=== PATIENT | female | born 1985 | race Caucasian/White ===

== ENCOUNTER 2016-04-29 20:01 | Inpatient (IN) | payer BC ==
[2016-04-29] MEDS ORDERED: RINGERS SOLUTION,LACTATED 300 ML IV ONE (20:15)
[2016-04-29] MEDS ORDERED: DINOPROSTONE 10 MG VAGINAL INSERT.SR PV PRN (20:15)
[2016-04-29] MEDS ORDERED: PROMETHAZINE HCL 25 MG TABLET PO PRN (20:19)
[2016-04-29] MEDS ORDERED: PROMETHAZINE HCL INJ 25 MG/1 ML VIAL IV PRN (20:19)
[2016-04-29] MEDS ORDERED: GLYCERIN/WITCH HAZEL LEAF 1 EACH MED..PAD TP PRN (20:19)
[2016-04-29] MEDS ORDERED: NA PHOS,M-B/NA PHOS,DI-BA (ADULT) 133 ML ENEMA PR PRN (20:19)
[2016-04-29] MEDS ORDERED: MAGNESIUM HYDROXIDE SUSP 30 ML UDCUP PO PRN (20:19)
[2016-04-29] MEDS ORDERED: PROMETHAZINE HCL 25 MG SUPP.RECT PR PRN (20:19)
[2016-04-29] MEDS ORDERED: DIPHENHYDRAMINE HCL 25 MG CAPSULE PO PRN (20:19)
[2016-04-29] MEDS ORDERED: PSEUDOEPHEDRINE HCL 30 MG TABLET PO PRN (20:19)
[2016-04-29] MEDS ORDERED: ACETAMINOPHEN 650 MG SUPP.RECT PR PRN (20:19)
[2016-04-29 20:47] LABS: ABSOLUTE EOSINOPHILS # (AUTO) 0.1 10^3/uL (0.0-0.6); ABSOLUTE LYMPHOCYTES (AUTO) 1.4 10^3/uL (0.5-4.7); ABSOLUTE MONOCYTES (AUTO) 0.8 10^3/uL (0.1-1.4); ABSOLUTE NEUT (AUTO) 8.1 10^3/uL (1.7-8.2); BASOPHILS % (AUTO) 0.3 % (0-2); EOSINOPHILS % (AUTO) 0.8 % (0-6); HEMATOCRIT 32.5 % (36.0-47.0); HEMOGLOBIN 11.1 g/dL (12.0-15.5); HGB HCT DIFFERENCE 0.8; LYMPHOCYTES % (AUTO) 13.6 % (13-45); MEAN CORPUSCULAR HEMOGLOBIN 28.1 pg (27.0-33.4); MEAN CORPUSCULAR HGB CONC 34.1 g/dL (32.0-36.0); MEAN CORPUSCULAR VOLUME 82 fl (80-97); MONOCYTES % (AUTO) 7.6 % (3-13); RED BLOOD COUNT 3.94 10^6/uL (3.72-5.28); RED CELL DISTRIBUTION WIDTH 14.4 % (11.5-14.0); SEGMENTED NEUTROPHILS % (AUTO) 77.7 % (42-78); WHITE BLOOD COUNT 10.4 10^3/uL (4.0-10.5)
[2016-04-29 20:56] LABS: APPEARANCE,URINE SLIGHTLY-CLOUDY; BILIRUBIN,URINE NEGATIVE (NEGATIVE); GLUCOSE, URINE NEGATIVE (NEGATIVE); KETONES,URINE NEGATIVE (NEGATIVE); LEUKOCYTE ESTERASE,URINE NEGATIVE (NEGATIVE); NITRITE,URINE NEGATIVE (NEGATIVE); PROTEIN,URINE NEGATIVE (NEGATIVE); URINE SPECIFIC GRAVITY 1.012; UROBILINOGEN,URINE NEGATIVE mg/dL (<2.0)
[2016-04-29 21:13] LABS: URINE BARBITURATES SCREEN NEGATIVE; URINE METHADONE SCREEN NEGATIVE; URINE PHENCYCLIDINE SCREEN NEGATIVE
[2016-04-29 21:20] LABS: ALANINE AMINOTRANSFERASE 32 U/L (9-52); ALBUMIN 3.1 g/dL (3.5-5.0); ALKALINE PHOSPHATASE 125 U/L (38-126); ANION GAP 11 (5-19); ASPARTATE AMINO TRANSFERASE 17 U/L (14-36); BILIRUBIN,TOTAL 0.3 mg/dL (0.2-1.3); BLOOD UREA NITROGEN 8 mg/dL (7-20); CALCIUM 9.5 mg/dL (8.4-10.2); CARBON DIOXIDE 22 mmol/L (22-30); CHLORIDE 105 mmol/L (98-107); CREATININE RESULT 0.66 mg/dL (0.52-1.25); GLUCOSE 98 mg/dL (75-110); LDH 380 U/L (313-618); POTASSIUM 3.8 mmol/L (3.6-5.0); SODIUM 137.9 mmol/L (137-145); TOTAL PROTEIN 5.8 g/dL (6.3-8.2); URIC ACID 4.5 mg/dL (2.5-6.2)
[2016-04-29] MEDS ORDERED: DINOPROSTONE 10 MG VAGINAL INSERT.SR ONE (21:39)
[2016-04-29] MEDS: RINGERS SOLUTION,LACTATED 1,000 ML IV PRN (21:52)
--- NOTE | 2016-04-30 04:46 | L&D Flow Sheet ---
LD Flowsheet Datetime Report Generated by CPN: 04/30/2016 04:45 Datetime: 04/30/2016 04:42 NBP Sys/Earlene/Mean (mmHg): 136 (QS system process) : 69 (QS system process) : 95 (QS system process) Pulse: 108 (QS system process) LaborFlag: Antepartum (QS system process) Datetime: 04/30/2016 04:12 NBP Sys/Earlene/Mean (mmHg): 137 (QS system process) : 65 (QS system process) : 92 (QS system process) Pulse: 95 (QS system process) LaborFlag: Antepartum (QS system process) Datetime: 04/30/2016 04:00 Uterine Activity Monitor Mode: External; Palpation (Kristel Ledgerwood, RN) Frequency (min): irreg (Kristel Ledgerwood, RN) Quality: Mild (Kristel Ledgerwood, RN) Duration (sec): 60-80 (Kristel Ledgerwood, RN) Duration Criteria: Less than Two 120 Second Contractions (Kristel Ledgerwood, RN) Pattern: Normal: <= 5 Contractions in 10 Minutes (Kristel Ledgerwood, RN) Resting Tone (Palpate): Relaxed (Kristel Ledgerwood, RN) Assessment A Monitor Mode: External US (Kristel Ledgerwood, RN) FHR Baseline Rate : 120 (Kristel Ledgerwood, RN) FHR Baseline Changes: No Baseline Change (Kristel Ledgerwood, RN) Variability: Moderate 6-25 bpm (Kristel Ledgerwood, RN) Accelerations: 15X15 (Kristel Ledgerwood, RN) Decelerations: None (Kristel Ledgerwood, RN) Datetime: 04/30/2016 03:43 NBP Sys/Earlene/Mean (mmHg): 138 (QS system process) : 77 (QS system process) : 101 (QS system process) Pulse: 93 (QS system process) Respirations: 15 (Kristel Ledgerwood, RN) LaborFlag: Antepartum (QS system process) Datetime: 04/30/2016 03:30 Uterine Activity Monitor Mode: External; Palpation (Kristel Ledgerwood, RN) Frequency (min): irreg (Kristel Ledgerwood, RN) Quality: Mild (Kristel Ledgerwood, RN) Duration (sec): 60-80 (Kristel Ledgerwood, RN) Duration Criteria: Less than Two 120 Second Contractions (Rkistel Ledgerwood, RN) Pattern: Normal: <= 5 Contractions in 10 Minutes (Kristel Ledgerwood, RN) Resting Tone (Palpate): Relaxed (Kristel Ledgerwood, RN) Assessment A Monitor Mode: External US (Kristel Ledgerwood, RN) FHR Baseline Rate : 120 (Kristel Ledgerwood, RN) FHR Baseline Changes: No Baseline Change (Kristel Ledgerwood, RN) Variability: Moderate 6-25 bpm (Kristel Ledgerwood, RN) Accelerations: 15X15 (Kristel Ledgerwood, RN) Decelerations: None (Kristel Ledgerwood, RN) Datetime: 04/30/2016 03:23 NBP Sys/Earlene/Mean (mmHg): 156 (QS system process) : 72 (QS system process) : 104 (QS system process) Pulse: 91 (QS system process) LaborFlag: Antepartum (QS system process) Datetime: 04/30/2016 03:13 NBP Sys/Earlene/Mean (mmHg): 164 (QS system process) : 75 (QS system process) : 108 (QS system process) Pulse: 93 (QS system process) LaborFlag: Antepartum (QS system process) Datetime: 04/30/2016 03:05 Communication Communication: Provider at Bedside (Kristel Rodrigez, RN) Communication Comments: Valdemar at bedside. Due to inability to constantly monitoring FHRs, Dr Aldrich unsuccessfully attempted to place an FSE.Dr Aldrich is aware of monitoring difficulties. (Kristelbassem Vaughnwood, RN) Datetime: 04/30/2016 03:00 Uterine Activity Monitor Mode: External; Palpation (Kristel Ledgerwood, RN) Frequency (min): none (Kristel Ledgerwood, RN) Resting Tone (Palpate): Relaxed (Kristel Analygerwood, RN) Assessment A Monitor Mode: External US (Kristel Ledgerwood, RN) FHR Baseline Rate : 120 (Kristel Ledgerwood, RN) FHR Baseline Changes: No Baseline Change (Kristel Ledgerwood, RN) Variability: Moderate 6-25 bpm (Kristel Ledgerwood, RN) Accelerations: None (Kristel Ledgerwood, RN) Decelerations: None (Kristel Ledgerwood, RN) Datetime: 04/30/2016 02:42 NBP Sys/Earlene/Mean (mmHg): 118 (QS system process) : 60 (QS system process) : 83 (QS system process) Pulse: 87 (QS system process) LaborFlag: Antepartum (QS system process) Datetime: 04/30/2016 02:30 Uterine Activity Monitor Mode: External; Palpation (Kristel Ledgerwood, RN) Frequency (min): none (Kristel Ledgerwood, RN) Resting Tone (Palpate): Relaxed (Kristel Ledgerwood, RN) Assessment A Monitor Mode: External US (Kristel Ledgerwood, RN) FHR Baseline Rate : 130 (Kristel Ledgerwood, RN) FHR Baseline Changes: No Baseline Change (Kristel Ledgerwood, RN) Variability: Moderate 6-25 bpm (Kristel Ledgerwood, RN) Accelerations: None (Kristel Ledgerwood, RN) Decelerations: None (Kristel Ledgerwood, RN) Datetime: 04/30/2016 02:12 NBP Sys/Earlene/Mean (mmHg): 121 (QS system process) : 67 (QS system process) : 86 (QS system process) Pulse: 72 (QS system process) LaborFlag: Antepartum (QS system process) Datetime: 04/30/2016 02:00 Uterine Activity Monitor Mode: External; Palpation (Kristel Rodrigez RN) Frequency (min): irreg (Kristel Rodrigez RN) Quality: Mild (Kristel Rodrigez, RN) Duration (sec): 60-80 (Kristel Rodrigez RN) Duration Criteria: Less than Two 120 Second Contractions (Kristel Rodrigez RN) Pattern: Normal: <= 5 Contractions in 10 Minutes (Kristel Ledgerwood, RN) Resting Tone (Palpate): Relaxed (Kristel Ledgerwood, RN) Assessment A Monitor Mode: External US (Kristel Ledgerwood, RN) FHR Baseline Rate : 135 (Kristel Ledgerwood, RN) FHR Baseline Changes: No Baseline Change (Kristel Ledgerwood, RN) Variability: Moderate 6-25 bpm (Kristel Ledgerwood, RN) Accelerations: 10X10 (Kristel Ledgerwood, RN) Decelerations: None (Kristel Ledgerwood, RN) Datetime: 04/30/2016 01:42 NBP Sys/Earlene/Mean (mmHg): 144 (QS system process) : 65 (QS system process) : 93 (QS system process) Pulse: 95 (QS system process) LaborFlag: Antepartum (QS system process) Datetime: 04/30/2016 01:30 Uterine Activity Monitor Mode: External; Palpation (Kristel Ledgerwood, RN) Frequency (min): irreg (Kristel Ledgerwood, RN) Quality: Mild (Kristel Ledgerwood, RN) Duration (sec): 60-80 (Kristel Ledgerwood, RN) Duration Criteria: Less than Two 120 Second Contractions (Kristel Ledgerwood, RN) Pattern: Normal: <= 5 Contractions in 10 Minutes (Kristel Ledgerwood, RN) Resting Tone (Palpate): Relaxed (Kristel Ledgerwood, RN) Assessment A Monitor Mode: External US (Kristel Ledgerwood, RN) FHR Baseline Rate : 135 (Kristel Ledgerwood, RN) FHR Baseline Changes: No Baseline Change (Kristel Ledgerwood, RN) Variability: Moderate 6-25 bpm (Kristel Ledgerwood, RN) Accelerations: 10X10 (Kristel Ledgerwood, RN) Decelerations: Early (Kristel Ledgerwood, RN) Datetime: 04/30/2016 01:22 Communication Comments: Dr Aldrich on the unit. MD reviewed the strip, RN noted on the difficulty to keep the baby on the monitor (Kristelbassem Beckfordgerwood, RN) Datetime: 04/30/2016 01:13 NBP Sys/Earlene/Mean (mmHg): 123 (QS system process) : 60 (QS system process) : 86 (QS system process) Pulse: 81 (QS system process) LaborFlag: Antepartum (QS system process) Datetime: 04/30/2016 01:00 Uterine Activity Monitor Mode: External; Palpation (Kristel Ledgerwood, RN) Frequency (min): irreg (Kristel Ledgerwood, RN) Quality: Mild (Kristel Ledgerwood, RN) Duration (sec): 50-80 (Kristel Ledgerwood, RN) Duration Criteria: Less than Two 120 Second Contractions (Kristel Ledgerwood, RN) Pattern: Normal: <= 5 Contractions in 10 Minutes (Kristel Ledgerwood, RN) Resting Tone (Palpate): Relaxed (Kristel Ledgerwood, RN) Assessment A Monitor Mode: External US (Kristel Ledgerwood, RN) FHR Baseline Rate : 135 (Kristel Ledgerwood, RN) FHR Baseline Changes: No Baseline Change (Kristel Ledgerwood, RN) Variability: Moderate 6-25 bpm (Kristel Ledgerwood, RN) Accelerations: 10X10 (Kristel Ledgerwood, RN) Decelerations: None (Kristel Ledgerwood, RN) Datetime: 04/30/2016 00:42 NBP Sys/Earlene/Mean (mmHg): 120 (QS system process) : 56 (QS system process) : 80 (QS system process) Pulse: 72 (QS system process) LaborFlag: Antepartum (QS system process) Datetime: 04/30/2016 00:30 Uterine Activity Monitor Mode: External; Palpation (Kristel Ledgerwood, RN) Frequency (min): irreg (Kristel Ledgerwood, RN) Quality: Mild (Kristel Ledgerwood, RN) Duration (sec): 60-70 (Kristel Ledgerwood, RN) Duration Criteria: Less than Two 120 Second Contractions (Kristel Ledgerwood, RN) Pattern: Normal: <= 5 Contractions in 10 Minutes (Kristel Ledgerwood, RN) Resting Tone (Palpate): Non Relaxed (Kristel Ledgerwood, RN) Monitor Interventions for FHR: Ultrasound Adjusted (Kristel Beckfordgerclyde, RN) Datetime: 04/30/2016 00:14 NBP Sys/Earlene/Mean (mmHg): 152 (QS system process) : 88 (QS system process) : 108 (QS system process) Pulse: 102 (QS system process) LaborFlag: Antepartum (QS system process) Datetime: 04/30/2016 00:00 Uterine Activity Monitor Mode: External; Palpation (Kristel Ledgerwood, RN) Frequency (min): irreg (Kristel Ledgerwood, RN) Quality: Mild (Kristel Ledgerwood, RN) Duration (sec): 50-70 (Kristel Ledgerwood, RN) Duration Criteria: Less than Two 120 Second Contractions (Kristel Ledgerwood, RN) Pattern: Normal: <= 5 Contractions in 10 Minutes (Kristel Ledgerwood, RN) Resting Tone (Palpate): Relaxed (Kristel Ledgerwood, RN) Assessment A Monitor Mode: External US (Kristel Ledgerwood, RN) FHR Baseline Rate : 135 (Kristel Ledgerwood, RN) FHR Baseline Changes: No Baseline Change (Kristel Ledgerwood, RN) Variability: Moderate 6-25 bpm (Kristel Ledgerwood, RN) Accelerations: 10X10 (Kristel Ledgerwood, RN) Decelerations: None (Kristel Ledgerwood, RN) Datetime: 04/29/2016 23:42 NBP Sys/Earlene/Mean (mmHg): 134 (QS system process) : 71 (QS system process) : 96 (QS system process) Pulse: 93 (QS system process) LaborFlag: Antepartum (QS system process) Datetime: 04/29/2016 23:30 Uterine Activity Monitor Mode: External; Palpation (Kristel Rodrigez, RN) Frequency (min): 4 (Kristel Rodrigez, RN) Quality: Mild (Kristel Elia, RN) Duration (sec): 70-90 (Kristel Analygerclyde, RN) Duration Criteria: Less than Two 120 Second Contractions (Kristel Johanawood, RN) Pattern: Normal: <= 5 Contractions in 10 Minutes (Kristelbassem Rodrigez, RN) Resting Tone (Palpate): Relaxed (Kristel Ledgerwood, RN) Assessment A Monitor Mode: External US (Kristel Ledgerwood, RN) FHR Baseline Rate : 130 (Kristel Ledgerwood, RN) FHR Baseline Changes: No Baseline Change (Kristel Ledgerwood, RN) Variability: Moderate 6-25 bpm (Kristel Ledgerwood, RN) Accelerations: 15X15 (Kristel Ledgerwood, RN) Decelerations: None (Kristel Ledgerwood, RN) Datetime: 04/29/2016 23:12 NBP Sys/Earlene/Mean (mmHg): 144 (QS system process) : 65 (QS system process) : 94 (QS system process) Pulse: 99 (QS system process) LaborFlag: Antepartum (QS system process) Datetime: 04/29/2016 23:00 Uterine Activity Monitor Mode: External; Palpation (Kristel Ledgerwood, RN) Frequency (min): irreg (Kristel Ledgerwood, RN) Quality: Mild (Kristel Ledgerwood, RN) Duration (sec): 60-90 (Kristel Ledgerwood, RN) Duration Criteria: Less than Two 120 Second Contractions (Kristel Ledgerwood, RN) Pattern: Normal: <= 5 Contractions in 10 Minutes (Kristel Ledgerwood, RN) Resting Tone (Palpate): Relaxed (Kristel Ledgerwood, RN) Assessment A Monitor Mode: External US (Kristel Ledgerwood, RN) FHR Baseline Rate : 120 (Kristel Ledgerwood, RN) FHR Baseline Changes: No Baseline Change (Kristel Ledgerwood, RN) Variability: Moderate 6-25 bpm (Kristel Ledgerwood, RN) Accelerations: 15X15 (Kristel Ledgerwood, RN) Decelerations: None (Kristel Ledgerwood, RN) Datetime: 04/29/2016 22:44 Patient Care IV/Blood Work: IV Started (Kristel Ledgerwood, RN) Patient Care Comments: IV restarted due to uncomfortable feeling of the first IV for the pt. 18 G Right Hand by O Ledgerwood RN (Kristel Ledgerwood, RN) Datetime: 04/29/2016 22:30 Uterine Activity Monitor Mode: External; Palpation (Kristel Ledgerwood, RN) Frequency (min): none (Kristel Ledgerwood, RN) Resting Tone (Palpate): Relaxed (Kristel Ledgerwood, RN) Assessment A Monitor Mode: External US (Kristel Ledgerwood, RN) FHR Baseline Rate : 130 (Kristel Ledgerwood, RN) FHR Baseline Changes: No Baseline Change (Kristel Ledgerwood, RN) Variability: Moderate 6-25 bpm (Kristel Ledgerwood, RN) Accelerations: 15X15 (Kristel Ledgerwood, RN) Decelerations: None (Kristel Ledgerwood, RN) Datetime: 04/29/2016 22:12 NBP Sys/Earlene/Mean (mmHg): 139 (QS system process) : 70 (QS system process) : 97 (QS system process) Pulse: 100 (QS system process) LaborFlag: Antepartum (QS system process) Datetime: 04/29/2016 22:00 Uterine Activity Monitor Mode: External; Palpation (Kristel Ledgerwood, RN) Frequency (min): none (Kristel Ledgerwood, RN) Resting Tone (Palpate): Relaxed (Kristel Ledgerwood, RN) Assessment A Monitor Mode: External US (Kristel Ledgerwood, RN) FHR Baseline Rate : 125 (Kristel Ledgerwood, RN) FHR Baseline Changes: No Baseline Change (Kristel Ledgerwood, RN) Variability: Moderate 6-25 bpm (Kristel Ledgerwood, RN) Accelerations: 15X15 (Kristel Ledgerwood, RN) Decelerations: None (Kristel Ledgerwood, RN) Datetime: 04/29/2016 21:55 Medications Cervical Ripening Agents: Cervidil (Kristel Ledgerwood, RN) Datetime: 04/29/2016 21:47 I/O Interventions: Up to BR (Kristel Ledgerwood, RN) Communication Communication: RN at Bedside (Kristel Ledgerwood, RN) Datetime: 04/29/2016 21:42 NBP Sys/Earlene/Mean (mmHg): 132 (QS system process) : 80 (QS system process) : 99 (QS system process) Pulse: 98 (QS system process) Respirations: 14 (Kristel Ledgerwood, RN) LaborFlag: Antepartum (QS system process) Datetime: 04/29/2016 21:32 Patient Care IV/Blood Work: IV Started; New IV Bag Hung (Kristel Ledgerwood, RN) Patient Care Comments: 18 G left hand by O Ledgerwood RN (Kristel Ledgerwood, RN) Datetime: 04/29/2016 21:30 Uterine Activity Monitor Mode: External; Palpation (Kristel Ledgerwood, RN) Frequency (min): none (Kristel Ledgerwood, RN) Resting Tone (Palpate): Relaxed (Kristel Ledgerwood, RN) Assessment A Monitor Mode: External US (Kristel Ledgerwood, RN) FHR Baseline Rate : 120 (Kristel Ledgerwood, RN) FHR Baseline Changes: No Baseline Change (Kristel Ledgerwood, RN) Variability: Moderate 6-25 bpm (Kristel Ledgerwood, RN) Accelerations: 15X15 (Kristel Ledgerwood, RN) Decelerations: None (Kristel Ledgerwood, RN) Datetime: 04/29/2016 21:11 Pulse: 103 (QS system process) SpO2 (%): 96 (QS system process) LaborFlag: Antepartum (QS system process) Datetime: 04/29/2016 21:00 Uterine Activity Monitor Mode: External; Palpation ([facility]) Frequency (min): none ([facility], ) Resting Tone (Palpate): Relaxed ([facility], ) Contraction Comments: pt reports of no feeling of contractions. Abdoment is soft upon the palpation. ([facility], ) Assessment A Monitor Mode: External US ([facility], ) FHR Baseline Rate : 125 ([facility], ) FHR Baseline Changes: No Baseline Change ([facility], ) Variability: Moderate 6-25 bpm (Kristel Ledgerwood, RN) Accelerations: 15X15 (Kristel Ledgerwood, RN) Decelerations: None (Kristel Ledgerwood, RN) Datetime: 04/29/2016 20:42 NBP Sys/Earlene/Mean (mmHg): 141 (QS system process) : 83 (QS system process) : 104 (QS system process) Pulse: 105 (QS system process) LaborFlag: Antepartum (QS system process) Datetime: 04/29/2016 20:40 Pain Pain Scale: 0 (Kristel Ledgerwood, RN) Pain Presence: None/Denies (Kristel Ledgerwood, RN) Vaginal Bleeding: None (Kristel Ledgerwood, RN) Maternal Assessment Level of Consciousness: Fully Conscious (Kristel Ledgerwood, RN) DTR's/Clonus: DTRs 2+; No Clonus (Kristel Ledgerwood, RN) Headache: Denies (Kristel Ledgerwood, RN) Breath Sounds, Left: Clear and Equal (Kristel Ledgerwood, RN) Breath Sounds, Right: Clear and Equal (Kristel Ledgerwood, RN) Nausea/Vomiting: Denies (Kristel Ledgerwood, RN) RUQ Epigastric Pain: Denies (Kristel Ledgerwood, RN) Teaching Instructional Method: Demo; Verbal; Patient Instructed (Kristel Rodrigez RN) Plan of Care: Plan of Care Discussed; Induction (Kristel Rodrigez RN) Unit Routine: Lyle to Room; Call [facility]; Bed; Handwashing; Monitoring; Safety/Fall Risk Prevention (Kristel Rodrigez RN) LaborFlag: Antepartum (QS system process) Datetime: 04/29/2016 20:39 Patient Position/Activity: Right Tilt (Kristel Ledgerwood, RN) Datetime: 04/29/2016 20:30 Monitor Interventions for UA: [place] Adjusted (Kristel Ledgerwood, RN) Monitor Interventions for FHR: Ultrasound Adjusted (Kristel Ledgerwood, RN) Communication Communication: RN at Bedside (Kristel Ledgerwood, RN) Datetime: 04/29/2016 20:23 Monitor Interventions for UA: [place] Adjusted (Kristel Ledgerwood, RN) Monitor Interventions for FHR: Ultrasound Adjusted (Kristel Ledgerwood, RN) Datetime: 04/29/2016 20:22 Vaginal Exam Dilatation (cm): 1.5 (Kristel Ledgerwood, RN) Effacement (%): 60 (Kristel Ledgerwood, RN) Station: -2 (Kristel Analygerwood, RN) Exam by: Alvarez Rodrigez RN (Kristel Beckfordgerwood, RN) Patient Position/Activity: Left Tilt (Kristel Johanawood, RN) Datetime: 04/29/2016 20:05 Vital Signs Stage of : Antepartum (Kristel Vaughnwood, RN)
--- NOTE | 2016-04-30 04:46 | L&D Current Admission ---
Current Admit Datetime Report Generated by CPN: 04/30/2016 04:45 ADMISSION INFORMATION Current Admit Date/Time: 04/29/2016 23:32 (04/29/2016 23:27:Kristel Rodrigez RN) Reason for Admission: Induction of Labor (04/29/2016 23:27:Kristel Rodrigez RN) Chief Complaint: Scheduled Induction of Labor (04/29/2016 20:40:Kristel Rodrigez RN) EGA per Dates: 39.0 (04/29/2016 23:27:QS system process) Method of Arrival: Ambulatory (04/29/2016 23:27:Kristel Rodrigez RN) Admitted From: Home (04/29/2016 23:27:Kristel Rodrigez RN) Reason for Induction: Gestational Hypertension (04/29/2016 23:27:Kristel Rodrigez RN) Records Available: Yes (04/29/2016 23:27:Kristel Rodrigez RN) General Admission Information: Reviewed (04/29/2016 23:27:Kristel Rodrigez RN) BELONGINGS/ADVANCED DIRECTIVES Valuables/Personal Effects: None (04/29/2016 23:27:Kristel Rodrigez RN) Other Belongings: see belongings consents (04/29/2016 23:27:Kristel Rodrigez RN) Disposition of Belongings: Kept with Patient (04/29/2016 23:27:Kristel Rodrigez RN) Advance Direct for Healthcare: No, and Wants No Information (04/29/2016 23:27:Kristel Rodrigez RN) Durable Power of Coal Pipeline Operator: No (04/29/2016 23:27:Kristel Rodrigez RN) Living Will: No (04/29/2016 23:27:Kristel Rodrigez RN) Organ Donor: Yes (04/29/2016 23:27:Kristel Rodrigez RN) Pt Rights Information Given: Yes (04/29/2016 23:27:Kristel Rodrigez RN) Pt Understands Pt Rights: Yes (04/29/2016 23:27:Kristel Rodrigez RN) LEARNING ASSESSMENT Knowledge Level: Understands L_D Process; Understands Care Activities; Had Pre-Hospital Education; Understands Diagnosis (04/29/2016 23:27:Kristel Rodrigez RN) Barriers to Learning: None (04/29/2016 23:27:Kristel Rodrigez RN) Learning Readiness: Motivated (04/29/2016 23:27:Kristel Rodrigez RN) Learns Best By: 1 to 1 Instruction (04/29/2016 23:27:Kristel Rodrigez RN) Learning Needs: Labor and Delivery Process; Pain Management; Symptoms to Report; Treatment Plan; Medication; Diagnosis; Nutrition; Equipment; Infant Care; Community Resources (04/29/2016 23:27:Kristel Rodrigez RN) DOMESTIC VIOLANCE SCREENING Dom Viol Threatened/Hurt: No (04/29/2016 23:27:Kristel Rodrigez RN) Hx of Abuse/Neglect past 2yrs: No (04/29/2016 23:27:Kristel Rodrigez RN) Feel Unsafe Going Home: No (04/29/2016 23:27:Kristel Rodrigez RN) Addt'l Observ Indicating Abuse: No (04/29/2016 23:27:Kristel Rodrigez RN) Reason Unable to Complete Screen: N/A, Screen Completed (04/29/2016 23:27:Kristel Rodrigez RN) Considered Personal Harm/Suicide: No (04/29/2016 23:27:Kristel Rodrigez RN) NUTRITIONAL/FUNCTIONAL SCREENING Problem with Appetite >5 Days: No (04/29/2016 23:27:Kristel Rodrigez RN) Chew/Swallow Difficulties: No (04/29/2016 23:27:Kristel Rodrigez RN) Inappropriate Wt Gain/Loss: No (04/29/2016 23:27:Kristel Rodrigez RN) Presence Skin Breakdown/Ulcer: No (04/29/2016 23:27:Kristel Rodrigez RN) Special Diet: No (04/29/2016 23:27:Kristel Rodrigez RN) Pt Requests Sanitation Truck Driver Visit: No (04/29/2016 23:27:Kristel Rodrigez RN) Hx of Any of the Following?: N/A (04/29/2016 23:27:Kristel Rodrigez RN) New Diagnosis of: N/A (04/29/2016 23:27:Kristel Rodrigez RN) Requires Assist w/Ambulation: No (04/29/2016 23:27:Kristel Rodrigez RN) Uses Assist Device to Ambulate: No (04/29/2016 23:27:Kristel Rodrigez RN) Pt Requires Help w/ADL's: No (04/29/2016 23:27:Kristel Rodrigez RN)
--- NOTE | 2016-04-30 04:46 | L&D General Admission ---
General Admit Datetime Report Generated by CPN: 04/30/2016 04:45 INFORMATION Patient Age: 30 (03/07/2016 13:07:QS system process) EDC: 05/06/2016 00:00 (03/18/2016 14:37:LORETTA Faye) : 1 (03/18/2016 14:37:LORETTA Dye) Para: 0 (03/21/2016 13:20:Blessing Abbott RN) Para: 0 (03/18/2016 15:05:Al Samson RN) Term: 0 (03/18/2016 14:37:LORETTA Dye) : 0 (03/18/2016 14:37:LORETTA Dye) Spontaneous Abortions: 0 (03/18/2016 14:37:LORETTA Dye) Induced Abortions: 0 (03/18/2016 14:37:LORETTA Dye) Livin (03/18/2016 14:37:LORETTA Dye) Cesareans: 0 (03/18/2016 14:37:Thi Linares [facility]) VBACs: 0 (03/18/2016 14:37:Thi Linares [facility]) Ectopic: 0 (03/18/2016 14:37:Thi Linares [facility]) Multiple Births: 0 (03/18/2016 14:37:Thi Linares [facility]) Baby, Number in Womb: 1 (03/21/2016 13:20:Blessing Abbott RN) Baby, Number in Womb: 1 (03/18/2016 15:05:Al Samson RN) CARE Primary Film Mask[facility] (03/18/2016 14:37:Thi Linares [facility]) Month of 1st Visit: September (03/18/2016 14:37:Thi Linares [facility]) Adequate Care: Yes (03/18/2016 14:37:Thi Linares [facility]) Height (in): 63 (04/29/2016 22:20:QS system process) Height (in): 63 (03/21/2016 13:08:QS system process) Height (in): 63 (03/18/2016 15:14:QS system process) ALLERGIES Medication Allergy: No (03/18/2016 14:37:Thi Camp, RNC) Medication Allergies: No Known Allergies (03/21/2016) (03/21/2016 13:08:QS system process) Medication Allergies: No Known Allergies (03/18/2016) (03/18/2016 15:14:QS system process) Latex Allergy: No Latex Allergies (03/18/2016 14:37:Thi Camp, RNC) COMMUNICATION Primary Language: Belgian (03/18/2016 14:37:Thi Camp, RNC) Medical Tx Preferred Language: Belgian (03/18/2016 14:37:Thi Camp, RNC) Communication Barrier(s): None (03/18/2016 14:37:Thi Camp, RNC) DEMOGRAPHICS Address: [address] [place] [address] (03/07/2016 13:07:QS system process) Zipcode: [address] (03/07/2016 13:07:QS system process) Home (03/07/2016 13:07:QS system process) Work (03/07/2016 13:07:QS system process) SSN: [id number] (03/07/2016 13:07:QS system process) Next of Kin Name: SUAD BUCHANAN (03/07/2016 13:07:QS system process) Next of Kin (03/07/2016 13:07:QS system process) Next of Kin Relationship: SPO (03/07/2016 13:07:QS system process) Date of : 1985 (03/07/2016 13:07:QS system process) Marital Status: (03/07/2016 13:07:QS system process) Sex: Female (03/07/2016 13:07:QS system process) 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 [id number] (03/18/2016 14:37:Kristel Rodrigez RN) Marijuana: No (03/18/2016 14:37:Kristel Rodrigez RN) Cocaine: No (03/18/2016 14:37:Kristel Rodrigez RN) Other Illicit Drugs: No (03/18/2016 14:37:Kristel Rodrigez RN) VACCINE HISTORY Influenza Vaccine: Yes (03/18/2016 14:37:Thi Camp, [facility]) Influenza Date: 01-29-2016 (03/18/2016 14:37:Thi Camp, [facility]) Tetanus Vaccine: Yes (03/18/2016 14:37:Thi Camp, [facility]) Tetanus Date: 02-12-2016 (03/18/2016 14:37:Thi Camp, [facility]) Tdap Vaccine: Yes (03/18/2016 14:37:Thi Camp, [facility]) Tdap Date: 02-12-2016 (03/18/2016 14:37:Thi Camp, [facility]) 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: [facility] (03/18/2016 14:37:Kristel Rodrigez RN) Feeding Preference: Breast (03/18/2016 14:37:Kristel Rodrigez RN) Benefit of Breast Feed Discussed: Yes (03/18/2016 14:37:Kristel Rodrigez RN) Circumcision: Yes (03/18/2016 14:37:Kristel Rodrigez RN) Classes Attended: Yes (03/18/2016 14:37:Kristel Rodrigez RN) Tubal Ligation: No (03/18/2016 14:37:LORETTA Dye) Tubal Authorization Signed: N/A (03/18/2016 14:37:LORETTA Dye) Consent: N/A (03/18/2016 14:37:LORETTA Dye) Consent Signed: N/A (03/18/2016 14:37:LORETTA Dye) Pain Management Plans: Natural (03/18/2016 14:37:Kristel Rodrigez RN) Plans for Labor and Delivery: None (03/18/2016 14:37:Kristel Rodrigez RN) Support Person: Suad Buchanan (03/18/2016 14:37:LORETTA Dye) Support Person Relationship: (03/18/2016 14:37:LORETTA Dye) Cultural/Spritual Practice: No (03/18/2016 14:37:Kristel Rodrigez RN) Spir/Cult Dietary Needs: No (03/18/2016 14:37:Kristel Rodrigez RN) LIVING SITUATION/DISCHARGE PLAN Living Arrangements: House (03/18/2016 14:37:Kristel Rodrigez RN) Adequate Access to:: Electric; Heat; Refrigeration; Plumbing/Running water; Phone; Transportation (03/18/2016 14:37:Kristel Rodrigez RN) WIC Program: No (03/18/2016 14:37:Kristel Rodrigez RN) Discharge Insurance And Financial Services Agent Person: Suad (03/18/2016 14:37:Kristel Rodrigez RN) Person to Help after Discharge: Suad (03/18/2016 14:37:Kristel Rodrigez RN) Currently Using Commun Resources: No (03/18/2016 14:37:Kristel Rodrigez RN) Outside Agency/Registered Midwife: No (03/18/2016 14:37:Kristel Rodrigez RN) Car Seat for Discharge: Yes (03/18/2016 14:37:Kristel Rodrigez RN) Adoption Requested: No (03/18/2016 14:37:Kristel Rodrigez RN) Pt Contact w/infant Post : N/A (03/18/2016 14:37:Kristel Rodrigez RN) LABS Blood Type: A Positive (03/18/2016 14:37:Al Samson RN) Antibody Screen: Negative (03/18/2016 14:37:Al Samson RN) Jabier(G) this : Not Applicable (03/18/2016 14:37:Lorna Corbett RN) Hemoglobin: 11.1 L (04/29/2016 20:33:QS system process) Hematocrit: 32.5 L (04/29/2016 20:33:QS system process) MCV: 82 (04/29/2016 20:33:QS system process) Group Beta Strep: Negative (04/08/2016 09:05:Lorna Corbett RN) Gonorrhea: Negative (03/18/2016 14:37:LORETTA Dye) Chlamydia: Negative (03/18/2016 14:37:LORETTA Dye) RPR/VDRL: Nonreactive (03/18/2016 14:37:Al Samson RN) HIV Exposure Test: Negative (03/18/2016 14:37:Al Samson RN) Hepatitis B: Negative (03/18/2016 14:37:LORETTA Dye) Rubella: Immune (03/18/2016 14:37:Al Samson RN) OB/PREVIOUS HISTORY Previous Procedures: None (03/18/2016 14:37:LORETTA Dye) 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; TOOLMAN (03/18/2016 14:37:LORETTA Dye) History of Previous : No (03/18/2016 14:37:Kristel Rodrigez RN) History of Gestational Diabetes: No (03/18/2016 14:37:Kristel Rodrigez RN) History of PIH: Yes (03/18/2016 14:37:LORETTA Dye) History of Incompetent Cervix: No (03/18/2016 14:37:Kristel Rodrigez RN) History of Placenta Previa/Abrup: No (03/18/2016 14:37:Kristel Rodrigez RN) History of Macrosomia: No (03/18/2016 14:37:Kristel Rodrigez RN) History of IUGR: No (03/18/2016 14:37:Kristel Rodrigez RN) History of Hemorrhage: No (03/18/2016 14:37:Kristel Rodrigez RN) History of Loss/Stillborn: No (03/18/2016 14:37:Kristel Rodrigez RN) History of : No (03/18/2016 14:37:Kristel Rodrigez RN) History of D (Rh) Sensitization: No (03/18/2016 14:37:Kristel Rodrigez RN) History Recurrent Loss/Stillborn: No (03/18/2016 14:37:Kristel Rodrigez RN) History Depression/PP Depression: No (03/18/2016 14:37:Kristel Rodrigez RN) History of Uterine Anomaly/PEACE: No (03/18/2016 14:37:Kristel Rodrigez RN) History of Infertility: No (03/18/2016 14:37:Kristel Rodrigez RN) History of ART Treatment: No (03/18/2016 14:37:Kristel Rodrigez RN) History of PEACE: No (03/18/2016 14:37:Kristel Rodrigez RN) Comments Obstetrical History: G-1 CHTN, PCOS, maternal obesity (03/18/2016 14:37:LORETTA Dye) MEDICAL HISTORY Med Hx Diabetes: No (03/18/2016 14:37:Kristel Rodrigez RN) Med Hx Hypertension: Yes (03/18/2016 14:37:LORETTA Dye) Med Hx Heart Disease: No (03/18/2016 14:37:Kristel Rodrigez RN) Med Hx Autoimmune Disorder: No (03/18/2016 14:37:Kristel Rodrigez RN) Med Hx Kidney Disease/UTI: No (03/18/2016 14:37:rKistel Rodrigez RN) Med Hx Neurologic/Epilepsy: No (03/18/2016 14:37:Kristel Rodrigez RN) Med Hx Psychiatric Disorders: No (03/18/2016 14:37:Kristel Rodrigez RN) Med Hx Hepatitis/Liver Disease: No (03/18/2016 14:37:Kristel Rodrigez RN) Med Hx Varicosities/Phlebitis: No (03/18/2016 14:37:Kristel Rodrigez RN) Med Hx Thyroid Dysfunction: No (03/18/2016 14:37:Kristel Rodrigez RN) Med Hx Trauma/Violence: No (03/18/2016 14:37:Kristel Rodrigez RN) Med Hx Blood Transfusion: No (03/18/2016 14:37:Kristel Rodrigez RN) Med Hx Pulmonary (Asthma,TB): No (03/18/2016 14:37:Kristel Rodrigez RN) Med Hx Breast: No (03/18/2016 14:37:Kristel Rodrigez RN) Med Hx FRAME EXPANDER Surgery: No (03/18/2016 14:37:Kristel Rodrigez RN) Med Hx Hospitalization/Surgery: No (03/18/2016 14:37:Kristel Rodrigez RN) Med Hx Anesthetic Complications: No (03/18/2016 14:37:Kristel Rodrigez RN) Med Hx Abnormal Pap Smear: Yes (03/18/2016 14:37:LORETTA Dye) Other Medical Diseases: No (03/18/2016 14:37:Kristel Rodrigez RN) Med Hx Significant Family Hx: No (03/18/2016 14:37:Kristel Rodrigez RN) Details of Med/Surg Hx: CHTN on [place], PCOS on Metformin, H/O abnormal pap 2013 normal pap 2015 (03/18/2016 14:37:LORETTA Dye) INFECTIOUS HISTORY Inf Hx Gonorrhea: No (03/18/2016 14:37:Kristel Rodrigez RN) Inf Hx Chlamydia: No (03/18/2016 14:37:Kristel Rodrigez RN) Inf Hx Syphilis: No (03/18/2016 14:37:Kristel Rodrigez RN) Inf Hx HIV/AIDS: No (03/18/2016 14:37:Kristel Rodrigez RN) Inf Hx Human Papilloma Virus: No (03/18/2016 14:37:Kristel Rodrigez RN) Inf Hx Pt/Partner Genital Herpes: No (03/18/2016 14:37:Krsitel Rodrigez RN) Inf Hx Tuberculosis/Exposure: No (03/18/2016 14:37:Kristel Rodrigez RN) Inf Hx Hepatitis B,C: No (03/18/2016 14:37:Kristel Rodrigez RN) Inf Hx Rash or Viral Illness: No (03/18/2016 14:37:Kristel Rodrigez RN) GENETIC HISTORY Gen Hx Age >=35 at JENNIFER: No (03/18/2016 14:37:Kristel Rodrigez RN) Gen Hx Thalassemia: No (03/18/2016 14:37:Kristel Rodrigez RN) Gen Hx Congenital Heart Defect: No (03/18/2016 14:37:Kristel Rodrigez RN) Gen Hx Neural Tube Defect: No (03/18/2016 14:37:Kristel Rodrigez RN) Gen Hx Down's Syndrome: No (03/18/2016 14:37:Kristel Rodrigez RN) Gen Hx Dionicio-Sachs: No (03/18/2016 14:37:Kristel Rodrigez RN) Gen Hx Johnna: No (03/18/2016 14:37:Kristel Rodrigez RN) Gen Hx Familial Dysautonomia: No (03/18/2016 14:37:Kristel Rodrigez RN) Gen Hx Hemophilia/Blood Disorder: No (03/18/2016 14:37:Kristel Rodrigez RN) Gen Hx Muscular Dystrophy: No (03/18/2016 14:37:Kristel Rodrigez RN) Gen Hx Cystic Fibrosis: No (03/18/2016 14:37:Kristel Rodrigez RN) Gen Hx Huntingtons Chorea: No (03/18/2016 14:37:Kristel Rodrigez RN) Gen Hx Mental Retardation/Autism: No (03/18/2016 14:37:Kristel Rodrigez RN) Gen Hx Tested for Fragile X: No (03/18/2016 14:37:Kristel Rodrigez RN) Gen Hx Other Inher/Chromosomal: No (03/18/2016 14:37:Kristel Rodrigez RN) Gen Hx Maternal Metabolic DO: No (03/18/2016 14:37:Kristel Rodrigez RN) Gen Hx Pt Father or FOB Defect: No (03/18/2016 14:37:Kristel Rodrigez RN) Gen Hx Other Genetic History: No (03/18/2016 14:37:Kristel Rodrigez RN) Gen Hx Drugs/Meds since LMP: No (03/18/2016 14:37:Kristel Rodrigez RN)
--- NOTE | 2016-04-30 04:46 | L&D Discharge Summary ---
OB Discharge Summary Datetime Report Generated by CPN: 04/30/2016 04:45 DISCHARGE DIAGNOSIS Diagnosis/Symptoms: Other Diagnoses/Symptoms Other: Reactive NST Gestation: 39.0 Number of Babies in Womb: 1 Parity: 0 DIET/ACTIVITY/RESTRICTIONS Diet: Regular Activity: Normal Activity TEACHING/INSTRUCTIONS/REFERRALS Instructions Given To: Patient, Spouse Instructions Understood: Patient Verbalized Understanding Referrals: None Educational Materials- Other: Kick counts reinforced DISCHARGE INFORMATION Discharged AMA: No Discharge Date/Time: 03/21/2016 13:17 Discharged To: Home Discharge Provider Name: Dr Aldrich Accompanied By: Spouse Discharge Method: Ambulatory Condition: Stable FOLLOW UP INFORMATION Follow Up With: [facility] Follow Up On: 3-5 Days Follow Up Phone Number: [facility] - Comments: s/s to report to provider, comfort measures GENERAL INSTR-CALL PROVIDER IF: Contractions: Contractions or cramps become more frequent than 8 in one hour or 4 in 20 minutes; Regular painful contractions every 5 minutes or less for one hour. Time your contractions from the beginning of one to the beginning of the next Pressure: Pressure in your vagina or lower abdomen that may feel like the baby is pushing down Period Like Cramps: Period-like cramps or low dull backache that may come and go Cramps/Diarrhea: Abdominal cramps that may be accompanied by diarrhea Gush of Fluid/Blood: Gush of fluid or blood from your vagina (it is normal to have spotting after vaginal exam or intercourse) Vaginal Discharge: Change in the type or amount of vaginal discharge Decreased Movement: Your baby is not moving as much as usual- 4 movements in 1 hour after drinking and resting on side Temperature: Temperature greater than 100.0(F) orally
--- NOTE | 2016-04-30 04:46 | L&D Admission Assessment ---
LD ADM ASMT Datetime Report Generated by CPN: 04/30/2016 04:45 PATIENT ASSESSMENT Assessment Type: Admission Assessment (04/29/2016 20:40:Kristel Ledgerwood, RN) WEIGHT Weight (lb): 240 (04/29/2016 22:20:QS system process) Weight (kg): 109.1 (04/29/2016 22:20:QS system process) BMI: 42.5 (04/29/2016 22:20:QS system process) PAIN Pain Scale: 0 (04/29/2016 20:40:Kristel Ledgerwood, RN) Pain Presence: None/Denies (04/29/2016 20:40:Kristel Ledgerwood, RN) CONTRACTIONS Frequency (min): irreg (04/30/2016 04:00:Kristel Ledgerwood, RN) Frequency (min): irreg (04/30/2016 03:30:Kristel Ledgerwood, RN) Frequency (min): none (04/30/2016 03:00:Kristel Ledgerwood, RN) Frequency (min): none (04/30/2016 02:30:Kristel Ledgerwood, RN) Frequency (min): irreg (04/30/2016 02:00:Kristel Ledgerwood, RN) Frequency (min): irreg (04/30/2016 01:30:Kristel Ledgerwood, RN) Frequency (min): irreg (04/30/2016 01:00:Kristel Ledgerwood, RN) Frequency (min): irreg (04/30/2016 00:30:Kristel Ledgerwood, RN) Frequency (min): irreg (04/30/2016 00:00:Kristel Ledgerwood, RN) Frequency (min): 4 (04/29/2016 23:30:Kristel Ledgerwood, RN) Frequency (min): irreg (04/29/2016 23:00:Kristel Ledgerwood, RN) Frequency (min): none (04/29/2016 22:30:Kristel Ledgerwood, RN) Frequency (min): none (04/29/2016 22:00:Kristel Ledgerwood, RN) Frequency (min): none (04/29/2016 21:30:Kristel Ledgerwood, RN) Frequency (min): none (04/29/2016 21:00:Kristel Ledgerwood, RN) Duration (sec): 60-80 (04/30/2016 04:00:Kristel Ledgerwood, RN) Duration (sec): 60-80 (04/30/2016 03:30:Kristel Ledgerwood, RN) Duration (sec): 60-80 (04/30/2016 02:00:Kristel Ledgerwood, RN) Duration (sec): 60-80 (04/30/2016 01:30:Kristel Ledgerwood, RN) Duration (sec): 50-80 (04/30/2016 01:00:Kristel Ledgerwood, RN) Duration (sec): 60-70 (04/30/2016 00:30:Kristel Ledgerwood, RN) Duration (sec): 50-70 (04/30/2016 00:00:Kristel Ledgerwood, RN) Duration (sec): 70-90 (04/29/2016 23:30:Kristel Ledgerwood, RN) Duration (sec): 60-90 (04/29/2016 23:00:Kristel Ledgerwood, RN) Quality: Mild (04/30/2016 04:00:Kristel Ledgerwood, RN) Quality: Mild (04/30/2016 03:30:Kristel Ledgerwood, RN) Quality: Mild (04/30/2016 02:00:Kristel Ledgerwood, RN) Quality: Mild (04/30/2016 01:30:Kristel Ledgerwood, RN) Quality: Mild (04/30/2016 01:00:Kristel Ledgerwood, RN) Quality: Mild (04/30/2016 00:30:Kristel Ledgerwood, RN) Quality: Mild (04/30/2016 00:00:Kristel Ledgerwood, RN) Quality: Mild (04/29/2016 23:30:Kristel Ledgerwood, RN) Quality: Mild (04/29/2016 23:00:Kristel Ledgerwood, RN) Pattern: Normal: <= 5 Contractions in 10 Minutes (04/30/2016 04:00:Kristel Ledgerwood, RN) Pattern: Normal: <= 5 Contractions in 10 Minutes (04/30/2016 03:30:Kristel Ledgerwood, RN) Pattern: Normal: <= 5 Contractions in 10 Minutes (04/30/2016 02:00:Kristel Ledgerwood, RN) Pattern: Normal: <= 5 Contractions in 10 Minutes (04/30/2016 01:30:Kristel Ledgerwood, RN) Pattern: Normal: <= 5 Contractions in 10 Minutes (04/30/2016 01:00:Kristel Ledgerwood, RN) Pattern: Normal: <= 5 Contractions in 10 Minutes (04/30/2016 00:30:Kristel Ledgerwood, RN) Pattern: Normal: <= 5 Contractions in 10 Minutes (04/30/2016 00:00:Kristel Ledgerwood, RN) Pattern: Normal: <= 5 Contractions in 10 Minutes (04/29/2016 23:30:Kristel Ledgerwood, RN) Pattern: Normal: <= 5 Contractions in 10 Minutes (04/29/2016 23:00:Kristel Ledgerwood, RN) Resting Tone [place]: Relaxed (04/30/2016 04:00:Kristel Ledgerwood, RN) Resting Tone [place]: Relaxed (04/30/2016 03:30:Kristel Ledgerwood, RN) Resting Tone [place]: Relaxed (04/30/2016 03:00:Kristel Ledgerwood, RN) Resting Tone [place]: Relaxed (04/30/2016 02:30:Kristel Ledgerwood, RN) Resting Tone [place]: Relaxed (04/30/2016 02:00:Kristel Ledgerwood, RN) Resting Tone [place]: Relaxed (04/30/2016 01:30:Kristel Ledgerwood, RN) Resting Tone [place]: Relaxed (04/30/2016 01:00:Kristel Rodrigez RN) Resting Tone [place]: Non Relaxed (04/30/2016 00:30:Kristel Rodrigez RN) Resting Tone [place]: Relaxed (04/30/2016 00:00:Kristel Rodrigez RN) Resting Tone [place]: Relaxed (04/29/2016 23:30:Kristel Rodrigez RN) Resting Tone [place]: Relaxed (04/29/2016 23:00:Kristel Rodrigez RN) Resting Tone [place]: Relaxed (04/29/2016 22:30:Kristel Rodrigez RN) Resting Tone [place]: Relaxed (04/29/2016 22:00:Kristel Rodrigez RN) Resting Tone [place]: Relaxed (04/29/2016 21:30:Kristel Rodrigez RN) Resting Tone [place]: Relaxed (04/29/2016 21:00:Kristel Rodrigez RN) Contraction Comments: pt reports of no feeling of contractions. Abdoment is soft upon the palpation. (04/29/2016 21:00:Kristel Rodrigez RN) VAGINAL EXAM Dilatation (cm): 1.5 (04/29/2016 20:22:Kristel Rodrigez RN) Effacement (%): 60 (04/29/2016 20:22:Kristel Rodrigez RN) Station: -2 (04/29/2016 20:22:Kristel Rodrigez RN) NEURO Level of Consciousness: Fully Conscious (04/29/2016 20:40:Kristelbassem Beckfordgerclyde, RN) DTR's/Clonus: DTRs 2+; No Clonus (04/29/2016 20:40:Kristel Ledgerwood, RN) Headache: Denies (04/29/2016 20:40:Kristelbassem Beckfordgerclyde, RN) Dizziness: No (04/29/2016 20:40:Kristelbassem Beckfordgerwood, RN) Blurred Vision: No (04/29/2016 20:40:Kristel Ledgerwood, RN) Extremity Numbness/Tingling : None (04/29/2016 20:40:Kristelbassem Beckfordgerwood, RN) Extremity Movement: Full Range of Motion (04/29/2016 20:40:Kristel Ledgerwood, RN) CARDIOVASCULAR Nailbeds: [place] (04/29/2016 20:40:Kristel Rodrigez, RN) Capillary Refill: Less than 3 Seconds (04/29/2016 20:40:Kristelbassem Beckfordgerclyde, RN) Facial Edema: None (04/29/2016 20:40:Kristelbassem Beckfordgerclyde, RN) Felicitas's Sign Left Leg: Negative (04/29/2016 20:40:Kristel Rodrigez, RN) Felicitas's Sign Right Leg: Negative (04/29/2016 20:40:Kristel Ledgerwood, RN) RESPIRATORY Respiratory Effort: Unlabored; Regular Rhythm; Equal Expansion (04/29/2016 20:40:Kristel Analygerwood, RN) Breath Sounds, Left: Clear and Equal (04/29/2016 20:40:Kristel Ledgerwood, RN) Breath Sounds, Right: Clear and Equal (04/29/2016 20:40:Kristel Ledgerwood, RN) Cough Productivity: None (04/29/2016 20:40:Kristel Ledgerwood, RN) GASTROINTESTINAL Nausea/Vomiting: Denies (04/29/2016 20:40:Kristel Rodrigez, RN) Bowel Sounds: Normoactive; All Quadrants (04/29/2016 20:40:Kristel Rodrigez, RN) RUQ Epigastric Pain: Denies (04/29/2016 20:40:Kristel Rodrigez, RN) Bowel Patterns: Constipation (04/29/2016 20:40:Kristel Rodrigez RN) Hemorrhoids: None (04/29/2016 20:40:Kristel Ledgerwood, RN) Diet Type: Regular diet (04/29/2016 20:40:Kristelbassem Rodrigez, RN) Last Meal: 04/29/2016 18:30 (04/29/2016 20:40:Kristelbassem Rodrigez RN) GENITOURINARY Bladder: Nondistended (04/29/2016 20:40:Kristel Rodrigez RN) Frequency of Urination: No (04/29/2016 20:40:Kristel Rodrigez RN) Urination Burning: No (04/29/2016 20:40:Kristel Rodrigez, RN) CVA Tenderness: No (04/29/2016 20:40:Kristel Rodrigez RN) Vaginal Bleeding: None (04/29/2016 20:40:Kristel Rodrigez RN) Vaginal Discharge Amount: None (04/29/2016 20:40:Kristel Rodrigez, RN) Vaginal Discharge Color: N/A (04/29/2016 20:40:Kristel Rodrigez RN) Vaginal Discharge Character: None (04/29/2016 20:40:Kristel Rodrigez, RN) INTEGUMENTARY Skin Color: Normal for Race (04/29/2016 20:40:Kristel Rodrigez RN) Skin Temperature: Warm (04/29/2016 20:40:Kristel Rodrigez RN) Skin Moisture: Dry (04/29/2016 20:40:Kristel Rodrigez RN) EMMA SKIN ASSESSMENT Emma Scale Sensory Perception: No Impairment- Responds to verbal commands. Has no sensory deficit which would limit ability to feel or voice pain or discomfort (04/29/2016 20:40:Kristel Rodrigez RN) Emma Scale Moisture: Rarely Moist- Skin is usually dry. Linen only requires changing at routine intervals (04/29/2016 20:40:Kristel Rodrigez RN) Emma Scale Activity: Walks Frequently- Walks outside the room at least twice a day and inside room at least every 2 hours during the day. (04/29/2016 20:40:Kristel Rodrigez RN) Emma Scale Mobility: No Limitations- Makes major and frequent changes in position without assistance (04/29/2016 20:40:Kristel Rodrigez RN) Emma Scale Nutrition: Excellent- Eats most of every meal. Never refuses a meal. Usually eats a total of 4 or more servings of meat and dairy products. Occasionally eats between meals. Does not require supplementation (04/29/2016 20:40:Kristel Rodrigez RN) Emma Scale Friction and Shear: No Apparent Problem- Moves in bed and in chair independently and has sufficient muscle strength to lift up completely during move. Maintains good position in bed or chair at all times (04/29/2016 20:40:Kristel Rodrigez RN) Emma Scale Total: 23 (04/29/2016 20:40:QS system process) Emma Scale Risk: No Risk of Pressure Ulcer Noted at this Time (04/29/2016 20:40:QS system process) SUPPORT Family Support: Significant Other supportive, at bedside frequently (04/29/2016 20:40:Kristel Rodrigez RN) Emotional State: Calm/Relaxed (04/29/2016 20:40:Kristel Rodrigez, RN) SAFETY Call [place] Within Reach: Yes (04/29/2016 20:40:Kristel Rodrigez RN) Side Rails Up: Yes (04/29/2016 20:40:Kristel Rodrigez RN) Bed Wheels Locked: Yes (04/29/2016 20:40:Kristel Rodrigez RN) Arm Bands Present: Yes (04/29/2016 20:40:Kristel Rodrigez RN) FALL SCREEN Fall Risk History of Falling: (0) No (04/29/2016 20:40:Kristel Rodrigez RN) Fall Risk Secondary Diagnosis: (0) No (04/29/2016 20:40:Kristel Rodrigez RN) Fall Risk Ambulatory Aid: (0) None/Bedrest/Wheelchair/Nurse Assist (04/29/2016 20:40:Kristel Rodrigez RN) Fall Risk IV Therapy: (0) No (04/29/2016 20:40:Kristel Rodrigez RN) Fall Risk Gait: (0) Normal/Bedrest/Immobile (04/29/2016 20:40:Kristel Rodrigez RN) Fall Risk Mental Status: (0) Oriented to Own Ability (04/29/2016 20:40:Kristel Rodrigez RN) Fall Risk Score: 0 (04/29/2016 20:40:QS system process) Fall Risk Score Definition: No Risk: No action required (04/29/2016 20:40:QS system process) BABY A FHR Baseline Rate (bpm) Baby A: 120 (04/30/2016 04:00:Kristel Rodrigez RN) FHR Baseline Rate (bpm) Baby A: 120 (04/30/2016 03:30:Kristel Rodrigez RN) FHR Baseline Rate (bpm) Baby A: 120 (04/30/2016 03:00:Kristel Rodrigez RN) FHR Baseline Rate (bpm) Baby A: 130 (04/30/2016 02:30:Kristel Rodrigez RN) FHR Baseline Rate (bpm) Baby A: 135 (04/30/2016 02:00:Kristel Rodrigez RN) FHR Baseline Rate (bpm) Baby A: 135 (04/30/2016 01:30:Kristel Rodrigez RN) FHR Baseline Rate (bpm) Baby A: 135 (04/30/2016 01:00:Kristel Rodrigez RN) FHR Baseline Rate (bpm) Baby A: 135 (04/30/2016 00:00:Kristel Rodrigez RN) FHR Baseline Rate (bpm) Baby A: 130 (04/29/2016 23:30:Kristel Rodrigez RN) FHR Baseline Rate (bpm) Baby A: 120 (04/29/2016 23:00:Kristel Rodrigez RN) FHR Baseline Rate (bpm) Baby A: 130 (04/29/2016 22:30:Kristel Rodrigez RN) FHR Baseline Rate (bpm) Baby A: 125 (04/29/2016 22:00:Kristel Rodrigez RN) FHR Baseline Rate (bpm) Baby A: 120 (04/29/2016 21:30:Kristel Rodrigez RN) FHR Baseline Rate (bpm) Baby A: 125 (04/29/2016 21:00:Kristel Rodrigez RN) Variability Baby A: Moderate 6-25 bpm (04/30/2016 04:00:Kristel Rodrigez RN) Variability Baby A: Moderate 6-25 bpm (04/30/2016 03:30:Kristel Rodrigez RN) Variability Baby A: Moderate 6-25 bpm (04/30/2016 03:00:Kristel Rodrigez RN) Variability Baby A: Moderate 6-25 bpm (04/30/2016 02:30:Kristel Rodrigez RN) Variability Baby A: Moderate 6-25 bpm (04/30/2016 02:00:Kristel Rodrigez RN) Variability Baby A: Moderate 6-25 bpm (04/30/2016 01:30:Kristel Ledgerwood, RN) Variability Baby A: Moderate 6-25 bpm (04/30/2016 01:00:Kristel Ledgerwood, RN) Variability Baby A: Moderate 6-25 bpm (04/30/2016 00:00:Kristel Ledgerwood, RN) Variability Baby A: Moderate 6-25 bpm (04/29/2016 23:30:Kristel Analygerwood, RN) Variability Baby A: Moderate 6-25 bpm (04/29/2016 23:00:Kristel Ledgerwood, RN) Variability Baby A: Moderate 6-25 bpm (04/29/2016 22:30:Kristel Ledgerwood, RN) Variability Baby A: Moderate 6-25 bpm (04/29/2016 22:00:Kristel Ledgerwood, RN) Variability Baby A: Moderate 6-25 bpm (04/29/2016 21:30:Kristel Ledgerwood, RN) Variability Baby A: Moderate 6-25 bpm (04/29/2016 21:00:Kristel Analygerclyde, RN) Accelerations Baby A: 15X15 (04/30/2016 04:00:Kristel Elia RN) Accelerations Baby A: 15X15 (04/30/2016 03:30:Kristel Elia RN) Accelerations Baby A: None (04/30/2016 03:00:Kristel Elia, RN) Accelerations Baby A: None (04/30/2016 02:30:Kristel Elia, RN) Accelerations Baby A: 10X10 (04/30/2016 02:00:Kristel Elia RN) Accelerations Baby A: 10X10 (04/30/2016 01:30:Kristel Elia, RN) Accelerations Baby A: 10X10 (04/30/2016 01:00:Kristel Elia RN) Accelerations Baby A: 10X10 (04/30/2016 00:00:Kristel Elia, RN) Accelerations Baby A: 15X15 (04/29/2016 23:30:Kristel Elia, RN) Accelerations Baby A: 15X15 (04/29/2016 23:00:Kristel Elia RN) Accelerations Baby A: 15X15 (04/29/2016 22:30:Kristel Rodrigez RN) Accelerations Baby A: 15X15 (04/29/2016 22:00:Kristel Rodrigez RN) Accelerations Baby A: 15X15 (04/29/2016 21:30:Kristel Rodrigez RN) Accelerations Baby A: 15X15 (04/29/2016 21:00:Kristel Rodrigez RN) Decelerations Baby A: None (04/30/2016 04:00:Kristel Rodrigez RN) Decelerations Baby A: None (04/30/2016 03:30:Kristel Rodrigez RN) Decelerations Baby A: None (04/30/2016 03:00:Kristel Rodrigez RN) Decelerations Baby A: None (04/30/2016 02:30:Kristel Rodrigez RN) Decelerations Baby A: None (04/30/2016 02:00:Kristel Rodrigez RN) Decelerations Baby A: Early (04/30/2016 01:30:Kristel Rodrigez RN) Decelerations Baby A: None (04/30/2016 01:00:Kristel Rodrigez RN) Decelerations Baby A: None (04/30/2016 00:00:Kristel Rodrigez RN) Decelerations Baby A: None (04/29/2016 23:30:Kristel Rodrigez RN) Decelerations Baby A: None (04/29/2016 23:00:Kristel Rodrigez RN) Decelerations Baby A: None (04/29/2016 22:30:Kristel Rodrigez RN) Decelerations Baby A: None (04/29/2016 22:00:Kristel Rodrigez RN) Decelerations Baby A: None (04/29/2016 21:30:Kristel Rodrigez RN) Decelerations Baby A: None (04/29/2016 21:00:Kristel Rodrigez RN) ADDITIONAL COMMENTS Assessment Flag: Admission Assessment (04/29/2016 20:40:QS system process)
--- NOTE | 2016-04-30 06:17 | L&D General Admission ---
General Admit Datetime Report Generated by CPN: 04/30/2016 06:00 INFORMATION Patient Age: 30 (03/07/2016 13:07:QS system process) EDC: 05/06/2016 00:00 (03/18/2016 14:37:LORETTA Faye) : 1 (03/18/2016 14:37:LORETTA Dye) Para: 0 (03/21/2016 13:20:Blessing Abbott RN) Term: 0 (03/18/2016 14:37:LORETTA Dye) : 0 (03/18/2016 14:37:LORETTA Dye) Spontaneous Abortions: 0 (03/18/2016 14:37:LORETTA Dye) Induced Abortions: 0 (03/18/2016 14:37:LORETTA Dye) Livin (03/18/2016 14:37:LORETTA Dye) Cesareans: 0 (03/18/2016 14:37:LORETTA Dye) VBACs: 0 (03/18/2016 14:37:Thi Linares [facility]) Ectopic: 0 (03/18/2016 14:37:Thi Linares [facility]) Multiple Births: 0 (03/18/2016 14:37:Thi Linares [facility]) Baby, Number in Womb: 1 (03/21/2016 13:20:Blessing Abbott RN) CARE Primary Security Solutions Architect[facility] (03/18/2016 14:37:Thi Linares Gunjan) Month of 1st Visit: September (03/18/2016 14:37:Thi Linares [facility]) Adequate Care: Yes (03/18/2016 14:37:Thi Linares [facility]) Height (in): 63 (04/29/2016 22:20:QS system process) ALLERGIES Medication Allergy: No (03/18/2016 14:37:LORETTA Dye) Medication Allergies: No Known Allergies (03/21/2016) (03/21/2016 13:08:QS system process) Latex Allergy: No Latex Allergies (03/18/2016 14:37:Thi Camp, RNC) COMMUNICATION Primary Language: Danish (03/18/2016 14:37:Thi Camp, RNC) Medical Tx Preferred Language: Danish (03/18/2016 14:37:Thi Camp, RNC) Communication Barrier(s): None (03/18/2016 14:37:Thi Camp, RNC) DEMOGRAPHICS Address: [address] [place] [address] [place] [address] (03/07/2016 13:07:QS system process) Zipcode: [address] (03/07/2016 13:07:QS system process) Home (03/07/2016 13:07:QS system process) Work (03/07/2016 13:07:QS system process) SSN: [id number] (03/07/2016 13:07:QS system process) Next of Kin Name: SUAD BUCHANAN (03/07/2016 13:07:QS system process) Next of Kin (03/07/2016 13:07:QS system process) Next of Kin Relationship: SPO (03/07/2016 13:07:QS system process) Date of : 1985 (03/07/2016 13:07:QS system process) Marital Status: (03/07/2016 13:07:QS system process) Sex: Female (03/07/2016 13:07:QS system process) 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 [id number] (03/18/2016 14:37:Kristel Rodrigez RN) Marijuana: No (03/18/2016 14:37:Kristel Rodrigez RN) Cocaine: No (03/18/2016 14:37:Kristel Rodrigez RN) Other Illicit Drugs: No (03/18/2016 14:37:Kristel Rodrigez RN) VACCINE HISTORY Influenza Vaccine: Yes (03/18/2016 14:37:[facility], [facility]) Influenza Date: 01-29-2016 (03/18/2016 14:37:[facility]) Tetanus Vaccine: Yes (03/18/2016 14:37:[facility]) Tetanus Date: 02-12-2016 (03/18/2016 14:37:[facility]) Tdap Vaccine: Yes (03/18/2016 14:37:[facility]) Tdap Date: 02-12-2016 (03/18/2016 14:37: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: [facility] (03/18/2016 14:37:Kristel Rodrigez RN) Feeding Preference: Breast (03/18/2016 14:37:Kristel Rodrigez RN) Benefit of Breast Feed Discussed: Yes (03/18/2016 14:37:Kristel Rodrigez RN) Circumcision: Yes (03/18/2016 14:37:Kristel Rodrigez RN) Classes Attended: Yes (03/18/2016 14:37:Kristel Rodrigez RN) Tubal Ligation: No (03/18/2016 14:37:LORETTA Dye) Tubal Authorization Signed: N/A (03/18/2016 14:37:LORETTA Dye) Consent: N/A (03/18/2016 14:37:LORETTA Dye) Consent Signed: N/A (03/18/2016 14:37:LORETTA Dye) Pain Management Plans: Natural (03/18/2016 14:37:Kristel Rodrigez RN) Plans for Labor and Delivery: None (03/18/2016 14:37:Kristel Rodrigez RN) Support Person: Suad Buchanan (03/18/2016 14:37:LORETTA Dye) Support Person Relationship: (03/18/2016 14:37:LORETTA Dye) Cultural/Spritual Practice: [facility] (03/18/2016 14:37:Kristel Rodrigez RN) Spir/Cult Dietary Needs: [place]ci (03/18/2016 14:37:Kristel Rodrigez RN) LIVING SITUATION/DISCHARGE PLAN Living Arrangements: House (03/18/2016 14:37:Kristel Rodrigez RN) Adequate Access to:: Electric; Heat; Refrigeration; Plumbing/Running water; Phone; Transportation (03/18/2016 14:37:Kristel Rodrigez RN) WIC Program: [place] (03/18/2016 14:37:Kristel Rodrigez RN) 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: Suad (03/18/2016 14:37:Kristel Rodrigez RN) Person to Help after Discharge: Suad (03/18/2016 14:37:Kristel Rodrigez RN) Currently Using Commun Resources: No (03/18/2016 14:37:Kristel Rodrigez RN) Outside Agency/Early Childhood Worker: No (03/18/2016 14:37:Kristel Rodrigez RN) Car Seat for Discharge: Yes (03/18/2016 14:37:Kristel Rodrigez RN) Adoption Requested: No (03/18/2016 14:37:Kristel Rodrigez RN) Pt Contact w/ Post : N/A (03/18/2016 14:37:Kristel Rodrigez RN) LABS Blood Type: A Positive (03/18/2016 14:37:Al Samson RN) Antibody Screen: Negative (03/18/2016 14:37:Al Samson RN) Rho(G) this : Not Applicable (03/18/2016 14:37:Lorna Corbett RN) Hemoglobin: 11.1 L (04/29/2016 20:33:QS system process) Hematocrit: 32.5 L (04/29/2016 20:33:QS system process) MCV: 82 (04/29/2016 20:33:QS system process) Group Beta Strep: Negative (04/08/2016 09:05:Lorna Corbett RN) Gonorrhea: Negative (03/18/2016 14:37:LORETTA Dye) Chlamydia: Negative (03/18/2016 14:37:LORETTA Dye) RPR/VDRL: Nonreactive (03/18/2016 14:37:Al Samson RN) HIV Exposure Test: Negative (03/18/2016 14:37:Al Samson RN) Hepatitis B: Negative (03/18/2016 14:37:LORETTA Dye) Rubella: Immune (03/18/2016 14:37:Al Samson RN) OB/PREVIOUS HISTORY Previous Procedures: None (03/18/2016 14:37:LORETTA Dye) 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; 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 (03/18/2016 14:37:LORETTA Dye) History of Previous : No (03/18/2016 14:37:Kristel Rodrigez RN) History of Gestational Diabetes: No (03/18/2016 14:37:Kristel Rodrigez RN) History of PIH: Yes (03/18/2016 14:37:LORETTA Dye) History of Incompetent Cervix: No (03/18/2016 14:37:Kristel Rodrigez RN) History of Placenta Previa/Abrup: No (03/18/2016 14:37:Kristel Rodrigez RN) History of Macrosomia: No (03/18/2016 14:37:Kristel Rodrigez RN) History of IUGR: No (03/18/2016 14:37:Kristel Rodrigez RN) History of Hemorrhage: No (03/18/2016 14:37:Kristel Rodrigez RN) History of Loss/Stillborn: No (03/18/2016 14:37:Kristel Rodrigez RN) History of : No (03/18/2016 14:37:Kristel Rodrigez RN) History of D (Rh) Sensitization: No (03/18/2016 14:37:Kristel Rodrigez RN) History Recurrent Loss/Stillborn: No (03/18/2016 14:37:Kristel Rodrigez RN) History Depression/PP Depression: No (03/18/2016 14:37:Kristel Rodrigez RN) History of Uterine Anomaly/PEACE: No (03/18/2016 14:37:Kristel Rodrigez RN) History of Infertility: No (03/18/2016 14:37:Kristel Rodrigez RN) History of ART Treatment: No (03/18/2016 14:37:Kristel Rodrigez RN) History of PEACE: No (03/18/2016 14:37:Kristel Rodrigez RN) Comments Obstetrical History: G-1 CHTN, PCOS, maternal obesity (03/18/2016 14:37:LORETTA Dye) MEDICAL HISTORY Med Hx Diabetes: No (03/18/2016 14:37:Kristel Rodrigez RN) Med Hx Hypertension: Yes (03/18/2016 14:37:LORETTA Dye) Med Hx Heart Disease: No (03/18/2016 14:37:Kristel Rodrigez RN) Med Hx Autoimmune Disorder: No (03/18/2016 14:37:Kristel Rodrigez RN) Med Hx Kidney Disease/UTI: No (03/18/2016 14:37:Kristel Rodrigez RN) Med Hx Neurologic/Epilepsy: No (03/18/2016 14:37:Kristel Rodrigez RN) Med Hx Psychiatric Disorders: No (03/18/2016 14:37:Kristel Rodrigez RN) Med Hx Hepatitis/Liver Disease: No (03/18/2016 14:37:Kristel Rodrigez RN) Med Hx Varicosities/Phlebitis: No (03/18/2016 14:37:Kristel Rodrigez RN) Med Hx Thyroid Dysfunction: No (03/18/2016 14:37:Kristel Rodrigez RN) Med Hx Trauma/Violence: No (03/18/2016 14:37:Kristel Rodrigez RN) Med Hx Blood Transfusion: No (03/18/2016 14:37:Kristel Rodrigez RN) Med Hx Pulmonary (Asthma,TB): No (03/18/2016 14:37:Kristel Rodrigez RN) Med Hx Breast: No (03/18/2016 14:37:Kristel Rodrigez RN) Med Hx 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 (03/18/2016 14:37:Kristel Rodrigez RN) Med Hx Hospitalization/Surgery: No (03/18/2016 14:37:Kristel Rodrigez RN) Med Hx Anesthetic Complications: No (03/18/2016 14:37:Kristel Rodrigez RN) Med Hx Abnormal Pap Smear: Yes (03/18/2016 14:37:LORETTA Dye) Other Medical Diseases: No (03/18/2016 14:37:Kristel Rodrigez RN) Med Hx Significant Family Hx: No (03/18/2016 14:37:Kristel Rodrigez RN) Details of Med/Surg Hx: CHTN on [place], PCOS on Metformin, H/O abnormal pap 2013 normal pap 2015 (03/18/2016 14:37:LORETTA Dye) INFECTIOUS HISTORY Inf Hx Gonorrhea: No (03/18/2016 14:37:Kristel Rodrigez RN) Inf Hx Chlamydia: No (03/18/2016 14:37:Kristel Rodrgiez RN) Inf Hx Syphilis: No (03/18/2016 14:37:Kristel Rodrigez RN) Inf Hx HIV/AIDS: No (03/18/2016 14:37:Kristel Rodrigez RN) Inf Hx Human Papilloma Virus: No (03/18/2016 14:37:Kristel Rodrigez RN) Inf Hx Pt/Partner Genital Herpes: No (03/18/2016 14:37:Kristel Rodrigez RN) Inf Hx Tuberculosis/Exposure: No (03/18/2016 14:37:Kristel Rodrigez RN) Inf Hx Hepatitis B,C: No (03/18/2016 14:37:Kristel Rodrigez RN) Inf Hx Rash or Viral Illness: No (03/18/2016 14:37:Kristel Rodrigez RN) GENETIC HISTORY Gen Hx Age >=35 at JENNIFER: No (03/18/2016 14:37:Kristel Rodrigez RN) Gen Hx Thalassemia: No (03/18/2016 14:37:Kristel Rodrigez RN) Gen Hx Congenital Heart Defect: No (03/18/2016 14:37:Kristel Rodrigez RN) Gen Hx Neural Tube Defect: No (03/18/2016 14:37:Kristel Rodrigez RN) Gen Hx Down's Syndrome: No (03/18/2016 14:37:Kristel Rodrigez RN) Gen Hx Dionicio-Sachs: No (03/18/2016 14:37:Kristel Rodrigez RN) Gen Hx Johnna: No (03/18/2016 14:37:Kristel Rodrigez RN) Gen Hx Familial Dysautonomia: No (03/18/2016 14:37:Kristel Rodrigez RN) Gen Hx Hemophilia/Blood Disorder: No (03/18/2016 14:37:Kristel Rodrigez RN) Gen Hx Muscular Dystrophy: No (03/18/2016 14:37:Kristel Rodrigez RN) Gen Hx Cystic Fibrosis: No (03/18/2016 14:37:Kristel Rodrigez RN) Gen Hx Huntingtons Chorea: No (03/18/2016 14:37:Kristel Rodrigez RN) Gen Hx Mental Retardation/Autism: No (03/18/2016 14:37:Kristel Rodrigez RN) Gen Hx Tested for Fragile X: No (03/18/2016 14:37:Kristel Rodrigez RN) Gen Hx Other Inher/Chromosomal: No (03/18/2016 14:37:Kristel Rodrigez RN) Gen Hx Maternal Metabolic DO: No (03/18/2016 14:37:Kristel Rodrigez RN) Gen Hx Pt Father or FOB Defect: No (03/18/2016 14:37:Kristel Rodrigez RN) Gen Hx Other Genetic History: No (03/18/2016 14:37:Kristel Rodrigez RN) Gen Hx Drugs/Meds since LMP: No (03/18/2016 14:37:Kristel Rodrigez RN)
--- NOTE | 2016-04-30 06:17 | L&D Current Admission ---
Current Admit Datetime Report Generated by CPN: 04/30/2016 06:00 ADMISSION INFORMATION Current Admit Date/Time: 04/29/2016 23:32 (04/29/2016 23:27:Kristel Rodrigez RN) Reason for Admission: Induction of Labor (04/29/2016 23:27:Kristel Rodrigez RN) Chief Complaint: Scheduled Induction of Labor (04/29/2016 20:40:Kristel Rodrigez RN) EGA per Dates: 39.0 (04/29/2016 23:27:QS system process) Method of Arrival: Ambulatory (04/29/2016 23:27:Kristel Rodrigez RN) Admitted From: Home (04/29/2016 23:27:Kristel Rodrigez RN) Reason for Induction: Gestational Hypertension (04/29/2016 23:27:Kristel Rodrigez RN) Records Available: Yes (04/29/2016 23:27:Kristel Rodrigez RN) General Admission Information: Reviewed (04/29/2016 23:27:Kristel Rodrigez RN) BELONGINGS/ADVANCED DIRECTIVES Valuables/Personal Effects: None (04/29/2016 23:27:Kristel Rodrigez RN) Other Belongings: see belongings consents (04/29/2016 23:27:Kristel Rodrigez RN) Disposition of Belongings: Kept with Patient (04/29/2016 23:27:Kristel Rodrigez RN) Advance Direct for Healthcare: No, and Wants No Information (04/29/2016 23:27:Kristel Rodrigez RN) Durable Power of Risk Officer: No (04/29/2016 23:27:Kristel Rodrigez RN) Living Will: No (04/29/2016 23:27:Kristel Rodrigez RN) Organ Donor: Yes (04/29/2016 23:27:Kristel Rodrigez RN) Pt Rights Information Given: Yes (04/29/2016 23:27:Kristel Rodrigez RN) Pt Understands Pt Rights: Yes (04/29/2016 23:27:Kristel Rodrigez RN) LEARNING ASSESSMENT Knowledge Level: Understands L_D Process; Understands Care Activities; Had Pre-Hospital Education; Understands Diagnosis (04/29/2016 23:27:Kristel Rodrigez RN) Barriers to Learning: None (04/29/2016 23:27:Kristel Rodrigez RN) Learning Readiness: Motivated (04/29/2016 23:27:Kristel Rodrigez RN) Learns Best By: 1 to 1 Instruction (04/29/2016 23:27:Kristel Rodrigez RN) Learning Needs: Labor and Delivery Process; Pain Management; Symptoms to Report; Treatment Plan; Medication; Diagnosis; Nutrition; Equipment; Infant Care; Community Resources (04/29/2016 23:27:Kristel Rodrigez RN) DOMESTIC VIOLANCE SCREENING Dom Viol Threatened/Hurt: No (04/29/2016 23:27:Kristel Rodrigez RN) Hx of Abuse/Neglect past 2yrs: No (04/29/2016 23:27:Kristel Rodrigez RN) Feel Unsafe Going Home: No (04/29/2016 23:27:Kristel Rodrigez RN) Addt'l Observ Indicating Abuse: No (04/29/2016 23:27:Kristel Rodrigez RN) Reason Unable to Complete Screen: N/A, Screen Completed (04/29/2016 23:27:Kristel Rodrigez RN) Considered Personal Harm/Suicide: No (04/29/2016 23:27:Kristel Rodrigez RN) NUTRITIONAL/FUNCTIONAL SCREENING Problem with Appetite >5 Days: No (04/29/2016 23:27:Kristel Rodrigez RN) Chew/Swallow Difficulties: No (04/29/2016 23:27:Kristel Rodrigez RN) Inappropriate Wt Gain/Loss: No (04/29/2016 23:27:Kristel Rodrigez RN) Presence Skin Breakdown/Ulcer: No (04/29/2016 23:27:Kristel Rodrigez RN) Special Diet: No (04/29/2016 23:27:Kristel Rodrigez RN) Pt Requests Head Counselor Visit: No (04/29/2016 23:27:Kristel Rodrigez RN) Hx of Any of the Following?: N/A (04/29/2016 23:27:Kristel Rodrigez RN) New Diagnosis of: N/A (04/29/2016 23:27:Kristel Rodrigez RN) Requires Assist w/Ambulation: No (04/29/2016 23:27:Kristel Rodrigez RN) Uses Assist Device to Ambulate: No (04/29/2016 23:27:Kristel Rodrigez RN) Pt Requires Help w/ADL's: No (04/29/2016 23:27:Kristel Rodrigez RN)
--- NOTE | 2016-04-30 08:01 | L&D Flow Sheet ---
LD Flowsheet Datetime Report Generated by CPN: 04/30/2016 08:00 Datetime: 04/30/2016 07:42 NBP Sys/Earlene/Mean (mmHg): 134 (QS system process) : 88 (QS system process) : 104 (QS system process) Pulse: 90 (QS system process) LaborFlag: Antepartum (QS system process) Datetime: 04/30/2016 07:20 Communication: Report Given to @ S Camp RN (Kristel Ledgerwood, RN) Datetime: 04/30/2016 07:13 NBP Sys/Earlene/Mean (mmHg): 125 (QS system process) : 60 (QS system process) : 86 (QS system process) Pulse: 85 (QS system process) LaborFlag: Antepartum (QS system process) Datetime: 04/30/2016 07:00 Monitor Mode: External; Palpation (Kristel Ledgerwood, RN) Frequency (min): irreg (Krsitel Ledgerwood, RN) Quality: Mild (Kristel Ledgerwood, RN) Duration (sec): 60-80 (Kristel Ledgerwood, RN) Duration Criteria: Less than Two 120 Second Contractions (Kristel Ledgerwood, RN) Pattern: Normal: <= 5 Contractions in 10 Minutes (Kristel Ledgerwood, RN) Resting Tone (Palpate): Relaxed (Kristel Ledgerwood, RN) Monitor Mode: External US (Kristel Ledgerwood, RN) FHR Baseline Rate : 120 (Kristel Ledgerwood, RN) FHR Baseline Changes: No Baseline Change (Kristel Ledgerwood, RN) Variability: Moderate 6-25 bpm (Kristel Ledgerwood, RN) Accelerations: 15X15 (Kristel Ledgerwood, RN) Decelerations: None (Kristel Ledgerwood, RN) Datetime: 04/30/2016 06:42 NBP Sys/Earlene/Mean (mmHg): 127 (QS system process) : 66 (QS system process) : 89 (QS system process) Pulse: 85 (QS system process) LaborFlag: Antepartum (QS system process) Datetime: 04/30/2016 06:30 Monitor Mode: External; Palpation (Kristel Ledgerwood, RN) Frequency (min): irreg (Kristel Ledgerwood, RN) Quality: Mild (Kristel Ledgerwood, RN) Duration (sec): 50-80 (Kristel Ledgerwood, RN) Duration Criteria: Less than Two 120 Second Contractions (Kristel Ledgerwood, RN) Pattern: Normal: <= 5 Contractions in 10 Minutes (Kristel Ledgerwood, RN) Resting Tone (Palpate): Relaxed (Kristel Ledgerwood, RN) Monitor Mode: External US (Kristel Analygerwood, RN) FHR Baseline Rate : 135 (Kristel Ledgerwood, RN) FHR Baseline Changes: No Baseline Change (Kristel Ledgerwood, RN) Variability: Moderate 6-25 bpm (Kristel Ledgerwood, RN) Decelerations: None (Kristel Ledgerwood, RN) Datetime: 04/30/2016 06:12 NBP Sys/Earlene/Mean (mmHg): 119 (QS system process) : 59 (QS system process) : 83 (QS system process) Pulse: 84 (QS system process) Respirations: 16 (Kristel Ledgerwood, RN) LaborFlag: Antepartum (QS system process) Datetime: 04/30/2016 06:00 Monitor Mode: External; Palpation (Kristel Ledgerwood, RN) Frequency (min): 4-8 (Kristel Ledgerwood, RN) Quality: Mild (Kristel Ledgerwood, RN) Duration (sec): 70-100 (Kristel Ledgerwood, RN) Duration Criteria: Less than Two 120 Second Contractions (Kristel Ledgerwood, RN) Pattern: Normal: <= 5 Contractions in 10 Minutes (Kristel Ledgerwood, RN) Resting Tone (Palpate): Relaxed (Kristel Ledgerwood, RN) Monitor Mode: External US (Kristel Ledgerwood, RN) FHR Baseline Rate : 120 (Kristel Ledgerwood, RN) FHR Baseline Changes: No Baseline Change (Kristel Ledgerwood, RN) Variability: Moderate 6-25 bpm (Kristel Ledgerwood, RN) Accelerations: None (Kristel Ledgerwood, RN) Decelerations: None (Kristel Ledgerwood, RN) Datetime: 04/30/2016 05:43 NBP Sys/Earlene/Mean (mmHg): 156 (QS system process) : 72 (QS system process) : 103 (QS system process) Pulse: 78 (QS system process) LaborFlag: Antepartum (QS system process) Datetime: 04/30/2016 05:30 Monitor Mode: External; Palpation (Kristel Ledgerwood, RN) Frequency (min): irreg (Kristel Ledgerwood, RN) Quality: Mild (Kristel Ledgerwood, RN) Duration (sec): 60-90 (Kristel Ledgerwood, RN) Duration Criteria: Less than Two 120 Second Contractions (Kristel Ledgerwood, RN) Pattern: Normal: <= 5 Contractions in 10 Minutes (Kristel Ledgerwood, RN) Resting Tone (Palpate): Relaxed (Kristel Ledgerwood, RN) Monitor Mode: External US (Kristel Ledgerwood, RN) FHR Baseline Rate : 120 (Kristel Ledgerwood, RN) FHR Baseline Changes: No Baseline Change (Kristel Ledgerwood, RN) Variability: Moderate 6-25 bpm (Kristel Ledgerwood, RN) Accelerations: 15X15 (Kristel Ledgerwood, RN) Decelerations: None (Kristel Ledgerwood, RN) Datetime: 04/30/2016 05:12 NBP Sys/Earlene/Mean (mmHg): 140 (QS system process) : 67 (QS system process) : 97 (QS system process) Pulse: 90 (QS system process) Respirations: 14 (Kristel Ledgerwood, RN) LaborFlag: Antepartum (QS system process) Datetime: 04/30/2016 05:00 Monitor Mode: External; Palpation (Kristel Ledgerwood, RN) Frequency (min): 2-4.5 (Kristel Ledgerwood, RN) Quality: Mild (Kristel Ledgerwood, RN) Duration (sec): 60-80 (Kristel Ledgerwood, RN) Duration Criteria: Less than Two 120 Second Contractions (Kristel Ledgerwood, RN) Pattern: Normal: <= 5 Contractions in 10 Minutes (Kristel Ledgerwood, RN) Resting Tone (Palpate): Relaxed (Kristel Ledgerwood, RN) Monitor Mode: External US (Kristel Ledgerwood, RN) FHR Baseline Rate : 120 (Kristel Ledgerwood, RN) FHR Baseline Changes: No Baseline Change (Kristel Ledgerwood, RN) Variability: Moderate 6-25 bpm (Kristel Ledgerwood, RN) Accelerations: 15X15 (Kristel Ledgerwood, RN) Decelerations: None (Kristel Ledgerwood, RN) Datetime: 04/30/2016 04:42 NBP Sys/Earlene/Mean (mmHg): 136 (QS system process) : 69 (QS system process) : 95 (QS system process) Pulse: 108 (QS system process) LaborFlag: Antepartum (QS system process) Datetime: 04/30/2016 04:30 Monitor Mode: External; Palpation (Kristel Ledgerwood, RN) Frequency (min): 2-5 (Kristel Ledgerwood, RN) Quality: Mild (Kristel Ledgerwood, RN) Duration (sec): 70-90 (Kristel Ledgerwood, RN) Duration Criteria: Less than Two 120 Second Contractions (Kristel Ledgerwood, RN) Pattern: Normal: <= 5 Contractions in 10 Minutes (Kristel Ledgerwood, RN) Resting Tone (Palpate): Relaxed (Kristel Ledgerwood, RN) Monitor Mode: External US (Kristel Ledgerwood, RN) FHR Baseline Rate : 125 (Kristel Ledgerwood, RN) FHR Baseline Changes: No Baseline Change (Kristel Ledgerwood, RN) Variability: Moderate 6-25 bpm (Kristel Ledgerwood, RN) Accelerations: 15X15 (Kristel Ledgerwood, RN) Decelerations: None (Kristel Ledgerwood, RN) Datetime: 04/30/2016 04:12 NBP Sys/Earlene/Mean (mmHg): 137 (QS system process) : 65 (QS system process) : 92 (QS system process) Pulse: 95 (QS system process) LaborFlag: Antepartum (QS system process) Datetime: 04/30/2016 04:00 Monitor Mode: External; Palpation (Kristel Ledgerwood, RN) Frequency (min): irreg (Kristel Ledgerwood, RN) Quality: Mild (Kristel Ledgerwood, RN) Duration (sec): 60-80 (Kristel Ledgerwood, RN) Duration Criteria: Less than Two 120 Second Contractions (Kristel Ledgerwood, RN) Pattern: Normal: <= 5 Contractions in 10 Minutes (Kristel Ledgerwood, RN) Resting Tone (Palpate): Relaxed (Kristel Ledgerwood, RN) Monitor Mode: External US (Kristel Ledgerwood, RN) FHR Baseline Rate : 120 (Kristel Ledgerwood, RN) FHR Baseline Changes: No Baseline Change (Kristel Ledgerwood, RN) Variability: Moderate 6-25 bpm (Kristel Ledgerwood, RN) Accelerations: 15X15 (Kristel Ledgerwood, RN) Decelerations: None (Kristel Ledgerwood, RN) Datetime: 04/30/2016 03:43 NBP Sys/Earlene/Mean (mmHg): 138 (QS system process) : 77 (QS system process) : 101 (QS system process) Pulse: 93 (QS system process) Respirations: 15 (Kristel Ledgerwood, RN) LaborFlag: Antepartum (QS system process) Datetime: 04/30/2016 03:30 Monitor Mode: External; Palpation (Kristel Ledgerwood, RN) Frequency (min): irreg (Kristel Ledgerwood, RN) Quality: Mild (Kristel Ledgerwood, RN) Duration (sec): 60-80 (Kristel Ledgerwood, RN) Duration Criteria: Less than Two 120 Second Contractions (Kristel Ledgerwood, RN) Pattern: Normal: <= 5 Contractions in 10 Minutes (Kristel Ledgerwood, RN) Resting Tone (Palpate): Relaxed (Kristel Ledgerwood, RN) Monitor Mode: External US (Kristel Ledgerwood, RN) FHR Baseline Rate : 120 (Kristel Ledgerwood, RN) FHR Baseline Changes: No Baseline Change (Kristel Ledgerwood, RN) Variability: Moderate 6-25 bpm (Kristel Ledgerwood, RN) Accelerations: 15X15 (Kristel Ledgerwood, RN) Decelerations: None (Kristel Ledgerwood, RN) Datetime: 04/30/2016 03:23 NBP Sys/Earlene/Mean (mmHg): 156 (QS system process) : 72 (QS system process) : 104 (QS system process) Pulse: 91 (QS system process) LaborFlag: Antepartum (QS system process) Datetime: 04/30/2016 03:13 NBP Sys/Earlene/Mean (mmHg): 164 (QS system process) : 75 (QS system process) : 108 (QS system process) Pulse: 93 (QS system process) LaborFlag: Antepartum (QS system process) Datetime: 04/30/2016 03:05 Communication: Provider at Bedside (Kristel Rodrigez RN) Communication Comments: Dr Aldrich at bedside. Due to inability to constantly monitoring FHRs, Dr Aldrich unsuccessfully attempted to place an FSE.Dr Aldrich is aware of monitoring difficulties. (Kristel Rodrigez RN) Datetime: 04/30/2016 03:00 Monitor Mode: External; Palpation (Kristel Ledgerwood, RN) Frequency (min): none (Kristel Ledgerwood, RN) Resting Tone (Palpate): Relaxed (Kristel Ledgerwood, RN) Monitor Mode: External US (Kristel Ledgerwood, RN) FHR Baseline Rate : 120 (Kristel Ledgerwood, RN) FHR Baseline Changes: No Baseline Change (Kristel Ledgerwood, RN) Variability: Moderate 6-25 bpm (Kristel Ledgerwood, RN) Accelerations: None (Kristel Ledgerwood, RN) Decelerations: None (Kristel Ledgerwood, RN) Datetime: 04/30/2016 02:42 NBP Sys/Earlene/Mean (mmHg): 118 (QS system process) : 60 (QS system process) : 83 (QS system process) Pulse: 87 (QS system process) LaborFlag: Antepartum (QS system process) Datetime: 04/30/2016 02:30 Monitor Mode: External; Palpation (Kristel Ledgerwood, RN) Frequency (min): none (Kristel Ledgerwood, RN) Resting Tone (Palpate): Relaxed (Kristel Ledgerwood, RN) Monitor Mode: External US (Kristel Ledgerwood, RN) FHR Baseline Rate : 130 (Kristel Ledgerwood, RN) FHR Baseline Changes: No Baseline Change (Kristel Ledgerwood, RN) Variability: Moderate 6-25 bpm (Kristel Ledgerwood, RN) Accelerations: None (Kristel Ledgerwood, RN) Decelerations: None (Kristel Ledgerwood, RN) Datetime: 04/30/2016 02:12 NBP Sys/Eralene/Mean (mmHg): 121 (QS system process) : 67 (QS system process) : 86 (QS system process) Pulse: 72 (QS system process) LaborFlag: Antepartum (QS system process) Datetime: 04/30/2016 02:00 Monitor Mode: External; Palpation (Kristel Ledgerwood, RN) Frequency (min): irreg (Kristel Ledgerwood, RN) Quality: Mild (Kristel Ledgerwood, RN) Duration (sec): 60-80 (Kristel Ledgerwood, RN) Duration Criteria: Less than Two 120 Second Contractions (Kristel Ledgerwood, RN) Pattern: Normal: <= 5 Contractions in 10 Minutes (Kristel Ledgerwood, RN) Resting Tone (Palpate): Relaxed (Kristel Ledgerwood, RN) Monitor Mode: External US (Kristel Ledgerwood, RN) FHR Baseline Rate : 135 (Kristel Ledgerwood, RN) FHR Baseline Changes: No Baseline Change (Kristel Ledgerwood, RN) Variability: Moderate 6-25 bpm (Kristel Ledgerwood, RN) Accelerations: 10X10 (Kristel Ledgerwood, RN) Decelerations: None (Kristel Ledgerwood, RN) Datetime: 04/30/2016 01:42 NBP Sys/Earlene/Mean (mmHg): 144 (QS system process) : 65 (QS system process) : 93 (QS system process) Pulse: 95 (QS system process) LaborFlag: Antepartum (QS system process) Datetime: 04/30/2016 01:30 Monitor Mode: External; Palpation (Kristel Ledgerwood, RN) Frequency (min): irreg (Kristel Ledgerwood, RN) Quality: Mild (Kristel Ledgerwood, RN) Duration (sec): 60-80 (Kristel Ledgerwood, RN) Duration Criteria: Less than Two 120 Second Contractions (Kristel Ledgerwood, RN) Pattern: Normal: <= 5 Contractions in 10 Minutes (Kristel Ledgerwood, RN) Resting Tone (Palpate): Relaxed (Kristel Ledgerwood, RN) Monitor Mode: External US (Kristel Ledgerwood, RN) FHR Baseline Rate : 135 (Kristel Ledgerwood, RN) FHR Baseline Changes: No Baseline Change (Kristel Ledgerwood, RN) Variability: Moderate 6-25 bpm (Kristel Ledgerwood, RN) Accelerations: 10X10 (Kristel Ledgerwood, RN) Decelerations: Early (Kristel Ledgerwood, RN) Datetime: 04/30/2016 01:22 Communication Comments: Dr Aldrich on the unit. reviewed the strip, RN noted on the difficulty to keep the baby on the monitor (Kristel Ledgerwood, RN) Datetime: 04/30/2016 01:13 NBP Sys/Earlene/Mean (mmHg): 123 (QS system process) : 60 (QS system process) : 86 (QS system process) Pulse: 81 (QS system process) LaborFlag: Antepartum (QS system process) Datetime: 04/30/2016 01:00 Monitor Mode: External; Palpation (Kristel Ledgerwood, RN) Frequency (min): irreg (Kristel Ledgerwood, RN) Quality: Mild (Kristel Ledgerwood, RN) Duration (sec): 50-80 (Kristel Ledgerwood, RN) Duration Criteria: Less than Two 120 Second Contractions (Kristel Ledgerwood, RN) Pattern: Normal: <= 5 Contractions in 10 Minutes (Kristel Ledgerwood, RN) Resting Tone (Palpate): Relaxed (Kristel Ledgerwood, RN) Monitor Mode: External US (Kristel Ledgerwood, RN) FHR Baseline Rate : 135 (Kristel Ledgerwood, RN) FHR Baseline Changes: No Baseline Change (Kristel Ledgerwood, RN) Variability: Moderate 6-25 bpm (Kristel Ledgerwood, RN) Accelerations: 10X10 (Kristel Ledgerwood, RN) Decelerations: None (Kristel Ledgerwood, RN) Datetime: 04/30/2016 00:42 NBP Sys/Earlene/Mean (mmHg): 120 (QS system process) : 56 (QS system process) : 80 (QS system process) Pulse: 72 (QS system process) Respirations: 14 (Kristel Ledgerwood, RN) LaborFlag: Antepartum (QS system process) Datetime: 04/30/2016 00:30 Monitor Mode: External; Palpation (Kristel Ledgerwood, RN) Frequency (min): irreg (Kristel Ledgerwood, RN) Quality: Mild (Kristel Ledgerwood, RN) Duration (sec): 60-70 (Kristel Ledgerwood, RN) Duration Criteria: Less than Two 120 Second Contractions (Kristel Ledgerwood, RN) Pattern: Normal: <= 5 Contractions in 10 Minutes (Kristel Ledgerwood, RN) Resting Tone (Palpate): Non Relaxed (Kristel Ledgerwood, RN) Monitor Interventions for FHR: Ultrasound Adjusted (Kristel Ledgerwood, RN) Datetime: 04/30/2016 00:14 NBP Sys/Earlene/Mean (mmHg): 152 (QS system process) : 88 (QS system process) : 108 (QS system process) Pulse: 102 (QS system process) LaborFlag: Antepartum (QS system process) Datetime: 04/30/2016 00:00 Monitor Mode: External; Palpation (Kristel Ledgerwood, RN) Frequency (min): irreg (Kristel Ledgerwood, RN) Quality: Mild (Kristel Ledgerwood, RN) Duration (sec): 50-70 (Kristel Ledgerwood, RN) Duration Criteria: Less than Two 120 Second Contractions (Kristel Ledgerwood, RN) Pattern: Normal: <= 5 Contractions in 10 Minutes (Kristel Ledgerwood, RN) Resting Tone (Palpate): Relaxed (Kristel Ledgerwood, RN) Monitor Mode: External US (Kristel Ledgerwood, RN) FHR Baseline Rate : 135 (Kristel Ledgerwood, RN) FHR Baseline Changes: No Baseline Change (Kristel Ledgerwood, RN) Variability: Moderate 6-25 bpm (Kristel Ledgerwood, RN) Accelerations: 10X10 (Kristel Ledgerwood, RN) Decelerations: None (Kristel Ledgerwood, RN) Datetime: 04/29/2016 23:42 NBP Sys/Earlene/Mean (mmHg): 134 (QS system process) : 71 (QS system process) : 96 (QS system process) Pulse: 93 (QS system process) LaborFlag: Antepartum (QS system process) Datetime: 04/29/2016 23:30 Monitor Mode: External; Palpation (Kristel Ledgerwood, RN) Frequency (min): 4 (Kristel Ledgerwood, RN) Quality: Mild (Kristel Ledgerwood, RN) Duration (sec): 70-90 (Kristel Ledgerwood, RN) Duration Criteria: Less than Two 120 Second Contractions (Kristel Ledgerwood, RN) Pattern: Normal: <= 5 Contractions in 10 Minutes (Kristel Ledgerwood, RN) Resting Tone (Palpate): Relaxed (Kristel Ledgerwood, RN) Monitor Mode: External US (Kristel Ledgerwood, RN) FHR Baseline Rate : 130 (Kristel Ledgerwood, RN) FHR Baseline Changes: No Baseline Change (Kristel Ledgerwood, RN) Variability: Moderate 6-25 bpm (Kristel Ledgerwood, RN) Accelerations: 15X15 (Kristel Ledgerwood, RN) Decelerations: None (Kristel Ledgerwood, RN) Datetime: 04/29/2016 23:12 NBP Sys/Earlene/Mean (mmHg): 144 (QS system process) : 65 (QS system process) : 94 (QS system process) Pulse: 99 (QS system process) LaborFlag: Antepartum (QS system process) Datetime: 04/29/2016 23:00 Monitor Mode: External; Palpation (Kristel Ledgerwood, RN) Frequency (min): irreg (Kristel Ledgerwood, RN) Quality: Mild (Kristel Ledgerwood, RN) Duration (sec): 60-90 (Kristel Ledgerwood, RN) Duration Criteria: Less than Two 120 Second Contractions (Kristel Ledgerwood, RN) Pattern: Normal: <= 5 Contractions in 10 Minutes (Kristel Ledgerwood, RN) Resting Tone (Palpate): Relaxed (Kristel Ledgerwood, RN) Monitor Mode: External US (Kristel Ledgerwood, RN) FHR Baseline Rate : 120 (Kristel Ledgerwood, RN) FHR Baseline Changes: No Baseline Change (Kristel Ledgerwood, RN) Variability: Moderate 6-25 bpm (Kristel Ledgerwood, RN) Accelerations: 15X15 (Kristel Analygerclyde, RN) Decelerations: None (Kristel Ledgerwood, RN) Datetime: 04/29/2016 22:44 IV/Blood Work: IV Started (Kristel Rodrigez RN) Patient Care Comments: IV restarted due to uncomfortable feeling of the first IV for the pt. 18 G Right Hand by Alvarez Rodrigez RN (Kristel Beckfordgerclyde, RN) Datetime: 04/29/2016 22:30 Monitor Mode: External; Palpation (Kristel Rodrigez, RN) Frequency (min): none (Kristel Ledgerwood, RN) Resting Tone (Palpate): Relaxed (Kristel Ledgerclyde, RN) Monitor Mode: External US (Kristel Beckfordgerclyde, RN) FHR Baseline Rate : 130 (Kristel Analygerclyde, RN) FHR Baseline Changes: No Baseline Change (Kristel Ledgerwood, RN) Variability: Moderate 6-25 bpm (Kristel Ledgerwood, RN) Accelerations: 15X15 (Kristel Ledgerwood, RN) Decelerations: None (Kristel Analygerwood, RN) Datetime: 04/29/2016 22:12 NBP Sys/Earlene/Mean (mmHg): 139 (QS system process) : 70 (QS system process) : 97 (QS system process) Pulse: 100 (QS system process) Respirations: 15 (Kristel Ledgerwood, RN) LaborFlag: Antepartum (QS system process) Datetime: 04/29/2016 22:00 Monitor Mode: External; Palpation (Kristel Ledgerwood, RN) Frequency (min): none (Kristel Ledgerwood, RN) Resting Tone (Palpate): Relaxed (Kristel Ledgerwood, RN) Monitor Mode: External US (Kristel Ledgerwood, RN) FHR Baseline Rate : 125 (Kristel Ledgerwood, RN) FHR Baseline Changes: No Baseline Change (Kristel Ledgerwood, RN) Variability: Moderate 6-25 bpm (Kristel Ledgerwood, RN) Accelerations: 15X15 (Kristel Ledgerwood, RN) Decelerations: None (Kristel Ledgerwood, RN) Datetime: 04/29/2016 21:55 Cervical Ripening Agents: Cervidil (Kristel Ledgerwood, RN) Datetime: 04/29/2016 21:47 I/O Interventions: Up to BR (Kristel Ledgerwood, RN) Communication: RN at Bedside (Kristel Ledgerwood, RN) Datetime: 04/29/2016 21:42 NBP Sys/Earlene/Mean (mmHg): 132 (QS system process) : 80 (QS system process) : 99 (QS system process) Pulse: 98 (QS system process) Respirations: 14 (Kristel Rodrigez, RN) LaborFlag: Antepartum (QS system process) Datetime: 04/29/2016 21:32 IV/Blood Work: IV Started; New IV Bag Hung (Kristel Rodrigez, RN) Patient Care Comments: 18 G left hand by Alvarez Rodrigez RN (Kristel Rodrigez, RN) Datetime: 04/29/2016 21:30 Monitor Mode: External; Palpation (Kristel Rodrigez, RN) Frequency (min): none (Kristel Beckfordgerclyde, RN) Resting Tone (Palpate): Relaxed (Kristel Beckfordgerclyde, RN) Monitor Mode: External US (Kristel Rodrigez, RN) FHR Baseline Rate : 120 (Kristel Beckfordgerclyde, RN) FHR Baseline Changes: No Baseline Change (Kristel Ledgerclyde, RN) Variability: Moderate 6-25 bpm (Kristel Ledgerwood, RN) Accelerations: 15X15 (Kristel Beckfordgerclyde, RN) Decelerations: None (Kristel Rodrigez, RN) Datetime: 04/29/2016 21:11 Pulse: 103 (QS system process) SpO2 (%): 96 (QS system process) LaborFlag: Antepartum (QS system process) Datetime: 04/29/2016 21:00 Monitor Mode: External; Palpation (Kristel Ledgerwood, RN) Frequency (min): none (Kristel Ledgerwood, RN) Resting Tone (Palpate): Relaxed (Kristel Ledgerwood, RN) Contraction Comments: pt reports of no feeling of contractions. Abdoment is soft upon the palpation. (Kristel Ledgerwood, RN) Monitor Mode: External US (Kristel Ledgerwood, RN) FHR Baseline Rate : 125 (Kristel Ledgerwood, RN) FHR Baseline Changes: No Baseline Change (Kristel Ledgerwood, RN) Variability: Moderate 6-25 bpm (Kristel Ledgerwood, RN) Accelerations: 15X15 (Kristel Ledgerwood, RN) Decelerations: None (Kristel Ledgerwood, RN) Datetime: 04/29/2016 20:42 NBP Sys/Earlene/Mean (mmHg): 141 (QS system process) : 83 (QS system process) : 104 (QS system process) Pulse: 105 (QS system process) LaborFlag: Antepartum (QS system process) Datetime: 04/29/2016 20:40 Pain Scale: 0 (Kristel Rodrigez RN) Pain Presence: None/Denies (Kristel Rodrigez RN) Vaginal Bleeding: None (Kristel Rodrigez RN) Level of Consciousness: Fully Conscious (Kristel Rodrigez RN) DTR's/Clonus: DTRs 2+; No Clonus (Kristel Rodrigez RN) Headache: Denies (Kristel Rodrigez RN) Breath Sounds, Left: Clear and Equal (Kristel Rodrigez RN) Breath Sounds, Right: Clear and Equal (Kristel Rodrigez RN) Nausea/Vomiting: Denies (Kristel Rodrigez RN) RUQ Epigastric Pain: Denies (Kristel Rodrigez RN) Instructional Method: Demo; Verbal; Patient Instructed (Kristel Rodrigez RN) Plan of Care: Plan of Care Discussed; Induction (Kristel Rodrigez RN) Unit Routine: Palmer to Room; Call [facility]; Bed; Handwashing; Monitoring; Safety/Fall Risk Prevention (Kristel Beckfordgerwood, RN) LaborFlag: Antepartum (QS system process) Datetime: 04/29/2016 20:39 Patient Position/Activity: Right Tilt (Kristel Ledgerwood, RN) Datetime: 04/29/2016 20:30 Monitor Interventions for UA: [place] Adjusted (Kristel Beckfordgerwood, RN) Monitor Interventions for FHR: Ultrasound Adjusted (Kristel Ledgerwood, RN) Communication: RN at Bedside (Kristel Analygerwood, RN) Datetime: 04/29/2016 20:23 Monitor Interventions for UA: [place] Adjusted (Kristel Rodrigez, RN) Monitor Interventions for FHR: Ultrasound Adjusted (Kristel Rodrigez, RN) Datetime: 04/29/2016 20:22 Dilatation (cm): 1.5 (Kristel Rodrigez, RN) Effacement (%): 60 (Kristel Rodrigez, RN) Station: -2 (Kristel Rodrigez, RN) Exam by: Alvarez Rodrigez RN (Kristel Rodrigez, RN) Patient Position/Activity: Left Tilt (Kristel Rodrigez, RN) Datetime: 04/29/2016 20:05 Stage of : Antepartum (Kristel Rodrigez, WILLIAM)
[2016-04-30] MEDS ORDERED: METHYLDOPA 250 MG TABLET ONE ×2 (08:22→21:38)
[2016-04-30] MEDS ORDERED: OXYTOCIN/NORMAL SALINE 20 UNIT/1,000 ML RTUINJ ONE (11:36)
--- NOTE | 2016-04-30 12:00 | L&D Flow Sheet ---
LD Flowsheet Datetime Report Generated by CPN: 04/30/2016 12:00 Datetime: 04/30/2016 11:39 NBP Sys/Earlene/Mean (mmHg): 125 (QS system process) : 60 (QS system process) : 86 (QS system process) Pulse: 97 (QS system process) LaborFlag: Antepartum (QS system process) Datetime: 04/30/2016 11:15 Monitor Mode: External; Palpation (Thi Camp, RNC) Monitor Interventions for UA: Melmore Adjusted (Thi Camp, RNC) Frequency (min): 4-6 (Thi Camp, RNC) Quality: Mild/Moderate (Thi Camp, RNC) Duration (sec): 50-80 (Thi Camp, RNC) Duration Criteria: Less than Two 120 Second Contractions (Thi Camp, RNC) Pattern: Normal: <= 5 Contractions in 10 Minutes (Thi Camp, RNC) Resting Tone (Palpate): Relaxed (Thi Camp, RNC) Monitor Mode: External US; Auscultation (Thi Camp, RNC) FHR Baseline Rate : 135 (Thi Camp, RNC) FHR Baseline Changes: No Baseline Change (Thi Camp, RNC) Variability: Moderate 6-25 bpm (Thi Camp, RNC) Accelerations: 15X15 (Thi Camp, RNC) Decelerations: None (Thi Camp, RNC) Pain Scale: 1 (Thi Camp, RNC) Pain Presence: Intermittent (Thi Camp, RNC) Pain Type: Cramping (Thi Camp, RNC) Pain Location: Abdomen (Thi Camp, RNC) Pain Coping: Talking Through Contractions (Thi Camp, RNC) LaborFlag: Antepartum (QS system process) Datetime: 04/30/2016 11:08 NBP Sys/Earlene/Mean (mmHg): 122 (QS system process) : 63 (QS system process) : 85 (QS system process) Pulse: 100 (QS system process) Respirations: 17 (Thi Camp, RNC) Temperature (F): 98.4 (Thi Camp, RNC) Temperature (C): 36.9 (QS system process) Temperature Route: Oral (Thi Camp, RNC) LaborFlag: Antepartum (QS system process) Datetime: 04/30/2016 11:03 Patient Care Comments: EFM reapplied, repositioned to left lateral . (Thi Camp, RNC) Datetime: 04/30/2016 10:30 Hygiene: Oral Care; Meseret Care; Shower; Underpad Changed; Gown Changed; Linens Changed (Thi Camp, RNC) Datetime: 04/30/2016 09:54 Patient Care Comments: Regular diet provided, EFm off (Thi Camp, RNC) Datetime: 04/30/2016 09:50 Monitor Interventions for FHR: Ultrasound Adjusted (Thi Camp, RNC) Comments: RN remains at bedside with provider attempting to monitor fhr, audible 140's with movment palpated. Difficult to monitor secondary to position, maternal obesity, anterior placenta. Emmhernán CNM order received to discontinue monitor and proceed with regular diet and shower (Thi Camp, RNC) Datetime: 04/30/2016 09:45 Monitor Mode: External; Palpation (Thi Camp, RNC) Frequency (min): irregular (Thi Camp, RNC) Quality: Mild (Thi Camp, RNC) Duration (sec): 40-50 (Thi Camp, RNC) Duration Criteria: Less than Two 120 Second Contractions (Thi Camp, RNC) Pattern: Normal: <= 5 Contractions in 10 Minutes (Thi Camp, RNC) Resting Tone (Palpate): Relaxed (Thi Camp, RNC) Monitor Mode: External US; Auscultation (Thi Camp, RNC) FHR Baseline Rate : 140 (Thi Camp, RNC) FHR Baseline Changes: No Baseline Change (LORETTA Dye) Variability: Moderate 6-25 bpm (LORETTA Dye) Accelerations: 15X15 (LORETTA Dye) Decelerations: None (LORETTA Dye) Provider Reviewed Strip: Yes (LORETTA Dye) Instructional Method: Demo; Verbal; Patient Instructed; Family/Support Person Instructed; Verbalized Understanding (LORETTA Dye) Plan of Care: Plan of Care Discussed; Induction (LORETTA Dye) Labor/Induction: Labor Stages; Induction; Activity (LORETTA Dey) Pain Management: Pain Scale/Goals (LORETTA Dye) Related: Hydration (LORETTA Dye) Teaching Comments: Reviewed plan to remove cervidil, regular diet and shower with reevaluation of cervix for possible cytotec vs pitocin. Questions answered denies concerns (LORETTA Dye) Communication: RN at Bedside; Provider at Bedside (LORETTA Dye) Communication Comments: Sameer Delacruz CNM at bedside, (LORETTA Dye) Datetime: 04/30/2016 09:43 NBP Sys/Earlene/Mean (mmHg): 137 (QS system process) : 99 (Annotations: arm bent, cuff readjusted) (LORETTA Dye) : 109 (QS system process) Pulse: 96 (QS system process) Respirations: 16 (LORETTA Dye) Pain Scale: 1 (LORETTA Dye) Pain Presence: Intermittent (LORETTA Dye) Pain Type: Dull (Thi Camp, RNC) Pain Location: Back (Thi Camp, RNC) Pain Coping: Talking Through Contractions (Thi Camp, RNC) LaborFlag: Antepartum (QS system process) Datetime: 04/30/2016 09:30 Monitor Mode: External; Palpation (Thi Camp, RNC) Monitor Interventions for UA: Melmore Adjusted (Thi Camp, RNC) Frequency (min): irregular (Thi Camp, RNC) Quality: Mild (Thi Camp, RNC) Duration (sec): 40-50 (Thi Camp, RNC) Pattern: Normal: <= 5 Contractions in 10 Minutes (Thi Camp, RNC) Resting Tone (Palpate): Relaxed (Thi Camp, RNC) Contraction Comments: denies pain with contractions (Thi Camp, RNC) Monitor Mode: External US; Auscultation (Thi Camp, RNC) FHR Baseline Rate : 140 (Thi Camp, RNC) FHR Baseline Changes: No Baseline Change (Thi Camp, RNC) Variability: Moderate 6-25 bpm (Thi Camp, RNC) Accelerations: 15X15 (Thi Camp, RNC) Decelerations: None (Thi Camp, RNC) Datetime: 04/30/2016 09:10 Patient Care Comments: RN at bedside adjusting monitor. (Thi Camp, RNC) Datetime: 04/30/2016 09:02 Communication: Report Given to @ Colon (Thi Camp, RNC) Communication Comments: provider on unit aware of difficulty in tracing fhr and nsg interventions in attempt to locate and continuously trace fhr (Thi Camp, RNC) Datetime: 04/30/2016 09:00 Monitor Mode: External; Palpation (Thi Camp, RNC) Frequency (min): irregular (Thi Camp, RNC) Quality: Mild (Thi Camp, RNC) Duration (sec): 40-50 (Thi Camp, RNC) Resting Tone (Palpate): Relaxed (Thi Camp, RNC) Monitor Mode: External US; Auscultation (Thi Camp, RNC) FHR Baseline Changes: Unable to Determine (Thi Camp, RNC) Datetime: 04/30/2016 08:57 Patient Care Comments: repositioned to rocking chair, Rn at bedside attempting to continuosly monitor FHR. Audible fhr 140's with movement verbalized (Thi Camp, RNC) Datetime: 04/30/2016 08:49 I/O Interventions: Up to BR (Thi Camp, RNC) Datetime: 04/30/2016 08:42 NBP Sys/Earlene/Mean (mmHg): 118 (QS system process) : 71 (QS system process) : 90 (QS system process) Pulse: 90 (QS system process) Respirations: 16 (Thi Camp, RNC) LaborFlag: Antepartum (QS system process) Datetime: 04/30/2016 08:26 NBP Sys/Earlene/Mean (mmHg): 127 (QS system process) : 69 (QS system process) : 91 (QS system process) Pulse: 92 (QS system process) Respirations: 16 (Thi Camp, RNC) Medication Comments: Aldomet 250mg po given as ordered (Thi Camp, RNC) LaborFlag: Antepartum (QS system process) Datetime: 04/30/2016 08:00 Monitor Interventions for UA: Melmore Adjusted (Thi Camp, RNC) Monitor Mode: External US; Auscultation (Thi Camp, RNC) Monitor Interventions for FHR: Ultrasound Adjusted (Thi Camp, RNC) FHR Baseline Rate : 130 (Thi Camp, RNC) FHR Baseline Changes: No Baseline Change (Thi Camp, RNC) Variability: Moderate 6-25 bpm (Thi Camp, RNC) Accelerations: 15X15 (Thi Camp, RNC) Decelerations: None (LORETTA Dye) Comments: RN at bedside holding monitor with movement palpated , [place] completed with lie /position difficult to assess secondary to habitus . Verbalized active movement. Abdomen relaxed upon palpation (LORETTA Dye) Patient Position/Activity: HOB Lowered; Right Lateral (LORETTA Dye)
[2016-04-30] MEDS: OXYTOCIN/NORMAL SALINE 1,000 ML IV PRN (12:21)
[2016-04-30] MEDS ORDERED: NALBUPHINE HCL INJ 10 MG/1 ML AMPULE ONE (13:44)
[2016-04-30] MEDS ORDERED: PROMETHAZINE HCL INJ 25 MG/1 ML VIAL ONE (13:44)
[2016-04-30] MEDS ORDERED: NALBUPHINE HCL INJ 10 MG/1 ML AMPULE IV ONE (13:45)
[2016-04-30] MEDS ORDERED: PROMETHAZINE HCL INJ 25 MG/1 ML VIAL IV ONE (13:45)
[2016-04-30] MEDS: RINGERS SOLUTION,LACTATED 1,000 ML IV PRN (15:31)
--- NOTE | 2016-04-30 16:01 | L&D Flow Sheet ---
LD Flowsheet Datetime Report Generated by CPN: 04/30/2016 16:00 Datetime: 04/30/2016 15:45 Monitor Mode: External; Palpation (Thi Camp, RNC) Frequency (min): 1.5-4 (Thi Camp, RNC) Quality: Moderate (Thi Camp, RNC) Duration (sec): 50-80 (Thi Camp, RNC) Duration Criteria: Less than Two 120 Second Contractions (Thi Camp, RNC) Pattern: Normal: <= 5 Contractions in 10 Minutes (Thi Camp, RNC) Resting Tone (Palpate): Relaxed (Thi Camp, RNC) Monitor Mode: External US; Auscultation (Thi Camp, RNC) FHR Baseline Rate : 130 (Thi Camp, RNC) FHR Baseline Changes: No Baseline Change (Thi Camp, RNC) Variability: Moderate 6-25 bpm (Thi Camp, RNC) Decelerations: None (Thi Camp, RNC) Pitocin (milliunit): Pitocin Remains (milliunits) @ 20 (Thi Camp, RNC) Datetime: 04/30/2016 15:38 NBP Sys/Earlene/Mean (mmHg): 145 (QS system process) : 63 (QS system process) : 90 (QS system process) Pulse: 92 (QS system process) Respirations: 16 (Thi Camp, RNC) LaborFlag: Antepartum (QS system process) Datetime: 04/30/2016 15:33 Monitor Interventions for FHR: Ultrasound Adjusted (Thi Camp, RNC) Comments: RN at bedside adjusting monitors (Thi Camp, RNC) Datetime: 04/30/2016 15:30 Monitor Mode: External; Palpation (Thi Camp, RNC) Frequency (min): 1-4 (Thi Camp, RNC) Quality: Mild/Moderate (Tih Camp, RNC) Duration (sec): 50-80 (Thi Camp, RNC) Duration Criteria: Less than Two 120 Second Contractions (Thi Camp, RNC) Pattern: Normal: <= 5 Contractions in 10 Minutes (Thi Camp, RNC) Resting Tone (Palpate): Relaxed (Thi Camp, RNC) Monitor Mode: External US; Auscultation (Thi Camp, RNC) FHR Baseline Rate : 130 (Thi Camp, RNC) FHR Baseline Changes: No Baseline Change (Thi Camp, RNC) Variability: Minimal - Undetectable to <=5 bpm (Thi Camp, RNC) Accelerations: 10X10 (Thi Camp, RNC) Decelerations: None (Thi Camp, RNC) Datetime: 04/30/2016 15:24 Patient Position/Activity: Peanut Ball; Right Extreme (Thi Camp, RNC) Patient Care Comments: RN at bedside repositioned to right on peanut ball, resting between contractions. Cook Cervical garcia bulb placement checked with continued resistance noted (Thi Camp, RNC) Datetime: 04/30/2016 15:17 Hygiene: Underpad Changed (Thi Camp, RNC) I/O Interventions: Up to BR (Thi Camp, RNC) Datetime: 04/30/2016 15:15 Monitor Mode: External; Palpation (Thi Camp, RNC) Frequency (min): 1-5 (Thi Camp, RNC) Quality: Mild/Moderate (Thi Camp, RNC) Duration (sec): 40-70 (Thi Camp, RNC) Duration Criteria: Less than Two 120 Second Contractions (Thi Camp, RNC) Pattern: Normal: <= 5 Contractions in 10 Minutes (Thi Camp, RNC) Resting Tone (Palpate): Relaxed (Thi Camp, RNC) Monitor Mode: External US; Auscultation (Thi Camp, RNC) FHR Baseline Rate : 125 (Thi Camp, RNC) FHR Baseline Changes: No Baseline Change (Thi Camp, RNC) Variability: Moderate 6-25 bpm (Thi Camp, RNC) Accelerations: 10X10 (Thi Camp, RNC) Decelerations: None (Thi Camp, RNC) Datetime: 04/30/2016 15:12 Pain Scale: 3 (Thi Camp, RNC) Pain Presence: Intermittent (Thi Camp, RNC) Pain Type: Cramping (Thi Camp, RNC) Pain Location: Abdomen (Thi Camp, RNC) Pain Goal: 2 (Thi Camp, RNC) Pain Relief Measures: Comfort Measures (Thi Camp, RNC) Pain Coping: Breathing Through Contractions; Sleeping (Annotations: dozing between contractions. OOB to bathroom and position change to encourage reduction in pain) (Thi Camp, RNC) LaborFlag: Antepartum (QS system process) Datetime: 04/30/2016 15:08 NBP Sys/Earlene/Mean (mmHg): 151 (QS system process) : 69 (QS system process) : 99 (QS system process) Pulse: 95 (QS system process) Respirations: 16 (Thi Camp, RNC) LaborFlag: Antepartum (QS system process) Datetime: 04/30/2016 15:06 Pain Coping: Sleeping (Karol Campbell RN) Pain Assessment Comments: Patient observed to be resting with eyes closed (Karol Campbell RN) Pitocin (milliunit): Pitocin Increased to (milliunits) @ 20 (Karol Campbell RN) Patient Position/Activity: Left Lateral (Karol Campbell RN) LaborFlag: Antepartum (QS system process) Datetime: 04/30/2016 15:00 Monitor Mode: External; Palpation (Thi Camp, RNC) Frequency (min): 1-4 (Thi Camp, RNC) Quality: Mild/Moderate (Thi Camp, RNC) Duration (sec): 50-70 (Thi Camp, RNC) Duration Criteria: Less than Two 120 Second Contractions (Thi Camp, RNC) Pattern: Normal: <= 5 Contractions in 10 Minutes (Thi Camp, RNC) Resting Tone (Palpate): Relaxed (Thi Camp, RNC) Contraction Comments: couplets noted (Thi Camp, RNC) Monitor Mode: External US; Auscultation (Thi Camp, RNC) FHR Baseline Rate : 125 (Thi Camp, RNC) FHR Baseline Changes: No Baseline Change (Thi Camp, RNC) Variability: Minimal - Undetectable to <=5 bpm (Thi Camp, RNC) Decelerations: None (Thi Camp, RNC) Datetime: 04/30/2016 14:45 Monitor Mode: External; Palpation (Thi Camp, RNC) Monitor Interventions for UA: [place] Adjusted (Thi Camp, RNC) Frequency (min): 1.5-3 (Thi Camp, RNC) Frequency (min): 1 (Thi Camp, RNC) Quality: Mild/Moderate (Thi Camp, RNC) Quality: Moderate (Thi Camp, RNC) Duration (sec): 70-100 (Thi Camp, RNC) Duration Criteria: Less than Two 120 Second Contractions (Thi Camp, RNC) Pattern: Normal: <= 5 Contractions in 10 Minutes (Thi Camp, RNC) Resting Tone (Palpate): Relaxed (Thi Camp, RNC) Monitor Mode: External US; Auscultation (Thi Camp, RNC) FHR Baseline Rate : 130 (Thi Camp, RNC) FHR Baseline Changes: No Baseline Change (Thi Camp, RNC) Variability: Minimal - Undetectable to <=5 bpm (Thi Camp, RNC) Accelerations: 15X15 (Thi Camp, RNC) Decelerations: None (Thi Camp, RNC) Pitocin (milliunit): Pitocin Increased to (milliunits) @ (Annotations: 18) (Thi Camp, RNC) Datetime: 04/30/2016 14:38 NBP Sys/Earlene/Mean (mmHg): 148 (QS system process) : 67 (QS system process) : 96 (QS system process) Pulse: 82 (QS system process) Respirations: 16 (Thi Camp, RNC) Temperature (F): 98.7 (Thi Camp, RNC) Temperature (C): 37.1 (QS system process) Temperature Route: Oral (Thi Camp, RNC) LaborFlag: Antepartum (QS system process) Datetime: 04/30/2016 14:30 Monitor Mode: External; Palpation (Thi Camp, RNC) Frequency (min): 1-4 (Thi Camp, RNC) Quality: Mild/Moderate (Thi Camp, RNC) Duration (sec): 40-80 (Thi Camp, RNC) Duration Criteria: Less than Two 120 Second Contractions (Thi Camp, RNC) Pattern: Normal: <= 5 Contractions in 10 Minutes (Thi Camp, RNC) Resting Tone (Palpate): Relaxed (Thi Camp, RNC) Monitor Mode: External US; Auscultation (Thi Camp, RNC) FHR Baseline Rate : 120 (Thi Camp, RNC) FHR Baseline Changes: No Baseline Change (Thi Camp, RNC) Variability: Minimal - Undetectable to <=5 bpm (Thi Camp, RNC) Accelerations: None (Thi Camp, RNC) Decelerations: None (Thi Camp, RNC) Pain Coping: Sleeping (Thi Camp, RNC) Pitocin (milliunit): Pitocin Increased to (milliunits) @ (Annotations: 16) (Thi Camp, RNC) Datetime: 04/30/2016 14:15 Monitor Mode: External; Palpation (Thi Camp, RNC) Frequency (min): 2-4 (Thi Camp, RNC) Quality: Moderate (Thi Camp, RNC) Duration (sec): 50-70 (Thi Camp, RNC) Duration Criteria: Less than Two 120 Second Contractions (Thi Camp, RNC) Pattern: Normal: <= 5 Contractions in 10 Minutes (Thi Camp, RNC) Resting Tone (Palpate): Relaxed (Thi Camp, RNC) Monitor Mode: External US; Auscultation (Thi Camp, RNC) Monitor Interventions for FHR: Ultrasound Adjusted (Thi Camp, RNC) FHR Baseline Rate : 130 (Thi Camp, RNC) FHR Baseline Changes: No Baseline Change (Thi Camp, RNC) Variability: Moderate 6-25 bpm (Thi Camp, RNC) Accelerations: 15X15 (Thi Camp, RNC) Decelerations: None (Thi Camp, RNC) Comments: RN to bedside u/s adjusted (Thi Camp, RNC) Pitocin (milliunit): Pitocin Remains (milliunits) @ (Annotations: 14) (Thi Camp, RNC) Datetime: 04/30/2016 14:09 NBP Sys/Earlene/Mean (mmHg): 154 (QS system process) : 69 (QS system process) : 99 (QS system process) Pulse: 85 (QS system process) Respirations: 16 (Thi Camp, RNC) LaborFlag: Antepartum (QS system process) Datetime: 04/30/2016 14:04 NBP Sys/Earlene/Mean (mmHg): 150 (QS system process) : 70 (QS system process) : 100 (QS system process) Pulse: 95 (QS system process) Respirations: 16 (Thi Camp, RNC) Temperature (F): 98.1 (Thi Camp, RNC) Temperature (C): 36.7 (QS system process) Temperature Route: Oral (Thi Camp, RNC) LaborFlag: Antepartum (QS system process) Datetime: 04/30/2016 14:03 Monitor Interventions for FHR: Ultrasound Adjusted (Thi Camp, RNC) Comments: Rn at bedside adjusting monitor (Thi Camp, RNC) Datetime: 04/30/2016 14:00 Monitor Mode: External; Palpation (Thi Camp, RNC) Frequency (min): 2-3 (Thi Camp, RNC) Quality: Moderate (Thi Camp, RNC) Duration (sec): 50-70 (Thi Camp, RNC) Duration Criteria: Less than Two 120 Second Contractions (Thi Camp, RNC) Pattern: Normal: <= 5 Contractions in 10 Minutes (Thi Camp, RNC) Resting Tone (Palpate): Relaxed (Thi Camp, RNC) Monitor Mode: External US; Auscultation (Thi Camp, RNC) FHR Baseline Rate : 130 (Thi Camp, RNC) FHR Baseline Changes: No Baseline Change (Thi Camp, RNC) Variability: Moderate 6-25 bpm (Thi Camp, RNC) Accelerations: 15X15 (Thi Camp, RNC) Decelerations: None (Thi Camp, RNC) Pitocin (milliunit): Pitocin Increased to (milliunits) @ (Annotations: 12) (Thi Camp, RNC) Datetime: 04/30/2016 13:53 Analgesics/Sedatives: Nubain (mg) @ 10mg iv for labor pain (LORETTA Dye) Antiemetics/Antacids: Phenergan IV (mg) @ 12.5 mg iv for nausea (Thi Linares, RNC) Datetime: 04/30/2016 13:48 Procedures: Bedside Ultrasound Done (LORETTA Dye) Patient Care Comments: vertex presentation verified . SVE per Emmel verification of garcia bulb placement. Approximstely 15ml fluid removed from cervical catheter with immediate reducation in pressure noted. Abdomen palpates soft (LORETTA Dye) Communication: RN at Bedside; Provider at Bedside (LORETTA Dye) Datetime: 04/30/2016 13:47 Communication Comments: Emmel on unit request bedside u/s for position to assist with continuous EFM tracing. Report of 5/5 pain level at suprapubic site. (Thi Linares, RNC) Datetime: 04/30/2016 13:46 Pain Scale: 5 (Thi Linares, RNC) Pain Presence: Constant (Thi Linares, RNC) Pain Type: Sharp (Thi Linares, RNC) Pain Location: Other (Thi Linares, RNC) Pain Coping: Breathing Through Contractions; Crying (Thi Linares, RNC) Pain Assessment Comments: C/O constant suprapubic pain 5/5 with no relief with position change (Thi Linares, RNC) Comfort Measures: Coaching; Family Support (Thi Linares RNC) Provider Reviewed Strip: Yes (Thi Linares RNC) Communication: RN at Bedside; Provider at Bedside (LORETTA Dye) LaborFlag: Antepartum (QS system process) Datetime: 04/30/2016 13:45 Monitor Mode: External; Palpation (Thi Linares, RNC) Monitor Interventions for UA: [place] Adjusted (Thi Linares, RNC) Frequency (min): 2-4 (Thi Camp, RNC) Quality: Moderate (Thi Camp, RNC) Duration (sec): 60-80 (Thi Camp, RNC) Duration Criteria: Less than Two 120 Second Contractions (Thi Camp, RNC) Pattern: Normal: <= 5 Contractions in 10 Minutes (Thi Camp, RNC) Resting Tone (Palpate): Relaxed (Thi Camp, RNC) Monitor Mode: External US; Auscultation (Thi Camp, RNC) FHR Baseline Rate : 135 (Thi Camp, RNC) FHR Baseline Changes: No Baseline Change (Thi Camp, RNC) Variability: Moderate 6-25 bpm (Thi Camp, RNC) Accelerations: 15X15 (Thi Camp, RNC) Decelerations: None (Thi Camp, RNC) Pitocin (milliunit): Pitocin Remains (milliunits) @ (Annotations: 10) (Thi Camp, RNC) Datetime: 04/30/2016 13:30 Monitor Mode: External; Palpation (Thi Camp, RNC) Frequency (min): 2-3 (Thi Camp, RNC) Quality: Moderate (Thi Camp, RNC) Duration (sec): 50-80 (Thi Camp, RNC) Duration Criteria: Less than Two 120 Second Contractions (Thi Camp, RNC) Pattern: Normal: <= 5 Contractions in 10 Minutes (Thi Camp, RNC) Resting Tone (Palpate): Relaxed (Thi Camp, RNC) Monitor Interventions for FHR: Ultrasound Adjusted (Thi Camp, RNC) FHR Baseline Changes: Unable to Determine (Thi Camp, RNC) Comments: RN at bedside adjusting monitors (Thi Camp, RNC) Pitocin (milliunit): Pitocin Increased to (milliunits) @ (Annotations: 10) (Thi Welling, [facility]) Datetime: 04/30/2016 13:10 Pitocin (milliunit): Pitocin Remains (milliunits) @ 8 (Thi Camp, [facility]) Datetime: 04/30/2016 13:08 NBP Sys/Earlene/Mean (mmHg): 136 (QS system process) : 72 (QS system process) : 98 (QS system process) Pulse: 80 (QS system process) Respirations: 20 (Thi Welling, [facility]) I/O Interventions: Up to BR (Josie Velez RN) LaborFlag: Antepartum (QS system process) Datetime: 04/30/2016 13:00 Monitor Mode: External; Palpation (Thi Camp, RNC) Monitor Interventions for UA: [place] Adjusted (Thi Camp, RNC) Frequency (min): 1-3 (Thi Camp, RNC) Quality: Mild/Moderate (Thi Camp, RNC) Duration (sec): 50-70 (Thi Camp, RNC) Duration Criteria: Less than Two 120 Second Contractions (Thi Camp, RNC) Pattern: Normal: <= 5 Contractions in 10 Minutes (Thi Camp, RNC) Resting Tone (Palpate): Relaxed (Thi Camp, RNC) Monitor Mode: External US; Auscultation (Thi Camp, RNC) FHR Baseline Rate : 140 (Thi Camp, RNC) FHR Baseline Changes: No Baseline Change (Thi Camp, RNC) Variability: Moderate 6-25 bpm (Thi Camp, RNC) Accelerations: 15X15 (Thi Camp, RNC) Decelerations: None (Thi Camp, RNC) Pitocin (milliunit): Pitocin Increased to (milliunits) @ 8 (Thi Camp, RNC) Datetime: 04/30/2016 12:45 Monitor Mode: External; Palpation (Thi Camp, RNC) Monitor Interventions for UA: [place] Adjusted (Thi Camp, RNC) Frequency (min): 1-4 (Thi Camp, RNC) Quality: Mild/Moderate (Thi Camp, RNC) Duration (sec): 50-80 (Thi Camp, RNC) Duration Criteria: Less than Two 120 Second Contractions (Thi Camp, RNC) Pattern: Normal: <= 5 Contractions in 10 Minutes (Thi Camp, RNC) Resting Tone (Palpate): Relaxed (Thi Camp, RNC) FHR Baseline Changes: Unable to Determine (Thi Camp, RNC) Comments: RN sitting at bedside holding monitors (Thi Camp, RNC) Pitocin (milliunit): Pitocin Increased to (milliunits) @ 6 (Thi Camp, RNC) Datetime: 04/30/2016 12:39 NBP Sys/Earlene/Mean (mmHg): 143 (QS system process) : 73 (QS system process) : 101 (QS system process) Pulse: 82 (QS system process) Respirations: 20 (Thi Camp, RNC) LaborFlag: Antepartum (QS system process) Datetime: 04/30/2016 12:32 Dilatation (cm): 1.5 (Thi Camp, RNC) Effacement (%): 50 (LORETTA Dye) Station: -2 (LORETTA Dye) Exam by: Sameer Delacruz (LORETTA Dye) Vaginal Bleeding: None (LORETTA Dye) Cervix, Consistency: Soft (LORETTA Dye) Cervix, Position: Midposition (LORETTA Dye) Lie 'A': Unable to Assess (LORETTA Dye) Vaginal Exam Comments: cook garcia bulb placed vaginally and inflated with 80ml NSS x both catheters with placement verified per provider. Tolerated procedure well (LORETTA Dye) Patient Care Comments: Jayme SCHULTZ at bedside, sve with placement of 18 fr Cook catheter cervical and vaginal balloons filled with 80ml each of NSS (LORETTA Dye) Instructional Method: Demo; Verbal; Patient Instructed; Family/Support Person Instructed; Verbalized Understanding (LORETTA Dye) Plan of Care: Plan of Care Discussed (LORETTA Dye) Teaching Comments: Jayme and RN at bedside. Pt and educated on Cook Garcia bulb induction, procedure and expected outcomes. Reviewed pain management options and importance of frequent position changes. SVE (LORETTA Dye) Communication: Provider at Bedside (LORETTA Dye) Datetime: 04/30/2016 12:30 Monitor Mode: External; Palpation (LORETTA Dye) Monitor Interventions for UA: [place] Adjusted (LORETTA Dye) Frequency (min): 4-5 (LORETTA Dye) Quality: Mild/Moderate (LORETTA Dye) Duration (sec): 50-60 (LORETTA Dye) Duration Criteria: Less than Two 120 Second Contractions (Thi Camp, RNC) Pattern: Normal: <= 5 Contractions in 10 Minutes (Thi Camp, RNC) Resting Tone (Palpate): Relaxed (Thi Camp, RNC) Monitor Mode: External US; Auscultation (Thi Camp, RNC) FHR Baseline Rate : 130 (Thi Camp, RNC) FHR Baseline Changes: No Baseline Change (Thi Camp, RNC) Variability: Moderate 6-25 bpm (Thi Camp, RNC) Accelerations: 15X15 (Thi Camp, RNC) Decelerations: None (Thi Camp, RNC) Pitocin (milliunit): Pitocin Increased to (milliunits) @ 4 (Thi Camp, RNC) Datetime: 04/30/2016 12:15 Pitocin (milliunit): Pitocin Started (milliunits) @ 2 (Thi Camp, RNC) Instructional Method: Verbal; Patient Instructed; Family/Support Person Instructed; Verbalized Understanding (Thi Camp, RNC) Medications: Pitocin (Thi Camp, RNC) Datetime: 04/30/2016 12:11 NBP Sys/Earlene/Mean (mmHg): 140 (QS system process) : 77 (QS system process) : 101 (QS system process) Pulse: 89 (QS system process) Respirations: 18 (Thi Linares [facility]) LaborFlag: Antepartum (QS system process) Datetime: 04/30/2016 12:00 Monitor Mode: External; Palpation (Josie Velez RN) Frequency (min): Irregular (Josie Velez RN) Quality: Mild/Moderate (Josie Velez RN) Duration (sec): 50-90 (Josie Velez RN) Duration Criteria: Less than Two 120 Second Contractions (Josie Velez RN) Pattern: Normal: <= 5 Contractions in 10 Minutes (Josie Velez RN) Resting Tone (Palpate): Relaxed (Josie Velez RN) Monitor Mode: External US; Auscultation (Josie Velez RN) Comments: Unable to assess d/t broken tracing r/t movement, pt position, maternal habitus. RN and provider at bedside, US adjusted. (Josie Velez RN)
--- NOTE | 2016-04-30 20:01 | L&D Flow Sheet ---
LD Flowsheet Datetime Report Generated by CPN: 04/30/2016 20:00 Datetime: 04/30/2016 19:45 Communication Comments: Pt off to walk,monitors off, IV is KVO. (Kristel Ledgerwood, RN) Datetime: 04/30/2016 19:38 Vaginal Bleeding: None (Kristel Ledgerwood, RN) Level of Consciousness: Fully Conscious (Kristel Johanawood, RN) DTR's/Clonus: DTRs 2+; No Clonus (Kristel Analygerwood, RN) Headache: Denies (Kristel Rodrigez RN) Breath Sounds, Left: Clear and Equal (Kristel Rodrigez RN) Breath Sounds, Right: Clear and Equal (Kristel Rodrigez RN) Nausea/Vomiting: Denies (Kristel Rodrigez RN) RUQ Epigastric Pain: Denies (Kristel Rodrigez RN) Instructional Method: Demo; Verbal; Patient Instructed (Kristel Rodrigez RN) Plan of Care: Plan of Care Discussed (Kristel Rodrigez RN) Datetime: 04/30/2016 19:20 Communication Comments: Report to Alvarez Rodrigez RN Care relinquished by Liliam BURGOS (Al Samson RN) Datetime: 04/30/2016 19:15 Dilatation (cm): 4.0 (Al Samson RN) Effacement (%): 60 (Al Samson RN) Station: -2 (Al Samson RN) Exam by: Liliam Linares RNC (Al Samson RN) Patient Care Comments: Garcia bulb released per gravity. (Al Samson RN) Communication Comments: Dr Ross called and updated on patient status, notified of VE, garcia bulb out, pain, vs, efm strip, ctx pattern. Orders received to remove monitoring, ambien 10mg 2200 vital signs Q shift tonight, allow pt to sleep tonight, call in AM for further orders. (Al Samson RN) Datetime: 04/30/2016 19:00 Monitor Mode: External; Palpation ([facility], [facility]) Frequency (min): 1-3 [facility]) Quality: Moderate (Thi Chamois, RNC) Duration (sec): 70-90 (Thi Chamois, RNC) Duration Criteria: Less than Two 120 Second Contractions (Thi Chamois, RNC) Pattern: Normal: <= 5 Contractions in 10 Minutes (Thi Chamois, RNC) Resting Tone (Palpate): Relaxed ([facility]) Monitor Mode: External US; Auscultation ([facility], RN) Monitor Interventions for FHR: Ultrasound Adjusted (Thi Chamois, RNC) FHR Baseline Rate : 135 (Thi Camp, RNC) FHR Baseline Changes: No Baseline Change (Thi Camp, RNC) Variability: Moderate 6-25 bpm (Thi Camp, RNC) Accelerations: 15X15 (Thi Camp, RNC) Decelerations: None (Thi Camp, RNC) Pitocin (milliunit): Pitocin Remains (milliunits) @ 20 (Thi Camp, RNC) Datetime: 04/30/2016 18:45 Monitor Mode: External; Palpation (Thi Camp, RNC) Frequency (min): 2-4 (Thi Camp, RNC) Quality: Moderate (Thi Camp, RNC) Duration (sec): 70-100 (Thi Camp, RNC) Duration Criteria: Less than Two 120 Second Contractions (Thi Camp, RNC) Pattern: Normal: <= 5 Contractions in 10 Minutes (Thi Camp, RNC) Resting Tone (Palpate): Relaxed (Thi Camp, RNC) Monitor Mode: External US; Auscultation (Thi Camp, RNC) FHR Baseline Rate : 140 (Thi Camp, RNC) FHR Baseline Changes: No Baseline Change (Thi Camp, RNC) Variability: Minimal - Undetectable to <=5 bpm (Thi Camp, RNC) Accelerations: None (Thi Camp, RNC) Decelerations: None (Thi Camp, RNC) Datetime: 04/30/2016 18:39 NBP Sys/Earlene/Mean (mmHg): 125 (QS system process) : 64 (QS system process) : 87 (QS system process) Pulse: 96 (QS system process) Respirations: 16 (Thi Camp, RNC) LaborFlag: Labor (QS system process) Datetime: 04/30/2016 18:30 Pitocin (milliunit): Pitocin Remains (milliunits) @ 20 (Thi Camp, RNC) Datetime: 04/30/2016 18:29 Monitor Mode: External; Palpation (Thi Camp, RNC) Frequency (min): 2-4 (Thi Camp, RNC) Quality: Mild/Moderate (Thi Camp, RNC) Duration (sec): 70-80 (Thi Camp, RNC) Duration Criteria: Less than Two 120 Second Contractions (Thi Camp, RNC) Pattern: Normal: <= 5 Contractions in 10 Minutes (Thi Camp, RNC) Resting Tone (Palpate): Relaxed (Thi Camp, RNC) Monitor Mode: External US; Auscultation (Thi Camp, RNC) FHR Baseline Rate : 145 (Thi Camp, RNC) FHR Baseline Changes: No Baseline Change (Thi Camp, RNC) Variability: Moderate 6-25 bpm (Thi Camp, RNC) Accelerations: 15X15 (Thi Camp, RNC) Decelerations: None (Thi Camp, RNC) Datetime: 04/30/2016 18:26 Patient Care Comments: full liquid diet provided (Thi Camp, RNC) Datetime: 04/30/2016 18:15 Monitor Mode: External; Palpation (Thi Camp, RNC) Frequency (min): 2-3 (Thi Camp, RNC) Quality: Moderate (Thi Camp, RNC) Duration (sec): 60-90 (Thi Camp, RNC) Duration Criteria: Less than Two 120 Second Contractions (Thi Camp, RNC) Pattern: Normal: <= 5 Contractions in 10 Minutes (Thi Camp, RNC) Resting Tone (Palpate): Relaxed (Thi Camp, RNC) Monitor Mode: External US; Auscultation (Thi Camp, RNC) FHR Baseline Rate : 140 (Thi Camp, RNC) FHR Baseline Changes: No Baseline Change (Thi Camp, RNC) Variability: Moderate 6-25 bpm (Thi Camp, RNC) Accelerations: 15X15 (Thi Camp, RNC) Decelerations: None (Thi Camp, RNC) Pain Scale: 2 (Thi Camp, RNC) Pain Presence: Intermittent (Thi Camp, RNC) Pain Type: Contraction (Thi Camp, RNC) Pain Location: Abdomen (Thi Camp, RNC) Pain Relief Measures: Comfort Measures (Thi Camp, RNC) Pain Coping: Talking Through Contractions (Thi Camp, RNC) Pitocin (milliunit): Pitocin Remains (milliunits) @ 20 (Thi Camp, RNC) Comfort Measures: Rocking Chair; Family Support (Thi Camp, RNC) LaborFlag: Labor (QS system process) Datetime: 04/30/2016 18:09 NBP Sys/Earlene/Mean (mmHg): 109 (QS system process) : 64 (QS system process) : 80 (QS system process) Pulse: 103 (QS system process) Respirations: 16 (Thi Camp, RNC) Temperature (F): 97.9 (Thi Camp, RNC) Temperature (C): 36.6 (QS system process) Temperature Route: Oral (Thi Camp, RNC) LaborFlag: Labor (QS system process) Datetime: 04/30/2016 18:00 Monitor Mode: External; Palpation (Thi Camp, RNC) Frequency (min): 1-4 (Thi Camp, RNC) Quality: Mild/Moderate (Thi Camp, RNC) Duration (sec): 70-100 (Thi Camp, RNC) Duration Criteria: Less than Two 120 Second Contractions (Thi Camp, RNC) Pattern: Normal: <= 5 Contractions in 10 Minutes (Thi Camp, RNC) Resting Tone (Palpate): Relaxed (Thi Camp, RNC) Monitor Mode: External US; Auscultation (Thi Camp, RNC) FHR Baseline Rate : 135 (Thi Camp, RNC) FHR Baseline Changes: No Baseline Change (Thi Camp, RNC) Variability: Moderate 6-25 bpm (Thi Camp, RNC) Accelerations: 15X15 (Thi Camp, RNC) Decelerations: None (Thi Camp, RNC) Pitocin (milliunit): Pitocin Remains (milliunits) @ 20 (Thi Camp, RNC) Datetime: 04/30/2016 17:45 Monitor Mode: External; Palpation (Al Mali, RN) Frequency (min): 1-4 (Al Mali, RN) Quality: Moderate (Al Mali, RN) Duration (sec): 50-80 (Al Mali, RN) Duration Criteria: Less than Two 120 Second Contractions (Al Mali, RN) Pattern: Normal: <= 5 Contractions in 10 Minutes (Al Rosarioeet, RN) Resting Tone (Palpate): Relaxed (Al Archert, RN) Monitor Mode: External US; Auscultation (Al Patelfleet, RN) Monitor Interventions for FHR: Ultrasound Adjusted (Al Archert, RN) FHR Baseline Rate : 135 (Al Rosarioeet, RN) FHR Baseline Changes: No Baseline Change (Al Rosarioeet, RN) Variability: Moderate 6-25 bpm (Al Patelfleet, RN) Accelerations: 15X15 (Al Patelfleet, RN) Decelerations: None (Al Rosarioeet, RN) Pitocin (milliunit): Pitocin Remains (milliunits) @ 20 (Al Rosarioeet, RN) Datetime: 04/30/2016 17:39 NBP Sys/Earlene/Mean (mmHg): 125 (QS system process) : 74 (QS system process) : 94 (QS system process) Pulse: 106 (QS system process) Respirations: 16 (Thi Camp, RNC) LaborFlag: Labor (QS system process) Datetime: 04/30/2016 17:30 Monitor Mode: External; Palpation (Thi Camp, RNC) Frequency (min): 2-3 (Thi Camp, RNC) Quality: Mild/Moderate (Thi Camp, RNC) Duration (sec): 70-80 (Thi Camp, RNC) Pattern: Normal: <= 5 Contractions in 10 Minutes (Thi Camp, RNC) Resting Tone (Palpate): Relaxed (Thi Camp, RNC) Monitor Mode: External US; Auscultation (Thi Camp, RNC) FHR Baseline Rate : 135 (Thi Camp, RNC) FHR Baseline Changes: No Baseline Change (Thi Camp, RNC) Variability: Moderate 6-25 bpm (Thi Camp, RNC) Accelerations: 15X15 (Thi Camp, RNC) Decelerations: None (Thi Camp, RNC) Pitocin (milliunit): Pitocin Remains (milliunits) @ 20 (Thi Camp, RNC) Datetime: 04/30/2016 17:24 Patient Care Comments: repositioned to rocking chair . [place] and U/S adjusted (Thi Camp, RNC) Datetime: 04/30/2016 17:20 Hygiene: Meseret Care; Underpad Changed (Thi Camp, RNC) I/O Interventions: Up to BR (Thi Camp, RNC) Datetime: 04/30/2016 17:15 Monitor Mode: External; Palpation (Thi Camp, RNC) Frequency (min): 1-3 (Thi Camp, RNC) Quality: Mild/Moderate (Thi Camp, RNC) Duration (sec): 70-90 (Thi Camp, RNC) Duration Criteria: Less than Two 120 Second Contractions (Thi Camp, RNC) Pattern: Normal: <= 5 Contractions in 10 Minutes (Thi Camp, RNC) Resting Tone (Palpate): Relaxed (Thi Camp, RNC) Monitor Mode: External US; Auscultation (Thi Camp, RNC) FHR Baseline Rate : 130 (Thi Camp, RNC) FHR Baseline Changes: No Baseline Change (Thi Camp, RNC) Variability: Minimal - Undetectable to <=5 bpm (Thi Camp, RNC) Accelerations: None (Thi Camp, RNC) Decelerations: None (Thi Camp, RNC) Pitocin (milliunit): Pitocin Remains (milliunits) @ 20 (Thi Camp, RNC) Datetime: 04/30/2016 17:08 NBP Sys/Earlene/Mean (mmHg): 133 (QS system process) : 63 (QS system process) : 91 (QS system process) Pulse: 85 (QS system process) Respirations: 18 (Thi Camp, RNC) Pain Scale: 2 (Thi Camp, RNC) Pain Presence: Intermittent (Thi Camp, RNC) Pain Type: Cramping (Thi Camp, RNC) Pain Location: Abdomen (Thi Camp, RNC) Pain Goal: 2 (Thi Camp, RNC) Pain Relief Measures: Comfort Measures (Thi Camp, RNC) Pain Coping: Talking Through Contractions (Thi Camp, RNC) LaborFlag: Labor (QS system process) Datetime: 04/30/2016 17:00 Monitor Mode: External; Palpation (Thi Camp, RNC) Monitor Interventions for UA: [place] Adjusted (Thi Camp, RNC) Frequency (min): 2-4 (Thi Camp, RNC) Quality: Mild/Moderate (Thi Camp, RNC) Duration (sec): 60-80 (Thi Camp, RNC) Duration Criteria: Less than Two 120 Second Contractions (Thi Camp, RNC) Pattern: Normal: <= 5 Contractions in 10 Minutes (Thi Camp, RNC) Resting Tone (Palpate): Relaxed (Thi Camp, RNC) Monitor Mode: External US; Auscultation (Thi Camp, RNC) FHR Baseline Rate : 135 (Thi Camp, RNC) FHR Baseline Changes: No Baseline Change (Thi Camp, RNC) Variability: Moderate 6-25 bpm (Thi Camp, RNC) Accelerations: 10X10 (Thi Camp, RNC) Decelerations: None (Thi Camp, RNC) Datetime: 04/30/2016 16:45 Monitor Mode: External; Palpation (Thi Camp, RNC) Frequency (min): 1.5-3 (Thi Camp, RNC) Quality: Moderate (Thi Camp, RNC) Duration (sec): 60-90 (Thi Camp, RNC) Duration Criteria: Less than Two 120 Second Contractions (Thi Camp, RNC) Pattern: Normal: <= 5 Contractions in 10 Minutes (Thi Camp, RNC) Resting Tone (Palpate): Relaxed (Thi Camp, RNC) Monitor Mode: External US; Auscultation (Thi Camp, RNC) FHR Baseline Rate : 130 (Thi Camp, RNC) FHR Baseline Changes: No Baseline Change (Thi Camp, RNC) Variability: Moderate 6-25 bpm (Thi Camp, RNC) Accelerations: 15X15 (Thi Camp, RNC) Decelerations: None (Thi Camp, RNC) Pitocin (milliunit): Pitocin Remains (milliunits) @ 20 (Thi Camp, RNC) Datetime: 04/30/2016 16:41 Monitor Interventions for FHR: Ultrasound Adjusted (Thi Camp, RNC) Comments: RN at bedside adjusting monitors (Thi Camp, RNC) Datetime: 04/30/2016 16:38 NBP Sys/Earlene/Mean (mmHg): 141 (QS system process) : 69 (QS system process) : 97 (QS system process) Pulse: 73 (QS system process) Respirations: 18 (Thi Camp, RNC) LaborFlag: Labor (QS system process) Datetime: 04/30/2016 16:30 Monitor Mode: External; Palpation (Thi Camp, RNC) Frequency (min): 1-5 (Thi Camp, RNC) Quality: Moderate (Thi Camp, RNC) Duration (sec): 50-90 (Thi Camp, RNC) Duration Criteria: Less than Two 120 Second Contractions (Thi Camp, RNC) Pattern: Normal: <= 5 Contractions in 10 Minutes (Thi Camp, RNC) Resting Tone (Palpate): Relaxed (Thi Chamois, RNC) Monitor Mode: External US; Auscultation (Thi Chamois, RNC) FHR Baseline Rate : 135 (Thi Chamois, RNC) FHR Baseline Changes: No Baseline Change (Thi Camp, RNC) Variability: Moderate 6-25 bpm (Thi Camp, RNC) Accelerations: 15X15 (Thi Camp, RNC) Decelerations: None (Thi Chamois, RNC) Datetime: 04/30/2016 16:24 Dilatation (cm): 4.0 (Annotations: vaginal assessment while garcia remains in place) (Thi Linares, RNC) Effacement (%): 80 (Thi Linares, RNC) Station: -2 (Thi Linares, RNC) Exam by: Tereso Ross (Thi Linares, RNC) Vaginal Bleeding: Normal Show (Thi Linares, RNC) Cervix, Consistency: Soft (Thi Linares, RNC) Cervix, Position: Midposition (Thi Linares, RNC) Lie 'A': Unable to Assess (Thi Linares RNC) Instructional Method: Verbal; Patient Instructed; Family/Support Person Instructed; Verbalized Understanding (Thi Linares RNGunjan) Plan of Care: Plan of Care Discussed (Thi Linares RNGunjan) Teaching Comments: Dr Ross reviewed plan to leave garcia bulb in place until 1999 unless expelled prior to this time. Given option to discontinue Pitocin and rest through the night if no significant cervical change or AROM and proceed through hte night . States she will make decision depending on cervical exam at 1999 when catheter is removed (Thi Linares, LORETTA) Communication: RN at Bedside; Provider at Bedside (LORETTA Dye) Communication Comments: Dr Ross at bedside to assess cervical change. SVE per Dr Ross 40 ml NSS removed from vaginal catheter. (Thi Linares, WILLIAMC) Datetime: 04/30/2016 16:15 Monitor Mode: External; Palpation (Thi Linares, RNC) Frequency (min): 1-5 (Thi Camp, RNC) Quality: Moderate (Thi Camp, RNC) Duration (sec): 50-90 (Thi Camp, RNC) Duration Criteria: Less than Two 120 Second Contractions (Thi Linares, RNC) Pattern: Normal: <= 5 Contractions in 10 Minutes (Thitrevor Linares, RNC) Monitor Mode: External US; Auscultation (Thi Linares, RNC) FHR Baseline Rate : 125 (Thi Camp, RNC) FHR Baseline Changes: No Baseline Change (Thi Camp, RNC) Variability: Moderate 6-25 bpm (Thi Camp, RNC) Accelerations: 15X15 (Thi Camp, RNC) Decelerations: None (Thi Camp, RNC) Datetime: 04/30/2016 16:08 NBP Sys/Earlene/Mean (mmHg): 121 (QS system process) : 56 (QS system process) : 80 (QS system process) Pulse: 96 (QS system process) Respirations: 17 (LORETTA Dye) LaborFlag: Labor (QS system process)
[2016-04-30] MEDS ORDERED: ZOLPIDEM TARTRATE 5 MG TABLET ONE (21:38)
[2016-04-30] MEDS: METHYLDOPA 250 MG TABLET PO SCH (21:51)
[2016-04-30] MEDS: ZOLPIDEM TARTRATE 5 MG TABLET PO SCH (21:52)
--- NOTE | 2016-05-01 04:46 | L&D Flow Sheet ---
LD Flowsheet Datetime Report Generated by CPN: 05/01/2016 04:45 Datetime: 05/01/2016 04:05 Communication Comments: pt is stable, no distress noted. (Kristel Ledgerwood, RN) Datetime: 05/01/2016 00:30 Communication: RN at Bedside (Kristel Ledgerwood, RN) Communication Comments: Pt is sleeping. No distress noted. (Kristel Ledgerwood, RN) Datetime: 04/30/2016 21:52 Analgesics/Sedatives: Ambien (mg) @ (Annotations: 10) ([facility], [facility] Medication Comments: Aldomet 250 mg given (Kristel Analygercloudcroft, RN) Instructional Method: Demo; Verbal; Patient Instructed ([facility], ) Unit Routine: Medications ([facility], ) Communication Comments: Pt in bed, no distress noted. ([facility], ) Datetime: 04/30/2016 20:38 Communication Comments: Pt. is in the room, no distress noted. ([facility], ) Datetime: 04/30/2016 19:45 Communication Comments: Pt off to walk,monitors off, IV is KVO. (Kristel Rodrigez RN) Datetime: 04/30/2016 19:38 Pain Scale: 0 (Annotations: pt reports pressure, not pain in her lower abdomen.) (Kristel Rodrigez RN) Vaginal Bleeding: None (Kristel Rodrigez RN) Level of Consciousness: Fully Conscious (Kristel Rodrigez RN) DTR's/Clonus: DTRs 2+; No Clonus (Kristel Rodrigez, WILLIAM) Headache: Denies (Kristel Rodrigez RN) Breath Sounds, Left: Clear and Equal (Kristel Rodrigez RN) Breath Sounds, Right: Clear and Equal (Kristel Rodrigez RN) Nausea/Vomiting: Denies (Kristel Rodrigez RN) RUQ Epigastric Pain: Denies (Kristel Rodrigez RN) Instructional Method: Demo; Verbal; Patient Instructed (Kristel Rodrigez RN) Plan of Care: Plan of Care Discussed (Kristel Rodrigez RN) LaborFlag: Labor (QS system process) Datetime: 04/30/2016 19:25 Monitor Mode: External; Palpation (Kristel Ledgerwood, RN) Frequency (min): irreg (Kristel Ledgerwood, RN) Quality: Mild (Kristel Ledgerwood, RN) Duration (sec): 60-90 (Kristel Ledgerwood, RN) Duration Criteria: Less than Two 120 Second Contractions (Kristel Ledgerwood, RN) Pattern: Normal: <= 5 Contractions in 10 Minutes (Kristel Ledgerwood, RN) Resting Tone (Palpate): Relaxed (Kristel Ledgerwood, RN) Monitor Mode: External US (Kristel Ledgerwood, RN) FHR Baseline Rate : 140 (Kristel Ledgerwood, RN) FHR Baseline Changes: No Baseline Change (Kristel Ledgerwood, RN) Variability: Moderate 6-25 bpm (Kristel Ledgerwood, RN) Accelerations: 15X15 (Kristel Ledgerwood, RN) Decelerations: None (Kristel Ledgerwood, RN) Datetime: 04/30/2016 19:22 Communication: RN at Bedside (Kristel Ledgerwood, RN) Communication Comments: Report received from S [place] RN at bedside. (Kristel Ledgerwood, RN) Datetime: 04/30/2016 19:20 Communication Comments: Report to O Johanacloudcroft RN Care relinquished by Liliam Linares RNC (Al Samson RN) Datetime: 04/30/2016 19:15 Dilatation (cm): 4.0 (Al Samson RN) Effacement (%): 60 (Al Samson RN) Station: -2 (Al Samson RN) Exam by: Liliam Linares RNC (Al Samson RN) Patient Care Comments: Garcia bulb released per gravity. (Al Samson RN) Communication Comments: Dr Ross called and updated on patient status, notified of VE, garcia bulb out, pain, vs, efm strip, ctx pattern. Orders received to remove monitoring, ambien 10mg 2200 vital signs Q shift tonight, allow pt to sleep tonight, call in AM for further orders. (Al Samson RN) Datetime: 04/30/2016 19:00 Monitor Mode: External; Palpation (Thi Camp, RNC) Frequency (min): 1-3 (Thi Camp, RNC) Quality: Moderate (Thi Camp, RNC) Duration (sec): 70-90 (Thi Camp, RNC) Duration Criteria: Less than Two 120 Second Contractions (Thi Camp, RNC) Pattern: Normal: <= 5 Contractions in 10 Minutes (Thi Camp, RNC) Resting Tone (Palpate): Relaxed (Thi Camp, RNC) Monitor Mode: External US; Auscultation (Thi Camp, RNC) Monitor Interventions for FHR: Ultrasound Adjusted (Thi Camp, RNC) FHR Baseline Rate : 135 (Thi Camp, RNC) FHR Baseline Changes: No Baseline Change (Thi Camp, RNC) Variability: Moderate 6-25 bpm (Thi Camp, RNC) Accelerations: 15X15 (Thi Camp, RNC) Decelerations: None (Thi Camp, RNC) Pitocin (milliunit): Pitocin Remains (milliunits) @ 20 (Thi Camp, RNC) Datetime: 04/30/2016 18:45 Monitor Mode: External; Palpation (Thi Camp, RNC) Frequency (min): 2-4 (Thi Camp, RNC) Quality: Moderate (Thi Camp, RNC) Duration (sec): 70-100 (Thi Camp, RNC) Duration Criteria: Less than Two 120 Second Contractions (Thi Camp, RNC) Pattern: Normal: <= 5 Contractions in 10 Minutes (Thi Camp, RNC) Resting Tone (Palpate): Relaxed (Thi Camp, RNC) Monitor Mode: External US; Auscultation (Thi Camp, RNC) FHR Baseline Rate : 140 (Thi Camp, RNC) FHR Baseline Changes: No Baseline Change (Thi Camp, RNC) Variability: Minimal - Undetectable to <=5 bpm (Thi Camp, RNC) Accelerations: None (Thi Camp, RNC) Decelerations: None (Thi Camp, RNC) Datetime: 04/30/2016 18:39 NBP Sys/Earlene/Mean (mmHg): 125 (QS system process) : 64 (QS system process) : 87 (QS system process) Pulse: 96 (QS system process) Respirations: 16 (Thi Camp, RNC) LaborFlag: Labor (QS system process) Datetime: 04/30/2016 18:30 Pitocin (milliunit): Pitocin Remains (milliunits) @ 20 (Thi Camp, RNC) Datetime: 04/30/2016 18:29 Monitor Mode: External; Palpation (Thi Camp, RNC) Frequency (min): 2-4 (Thi Camp, RNC) Quality: Mild/Moderate (Thi Camp, RNC) Duration (sec): 70-80 (Thi Camp, RNC) Duration Criteria: Less than Two 120 Second Contractions (Thi Camp, RNC) Pattern: Normal: <= 5 Contractions in 10 Minutes (Thi Camp, RNC) Resting Tone (Palpate): Relaxed (Thi Camp, RNC) Monitor Mode: External US; Auscultation (Thi Camp, RNC) FHR Baseline Rate : 145 (Thi Camp, RNC) FHR Baseline Changes: No Baseline Change (Thi Camp, RNC) Variability: Moderate 6-25 bpm (Thi Camp, RNC) Accelerations: 15X15 (Thi Camp, RNC) Decelerations: None (Thi Camp, RNC) Datetime: 04/30/2016 18:26 Patient Care Comments: full liquid diet provided (Thi Camp, RNC) Datetime: 04/30/2016 18:15 Monitor Mode: External; Palpation (Thi Camp, RNC) Frequency (min): 2-3 (Thi Camp, RNC) Quality: Moderate (Thi Camp, RNC) Duration (sec): 60-90 (Thi Camp, RNC) Duration Criteria: Less than Two 120 Second Contractions (Thi Camp, RNC) Pattern: Normal: <= 5 Contractions in 10 Minutes (Thi Camp, RNC) Resting Tone (Palpate): Relaxed (Thi Camp, RNC) Monitor Mode: External US; Auscultation (Thi Camp, RNC) FHR Baseline Rate : 140 (Thi Camp, RNC) FHR Baseline Changes: No Baseline Change (Thi Camp, RNC) Variability: Moderate 6-25 bpm (Thi Camp, RNC) Accelerations: 15X15 (Thi Camp, RNC) Decelerations: None (Thi Camp, RNC) Pain Scale: 2 (Thi Camp, RNC) Pain Presence: Intermittent (Thi Camp, RNC) Pain Type: Contraction (Thi Camp, RNC) Pain Location: Abdomen (Thi Camp, RNC) Pain Relief Measures: Comfort Measures (Thi Camp, RNC) Pain Coping: Talking Through Contractions (Thi Camp, RNC) Pitocin (milliunit): Pitocin Remains (milliunits) @ 20 (Thi Camp, RNC) Comfort Measures: Rocking Chair; Family Support (Thi Camp, RNC) LaborFlag: Labor (QS system process) Datetime: 04/30/2016 18:09 NBP Sys/Earlene/Mean (mmHg): 109 (QS system process) : 64 (QS system process) : 80 (QS system process) Pulse: 103 (QS system process) Respirations: 16 (Thi Camp, RNC) Temperature (F): 97.9 (Thi Camp, RNC) Temperature (C): 36.6 (QS system process) Temperature Route: Oral (Thi Camp, RNC) LaborFlag: Labor (QS system process) Datetime: 04/30/2016 18:00 Monitor Mode: External; Palpation (Thi Camp, RNC) Frequency (min): 1-4 (Thi Camp, RNC) Quality: Mild/Moderate (Thi Camp, RNC) Duration (sec): 70-100 (Thi Camp, RNC) Duration Criteria: Less than Two 120 Second Contractions (Thi Camp, RNC) Pattern: Normal: <= 5 Contractions in 10 Minutes (Thi Camp, RNC) Resting Tone (Palpate): Relaxed (Thi Camp, RNC) Monitor Mode: External US; Auscultation (Thi Camp, RNC) FHR Baseline Rate : 135 (Thi Camp, RNC) FHR Baseline Changes: No Baseline Change (Thi Camp, RNC) Variability: Moderate 6-25 bpm (Thi Camp, RNC) Accelerations: 15X15 (Thi Camp, RNC) Decelerations: None (Thi Camp, RNC) Pitocin (milliunit): Pitocin Remains (milliunits) @ 20 (Thi Camp, RNC) Datetime: 04/30/2016 17:45 Monitor Mode: External; Palpation (Al Samson RN) Frequency (min): 1-4 (Al Samson RN) Quality: Moderate (Al Samson RN) Duration (sec): 50-80 (Al Samson RN) Duration Criteria: Less than Two 120 Second Contractions (Al Samson RN) Pattern: Normal: <= 5 Contractions in 10 Minutes (Al Samson RN) Resting Tone (Palpate): Relaxed (Al Samson RN) Monitor Mode: External US; Auscultation (Al Samson RN) Monitor Interventions for FHR: Ultrasound Adjusted (Al Samson RN) FHR Baseline Rate : 135 (Al Samson RN) FHR Baseline Changes: No Baseline Change (Al Samson RN) Variability: Moderate 6-25 bpm (Al Samson RN) Accelerations: 15X15 (Al Samson, RN) Decelerations: None (Al Samson RN) Pitocin (milliunit): Pitocin Remains (milliunits) @ 20 (Al Archert, RN) Datetime: 04/30/2016 17:39 NBP Sys/Earlene/Mean (mmHg): 125 (QS system process) : 74 (QS system process) : 94 (QS system process) Pulse: 106 (QS system process) Respirations: 16 (Thi Camp, RNC) LaborFlag: Labor (QS system process) Datetime: 04/30/2016 17:30 Monitor Mode: External; Palpation (Thi Camp, RNC) Frequency (min): 2-3 (Thi Camp, RNC) Quality: Mild/Moderate (Thi Camp, RNC) Duration (sec): 70-80 (Thi Camp, RNC) Pattern: Normal: <= 5 Contractions in 10 Minutes (Thi Camp, RNC) Resting Tone (Palpate): Relaxed (Thi Camp, RNC) Monitor Mode: External US; Auscultation (Thi Camp, RNC) FHR Baseline Rate : 135 (Thi Camp, RNC) FHR Baseline Changes: No Baseline Change (Thi Camp, RNC) Variability: Moderate 6-25 bpm (Thi Camp, RNC) Accelerations: 15X15 (Thi Camp, RNC) Decelerations: None (Thi Camp, RNC) Pitocin (milliunit): Pitocin Remains (milliunits) @ 20 (Thi Camp, RNC) Datetime: 04/30/2016 17:24 Patient Care Comments: repositioned to rocking chair . [place] and U/S adjusted (Thi Camp, RNC) Datetime: 04/30/2016 17:20 Hygiene: Meseret Care; Underpad Changed (Thi Camp, RNC) I/O Interventions: Up to BR (Thi Camp, RNC) Datetime: 04/30/2016 17:15 Monitor Mode: External; Palpation (Thi Camp, RNC) Frequency (min): 1-3 (Thi Camp, RNC) Quality: Mild/Moderate (Thi Camp, RNC) Duration (sec): 70-90 (Thi Camp, RNC) Duration Criteria: Less than Two 120 Second Contractions (Thi Camp, RNC) Pattern: Normal: <= 5 Contractions in 10 Minutes (Thi Camp, RNC) Resting Tone (Palpate): Relaxed (Thi Camp, RNC) Monitor Mode: External US; Auscultation (Thi Camp, RNC) FHR Baseline Rate : 130 (Thi Camp, RNC) FHR Baseline Changes: No Baseline Change (Thi Camp, RNC) Variability: Minimal - Undetectable to <=5 bpm (Thi Camp, RNC) Accelerations: None (Thi Camp, RNC) Decelerations: None (Thi Camp, RNC) Pitocin (milliunit): Pitocin Remains (milliunits) @ 20 (Thi Camp, RNC) Datetime: 04/30/2016 17:08 NBP Sys/Earlene/Mean (mmHg): 133 (QS system process) : 63 (QS system process) : 91 (QS system process) Pulse: 85 (QS system process) Respirations: 18 (Thi Camp, RNC) Pain Scale: 2 (Thi Camp, RNC) Pain Presence: Intermittent (Thi Camp, RNC) Pain Type: Cramping (Thi Camp, RNC) Pain Location: Abdomen (Thi Camp, RNC) Pain Goal: 2 (Thi Camp, RNC) Pain Relief Measures: Comfort Measures (Thi Camp, RNC) Pain Coping: Talking Through Contractions (Thi Camp, RNC) LaborFlag: Labor (QS system process) Datetime: 04/30/2016 17:00 Monitor Mode: External; Palpation (Thi Camp, RNC) Monitor Interventions for UA: [place] Adjusted (Thi Camp, RNC) Frequency (min): 2-4 (Thi Camp, RNC) Quality: Mild/Moderate (Thi Camp, RNC) Duration (sec): 60-80 (Thi Camp, RNC) Duration Criteria: Less than Two 120 Second Contractions (Thi Camp, RNC) Pattern: Normal: <= 5 Contractions in 10 Minutes (Thi Camp, RNC) Resting Tone (Palpate): Relaxed (Thi Camp, RNC) Monitor Mode: External US; Auscultation (Thi Camp, RNC) FHR Baseline Rate : 135 (Thi Camp, RNC) FHR Baseline Changes: No Baseline Change (Thi Camp, RNC) Variability: Moderate 6-25 bpm (Thi Camp, RNC) Accelerations: 10X10 (Thi Camp, RNC) Decelerations: None (Thi Camp, RNC) Datetime: 04/30/2016 16:45 Monitor Mode: External; Palpation (Thi Camp, RNC) Frequency (min): 1.5-3 (Thi Camp, RNC) Quality: Moderate (Thi Camp, RNC) Duration (sec): 60-90 (Thi Camp, RNC) Duration Criteria: Less than Two 120 Second Contractions (Thi Camp, RNC) Pattern: Normal: <= 5 Contractions in 10 Minutes (Thi Camp, RNC) Resting Tone (Palpate): Relaxed (Thi Camp, RNC) Monitor Mode: External US; Auscultation (Thi Camp, RNC) FHR Baseline Rate : 130 (Thi Camp, RNC) FHR Baseline Changes: No Baseline Change (Thi Camp, RNC) Variability: Moderate 6-25 bpm (Thi Camp, RNC) Accelerations: 15X15 (Thi Camp, RNC) Decelerations: None (Thi Camp, RNC) Pitocin (milliunit): Pitocin Remains (milliunits) @ 20 (Thi Camp, RNC)
--- NOTE | 2016-05-01 04:47 | L&D General Admission ---
General Admit Datetime Report Generated by N: 05/01/2016 04:45 Height (in): 63 (04/30/2016 12:04:QS system process) Height (in): 63 (04/30/2016 09:17:QS system process)
--- NOTE | 2016-05-01 04:47 | L&D Admission Assessment ---
LD ADM ASMT Datetime Report Generated by CPN: 05/01/2016 04:45 Assessment Type: Ongoing Assessment (04/30/2016 19:38:Kristel Rodrigez RN) Assessment Type: Ongoing Assessment (04/30/2016 07:30:LORETTA Dye) Weight (lb): 240 (04/30/2016 12:04:QS system process) Weight (lb): 240 (04/30/2016 09:17:QS system process) Weight (kg): 109.1 (04/30/2016 12:04:QS system process) Weight (kg): 109.1 (04/30/2016 09:17:QS system process) Total Wt Gain (lb): 30 (04/30/2016 12:04:QS system process) Total Wt Gain (lb): 30 (04/30/2016 09:17:QS system process) Wt Gain (kg): 13.5 (04/30/2016 12:04:QS system process) Wt Gain (kg): 13.5 (04/30/2016 09:17:QS system process) BMI: 42.5 (04/30/2016 12:04:QS system process) BMI: 42.5 (04/30/2016 09:17:QS system process) Pain Scale: 0 (Annotations: pt reports pressure, not pain in her lower abdomen.) (04/30/2016 19:38:Kristel Rodrigez RN) Pain Scale: 2 (04/30/2016 18:15:LORETTA Dye) Pain Scale: 2 (04/30/2016 17:08:LORETTA Dye) Pain Scale: 3 (04/30/2016 15:12:LORETTA Dye) Pain Scale: 5 (04/30/2016 13:46:Thi Camp, RNC) Pain Scale: 1 (04/30/2016 11:15:Thi Camp, RNC) Pain Scale: 1 (04/30/2016 09:43:Thi Camp, RNC) Pain Scale: 1 (04/30/2016 07:42:Thi Camp, RNC) Pain Presence: Intermittent (04/30/2016 18:15:Thi Camp, C) Pain Presence: Intermittent (04/30/2016 17:08:Thi Camp, RNC) Pain Presence: Intermittent (04/30/2016 15:12:Thi Camp, RNC) Pain Presence: Constant (04/30/2016 13:46:Thi Camp, RNC) Pain Presence: Intermittent (04/30/2016 11:15:Thi Camp, RN) Pain Presence: Intermittent (04/30/2016 09:43:Thi Camp, [facility]) Pain Presence: Intermittent (04/30/2016 07:42:Thi Camp, RNC) Pain Type: Contraction (04/30/2016 18:15:Thi Camp, [facility]) Pain Type: Cramping (04/30/2016 17:08:Thi Camp, [facility]) Pain Type: Cramping (04/30/2016 15:12:Thi Camp, [facility]) Pain Type: Sharp (04/30/2016 13:46:Thi Camp, [facility]) Pain Type: Cramping (04/30/2016 11:15:Thi Camp, [facility]) Pain Type: Dull (04/30/2016 09:43:Thi Camp, [facility]) Pain Type: Dull (04/30/2016 07:42:Thi Camp, RN) Pain Location: Abdomen (04/30/2016 18:15:Thi Camp, RNC) Pain Location: Abdomen (04/30/2016 17:08:Thi Camp, RNC) Pain Location: Abdomen (04/30/2016 15:12:Thi Camp, RN) Pain Location: Other (04/30/2016 13:46:Thi Camp, RN) Pain Location: Abdomen (04/30/2016 11:15:Thi Camp, RNC) Pain Location: Back (04/30/2016 09:43:Thi Camp, RNC) Pain Location: Back (04/30/2016 07:42:Thi Camp, RNC) Pain Goal: 2 (04/30/2016 17:08:Thi Camp, RNC) Pain Goal: 2 (04/30/2016 15:12:Thi Camp, RNC) Pain Comments: Patient observed to be resting with eyes closed (04/30/2016 15:06:Karol Campbell RN) Pain Comments: C/O constant suprapubic pain 5/5 with no relief with position change (04/30/2016 13:46:Thi Camp, RNC) Pain Comments: calm and relaxed, denies need for interventions (04/30/2016 07:42:Thi Camp, RNC) Frequency (min): irreg (04/30/2016 19:25:Kristel Rodrigez RN) Frequency (min): 1-3 (04/30/2016 19:00:Thi Camp, RNC) Frequency (min): 2-4 (04/30/2016 18:45:Thi Camp, RNC) Frequency (min): 2-4 (04/30/2016 18:29:Thi Camp, RNC) Frequency (min): 2-3 (04/30/2016 18:15:Thi Camp, RNC) Frequency (min): 1-4 (04/30/2016 18:00:Thi Camp, RNC) Frequency (min): 1-4 (04/30/2016 17:45:Al Samson RN) Frequency (min): 2-3 (04/30/2016 17:30:Thi Camp, RNC) Frequency (min): 1-3 (04/30/2016 17:15:Thi Camp, RNC) Frequency (min): 2-4 (04/30/2016 17:00:Thi Camp, RNC) Frequency (min): 1.5-3 (04/30/2016 16:45:Thi Camp, RNC) Frequency (min): 1-5 (04/30/2016 16:30:Thi Camp, RNC) Frequency (min): 1-5 (04/30/2016 16:15:Thi Camp, RNC) Frequency (min): 1.5-4 (04/30/2016 15:45:Thi Camp, RNC) Frequency (min): 1-4 (04/30/2016 15:30:Tih Camp, RNC) Frequency (min): 1-5 (04/30/2016 15:15:Thi Camp, RNC) Frequency (min): 1-4 (04/30/2016 15:00:Thi Camp, RNC) Frequency (min): 1.5-3 (04/30/2016 14:45:Thi Camp, RNC) Frequency (min): 1 (04/30/2016 14:45:Thi Camp, RNC) Frequency (min): 1-4 (04/30/2016 14:30:Thi Camp, RNC) Frequency (min): 2-4 (04/30/2016 14:15:Thi Camp, RNC) Frequency (min): 2-3 (04/30/2016 14:00:Thi Camp, RNC) Frequency (min): 2-4 (04/30/2016 13:45:Thi Camp, RNC) Frequency (min): 2-3 (04/30/2016 13:30:Thi Camp, RNC) Frequency (min): 1-3 (04/30/2016 13:00:Thi Camp, RNC) Frequency (min): 1-4 (04/30/2016 12:45:Thi Camp, RNC) Frequency (min): 4-5 (04/30/2016 12:30:Thi Camp, RNC) Frequency (min): Irregular (04/30/2016 12:00:Josie Vitrano, RN) Frequency (min): 2-4 (04/30/2016 11:45:Josie Vitrano, RN) Frequency (min): 2-3.5 (04/30/2016 11:30:Josie Vitrano, RN) Frequency (min): 4-6 (04/30/2016 11:15:Thi Camp, RNC) Frequency (min): irregular (04/30/2016 09:45:Thi Camp, RNC) Frequency (min): irregular (04/30/2016 09:30:Thi Camp, RNC) Frequency (min): irregular (04/30/2016 09:00:Thi Camp, RNC) Frequency (min): irreg (04/30/2016 07:00:Kristel Ledgerwood, RN) Frequency (min): irreg (04/30/2016 06:30:Kristel Ledgerwood, RN) Frequency (min): 4-8 (04/30/2016 06:00:Kristel Ledgerwood, RN) Frequency (min): irreg (04/30/2016 05:30:Kristel Ledgerwood, RN) Frequency (min): 2-4.5 (04/30/2016 05:00:Kristel Ledgerwood, RN) Duration (sec): 60-90 (04/30/2016 19:25:Kristel Ledgerwood, RN) Duration (sec): 70-90 (04/30/2016 19:00:Thi Camp, RNC) Duration (sec): 70-100 (04/30/2016 18:45:Thi Camp, RNC) Duration (sec): 70-80 (04/30/2016 18:29:Thi Camp, RNC) Duration (sec): 60-90 (04/30/2016 18:15:Thi Camp, RNC) Duration (sec): 70-100 (04/30/2016 18:00:Thi Camp, RNC) Duration (sec): 50-80 (04/30/2016 17:45:Al Samson RN) Duration (sec): 70-80 (04/30/2016 17:30:Thi Camp, RNC) Duration (sec): 70-90 (04/30/2016 17:15:Thi Camp, RNC) Duration (sec): 60-80 (04/30/2016 17:00:Thi Camp, RNC) Duration (sec): 60-90 (04/30/2016 16:45:Thi Camp, RNC) Duration (sec): 50-90 (04/30/2016 16:30:Thi Camp, RNC) Duration (sec): 50-90 (04/30/2016 16:15:Thi Camp, RNC) Duration (sec): 50-80 (04/30/2016 15:45:Thi Camp, RNC) Duration (sec): 50-80 (04/30/2016 15:30:Thi Camp, RNC) Duration (sec): 40-70 (04/30/2016 15:15:Thi Camp, RNC) Duration (sec): 50-70 (04/30/2016 15:00:Thi Camp, RNC) Duration (sec): 70-100 (04/30/2016 14:45:Thi Camp, RNC) Duration (sec): 40-80 (04/30/2016 14:30:Thi Camp, RNC) Duration (sec): 50-70 (04/30/2016 14:15:Thi Camp, RNC) Duration (sec): 50-70 (04/30/2016 14:00:Thi Camp, RNC) Duration (sec): 60-80 (04/30/2016 13:45:Thi Camp, RNC) Duration (sec): 50-80 (04/30/2016 13:30:Thi Camp, RNC) Duration (sec): 50-70 (04/30/2016 13:00:Thi Camp, RNC) Duration (sec): 50-80 (04/30/2016 12:45:Thi Camp, RNC) Duration (sec): 50-60 (04/30/2016 12:30:Thi Camp, RNC) Duration (sec): 50-90 (04/30/2016 12:00:Josie Velez, RN) Duration (sec): 50-80 (04/30/2016 11:45:Josie Velez, RN) Duration (sec): 50-90 (04/30/2016 11:30:Josie Velez, RN) Duration (sec): 50-80 (04/30/2016 11:15:Thi Camp, RNC) Duration (sec): 40-50 (04/30/2016 09:45:Thi Camp, RNC) Duration (sec): 40-50 (04/30/2016 09:30:Thi Camp, RNC) Duration (sec): 40-50 (04/30/2016 09:00:Thi Camp, RNC) Duration (sec): 60-80 (04/30/2016 07:00:Kristel Ledgerwood, RN) Duration (sec): 50-80 (04/30/2016 06:30:Kristel Ledgerwood, RN) Duration (sec): 70-100 (04/30/2016 06:00:Kristel Ledgerwood, RN) Duration (sec): 60-90 (04/30/2016 05:30:Kristel Ledgerwood, RN) Duration (sec): 60-80 (04/30/2016 05:00:Kristel Ledgerwood, RN) Quality: Mild (04/30/2016 19:25:Kristel Ledgerwood, RN) Quality: Moderate (04/30/2016 19:00:Thi Camp, RNC) Quality: Moderate (04/30/2016 18:45:Thi Camp, RNC) Quality: Mild/Moderate (04/30/2016 18:29:Thi Camp, RNC) Quality: Moderate (04/30/2016 18:15:Thi Camp, RNC) Quality: Mild/Moderate (04/30/2016 18:00:Thi Camp, RNC) Quality: Moderate (04/30/2016 17:45:Al Samson, RN) Quality: Mild/Moderate (04/30/2016 17:30:Thi Camp, RNC) Quality: Mild/Moderate (04/30/2016 17:15:Thi Camp, RNC) Quality: Mild/Moderate (04/30/2016 17:00:Thi Camp, RNC) Quality: Moderate (04/30/2016 16:45:Thi Camp, RNC) Quality: Moderate (04/30/2016 16:30:Thi Camp, RNC) Quality: Moderate (04/30/2016 16:15:Thi Camp, RNC) Quality: Moderate (04/30/2016 15:45:Thi Camp, RNC) Quality: Mild/Moderate (04/30/2016 15:30:Thi Camp, RNC) Quality: Mild/Moderate (04/30/2016 15:15:Thi Camp, RNC) Quality: Mild/Moderate (04/30/2016 15:00:Thi Camp, RNC) Quality: Mild/Moderate (04/30/2016 14:45:Thi Camp, RNC) Quality: Moderate (04/30/2016 14:45:Thi Camp, RNC) Quality: Mild/Moderate (04/30/2016 14:30:Thi Camp, RNC) Quality: Moderate (04/30/2016 14:15:Thi Camp, RNC) Quality: Moderate (04/30/2016 14:00:Thi Camp, RNC) Quality: Moderate (04/30/2016 13:45:Thi Camp, RNC) Quality: Moderate (04/30/2016 13:30:Thi Camp, RNC) Quality: Mild/Moderate (04/30/2016 13:00:Thi Camp, RNC) Quality: Mild/Moderate (04/30/2016 12:45:Thi Camp, RNC) Quality: Mild/Moderate (04/30/2016 12:30:Thi Camp, RNC) Quality: Mild/Moderate (04/30/2016 12:00:Josie Velez, RN) Quality: Mild/Moderate (04/30/2016 11:45:Josie Velez RN) Quality: Mild/Moderate (04/30/2016 11:30:Josie Velez, RN) Quality: Mild/Moderate (04/30/2016 11:15:Thi Camp, RNC) Quality: Mild (04/30/2016 09:45:Thi Camp, RNC) Quality: Mild (04/30/2016 09:30:Thi Camp, RNC) Quality: Mild (04/30/2016 09:00:Thi Camp, RNC) Quality: Mild (04/30/2016 07:00:Kristel Rodrigez RN) Quality: Mild (04/30/2016 06:30:Kristel Rodrigez RN) Quality: Mild (04/30/2016 06:00:Kristel Rodrigez, RN) Quality: Mild (04/30/2016 05:30:Kristel Rodrigez RN) Quality: Mild (04/30/2016 05:00:Kristel Rodrigez, RN) Pattern: Normal: <= 5 Contractions in 10 Minutes (04/30/2016 19:25:Kristel Rodrigez, RN) Pattern: Normal: <= 5 Contractions in 10 Minutes (04/30/2016 19:00:Thi Camp, RNC) Pattern: Normal: <= 5 Contractions in 10 Minutes (04/30/2016 18:45:Thi Camp, RNC) Pattern: Normal: <= 5 Contractions in 10 Minutes (04/30/2016 18:29:Thi Camp, RNC) Pattern: Normal: <= 5 Contractions in 10 Minutes (04/30/2016 18:15:Thi Camp, RNC) Pattern: Normal: <= 5 Contractions in 10 Minutes (04/30/2016 18:00:Thi Camp, RNC) Pattern: Normal: <= 5 Contractions in 10 Minutes (04/30/2016 17:45:Al Samson, RN) Pattern: Normal: <= 5 Contractions in 10 Minutes (04/30/2016 17:30:Thi Camp, RNC) Pattern: Normal: <= 5 Contractions in 10 Minutes (04/30/2016 17:15:Thi Camp, RNC) Pattern: Normal: <= 5 Contractions in 10 Minutes (04/30/2016 17:00:Thi Camp, RNC) Pattern: Normal: <= 5 Contractions in 10 Minutes (04/30/2016 16:45:Thi Camp, RNC) Pattern: Normal: <= 5 Contractions in 10 Minutes (04/30/2016 16:30:Thi Camp, RNC) Pattern: Normal: <= 5 Contractions in 10 Minutes (04/30/2016 16:15:Thi Camp, RNC) Pattern: Normal: <= 5 Contractions in 10 Minutes (04/30/2016 15:45:Thi Camp, RNC) Pattern: Normal: <= 5 Contractions in 10 Minutes (04/30/2016 15:30:Thi Camp, RNC) Pattern: Normal: <= 5 Contractions in 10 Minutes (04/30/2016 15:15:Thi Camp, RNC) Pattern: Normal: <= 5 Contractions in 10 Minutes (04/30/2016 15:00:Thi Camp, RNC) Pattern: Normal: <= 5 Contractions in 10 Minutes (04/30/2016 14:45:Thi Camp, RNC) Pattern: Normal: <= 5 Contractions in 10 Minutes (04/30/2016 14:30:Thi Camp, RNC) Pattern: Normal: <= 5 Contractions in 10 Minutes (04/30/2016 14:15:Thi Camp, RNC) Pattern: Normal: <= 5 Contractions in 10 Minutes (04/30/2016 14:00:Thi Camp, RNC) Pattern: Normal: <= 5 Contractions in 10 Minutes (04/30/2016 13:45:Thi Camp, RNC) Pattern: Normal: <= 5 Contractions in 10 Minutes (04/30/2016 13:30:Thi Camp, RNC) Pattern: Normal: <= 5 Contractions in 10 Minutes (04/30/2016 13:00:Thi Camp, RNC) Pattern: Normal: <= 5 Contractions in 10 Minutes (04/30/2016 12:45:Thi Camp, RNC) Pattern: Normal: <= 5 Contractions in 10 Minutes (04/30/2016 12:30:Thi Camp, RNC) Pattern: Normal: <= 5 Contractions in 10 Minutes (04/30/2016 12:00:Josie Velez RN) Pattern: Normal: <= 5 Contractions in 10 Minutes (04/30/2016 11:45:Josie Velez RN) Pattern: Normal: <= 5 Contractions in 10 Minutes (04/30/2016 11:30:Josie Agustin, RN) Pattern: Normal: <= 5 Contractions in 10 Minutes (04/30/2016 11:15:Thi Camp, RNC) Pattern: Normal: <= 5 Contractions in 10 Minutes (04/30/2016 09:45:Thi Camp, RNC) Pattern: Normal: <= 5 Contractions in 10 Minutes (04/30/2016 09:30:Thi Camp, RNC) Pattern: Normal: <= 5 Contractions in 10 Minutes (04/30/2016 07:00:Kristel Rodrigez RN) Pattern: Normal: <= 5 Contractions in 10 Minutes (04/30/2016 06:30:Kristel Rodrigez RN) Pattern: Normal: <= 5 Contractions in 10 Minutes (04/30/2016 06:00:Kristel Rodrigez RN) Pattern: Normal: <= 5 Contractions in 10 Minutes (04/30/2016 05:30:Kristel Rodrigez, RN) Pattern: Normal: <= 5 Contractions in 10 Minutes (04/30/2016 05:00:Kristel Rodrigez RN) Resting Tone [place]: Relaxed (04/30/2016 19:25:Kristel Rodrigez, RN) Resting Tone [place]: Relaxed (04/30/2016 19:00:Thi Camp, RNC) Resting Tone [place]: Relaxed (04/30/2016 18:45:Thi Camp, RNC) Resting Tone [place]: Relaxed (04/30/2016 18:29:Thi Camp, RNC) Resting Tone [place]: Relaxed (04/30/2016 18:15:Thi Camp, RNC) Resting Tone [place]: Relaxed (04/30/2016 18:00:Thi Camp, RNC) Resting Tone [place]: Relaxed (04/30/2016 17:45:Al Samson, RN) Resting Tone [place]: Relaxed (04/30/2016 17:30:Thi Camp, RNC) Resting Tone [place]: Relaxed (04/30/2016 17:15:Thi Camp, RNC) Resting Tone [place]: Relaxed (04/30/2016 17:00:Thi Camp, RNC) Resting Tone [place]: Relaxed (04/30/2016 16:45:Thi Camp, RNC) Resting Tone [place]: Relaxed (04/30/2016 16:30:Thi Camp, RNC) Resting Tone [place]: Relaxed (04/30/2016 15:45:Thi Camp, RNC) Resting Tone [place]: Relaxed (04/30/2016 15:30:Thi Camp, RNC) Resting Tone [place]: Relaxed (04/30/2016 15:15:Thi Camp, RNC) Resting Tone [place]: Relaxed (04/30/2016 15:00:Thi Camp, RNC) Resting Tone [place]: Relaxed (04/30/2016 14:45:Thi Camp, RNC) Resting Tone [place]: Relaxed (04/30/2016 14:30:Thi Camp, RNC) Resting Tone [place]: Relaxed (04/30/2016 14:15:Thi Camp, RNC) Resting Tone [place]: Relaxed (04/30/2016 14:00:Thi Camp, RNC) Resting Tone [place]: Relaxed (04/30/2016 13:45:Thi Camp, RNC) Resting Tone [place]: Relaxed (04/30/2016 13:30:Thi Camp, RNC) Resting Tone [place]: Relaxed (04/30/2016 13:00:LORETTA Dye) Resting Tone [place]: Relaxed (04/30/2016 12:45:LORETTA Dye) Resting Tone [place]: Relaxed (04/30/2016 12:30:LORETTA Dye) Resting Tone [place]: Relaxed (04/30/2016 12:00:Josie Velez RN) Resting Tone [place]: Relaxed (04/30/2016 11:45:Josie Velez RN) Resting Tone [place]: Relaxed (04/30/2016 11:30:Josie Velez RN) Resting Tone [place]: Relaxed (04/30/2016 11:15:LORETTA Dye) Resting Tone [place]: Relaxed (04/30/2016 09:45:LORETTA Dye) Resting Tone [place]: Relaxed (04/30/2016 09:30:LORETTA Dye) Resting Tone [place]: Relaxed (04/30/2016 09:00:LORETTA Dye) Resting Tone [place]: Relaxed (04/30/2016 07:00:Kristel Rodrigez RN) Resting Tone [place]: Relaxed (04/30/2016 06:30:Kristel Rodrigez RN) Resting Tone [place]: Relaxed (04/30/2016 06:00:Kristel Rodrigez RN) Resting Tone [place]: Relaxed (04/30/2016 05:30:Kristel Rodrigez RN) Resting Tone [place]: Relaxed (04/30/2016 05:00:Kristel Rodrigez RN) Contraction Comments: couplets noted (04/30/2016 15:00:LORETTA Dye) Contraction Comments: denies pain with contractions (04/30/2016 09:30:LORETTA Dye) Dilatation (cm): 4.0 (04/30/2016 19:15:Al Samson RN) Dilatation (cm): 4.0 (Annotations: vaginal assessment while garcia remains in place) (04/30/2016 16:24:LORETTA Dye) Dilatation (cm): 1.5 (04/30/2016 12:32:LORETTA Dye) Effacement (%): 60 (04/30/2016 19:15:Al Samson RN) Effacement (%): 80 (04/30/2016 16:24:Thi Linares [facility]) Effacement (%): 50 (04/30/2016 12:32:Thi Linares, [facility]) Station: -2 (04/30/2016 19:15:Al Samson RN) Station: -2 (04/30/2016 16:24:Thi Linares [facility]) Station: -2 (04/30/2016 [facility]:32[facility] Level of Consciousness: Fully Conscious (04/30/2016 19:38:Kristel Rodrigez RN) Level of Consciousness: Fully Conscious (04/30/2016 07:30:Thi Linares [facility]) DTR's/Clonus: DTRs 2+; No Clonus (04/30/2016 19:38:Kristel Rodrigez RN) DTR's/Clonus: DTRs 2+; No Clonus (04/30/2016 07:30:Thi Linares [facility]) Headache: Denies (04/30/2016 19:38:Kristel Rodrigez RN) Headache: Denies (04/30/2016 07:30:Thi Linares [facility]) Dizziness: No (04/30/2016 19:38:Kristel Rodrigez RN) Dizziness: No (04/30/2016 07:30:Thi Linares [facility]) Blurred Vision: No (04/30/2016 19:38:Kristel Rodrigez RN) Blurred Vision: No (04/30/2016 07:30:Thi Linares [facility]) Extremity Numbness/Tingling : None (04/30/2016 19:38:Kristel Rodrigez RN) Extremity Numbness/Tingling : None (04/30/2016 07:30:Thi Linares [facility]) Extremity Movement: Full Range of Motion (04/30/2016 19:38:Kristel Rodrigez RN) Extremity Movement: Full Range of Motion (04/30/2016 07:30:Thi Linares [facility]) Nailbeds: [employer] (04/30/2016 19:38:Kristel Rodrigez RN) Nailbeds: [employer] (04/30/2016 07:30:LORETTA Dye) Capillary Refill: Less than 3 Seconds (04/30/2016 19:38:Kristel Rodrigez RN) Capillary Refill: Less than 3 Seconds (04/30/2016 07:30:LORETTA Dye) Lower Extremities Edema: Bilateral Lower Extremities (04/30/2016 19:38:Kristel Rodrigez RN) Lower Extremities Edema: Bilateral Lower Extremities (04/30/2016 07:30:LORETTA Dye) Lower Extremities Edema Degree: Pitting; 1+ (04/30/2016 19:38:Kristel Rodrigez RN) Lower Extremities Edema Degree: Pitting; 1+ (04/30/2016 07:30:LORETTA Dye) Upper Extremities Edema: None (04/30/2016 19:38:Kristel Rodrigez RN) Upper Extremities Edema: Bilateral Upper Extremities (04/30/2016 07:30:LORETTA Dye) Upper Extremities Edema Degree: None (04/30/2016 19:38:Kristel Rodrigez RN) Upper Extremities Edema Degree: 1+ (04/30/2016 07:30:LORETTA Dye) Facial Edema: None (04/30/2016 19:38:Kristel Rodrigez RN) Facial Edema: None (04/30/2016 07:30:LORETTA Dye) Felicitas's Sign Left Leg: Negative (04/30/2016 19:38:Kristel Rodrigez RN) Felicitas's Sign Left Leg: Negative (04/30/2016 07:30:LORETTA Dye) Felicitas's Sign Right Leg: Negative (04/30/2016 19:38:Kristel Rodrigez RN) Felicitas's Sign Right Leg: Negative (04/30/2016 07:30:LORETTA Dye) DVT Risk Age: Age less than 41 years (04/30/2016 07:30:LORETTA Dye) DVT Risk BMI: BMI 31 to 40 (04/30/2016 07:30:LORETTA Dye) DVT Risk Surgery: None Applicable (04/30/2016 07:30:LORETTA Dye) DVT Risk Other: Women Only- or (<1 month) (04/30/2016 07:30:LORETTA Dye) DVT Risk Total: 2 (04/30/2016 07:30:QS system process) DVT Risk Text: Moderate Risk (10-20%) - Consider stockings, compresssion device, pharmacological therapy per hospital policy (04/30/2016 07:30:QS system process) Respiratory Effort: Unlabored; Regular Rhythm; Equal Expansion (04/30/2016 19:38:Kristel Rodrigez RN) Respiratory Effort: Unlabored; Regular Rhythm; Equal Expansion (04/30/2016 07:30:LORETTA Dye) Breath Sounds, Left: Clear and Equal (04/30/2016 19:38:Kristel Rodrigez RN) Breath Sounds, Left: Clear and Equal (04/30/2016 07:30:LORETTA Dye) Breath Sounds, Right: Clear and Equal (04/30/2016 19:38:Kristel Rodrigez RN) Breath Sounds, Right: Clear and Equal (04/30/2016 07:30:LORETTA Dye) Cough Productivity: None (04/30/2016 19:38:Kristel Rodrigez RN) Cough Productivity: None (04/30/2016 07:30:LORETTA Dye) Nausea/Vomiting: Denies (04/30/2016 19:38:Kristel Rodrigez RN) Nausea/Vomiting: Denies (04/30/2016 07:30:LORETTA Dye) Bowel Sounds: Normoactive; All Quadrants (04/30/2016 19:38:Kristel Rodrigez RN) Bowel Sounds: Normoactive; All Quadrants (04/30/2016 07:30:LORETTA Dye) RUQ Epigastric Pain: Denies (04/30/2016 19:38:Kristel Rodrigez RN) RUQ Epigastric Pain: Denies (04/30/2016 07:30:LORETTA Dye) Bowel Patterns: Soft, Formed Stool (04/30/2016 19:38:Kristel Rodrigez RN) Bowel Patterns: Soft, Formed Stool (04/30/2016 07:30:LORETTA Dye) Hemorrhoids: None (04/30/2016 19:38:Kristel Rodrigez RN) Hemorrhoids: None (04/30/2016 07:30:LORETTA Dye) Diet Type: Regular diet (04/30/2016 19:38:Kristel Rodrigez RN) Diet Type: Regular diet (04/30/2016 07:30:LORETTA Dye) Bladder: Nondistended (04/30/2016 19:38:Kristel Rodrigez RN) Bladder: Nondistended (04/30/2016 07:30:LORETTA Dye) Frequency of Urination: No (04/30/2016 19:38:Kristel Rodrigez RN) Frequency of Urination: No (04/30/2016 07:30:LORETTA Dye) Urination Burning: No (04/30/2016 19:38:Kristel Rodrigez RN) Urination Burning: No (04/30/2016 07:30:Thi Linares [facility]) CVA Tenderness: No (04/30/2016 19:38:Kristel Rodrigez RN) CVA Tenderness: No (04/30/2016 07:30:LORETTA Dye) Vaginal Bleeding: None (04/30/2016 19:38:Kristel Rodrigez RN) Vaginal Discharge Amount: None (04/30/2016 19:38:Kristel Rodrigez RN) Vaginal Discharge Amount: None (04/30/2016 07:30:LORETTA Dye) Vaginal Discharge Color: N/A (04/30/2016 19:38:Kristel Rodrigez RN) Vaginal Discharge Color: N/A (04/30/2016 07:30:Thi Linares Gunjan) Vaginal Discharge Character: None (04/30/2016 19:38:Kristel Rodrigez RN) Vaginal Discharge Character: None (04/30/2016 07:30:Thi Linares [facility]) Skin Color: Normal for Race (04/30/2016 19:38:Kristel Rodrigez RN) Skin Color: Normal for Race (04/30/2016 07:30:Thi Linares [facility]) Skin Temperature: Warm (04/30/2016 19:38:Kristel Rodrigez RN) Skin Temperature: Warm (04/30/2016 07:30:LORETTA Dye) Skin Moisture: Dry (04/30/2016 19:38:Kristel Rodrigez RN) Skin Moisture: Dry (04/30/2016 07:30:LORETTA Dye) Sim Scale Sensory Perception: No Impairment- Responds to verbal commands. Has no sensory deficit which would limit ability to feel or voice pain or discomfort (04/30/2016 19:38:Kristel Rodrigez RN) Sim Scale Sensory Perception: No Impairment- Responds to verbal commands. Has no sensory deficit which would limit ability to feel or voice pain or discomfort (04/30/2016 07:30:LORETTA Dye) Sim Scale Moisture: Rarely Moist- Skin is usually dry. Linen only requires changing at routine intervals (04/30/2016 19:38:Kristel Rodrigez RN) Sim Scale Moisture: Rarely Moist- Skin is usually dry. Linen only requires changing at routine intervals (04/30/2016 07:30:LORETTA Dye) Sim Scale Activity: Walks Frequently- Walks outside the room at least twice a day and inside room at least every 2 hours during the day. (04/30/2016 19:38:Kristel Rodrigez RN) Sim Scale Activity: Walks Frequently- Walks outside the room at least twice a day and inside room at least every 2 hours during the day. (04/30/2016 07:30:LORETTA Dye) Sim Scale Mobility: No Limitations- Makes major and frequent changes in position without assistance (04/30/2016 19:38:Kristel Rodrigez RN) Sim Scale Mobility: No Limitations- Makes major and frequent changes in position without assistance (04/30/2016 07:30:LORETTA Dye) Sim Scale Nutrition: Excellent- Eats most of every meal. Never refuses a meal. Usually eats a total of 4 or more servings of meat and dairy products. Occasionally eats between meals. Does not require supplementation (04/30/2016 19:38:Kristel Rodrigez RN) Sim Scale Nutrition: Excellent- Eats most of every meal. Never refuses a meal. Usually eats a total of 4 or more servings of meat and dairy products. Occasionally eats between meals. Does not require supplementation (04/30/2016 07:30:LORETTA Dye) Sim Scale Friction and Shear: No Apparent Problem- Moves in bed and in chair independently and has sufficient muscle strength to lift up completely during move. Maintains good position in bed or chair at all times (04/30/2016 19:38:Kristel Rodrigez RN) Sim Scale Friction and Shear: No Apparent Problem- Moves in bed and in chair independently and has sufficient muscle strength to lift up completely during move. Maintains good position in bed or chair at all times (04/30/2016 07:30:LORETTA Dye) Sim Scale Total: 23 (04/30/2016 19:38:QS system process) Sim Scale Total: 23 (04/30/2016 07:30:QS system process) Sim Scale Risk: No Risk of Pressure Ulcer Noted at this Time (04/30/2016 19:38:CINDY system process) Sim Scale Risk: No Risk of Pressure Ulcer Noted at this Time (04/30/2016 07:30:QS system process) Family Support: Significant Other supportive, at bedside frequently (04/30/2016 19:38:Kristel Rodrigez RN) Family Support: Significant Other supportive, at bedside frequently (Annotations: Suad at bedside) (04/30/2016 07:30:LORETTA Dye) Emotional State: Calm/Relaxed (04/30/2016 19:38:Kristel Rodrigez RN) Emotional State: Calm/Relaxed (04/30/2016 07:30:LORETTA Dye) Call Solis Within Reach: Yes (04/30/2016 19:38:Kristel Rodrigez RN) Call [employer]is Within Reach: Yes (04/30/2016 07:30:LORETTA Dye) Side Rails Up: Yes (04/30/2016 19:38:Kristel Rodrigez RN) Side Rails Up: Yes (04/30/2016 07:30:LORETTA Dye) Bed Wheels Locked: Yes (04/30/2016 19:38:Kristel Rodrigez RN) Bed Wheels Locked: Yes (04/30/2016 07:30:LORETTA Dye) Arm Bands Present: Yes (04/30/2016 19:38:Kristel Rodrigez RN) Arm Bands Present: Yes (04/30/2016 07:30:LORETTA Dye) Fall Risk History of Falling: (0) No (04/30/2016 19:38:Kristel Rodrigez RN) Fall Risk History of Falling: (0) No (04/30/2016 07:30:LORETTA Dye) Fall Risk Secondary Diagnosis: (0) No (04/30/2016 19:38:Kristel Rodrigez RN) Fall Risk Secondary Diagnosis: (0) No (04/30/2016 07:30:LORETTA Dye) Fall Risk Ambulatory Aid: (0) None/Bedrest/Wheelchair/Nurse Assist (04/30/2016 19:38:Kristel Rodrigez RN) Fall Risk Ambulatory Aid: (0) None/Bedrest/Wheelchair/Nurse Assist (04/30/2016 07:30:LORETTA Dye) Fall Risk IV Therapy: (0) No (04/30/2016 19:38:Kristel Rodrigez RN) Fall Risk IV Therapy: (0) No (04/30/2016 07:30:LORETTA Dye) Fall Risk Gait: (0) Normal/Bedrest/Immobile (04/30/2016 19:38:Kristel Rodrigez RN) Fall Risk Gait: (0) Normal/Bedrest/Immobile (04/30/2016 07:30:LORETTA Dye) Fall Risk Mental Status: (0) Oriented to Own Ability (04/30/2016 19:38:Kristel Rodrigez RN) Fall Risk Mental Status: (0) Oriented to Own Ability (04/30/2016 07:30:LORETTA Dye) Fall Risk Score: 0 (04/30/2016 19:38:QS system process) Fall Risk Score: 0 (04/30/2016 07:30:QS system process) Fall Risk Score Definition: No Risk: No action required (04/30/2016 19:38:QS system process) Fall Risk Score Definition: No Risk: No action required (04/30/2016 07:30:QS system process) Pt/Family Education: Handwashing Hygiene (04/30/2016 19:38:Kristel Rodrigez RN) FHR Baseline Rate (bpm) Baby A: 140 (04/30/2016 19:25:Kristel Rodrigez RN) FHR Baseline Rate (bpm) Baby A: 135 (04/30/2016 19:00:Thi Linares RNGunjan) FHR Baseline Rate (bpm) Baby A: 140 (04/30/2016 18:45:Thi Linares RNC) FHR Baseline Rate (bpm) Baby A: 145 (04/30/2016 18:29:Thi Linares RNC) FHR Baseline Rate (bpm) Baby A: 140 (04/30/2016 18:15:Thi Linares RNC) FHR Baseline Rate (bpm) Baby A: 135 (04/30/2016 18:00:Thi Linares RNGunjan) FHR Baseline Rate (bpm) Baby A: 135 (04/30/2016 17:45:Al Samson RN) FHR Baseline Rate (bpm) Baby A: 135 (04/30/2016 17:30:LORETTA Dye) FHR Baseline Rate (bpm) Baby A: 130 (04/30/2016 17:15:Thi Linares RNGunjan) FHR Baseline Rate (bpm) Baby A: 135 (04/30/2016 17:00:Thi Linares RNGunjan) FHR Baseline Rate (bpm) Baby A: 130 (04/30/2016 16:45:Thi Linares RNGunjan) FHR Baseline Rate (bpm) Baby A: 135 (04/30/2016 16:30:Thi Linares RNGunjan) FHR Baseline Rate (bpm) Baby A: 125 (04/30/2016 16:15:Thi Linares RNGunjan) FHR Baseline Rate (bpm) Baby A: 130 (04/30/2016 15:45:Thi Linares RNGunjan) FHR Baseline Rate (bpm) Baby A: 130 (04/30/2016 15:30:Thi Linares RNGunjan) FHR Baseline Rate (bpm) Baby A: 125 (04/30/2016 15:15:Thi Linares RNC) FHR Baseline Rate (bpm) Baby A: 125 (04/30/2016 15:00:Thi Linares RNGunjan) FHR Baseline Rate (bpm) Baby A: 130 (04/30/2016 14:45:LORETTA Dye) FHR Baseline Rate (bpm) Baby A: 120 (04/30/2016 14:30:LORETTA Dye) FHR Baseline Rate (bpm) Baby A: 130 (04/30/2016 14:15:LORETTA Dye) FHR Baseline Rate (bpm) Baby A: 130 (04/30/2016 14:00:LORETTA Dye) FHR Baseline Rate (bpm) Baby A: 135 (04/30/2016 13:45:LORETTA Dye) FHR Baseline Rate (bpm) Baby A: 140 (04/30/2016 13:00:LORETTA Dye) FHR Baseline Rate (bpm) Baby A: 130 (04/30/2016 12:30:LORETTA Dye) FHR Baseline Rate (bpm) Baby A: 140 (04/30/2016 11:45:Josie Velez RN) FHR Baseline Rate (bpm) Baby A: 140 (04/30/2016 11:30:Josie Velez RN) FHR Baseline Rate (bpm) Baby A: 135 (04/30/2016 11:15:LORETTA Dye) FHR Baseline Rate (bpm) Baby A: 140 (04/30/2016 09:45:LORETTA Dye) FHR Baseline Rate (bpm) Baby A: 140 (04/30/2016 09:30:LORETTA Dye) FHR Baseline Rate (bpm) Baby A: 130 (04/30/2016 08:00:LORETTA Dye) FHR Baseline Rate (bpm) Baby A: 120 (04/30/2016 07:00:Kristel Rodrigez RN) FHR Baseline Rate (bpm) Baby A: 135 (04/30/2016 06:30:Kristel Rodrigez RN) FHR Baseline Rate (bpm) Baby A: 120 (04/30/2016 06:00:Kristel Rodrigez RN) FHR Baseline Rate (bpm) Baby A: 120 (04/30/2016 05:30:Kristel Rodrigez RN) FHR Baseline Rate (bpm) Baby A: 120 (04/30/2016 05:00:Kristel Rodrigez RN) Variability Baby A: Moderate 6-25 bpm (04/30/2016 19:25:Kristel Rodrigez RN) Variability Baby A: Moderate 6-25 bpm (04/30/2016 19:00:Thi Camp, RNC) Variability Baby A: Minimal - Undetectable to <=5 bpm (04/30/2016 18:45:Thi Camp, RNC) Variability Baby A: Moderate 6-25 bpm (04/30/2016 18:29:Thi Camp, RNC) Variability Baby A: Moderate 6-25 bpm (04/30/2016 18:15:Thi Camp, RNC) Variability Baby A: Moderate 6-25 bpm (04/30/2016 18:00:Thi Camp, RNC) Variability Baby A: Moderate 6-25 bpm (04/30/2016 17:45:Al Samson RN) Variability Baby A: Moderate 6-25 bpm (04/30/2016 17:30:Thi Camp, RNC) Variability Baby A: Minimal - Undetectable to <=5 bpm (04/30/2016 17:15:Thi Camp, RNC) Variability Baby A: Moderate 6-25 bpm (04/30/2016 17:00:Thi Camp, RNC) Variability Baby A: Moderate 6-25 bpm (04/30/2016 16:45:Thi Camp, RNC) Variability Baby A: Moderate 6-25 bpm (04/30/2016 16:30:Thi Camp, RNC) Variability Baby A: Moderate 6-25 bpm (04/30/2016 16:15:Thi Camp, RNC) Variability Baby A: Moderate 6-25 bpm (04/30/2016 15:45:Thi Camp, RNC) Variability Baby A: Minimal - Undetectable to <=5 bpm (04/30/2016 15:30:Thi Camp, RNC) Variability Baby A: Moderate 6-25 bpm (04/30/2016 15:15:Thi Camp, RNC) Variability Baby A: Minimal - Undetectable to <=5 bpm (04/30/2016 15:00:Thi Camp, RNC) Variability Baby A: Minimal - Undetectable to <=5 bpm (04/30/2016 14:45:Thi Camp, RNC) Variability Baby A: Minimal - Undetectable to <=5 bpm (04/30/2016 14:30:Thi Camp, RNC) Variability Baby A: Moderate 6-25 bpm (04/30/2016 14:15:Thi Camp, RNC) Variability Baby A: Moderate 6-25 bpm (04/30/2016 14:00:Thi Camp, RNC) Variability Baby A: Moderate 6-25 bpm (04/30/2016 13:45:Thi Camp, RNC) Variability Baby A: Moderate 6-25 bpm (04/30/2016 13:00:Thi Camp, RNC) Variability Baby A: Moderate 6-25 bpm (04/30/2016 12:30:Thi Camp, RNC) Variability Baby A: Moderate 6-25 bpm (04/30/2016 11:45:Josie Velez RN) Variability Baby A: Moderate 6-25 bpm (04/30/2016 11:30:Josie Velez RN) Variability Baby A: Moderate 6-25 bpm (04/30/2016 11:15:Josie Velez RN) Variability Baby A: Moderate 6-25 bpm (04/30/2016 09:45:Thi Camp, RNC) Variability Baby A: Moderate 6-25 bpm (04/30/2016 09:30:Thi Camp, RNC) Variability Baby A: Moderate 6-25 bpm (04/30/2016 08:00:Thi Linares, RNC) Variability Baby A: Moderate 6-25 bpm (04/30/2016 07:00:Kristel Rodrigez RN) Variability Baby A: Moderate 6-25 bpm (04/30/2016 06:30:Kristel Rodrigez RN) Variability Baby A: Moderate 6-25 bpm (04/30/2016 06:00:Kristel Rodrigez RN) Variability Baby A: Moderate 6-25 bpm (04/30/2016 05:30:Kristel Rodrigez RN) Variability Baby A: Moderate 6-25 bpm (04/30/2016 05:00:Kristel Rodrigez RN) Accelerations Baby A: 15X15 (04/30/2016 19:25:Kristel Rodrigez RN) Accelerations Baby A: 15X15 (04/30/2016 19:00:Thi Linares, RNC) Accelerations Baby A: None (04/30/2016 18:45:Thi Linares, RNC) Accelerations Baby A: 15X15 (04/30/2016 18:29:Thi Camp, RNC) Accelerations Baby A: 15X15 (04/30/2016 18:15:Thi Camp, RNC) Accelerations Baby A: 15X15 (04/30/2016 18:00:Thi Camp, RNC) Accelerations Baby A: 15X15 (04/30/2016 17:45:Al Samson RN) Accelerations Baby A: 15X15 (04/30/2016 17:30:Thi Camp, RNC) Accelerations Baby A: None (04/30/2016 17:15:Thi Camp, RNC) Accelerations Baby A: 10X10 (04/30/2016 17:00:Thi Camp, RNC) Accelerations Baby A: 15X15 (04/30/2016 16:45:Thi Camp, RNC) Accelerations Baby A: 15X15 (04/30/2016 16:30:Thi Camp, RNC) Accelerations Baby A: 15X15 (04/30/2016 16:15:Thi Camp, RNC) Accelerations Baby A: 10X10 (04/30/2016 15:30:Thi Camp, RNC) Accelerations Baby A: 10X10 (04/30/2016 15:15:Thi Camp, RNC) Accelerations Baby A: 15X15 (04/30/2016 14:45:Thi Camp, RNC) Accelerations Baby A: None (04/30/2016 14:30:Thi Camp, RNC) Accelerations Baby A: 15X15 (04/30/2016 14:15:Thi Camp, RNC) Accelerations Baby A: 15X15 (04/30/2016 14:00:Thi Camp, RNC) Accelerations Baby A: 15X15 (04/30/2016 13:45:Thi Camp, RNC) Accelerations Baby A: 15X15 (04/30/2016 13:00:Thi Camp, RNC) Accelerations Baby A: 15X15 (04/30/2016 12:30:Thi Camp, RNC) Accelerations Baby A: 15X15 (04/30/2016 11:45:Josie Velez RN) Accelerations Baby A: 15X15 (04/30/2016 11:30:Josie Velez RN) Accelerations Baby A: 15X15 (04/30/2016 11:15:Thi Linares RNC) Accelerations Baby A: 15X15 (04/30/2016 09:45:Thi Linares RNC) Accelerations Baby A: 15X15 (04/30/2016 09:30:Thi Linares RNC) Accelerations Baby A: 15X15 (04/30/2016 08:00:Thi Linares RNGunjan) Accelerations Baby A: 15X15 (04/30/2016 07:00:Kristel Rodrigez RN) Accelerations Baby A: None (04/30/2016 06:00:Kristel Rodrigez RN) Accelerations Baby A: 15X15 (04/30/2016 05:30:Kristel Rodrigez RN) Accelerations Baby A: 15X15 (04/30/2016 05:00:Kristel Rodrigez RN) Decelerations Baby A: None (04/30/2016 19:25:Kristel Rodrigez RN) Decelerations Baby A: None (04/30/2016 19:00:LORETTA Dye) Decelerations Baby A: None (04/30/2016 18:45:LORETTA Dye) Decelerations Baby A: None (04/30/2016 18:29:Thi Linares RNGunjan) Decelerations Baby A: None (04/30/2016 18:15:Thi Linares RNGunjan) Decelerations Baby A: None (04/30/2016 18:00:Thi Linares RNC) Decelerations Baby A: None (04/30/2016 17:45:Al Samson RN) Decelerations Baby A: None (04/30/2016 17:30:Thi Linares RNGunjan) Decelerations Baby A: None (04/30/2016 17:15:Thi Linares RNC) Decelerations Baby A: None (04/30/2016 17:00:Thi Linares RNC) Decelerations Baby A: None (04/30/2016 16:45:Thi Linares RNGunjan) Decelerations Baby A: None (04/30/2016 16:30:Thi Camp, RNC) Decelerations Baby A: None (04/30/2016 16:15:Thi Camp, RNC) Decelerations Baby A: None (04/30/2016 15:45:Thi Camp, RNC) Decelerations Baby A: None (04/30/2016 15:30:Thi Camp, RNC) Decelerations Baby A: None (04/30/2016 15:15:Thi Camp, RNC) Decelerations Baby A: None (04/30/2016 15:00:Thi Camp, RNC) Decelerations Baby A: None (04/30/2016 14:45:Thi Camp, RNC) Decelerations Baby A: None (04/30/2016 14:30:Thi Camp, RNC) Decelerations Baby A: None (04/30/2016 14:15:Thi Camp, RNC) Decelerations Baby A: None (04/30/2016 14:00:Thi Vijay, RNC) Decelerations Baby A: None (04/30/2016 13:45:Tih Camp, RNC) Decelerations Baby A: None (04/30/2016 13:00:Thi Camp, RNC) Decelerations Baby A: None (04/30/2016 12:30:Thitrevor Linares, RNC) Decelerations Baby A: None (04/30/2016 11:45:Josie Velez RN) Decelerations Baby A: None (04/30/2016 11:30:Josie Velez RN) Decelerations Baby A: None (04/30/2016 11:15:Thi Camp, RNC) Decelerations Baby A: None (04/30/2016 09:45:Thitrevor Linares, RNC) Decelerations Baby A: None (04/30/2016 09:30:Thitrevor Linares, RNC) Decelerations Baby A: None (04/30/2016 08:00:Thitrevor Linares, RNC) Decelerations Baby A: None (04/30/2016 07:00:Kristel Rodrigez RN) Decelerations Baby A: None (04/30/2016 06:30:Kristel Rodrigez RN) Decelerations Baby A: None (04/30/2016 06:00:Kristel Rodrigez RN) Decelerations Baby A: None (04/30/2016 05:30:Kristel Rodrigez RN) Decelerations Baby A: None (04/30/2016 05:00:Kritsel Rodrigez RN)
--- NOTE | 2016-05-01 04:47 | L&D Discharge Summary ---
OB Discharge Summary Datetime Report Generated by CPN: 05/01/2016 04:45 DISCHARGE DIAGNOSIS Diagnosis/Symptoms: Other Diagnoses/Symptoms Other: Reactive NST Gestation: 39.1 Number of Babies in Womb: 1 Parity: 0 DIET/ACTIVITY/RESTRICTIONS Diet: Regular Activity: Normal Activity TEACHING/INSTRUCTIONS/REFERRALS Instructions Given To: Patient, Spouse Instructions Understood: Patient Verbalized Understanding Referrals: None Educational Materials- Other: Kick counts reinforced DISCHARGE INFORMATION Discharged AMA: No Discharge Date/Time: 03/21/2016 13:17 Discharged To: Home Discharge Provider Name: Dr Aldrich Accompanied By: Spouse Discharge Method: Ambulatory Condition: Stable FOLLOW UP INFORMATION Follow Up With: [facility] Follow Up On: 3-5 Days Follow Up Phone Number: [facility] - Comments: s/s to report to provider, comfort measures GENERAL INSTR-CALL PROVIDER IF: Contractions: Contractions or cramps become more frequent than 8 in one hour or 4 in 20 minutes; Regular painful contractions every 5 minutes or less for one hour. Time your contractions from the beginning of one to the beginning of the next Pressure: Pressure in your vagina or lower abdomen that may feel like the baby is pushing down Period Like Cramps: Period-like cramps or low dull backache that may come and go Cramps/Diarrhea: Abdominal cramps that may be accompanied by diarrhea Gush of Fluid/Blood: Gush of fluid or blood from your vagina (it is normal to have spotting after vaginal exam or intercourse) Vaginal Discharge: Change in the type or amount of vaginal discharge Decreased Movement: Your baby is not moving as much as usual- 4 movements in 1 hour after drinking and resting on side Temperature: Temperature greater than 100.0(F) orally
--- NOTE | 2016-05-01 04:47 | L&D Current Admission ---
Current Admit Datetime Report Generated by [facility]: 05/01/2016 04:45 Chief Complaint: Scheduled Induction of Labor (04/30/2016 19:38:Kristel Rodrigez RN)
--- NOTE | 2016-05-01 06:16 | L&D General Admission ---
General Admit Datetime Report Generated by CPN: 05/01/2016 06:00 INFORMATION Patient Age: 30 (03/07/2016 13:07:QS system process) EDC: 05/06/2016 00:00 (03/18/2016 14:37:LORETTA Faye) : 1 (03/18/2016 14:37:OLRETTA Dye) Para: 0 (03/21/2016 13:20:Blessing Abbott RN) Term: 0 (03/18/2016 14:37:LORETTA Dye) : 0 (03/18/2016 14:37:LORETTA Dye) Spontaneous Abortions: 0 (03/18/2016 14:37:LORETTA Dye) Induced Abortions: 0 (03/18/2016 14:37:LORETTA Dye) Livin (03/18/2016 14:37:LORETTA Dye) Cesareans: 0 (03/18/2016 14:37:LORETTA Dye) VBACs: 0 (03/18/2016 14:37:Thi Linares [facility]) Ectopic: 0 (03/18/2016 14:37:Thi Linares [facility]) Multiple Births: 0 (03/18/2016 14:37:Thi Linares [facility]) Baby, Number in Womb: 1 (03/21/2016 13:20:Blessing Abbott RN) 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[facility] (03/18/2016 14:37:Thi Linares [facility]) Month of 1st Visit: September (03/18/2016 14:37:Thi Linares [facility]) Adequate Care: Yes (03/18/2016 14:37:Thi Linares [facility]) Prepregnancy Weight (lb): 210 (03/18/2016 14:37:Thi Linares [facility]) Prepregnancy Weight (kg): 95.5 (03/18/2016 14:37:QS system process) Height (in): 63 (04/30/2016 12:04:QS system process) ALLERGIES Medication Allergy: No (03/18/2016 14:37:Thi Linares [facility]) Medication Allergies: No Known Allergies (03/21/2016) (03/21/2016 13:08:QS system process) Latex Allergy: No Latex Allergies (03/18/2016 14:37:Thi Linares [facility]) COMMUNICATION Primary Language: [place] Citizen (03/18/2016 14:37:Thi Linares [facility]) Medical Tx Preferred Language: [place] Citizen (03/18/2016 14:37:Thi Linares [facility]) Communication Barrier(s): None (03/18/2016 14:37:Thi Linares [facility]) DEMOGRAPHICS Address: [facility] [place] [address] (03/07/2016 13:07:QS system process) Zipcode: [address] (03/07/2016 13:07:QS system process) Home (03/07/2016 13:07:QS system process) Work (03/07/2016 13:07:QS system process) N: [phone] (03/07/2016 13:07:QS system process) Next of Kin Name: SUAD BUCHANAN (03/07/2016 13:07:QS system process) Next of Kin (03/07/2016 13:07:QS system process) Next of Kin Relationship: SPO (03/07/2016 13:07:QS system process) Date of : 1985 (03/07/2016 13:07:QS system process) Marital Status: (03/07/2016 13:07:QS system process) Sex: Female (03/07/2016 13:07:QS system process) 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 [id number] (03/18/2016 14:37:Kristel Rodrigez RN) Marijuana: No (03/18/2016 14:37:Kristel Rodrigez RN) Cocaine: No (03/18/2016 14:37:Kristel Rodrigez RN) Other Illicit Drugs: No (03/18/2016 14:37:Kristel Rodrigez RN) VACCINE HISTORY Influenza Vaccine: Yes (03/18/2016 14:37:Thi Camp, RNC) Influenza Date: 01-29-2016 (03/18/2016 14:37:Thi Camp, RNC) Pneumococcal Vaccine: No (03/18/2016 14:37:Thi Camp, RNC) Tetanus Vaccine: Yes (03/18/2016 14:37:Thi Camp, RNC) Tetanus Date: 02-12-2016 (03/18/2016 14:37:Thi Camp, RNC) Tdap Vaccine: Yes (03/18/2016 14:37:Thi Camp, RNC) Tdap Date: 02-12-2016 (03/18/2016 14:37:Thi Camp, RNC) Hepatitis B Vaccine: Yes (03/18/2016 14:37:Thi Camp, RNC) Hepatitis B Vaccine Date : 06/2012 (03/18/2016 14:37:Thi Camp, RNC) Provider Scribe: [facility] (03/18/2016 14:37:Kristel Rodrigez RN) Feeding Preference: Breast (03/18/2016 14:37:Kristel Rodrigez RN) Benefit of Breast Feed Discussed: Yes (03/18/2016 14:37:Kristel Rodrigez RN) Circumcision: Yes (03/18/2016 14:37:Kristel Rodrigez RN) Classes Attended: Yes (03/18/2016 14:37:Kristel Rodrigez RN) Tubal Ligation: No (03/18/2016 14:37:LORETTA Dye) Tubal Authorization Signed: N/A (03/18/2016 14:37:LORETTA Dye) Consent: N/A (03/18/2016 14:37:LORETTA Dye) Consent Signed: N/A (03/18/2016 14:37:LORETTA Dye) Pain Management Plans: Natural (03/18/2016 14:37:Kristel Rodrigez RN) Plans for Labor and Delivery: None (03/18/2016 14:37:Kristel Rodrigez RN) Support Person: Suad Buchanan (03/18/2016 14:37:LORETTA Dye) Support Person Relationship: (03/18/2016 14:37:LORETTA Dye) Cultural/Spritual Practice: No (03/18/2016 14:37:Kristel Rodrigez RN) Spir/Cult Dietary Needs: No (03/18/2016 14:37:Kristel Rodrigez RN) LIVING SITUATION/DISCHARGE PLAN Living Arrangements: House (03/18/2016 14:37:Kristel Rodrigez RN) Adequate Access to:: Electric; Heat; Refrigeration; Plumbing/Running water; Phone; Transportation (03/18/2016 14:37:Kristel Rodrigez RN) WIC Program: No (03/18/2016 14:37:Kristel Rodrigez RN) Discharge Nanny Caregiver Person: Suad (03/18/2016 14:37:Kristel Rodrigez RN) Person to Help after Discharge: Suad (03/18/2016 14:37:Kristel Rodrigez RN) Currently Using Commun Resources: No (03/18/2016 14:37:Kristel Rodrigez RN) Outside Agency/Data Manager: No (03/18/2016 14:37:Kristel Rodrigez RN) Car Seat for Discharge: Yes (03/18/2016 14:37:Kristel Rodrigez RN) Adoption Requested: No (03/18/2016 14:37:Kristel Rodrigez RN) Pt Contact w/ Post : N/A (03/18/2016 14:37:Kristel Rodrigez RN) LABS Blood Type: A Positive (03/18/2016 14:37:Al Samson RN) Antibody Screen: Negative (03/18/2016 14:37:Al Samson RN) Jabier(G) this : Not Applicable (03/18/2016 14:37:Lorna Corbett RN) Hemoglobin: 11.1 L (04/29/2016 20:33:QS system process) Hematocrit: 32.5 L (04/29/2016 20:33:QS system process) MCV: 82 (04/29/2016 20:33:QS system process) Group Beta Strep: Negative (04/08/2016 09:05:Lorna Corbett RN) Gonorrhea: Negative (03/18/2016 14:37:LORETTA Dye) Chlamydia: Negative (03/18/2016 14:37:LORETTA Dye) RPR/VDRL: Nonreactive (03/18/2016 14:37:Al Samson RN) HIV Exposure Test: Negative (03/18/2016 14:37:Al Samson RN) Hepatitis B: Negative (03/18/2016 14:37:LORETTA Dye) Rubella: Immune (03/18/2016 14:37:Al Samson RN) OB/PREVIOUS HISTORY Previous Procedures: None (03/18/2016 14:37:LORETTA Dye) 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; 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 (03/18/2016 14:37:LORETTA Dye) History of Previous : No (03/18/2016 14:37:Kristel Rodrigez RN) History of Gestational Diabetes: No (03/18/2016 14:37:Kristel Rodrigez RN) History of PIH: Yes (03/18/2016 14:37:LORETTA Dye) History of Incompetent Cervix: No (03/18/2016 14:37:Kristel Rodrigez RN) History of Placenta Previa/Abrup: No (03/18/2016 14:37:Kristel Rodrigez RN) History of Macrosomia: No (03/18/2016 14:37:Kristel Rodrigez RN) History of IUGR: No (03/18/2016 14:37:Kristel Rodrigez RN) History of Hemorrhage: No (03/18/2016 14:37:Kristel Rodrigez RN) History of Loss/Stillborn: No (03/18/2016 14:37:Kristel Rodrigez RN) History of : No (03/18/2016 14:37:Kristel Rodrigez RN) History of D (Rh) Sensitization: No (03/18/2016 14:37:Kristel Rodrigez RN) History Recurrent Loss/Stillborn: No (03/18/2016 14:37:Kristel Rodrigez RN) History Depression/PP Depression: No (03/18/2016 14:37:Kristel Rodrigez RN) History of Uterine Anomaly/PEACE: No (03/18/2016 14:37:Kristel Rodrigez RN) History of Infertility: No (03/18/2016 14:37:Kristel Rodrigez RN) History of ART Treatment: No (03/18/2016 14:37:Kristel Rodrigez RN) History of PEACE: No (03/18/2016 14:37:Kristel Rodrigez RN) Comments Obstetrical History: G-1 CHTN, PCOS, maternal obesity (03/18/2016 14:37:LORETTA Dye) MEDICAL HISTORY Med Hx Diabetes: No (03/18/2016 14:37:Kristel Rodrigez RN) Med Hx Hypertension: Yes (03/18/2016 14:37:LORETTA Dye) Med Hx Heart Disease: No (03/18/2016 14:37:Kristel Rodrigez RN) Med Hx Autoimmune Disorder: No (03/18/2016 14:37:Kristel Rodrigez RN) Med Hx Kidney Disease/UTI: No (03/18/2016 14:37:Kristel Rodrigez RN) Med Hx Neurologic/Epilepsy: No (03/18/2016 14:37:Kristel Rodrigez RN) Med Hx Psychiatric Disorders: No (03/18/2016 14:37:Kristel Rodrigez RN) Med Hx Hepatitis/Liver Disease: No (03/18/2016 14:37:Kristel Rodrigez RN) Med Hx Varicosities/Phlebitis: No (03/18/2016 14:37:Kristel Rodrigez RN) Med Hx Thyroid Dysfunction: No (03/18/2016 14:37:Kristel Rodrigez RN) Med Hx Trauma/Violence: No (03/18/2016 14:37:Kristel Rodrigez RN) Med Hx Blood Transfusion: No (03/18/2016 14:37:Kristel Rodrigez RN) Med Hx Pulmonary (Asthma,TB): No (03/18/2016 14:37:Kristel Rodrigez RN) Med Hx Breast: No (03/18/2016 14:37:Kristel Rodrigez RN) Med 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 (03/18/2016 14:37:Kristel Rodrigez RN) Med Hx Hospitalization/Surgery: No (03/18/2016 14:37:Kristel Rodrigez RN) Med Hx Anesthetic Complications: No (03/18/2016 14:37:Kristel Rodrigez RN) Med Hx Abnormal Pap Smear: Yes (03/18/2016 14:37:LORETTA Dye) Other Medical Diseases: No (03/18/2016 14:37:Kristel Rodrigez RN) Med Hx Significant Family Hx: No (03/18/2016 14:37:Kristel Rodrigez RN) Details of Med/Surg Hx: CHTN on Aldomet, PCOS , H/O abnormal pap 2014 normal pap 2015 (03/18/2016 14:37:LORETTA Dye) INFECTIOUS HISTORY Inf Hx Gonorrhea: No (03/18/2016 14:37:Kristel Rodrigez RN) Inf Hx Chlamydia: No (03/18/2016 14:37:Kristel Rodrigez RN) Inf Hx Syphilis: No (03/18/2016 14:37:Kristel Rodrigez RN) Inf Hx HIV/AIDS: No (03/18/2016 14:37:Kristel Rodrigez RN) Inf Hx Human Papilloma Virus: No (03/18/2016 14:37:Kristel Rodrigez RN) Inf Hx Pt/Partner Genital Herpes: No (03/18/2016 14:37:Kristel Rodrigez RN) Inf Hx Tuberculosis/Exposure: No (03/18/2016 14:37:Kristel Rodrigez RN) Inf Hx Hepatitis B,C: No (03/18/2016 14:37:Kristel Rodrigez RN) Inf Hx Rash or Viral Illness: No (03/18/2016 14:37:Kristel Rodrigez RN) GENETIC HISTORY Gen Hx Age >=35 at JENNIFER: No (03/18/2016 14:37:Kristel Rodrigez RN) Gen Hx Thalassemia: No (03/18/2016 14:37:Kristel Rodrigez RN) Gen Hx Congenital Heart Defect: No (03/18/2016 14:37:Kristel Rodrigez RN) Gen Hx Neural Tube Defect: No (03/18/2016 14:37:Kristel Rodrigez RN) Gen Hx Down's Syndrome: No (03/18/2016 14:37:Kristel Rodrigez RN) Gen Hx Dionicio-Sachs: No (03/18/2016 14:37:Kristel Rodrigez RN) Gen Hx Johnna: No (03/18/2016 14:37:Kristel Rodrigez RN) Gen Hx Familial Dysautonomia: No (03/18/2016 14:37:Kristel Rodrigez RN) Gen Hx Hemophilia/Blood Disorder: No (03/18/2016 14:37:Kristel Rodrigez RN) Gen Hx Muscular Dystrophy: No (03/18/2016 14:37:Kristel Rodrigez RN) Gen Hx Cystic Fibrosis: No (03/18/2016 14:37:Kristel Rodrigez RN) Gen Hx Huntingtons Chorea: No (03/18/2016 14:37:Kristel Rodrigez RN) Gen Hx Mental Retardation/Autism: No (03/18/2016 14:37:Kristel Rodrigez RN) Gen Hx Tested for Fragile X: No (03/18/2016 14:37:Kristel Rodrigez RN) Gen Hx Other Inher/Chromosomal: No (03/18/2016 14:37:Kristel Rodrigez RN) Gen Hx Maternal Metabolic DO: No (03/18/2016 14:37:Kristel Rodrigez RN) Gen Hx Pt Father or FOB Defect: No (03/18/2016 14:37:Kristel Rodrigez RN) Gen Hx Other Genetic History: No (03/18/2016 14:37:Kristel Rodrigez RN) Gen Hx Drugs/Meds since LMP: No (03/18/2016 14:37:Kristel Rodrigez RN)
[2016-05-01 07:05] LABS: ABSOLUTE EOSINOPHILS # (AUTO) 0.1 10^3/uL (0.0-0.6); ABSOLUTE LYMPHOCYTES (AUTO) 1.2 10^3/uL (0.5-4.7); ABSOLUTE MONOCYTES (AUTO) 0.8 10^3/uL (0.1-1.4); ABSOLUTE NEUT (AUTO) 8.9 10^3/uL (1.7-8.2); BASOPHILS % (AUTO) 0.3 % (0-2); EOSINOPHILS % (AUTO) 0.5 % (0-6); HEMATOCRIT 31.6 % (36.0-47.0); HEMOGLOBIN 10.8 g/dL (12.0-15.5); HGB HCT DIFFERENCE 0.8; LYMPHOCYTES % (AUTO) 10.7 % (13-45); MEAN CORPUSCULAR HEMOGLOBIN 28.1 pg (27.0-33.4); MEAN CORPUSCULAR VOLUME 83 fl (80-97); MONOCYTES % (AUTO) 7.3 % (3-13); RED BLOOD COUNT 3.83 10^6/uL (3.72-5.28); RED CELL DISTRIBUTION WIDTH 14.2 % (11.5-14.0); SEGMENTED NEUTROPHILS % (AUTO) 81.2 % (42-78); WHITE BLOOD COUNT 10.9 10^3/uL (4.0-10.5)
[2016-05-01 07:26] LABS: ALANINE AMINOTRANSFERASE 20 U/L (9-52); ALBUMIN 3.1 g/dL (3.5-5.0); ALKALINE PHOSPHATASE 126 U/L (38-126); ANION GAP 12 (5-19); ASPARTATE AMINO TRANSFERASE 14 U/L (14-36); BILIRUBIN,TOTAL 0.5 mg/dL (0.2-1.3); BLOOD UREA NITROGEN 9 mg/dL (7-20); CALCIUM 9.2 mg/dL (8.4-10.2); CARBON DIOXIDE 21 mmol/L (22-30); CHLORIDE 106 mmol/L (98-107); GLUCOSE 73 mg/dL (75-110); LDH 316 U/L (313-618); POTASSIUM 3.9 mmol/L (3.6-5.0); TOTAL PROTEIN 5.6 g/dL (6.3-8.2); URIC ACID 5.1 mg/dL (2.5-6.2)
--- NOTE | 2016-05-01 08:00 | L&D Flow Sheet ---
LD Flowsheet Datetime Report Generated by CPN: 05/01/2016 08:00 Datetime: 05/01/2016 07:56 Dilatation (cm): 4.5 ([facility]) Effacement (%): 70 ([facility]) Station: -2 ([facility]) Exam by: Tereso Ross ([facility]) Vaginal Bleeding: Normal Show ([facility]) Cervix, Consistency: Soft ([facility]) Cervix, Position: Anterior ([facility]) Datetime: 05/01/2016 07:27 Communication Comments: Report given to S Camp RN (Kristel Beckfordgerclyde, RN) Datetime: 05/01/2016 07:07 NBP Sys/Earlene/Mean (mmHg): 133 (QS system process) : 79 (QS system process) : 102 (QS system process) Pulse: 90 (QS system process) LaborFlag: Labor (QS system process) Datetime: 05/01/2016 07:00 Monitor Mode: External; Palpation (Kristel Ledgerwood, RN) Frequency (min): none (Kristel Ledgerwood, RN) Resting Tone (Palpate): Relaxed (Kristel Ledgerwood, RN) Monitor Mode: External US (Kristel Ledgerwood, RN) FHR Baseline Rate : 135 (Kristel Ledgerwood, RN) FHR Baseline Changes: No Baseline Change (Kristel Ledgerwood, RN) Variability: Moderate 6-25 bpm (Kristel Ledgerwood, RN) Accelerations: 10X10 (Kristel Ledgerwood, RN) Decelerations: None (Kristel Ledgerwood, RN) Datetime: 05/01/2016 06:51 NBP Sys/Earlene/Mean (mmHg): 133 (QS system process) : 85 (QS system process) : 105 (QS system process) Pulse: 89 (QS system process) LaborFlag: Labor (QS system process) Datetime: 05/01/2016 06:37 NBP Sys/Earlene/Mean (mmHg): 127 (QS system process) : 76 (QS system process) : 97 (QS system process) Pulse: 85 (QS system process) LaborFlag: Labor (QS system process) Datetime: 05/01/2016 06:32 Patient Care Comments: Menu for Breakfast provided. (Kristel Rodrigez, WILLIAM) Datetime: 05/01/2016 06:27 Procedures: Labs Drawn (Kristelbassem Beckfordjf, RN) Datetime: 05/01/2016 06:21 NBP Sys/Earlene/Mean (mmHg): 134 (QS system process) : 74 (QS system process) : 98 (QS system process) Pulse: 86 (QS system process) Respirations: 14 (Kristel Rodrigez RN) Temperature (F): 97.5 (Kristel Rodrigez RN) Temperature (C): 36.4 (QS system process) Temperature Route: Oral (Kristel Rodrigez RN) LaborFlag: Labor (QS system process) Datetime: 05/01/2016 06:18 Patient Care Comments: Monitors on (Kristel Ledgerwood, RN) Datetime: 05/01/2016 04:05 Communication Comments: pt is stable, no distress noted. (Kristel Ledgerwood, RN) Datetime: 05/01/2016 00:30 Communication: RN at Bedside (Kristel Ledgerwood, RN) Communication Comments: Pt is sleeping. No distress noted. (Kristel Ledgerwood, RN) Datetime: 04/30/2016 21:52 Analgesics/Sedatives: Ambien (mg) @ (Annotations: 10) (Kristel Rodrigez RN) Medication Comments: Aldomet 250 mg given (Kristel Rodrigez RN) Instructional Method: Demo; Verbal; Patient Instructed (Kristel Rodrigez RN) Unit Routine: Medications (Kristel Rodrigez RN) Communication Comments: Pt in bed, no distress noted. (Kristel Rodrigez RN) Datetime: 04/30/2016 20:38 Communication Comments: Pt. is in the room, no distress noted. (Kristel Rodrigez RN)
[2016-05-01] MEDS ORDERED: OXYTOCIN/NORMAL SALINE 20 UNIT/1,000 ML RTUINJ ONE ×3 (08:13→18:07)
[2016-05-01] MEDS: OXYTOCIN/NORMAL SALINE 1,000 ML IV PRN (08:31)
[2016-05-01] MEDS: RINGERS SOLUTION,LACTATED 1,000 ML IV PRN (09:36)
[2016-05-01] MEDS ORDERED: METHYLDOPA 250 MG TABLET ONE (09:53)
[2016-05-01] MEDS: METHYLDOPA 250 MG TABLET PO SCH ×2 (09:56→22:37)
[2016-05-01] MEDS ORDERED: DEXAMETHASONE SOD PHOSPHATE INJ 4 MG/1 ML VIAL ONE (10:25)
[2016-05-01] MEDS ORDERED: PHENYLEPHRINE HCL INJ/PF 10 MG/1 ML SDV ONE (10:25)
[2016-05-01] MEDS ORDERED: ONDANSETRON HCL INJ/PF 4 MG/2 ML SDV ONE (10:25)
[2016-05-01] MEDS ORDERED: KETOROLAC TROMETHAMINE 60 MG/2 ML SDV ONE (10:25)
[2016-05-01] MEDS ORDERED: ACETAMINOPHEN 325 MG TABLET PO ONE (10:28)
[2016-05-01] MEDS ORDERED: ACETAMINOPHEN 325 MG TABLET ONE (10:31)
[2016-05-01] MEDS ORDERED: OXYTOCIN/NORMAL SALINE 1,000 ML IV PRN (11:15)
[2016-05-01] MEDS ORDERED: DEXTROSE 5%-LACTATED RINGERS 1,000 ML IV PRN (12:00)
--- NOTE | 2016-05-01 12:02 | L&D Progress Notes ---
PROGRESS NOTES Datetime Report Generated by CPN: 05/01/2016 12:00 PROGRESS NOTE Impression: Normal Progression of Labor Procedures: Intrauterine Pressure Catheter Plan: Continue Present Management Plan: Augmentation Informed Consent Obtained: Vaginal Delivery; Risks, Benefits and Alternatives Discussed Informed Consent Obtained- Other: Rivera bulb/ cooks catheter Vital Signs : Reviewed Comment: IUPC placed as currently on pit at 24 mu . Will monitor for adequate mvus. Comment: 30 yo admitted last night for iol- chronic htn Ega 39.1 cervidil removed per RN at 1000 pt ate breakfast cervical exam- 05/01/59/-[address] cook's catheter- r/b/a reviewed with pt FHTs average variability/ reactive ctx q3-5 min start pitocin after cook's catheter placed anticipate vaginal delivery VAGINAL EXAM Dilatation: 5 Dilatation: 2 Effacement: 70 Effacement: 60 Station: -2 Station: -2 MEMBRANES Membranes: Intact FETUS A FHR - Baseline: 130 Monitoring: Internal Scalp Electrode Monitoring: External US Variability: Moderate 6-25bpm Accelerations: 15X15 Decelerations: None FHR Category: Category I FHR Category: Category I : 39.1 SIGNATURE SIGNATURE: [id number] SIGNATURE: [id number] Signature: with User ID: [email or web address]
--- NOTE | 2016-05-01 12:02 | L&D Flow Sheet ---
LD Flowsheet Datetime Report Generated by CPN: 05/01/2016 12:00 Datetime: 05/01/2016 11:31 NBP Sys/Earlnee/Mean (mmHg): 130 (QS system process) : 76 (QS system process) : 99 (QS system process) Pulse: 104 (QS system process) LaborFlag: Labor (QS system process) Datetime: 05/01/2016 11:15 Monitor Mode: External; Palpation (Thi Camp, RNC) Monitor Interventions for UA: [place] Adjusted (Thi Camp, RNC) Frequency (min): 2-3 (Thi Camp, RNC) Quality: Mild/Moderate (Thi Camp, RNC) Duration (sec): 50-80 (Thi Camp, RNC) Duration Criteria: Less than Two 120 Second Contractions (Thi Camp, RNC) Pattern: Normal: <= 5 Contractions in 10 Minutes (Thi Camp, RNC) Resting Tone (Palpate): Relaxed (Thi Camp, RNC) Monitor Mode: Internal Scalp Electrode (Thi Camp, RNC) FHR Baseline Rate : 140 (Thi Camp, RNC) FHR Baseline Changes: No Baseline Change (Thi Camp, RNC) Variability: Moderate 6-25 bpm (Thi Camp, RNC) Accelerations: 15X15 (Thi Camp, RNC) Decelerations: None (Thi Camp, RNC) Pitocin (milliunit): Pitocin Increased to (milliunits) @ 22 (Thi Camp, RNC) Datetime: 05/01/2016 11:09 Communication: Provider Orders Received; Call/Page Returned by Provider (Thi Camp, RNC) Communication Comments: Dr Ross given phone report of uc pattern, palpation of intensity and maternal response (Thi Camp, RNC) Datetime: 05/01/2016 11:05 NBP Sys/Earlene/Mean (mmHg): 123 (QS system process) : 74 (QS system process) : 92 (QS system process) Pulse: 96 (QS system process) LaborFlag: Labor (QS system process) Datetime: 05/01/2016 11:01 NBP Sys/Earlene/Mean (mmHg): 123 (QS system process) : 98 (QS system process) : 108 (QS system process) Pulse: 106 (QS system process) LaborFlag: Labor (QS system process) Datetime: 05/01/2016 11:00 Monitor Mode: External; Palpation (Thi Camp, RNC) Frequency (min): 2-3 (Thi Camp, RNC) Quality: Moderate (Thi Camp, RNC) Duration (sec): 50-70 (Thi Camp, RNC) Duration Criteria: Less than Two 120 Second Contractions (Thi Camp, RNC) Pattern: Normal: <= 5 Contractions in 10 Minutes (Thi Camp, RNC) Resting Tone (Palpate): Relaxed (Thi Camp, RNC) Monitor Mode: Internal Scalp Electrode (Thi Camp, RNC) FHR Baseline Rate : 140 (Thi Camp, RNC) FHR Baseline Changes: No Baseline Change (Thi Camp, RNC) Variability: Moderate 6-25 bpm (Thi Camp, RNC) Accelerations: 15X15 (Thi Camp, RNC) Decelerations: Early (Thi Camp, RNC) Pitocin (milliunit): Pitocin Remains (milliunits) @ 20 (Thi Camp, RNC) Datetime: 05/01/2016 10:45 Monitor Mode: External; Palpation (Thi Camp, RNC) Monitor Interventions for UA: [place] Adjusted (Thi Camp, RNC) Frequency (min): 2-4 (Thi Camp, RNC) Quality: Mild/Moderate (Thi Camp, RNC) Duration (sec): 50-70 (Thi Camp, RNC) Duration Criteria: Less than Two 120 Second Contractions (Thi Camp, RNC) Pattern: Normal: <= 5 Contractions in 10 Minutes (Thi Camp, RNC) Resting Tone (Palpate): Relaxed (Thi Camp, RNC) Monitor Mode: Internal Scalp Electrode (Thi Camp, RNC) FHR Baseline Rate : 150 (Thi Camp, RNC) FHR Baseline Changes: No Baseline Change (Thi Camp, RNC) Variability: Moderate 6-25 bpm (Thi Camp, RNC) Accelerations: 10X10 (Thi Camp, RNC) Decelerations: None (Thi Camp, RNC) Pitocin (milliunit): Pitocin Increased to (milliunits) @ (Annotations: 20) (Thi Camp, RN) Patient Care Comments: position change to birthing ball (Thi Camp, [facility]) Datetime: 05/01/2016 10:36 Analgesics/Sedatives: Tylenol (mg) @ 975 mg po for headache (Thi Camp, RN) Datetime: 05/01/2016 10:32 Monitor Interventions for UA: [place] Adjusted (Thi Camp, [facility]) Datetime: 05/01/2016 10:31 NBP Sys/Earlene/Mean (mmHg): 137 (QS system process) : 62 (QS system process) : 89 (QS system process) Pulse: 109 (QS system process) Respirations: 16 (Thi Camp, RNC) LaborFlag: Labor (QS system process) Datetime: 05/01/2016 10:30 Monitor Mode: External; Palpation (Thi Camp, RNC) Monitor Interventions for UA: [place] Adjusted (Thi Camp, RNC) Frequency (min): 4-5 (Thi Camp, RNC) Quality: Mild (Thi Camp, RNC) Duration (sec): 50-80 (Thi Camp, RNC) Duration Criteria: Less than Two 120 Second Contractions (Thi Camp, RNC) Pattern: Normal: <= 5 Contractions in 10 Minutes (Thi Camp, RNC) Resting Tone (Palpate): Relaxed (Thi Camp, RNC) Contraction Comments: standing at bedside (Thi Camp, RNC) Monitor Mode: Internal Scalp Electrode (Thi Camp, RNC) FHR Baseline Rate : 145 (Thi Camp, RNC) FHR Baseline Changes: No Baseline Change (Thi Camp, RNC) Variability: Moderate 6-25 bpm (Thi Camp, RNC) Accelerations: 15X15 (Thi Camp, RNC) Decelerations: None (Thi Camp, RNC) Pitocin (milliunit): Pitocin Increased to (milliunits) @ 18 (Thi Camp, RNC) Pitocin (milliunit): Pitocin Increased to (milliunits) @ (Annotations: 18) (Thi Camp, RNC) Datetime: 05/01/2016 10:29 Communication: Provider Orders Received; Report Given to @ Dr Cruz ([facility], [facility]) Notification Reason: Pain ([facility], [facility]) Communication Comments: Report of unilateral headache behind right eye pain rated 2/5 vs including b/p within normal limits ([facility], [facility]) Datetime: 05/01/2016 10:25 Pain Scale: 2 (Thi Woodbourne, [facility]) Pain Presence: Constant (Thi Woodbourne, [facility]) Pain Type: Dull (Thi Camp, [facility]) Pain Location: Head (Annotations: behind left eye) (Thi Woodbourne, [facility]) LaborFlag: Labor (QS system process) Datetime: 05/01/2016 10:15 Monitor Mode: External; Palpation (Thi Camp, RNC) Frequency (min): 4-5 (Thi Camp, RNC) Quality: Mild/Moderate (Thi Camp, RNC) Duration (sec): 50-70 (Thi Camp, RNC) Duration Criteria: Less than Two 120 Second Contractions (Thi Camp, RNC) Pattern: Normal: <= 5 Contractions in 10 Minutes (Thi Camp, RNC) Resting Tone (Palpate): Relaxed (Thi Camp, RNC) Monitor Mode: Internal Scalp Electrode (Thi Camp, RNC) FHR Baseline Rate : 145 (Thi Camp, RNC) FHR Baseline Changes: No Baseline Change (Thi Camp, RNC) Variability: Moderate 6-25 bpm (Thi Camp, RNC) Accelerations: 15X15 (Thi Camp, RNC) Decelerations: None (Thi Camp, RNC) Pitocin (milliunit): Pitocin Increased to (milliunits) @ (Annotations: 16) (Thi Camp, RNC) Datetime: 05/01/2016 10:13 Monitor Interventions for UA: [place] Adjusted (Thi Camp, RNC) Datetime: 05/01/2016 10:09 Patient Position/Activity: Standing (Thi Woodbourne, RNC) Patient Care Comments: Repositioned to standing, educated on intermittent squats with lunges with contractions. [id number] at bedside assisting (Thi Camp, RNC) Datetime: 05/01/2016 10:05 I/O Interventions: Up to BR (Thi Camp, RNC) Patient Care Comments: moderate amount clear fluid expelled upon rising (Thi Camp, RNC) Datetime: 05/01/2016 10:01 NBP Sys/Earlene/Mean (mmHg): 132 (QS system process) : 85 (QS system process) : 104 (QS system process) Pulse: 96 (QS system process) Respirations: 16 (Thi Camp, RNC) Temperature (F): 98.1 (Thi Camp, RNC) Temperature (C): 36.7 (QS system process) Temperature Route: Oral (Thi Camp, RNC) LaborFlag: Labor (QS system process) Datetime: 05/01/2016 10:00 Monitor Mode: External; Palpation (Thi Camp, RNC) Frequency (min): 4-6 (Thi Camp, RNC) Quality: Mild (Thi Camp, RNC) Duration (sec): 50-70 (Thi Camp, RNC) Duration Criteria: Less than Two 120 Second Contractions (Thi Camp, RNC) Pattern: Normal: <= 5 Contractions in 10 Minutes (Thi Camp, RNC) Resting Tone (Palpate): Relaxed (Thi Camp, RNC) Monitor Mode: Internal Scalp Electrode (Thi Camp, RNC) FHR Baseline Rate : 130 (Thi Camp, RNC) FHR Baseline Changes: No Baseline Change (Thi Camp, RNC) Variability: Moderate 6-25 bpm (Thi Camp, RNC) Decelerations: None (Thi Camp, RNC) Pitocin (milliunit): Pitocin Increased to (milliunits) @ (Annotations: 14) (Thi Camp, RNC) Datetime: 05/01/2016 09:57 NBP Sys/Earlene/Mean (mmHg): 130 (QS system process) : 81 (QS system process) : 101 (QS system process) Pulse: 91 (QS system process) Respirations: 17 (Thi Camp, RNC) LaborFlag: Labor (QS system process) Datetime: 05/01/2016 09:56 Medication Comments: Aldomet 250mg po given as directed (Thi Camp, RNC) Datetime: 05/01/2016 09:45 Monitor Mode: External; Palpation (Thi Camp, RNC) Frequency (min): 4-6 (Thi Camp, RNC) Quality: Mild (Thi Camp, RNC) Duration (sec): 40-50 (Thi Camp, RNC) Duration Criteria: Less than Two 120 Second Contractions (Thi Camp, RNC) Pattern: Normal: <= 5 Contractions in 10 Minutes (Thi Camp, RNC) Resting Tone (Palpate): Relaxed (Thi Camp, RNC) Monitor Mode: Internal Scalp Electrode (Thi Camp, RNC) FHR Baseline Rate : 140 (Thi Camp, RNC) FHR Baseline Changes: No Baseline Change (Thi Camp, RNC) Variability: Moderate 6-25 bpm (Thi Camp, RNC) Accelerations: 15X15 (Thi Camp, RNC) Decelerations: None (Thi Camp, RNC) Pitocin (milliunit): Pitocin Increased to (milliunits) @ (Annotations: 12) (Thi Camp, RNC) Datetime: 05/01/2016 09:36 IV/Blood Work: New IV Bag Hung; IV Bag Number @ 3 (Thi Camp, RNC) Datetime: 05/01/2016 09:30 Monitor Mode: External; Palpation (Thi Camp, RNC) Frequency (min): 4-5 (Thi Camp, RNC) Quality: Mild (Thi Camp, RNC) Duration (sec): 60-80 (Thi Camp, RNC) Duration Criteria: Less than Two 120 Second Contractions (Thi Camp, RNC) Pattern: Normal: <= 5 Contractions in 10 Minutes (Thi Camp, RNC) Resting Tone (Palpate): Relaxed (Thi Camp, RNC) Monitor Mode: Internal Scalp Electrode (Thi Camp, RNC) FHR Baseline Rate : 140 (Thi Camp, RNC) FHR Baseline Changes: No Baseline Change (Thi Camp, RNC) Variability: Moderate 6-25 bpm (Thi Camp, RNC) Accelerations: 15X15 (Thi Camp, RNC) Decelerations: None (Thi Camp, RNC) Pitocin (milliunit): Pitocin Increased to (milliunits) @ (Annotations: 10) (Thi Camp, RNC) Datetime: 05/01/2016 09:27 NBP Sys/Earlene/Mean (mmHg): 145 (QS system process) : 78 (QS system process) : 106 (QS system process) Pulse: 89 (QS system process) Respirations: 18 (Thi Camp, RNC) Temperature (F): 98.8 (Thi Camp, RNC) Temperature (C): 37.1 (QS system process) Temperature Route: Oral (Thi Camp, RNC) LaborFlag: Labor (QS system process) Datetime: 05/01/2016 09:22 Hygiene: Meseret Care; Underpad Changed (Thi Camp, RNC) Datetime: 05/01/2016 09:20 Pain Scale: 1 (Thi Camp, RNC) Pain Presence: Intermittent (Thi Camp, RNC) Pain Type: Cramping (Thi Camp, RNC) Pain Location: Abdomen (Thi Camp, RNC) Pain Relief Measures: Comfort Measures (Thi Woodbourne, C) Pain Coping: Talking Through Contractions (Thi Camp, RNC) Comfort Measures: Rocking Chair; Family Support (Thi Camp, RNC) LaborFlag: Labor (QS system process) Datetime: 05/01/2016 09:15 Monitor Mode: External; Palpation (Thi Camp, RNC) Monitor Interventions for UA: [place] Adjusted (Thi Camp, RNC) Frequency (min): 4-5 (Thi Camp, RNC) Quality: Mild (Thi Camp, RNC) Duration (sec): 50-80 (Thi Camp, RNC) Duration Criteria: Less than Two 120 Second Contractions (Thi Camp, RNC) Pattern: Normal: <= 5 Contractions in 10 Minutes (Thi Camp, RNC) Resting Tone (Palpate): Relaxed (Thi Camp, RNC) Monitor Mode: Internal Scalp Electrode (Thi Camp, RNC) FHR Baseline Rate : 145 (Thi Camp, RNC) FHR Baseline Changes: No Baseline Change (Thi Camp, RNC) Variability: Moderate 6-25 bpm (Thi Camp, RNC) Accelerations: 10X10 (Thi Camp, RNC) Decelerations: None (Thi Camp, RNC) Pitocin (milliunit): Pitocin Increased to (milliunits) @ (Annotations: 8) (Thi Camp, RNC) Datetime: 05/01/2016 09:00 Monitor Mode: External; Palpation (Thi Camp, RNC) Frequency (min): 4-6 (Thi Camp, RNC) Quality: Mild (Thi Camp, RNC) Duration (sec): 40-50 (Thi Camp, RNC) Duration Criteria: Less than Two 120 Second Contractions (Thi Camp, RNC) Pattern: Normal: <= 5 Contractions in 10 Minutes (Thi Camp, RNC) Resting Tone (Palpate): Relaxed (Thi Camp, RNC) Monitor Mode: Internal Scalp Electrode (Thi Camp, RNC) FHR Baseline Rate : 135 (Thi Camp, RNC) FHR Baseline Changes: No Baseline Change (Thi Camp, RNC) Variability: Moderate 6-25 bpm (Thi Camp, RNC) Accelerations: 15X15 (Thi Camp, RNC) Decelerations: None (Thi Camp, RNC) Pitocin (milliunit): Pitocin Increased to (milliunits) @ (Annotations: 6) (Thi Camp, RNC) Datetime: 05/01/2016 08:45 Pitocin (milliunit): Pitocin Increased to (milliunits) @ (Annotations: 4) (Thi Camp, RNC) Datetime: 05/01/2016 08:30 Monitor Mode: External; Palpation (Thi Camp, RNC) Monitor Interventions for UA: [place] Adjusted (Thi Camp, RNC) Frequency (min): 4-5 (Thi Camp, RNC) Quality: Mild (Thi Camp, RNC) Duration (sec): 40-50 (Thi Camp, RNC) Duration Criteria: Less than Two 120 Second Contractions (Thi Camp, RNC) Pattern: Normal: <= 5 Contractions in 10 Minutes (Thi Camp, RNC) Resting Tone (Palpate): Relaxed (Thi Camp, RNC) Monitor Mode: Internal Scalp Electrode (Thi Camp, RNC) FHR Baseline Rate : 145 (Thi Camp, RNC) FHR Baseline Changes: No Baseline Change (Thi Camp, RNC) Variability: Moderate 6-25 bpm (Thi Camp, RNC) Accelerations: 15X15 (Thi Camp, RNC) Decelerations: None (Thi Camp, RNC) Pitocin (milliunit): Pitocin Started (milliunits) @ 2 (Thi Camp, RNC) Instructional Method: Written; Patient Instructed; Family/Support Person Instructed; Verbalized Understanding (Thi Camp, RNC) Plan of Care: Plan of Care Discussed (Thi Camp, RNC) Labor/Induction: Induction; Activity (Thi Camp, RNC) Datetime: 05/01/2016 08:00 Monitor Mode: External; Palpation (Thi Camp, RNC) Frequency (min): irregular (Thi Camp, RNC) Quality: Mild (Thi Camp, RNC) Duration (sec): 40-50 (Thi Camp, RNC) Duration Criteria: Less than Two 120 Second Contractions (Thi Camp, RNC) Pattern: Normal: <= 5 Contractions in 10 Minutes (Thi Camp, RNC) Resting Tone (Palpate): Relaxed (Thi Camp, RNC) Monitor Mode: Internal Scalp Electrode (Thi Camp, RNC) FHR Baseline Rate : 145 (Thi Camp, RNC) FHR Baseline Changes: No Baseline Change (Thi Camp, RNC) Variability: Moderate 6-25 bpm (Thi Camp, RNC) Accelerations: 15X15 (Thi Camp, RNC) Decelerations: None (LORETTA Dye)
--- NOTE | 2016-05-01 16:00 | L&D Flow Sheet ---
LD Flowsheet Datetime Report Generated by CPN: 05/01/2016 16:00 Datetime: 05/01/2016 15:15 Monitor Mode: Internal (Magali Castelan RN) Frequency (min): 2-3 (Magali Castelan RN) Frequency (min): 2.5-3 (Magali Castelan, WILLIAM) Quality: Mild/Moderate (Magali Castelan, WILLIAM) Duration (sec): 70-80 (Magali Castelan, RN) Duration (sec): 60-80 (Magali Castelan, RN) Duration Criteria: Less than Two 120 Second Contractions (Magali Castelan, RN) Pattern: Normal: <= 5 Contractions in 10 Minutes (Magali Castelan, RN) Resting Tone (Palpate): Relaxed (Magali Castelan, WILLIAM) Monitor Mode: Internal Scalp Electrode (Magali Castelan RN) FHR Baseline Rate : 140 (Magali Castelan RN) FHR Baseline Changes: No Baseline Change (Magali Castelan RN) Variability: Moderate 6-25 bpm (Magali Castelan, RN) Accelerations: None (Magali Castelan, RN) Decelerations: None (Magali Flip, RN) Datetime: 05/01/2016 15:00 Monitor Mode: Internal (Magali Flip, RN) Frequency (min): 2-2.5 (Magali Castelan, RN) Quality: Mild/Moderate (Magali Flip, RN) Duration (sec): 60-70 (Magali Flip, RN) Duration Criteria: Less than Two 120 Second Contractions (Magali Flip, RN) Pattern: Normal: <= 5 Contractions in 10 Minutes (Magali Flip, RN) Resting Tone (Palpate): Relaxed (Magali Castelan, RN) Monitor Mode: Internal Scalp Electrode (Magali Castelan, RN) FHR Baseline Rate : 145 (Magali Flip, RN) FHR Baseline Changes: No Baseline Change (Magali Flip, RN) Variability: Moderate 6-25 bpm (Magali Flip, RN) Accelerations: 15X15 (Magali Flip, RN) Decelerations: Variable (Magali Flip, RN) Datetime: 05/01/2016 14:45 Monitor Mode: Internal (Thi Camp, RNC) Frequency (min): 1.5-4 (Thi Camp, RNC) Duration (sec): 60-70 (Thi Camp, RNC) Duration (sec): 50-70 (Thi Camp, RNC) Duration Criteria: Less than Two 120 Second Contractions (Thi Camp, RNC) Pattern: Normal: <= 5 Contractions in 10 Minutes (Thi Camp, RNC) Resting Tone (Palpate): Relaxed (Thi Camp, RNC) Resting Tone IUP (mmHg): 18 (Thi Camp, RNC) Resting Tone IUP (mmHg): 20 (Thi Camp, RNC) Intensity IUP (mmHg): 70 (Thi Camp, RNC) Intensity IUP (mmHg): 75 (Thi Camp, RNC) Contraction Comments: (Thi Camp, RNC) Monitor Mode: Internal Scalp Electrode (Thi Camp, RNC) FHR Baseline Rate : 140 (Thi Camp, RNC) FHR Baseline Rate : 145 (Thi Camp, RNC) FHR Baseline Changes: No Baseline Change (Thi Camp, RNC) Variability: Moderate 6-25 bpm (Thi Camp, RNC) Accelerations: 15X15 (Thi Camp, RNC) Decelerations: None (Thi Camp, RNC) Datetime: 05/01/2016 14:31 NBP Sys/Earlene/Mean (mmHg): 124 (QS system process) : 73 (QS system process) : 95 (QS system process) Pulse: 92 (QS system process) Respirations: 16 (Thi Camp, RNC) LaborFlag: Labor (QS system process) Datetime: 05/01/2016 14:30 Monitor Mode: Internal (Thi Camp, RNC) Frequency (min): 2-3 (Thi Camp, RNC) Duration (sec): 60-80 (Thi Camp, RNC) Pattern: Normal: <= 5 Contractions in 10 Minutes (Thi Camp, RNC) Resting Tone (Palpate): Relaxed (Thi Camp, RNC) Resting Tone IUP (mmHg): 20 (Thi Camp, RNC) Intensity IUP (mmHg): 75 (Thi Camp, RNC) Contraction Comments: mvu 230 (Thi Camp, RNC) Monitor Mode: Internal Scalp Electrode (Thi Camp, RNC) FHR Baseline Rate : 145 (Thi Camp, RNC) FHR Baseline Changes: No Baseline Change (Thi Camp, RNC) Variability: Moderate 6-25 bpm (Thi Camp, RNC) Accelerations: 15X15 (Thi Camp, RNC) Decelerations: None (Thi Camp, RNC) Datetime: 05/01/2016 14:15 Pitocin (milliunit): Pitocin Increased to (milliunits) @ (Annotations: 16) (Thi Camp, RNC) Datetime: 05/01/2016 14:13 Comfort Measures: Rocking Chair; Family Support (Thi Camp, RNC) Patient Care Comments: repositioned to rocking chair (Thi Camp, RNC) Datetime: 05/01/2016 14:09 Hygiene: Meseret Care; Underpad Changed (Thi Camp, RNC) I/O Interventions: Up to BR (Thi Camp, RNC) Datetime: 05/01/2016 14:01 NBP Sys/Earlene/Mean (mmHg): 140 (QS system process) : 71 (QS system process) : 96 (QS system process) Pulse: 85 (QS system process) Respirations: 16 (Thi Camp, RNC) LaborFlag: Labor (QS system process) Datetime: 05/01/2016 14:00 Monitor Mode: Internal (Thi Camp, RNC) Frequency (min): 2-3 (Thi Camp, RNC) Duration Criteria: Less than Two 120 Second Contractions (Thi Camp, RNC) Pattern: Normal: <= 5 Contractions in 10 Minutes (Thi Camp, RNC) Resting Tone (Palpate): Relaxed (Thi Camp, RNC) Contraction Comments: MVU 225 (Thi Camp, RNC) Monitor Mode: Internal Scalp Electrode (Thi Camp, RNC) FHR Baseline Rate : 135 (Thi Camp, RNC) FHR Baseline Changes: No Baseline Change (Hti Camp, RNC) Variability: Moderate 6-25 bpm (Thi Camp, RNC) Accelerations: 15X15 (Thi Camp, RNC) Decelerations: None (Thi Camp, RNC) Pitocin (milliunit): Pitocin Increased to (milliunits) @ (Annotations: 14) (Thi Camp, RNC) Datetime: 05/01/2016 13:45 Monitor Mode: Internal (Thi Camp, RNC) Frequency (min): 1-3 (Thi Camp, RNC) Duration (sec): 50-80 (Thi Camp, RNC) Duration Criteria: Less than Two 120 Second Contractions (Thi Camp, RNC) Pattern: Normal: <= 5 Contractions in 10 Minutes (Thi Camp, RNC) Resting Tone (Palpate): Relaxed (Thi Camp, RNC) Resting Tone IUP (mmHg): 25 (Thi Camp, RNC) Intensity IUP (mmHg): 65 (Thi Camp, RNC) Contraction Comments: mvu- 105 (Thi Camp, RNC) Monitor Mode: Internal Scalp Electrode (Thi Camp, RNC) FHR Baseline Rate : 135 (Thi Camp, RNC) FHR Baseline Changes: No Baseline Change (Thi Camp, RNC) Variability: Moderate 6-25 bpm (Thi Camp, RNC) Accelerations: 15X15 (Thi Camp, RNC) Decelerations: None (Thi Camp, RNC) Pitocin (milliunit): Pitocin Increased to (milliunits) @ (Annotations: 12) (Thi Camp, RNC) Datetime: 05/01/2016 13:31 NBP Sys/Earlene/Mean (mmHg): 114 (QS system process) : 60 (QS system process) : 80 (QS system process) Pulse: 81 (QS system process) Respirations: 16 (Thi Camp, RNC) LaborFlag: Labor (QS system process) Datetime: 05/01/2016 13:30 Monitor Mode: Internal (Thi Camp, RNC) Frequency (min): 4-5 (Thi Camp, RNC) Quality: Mild/Moderate (Thi Camp, RNC) Duration (sec): 60-70 (Thi Camp, RNC) Duration Criteria: Less than Two 120 Second Contractions (Thi Camp, RNC) Pattern: Normal: <= 5 Contractions in 10 Minutes (Thi Camp, RNC) Resting Tone (Palpate): Relaxed (Thi Camp, RNC) Resting Tone IUP (mmHg): 22 (Thi Camp, RNC) Intensity IUP (mmHg): 70 (Thi Camp, RNC) Monitor Mode: Internal Scalp Electrode (Thi Camp, RNC) FHR Baseline Rate : 140 (Thi Camp, RNC) FHR Baseline Changes: No Baseline Change (Thi Camp, RNC) Variability: Moderate 6-25 bpm (Thi Camp, RNC) Accelerations: 15X15 (Thi Camp, RNC) Decelerations: None (Thi Camp, RNC) Pitocin (milliunit): Pitocin Remains (milliunits) @ (Annotations: 10) (Thi Camp, RNC) Datetime: 05/01/2016 13:20 Pitocin (milliunit): Pitocin Started (milliunits) @ (Annotations: 10) (Thi Magnolia, [facility]) Datetime: 05/01/2016 13:15 Monitor Mode: Internal (Magali Castelan RN) Frequency (min): 5.5-6 (Magali Castelan, WILLIAM) Quality: Mild/Moderate (Magali Castelan, WILLIAM) Duration (sec): 60-90 (Magali Castelan, RN) Duration Criteria: Less than Two 120 Second Contractions (Magali Castelan, WILLIAM) Pattern: Normal: <= 5 Contractions in 10 Minutes (Magali Castelan, RN) Resting Tone (Palpate): Relaxed (Magali Castelan, RN) Resting Tone IUP (mmHg): 20 (Magali Castelan, RN) Intensity IUP (mmHg): 75 (Magali Castelan, RN) Contraction Comments: MVU 105 (Magali Castelan, WILLIAM) Monitor Mode: Internal Scalp Electrode (Magali Castelan, WILLIAM) FHR Baseline Rate : 140 (Magali Castelan, RN) Variability: Moderate 6-25 bpm (Magali Castelan, RN) Accelerations: 10X10 (Magali Castelan, RN) Decelerations: None (Magali Castelan, RN) Datetime: 05/01/2016 13:01 NBP Sys/Earlene/Mean (mmHg): 119 (QS system process) : 58 (QS system process) : 83 (QS system process) Pulse: 83 (QS system process) Respirations: 16 (Thi Camp, RNC) Temperature (F): 98.0 (Thi Camp, RNC) Temperature (C): 36.7 (QS system process) Temperature Route: Oral (Thi Camp, RNC) LaborFlag: Labor (QS system process) Datetime: 05/01/2016 13:00 Monitor Mode: Internal (Magali Castelan RN) Frequency (min): 5-6 (Magali Castelan RN) Quality: Mild/Moderate (Magali Castelan RN) Duration (sec): 60-70 (Magali Castelan RN) Duration Criteria: Less than Two 120 Second Contractions (Magali Castelan RN) Pattern: Normal: <= 5 Contractions in 10 Minutes (Magali Castelan RN) Resting Tone (Palpate): Relaxed (Magali Castelan RN) Monitor Mode: External US (aMgali Castelan RN) FHR Baseline Rate : 145 (Magali Castelan RN) FHR Baseline Changes: No Baseline Change (Magali Castelan RN) Variability: Moderate 6-25 bpm (Magali Castelan RN) Accelerations: 10X10 (Magali Castelan RN) Decelerations: None (Magali Castelan RN) Datetime: 05/01/2016 12:45 Monitor Mode: Internal (Magali Castelan, RN) Frequency (min): 4 (Magali Castelan, RN) Quality: Mild/Moderate (Magali Castelan, RN) Duration (sec): 70-80 (Magali Castelan, RN) Duration Criteria: Less than Two 120 Second Contractions (Magali Castelan, RN) Pattern: Normal: <= 5 Contractions in 10 Minutes (Magali Castelan, RN) Resting Tone (Palpate): Relaxed (Magali Castelan, RN) Monitor Mode: Internal Scalp Electrode (Magali Castelan, RN) FHR Baseline Rate : 145 (Magali Castelan, RN) Variability: Moderate 6-25 bpm (Magali Castelan, RN) Accelerations: 10X10 (Magali Castelan, RN) Decelerations: None (Magali Castelan, RN) Datetime: 05/01/2016 12:38 NBP Sys/Earlene/Mean (mmHg): 123 (QS system process) : 60 (QS system process) : 87 (QS system process) Pulse: 84 (QS system process) Respirations: 16 (Thi Vijay, RNC) LaborFlag: Labor (QS system process) Datetime: 05/01/2016 12:30 Monitor Mode: Internal (Magali Castelan, WILLIAM) Frequency (min): 2-2.5 (Magali Castelan, WILLIAM) Quality: Mild/Moderate (Magali Castelan RN) Duration (sec): 80-110 (Magali Castelan, RN) Duration Criteria: Less than Two 120 Second Contractions (Magali Castelan, RN) Pattern: Normal: <= 5 Contractions in 10 Minutes (Magali Castelan, RN) Resting Tone (Palpate): Relaxed (Magali Castelan, RN) Monitor Mode: Internal Scalp Electrode (Magali Castelan, RN) FHR Baseline Rate : 145 (Magali Castelan, RN) Variability: Moderate 6-25 bpm (Magali Castelan, RN) Accelerations: 15X15 (Magali Castelan, RN) Decelerations: None (Magali Castelan, RN) Datetime: 05/01/2016 12:20 Pitocin (milliunit): Pitocin Discontinued (LORETTA Dye) Medication Comments: pitocin discontinued for 45 minute period (LORETTA Dye) IV/Blood Work: IV Bolus Started (Thi Camp, RNC) Patient Care Comments: D5LR 1000ml up for 250 ml bolus (Thi Camp, RNC) Datetime: 05/01/2016 12:15 Monitor Mode: Internal (Thi Camp, RNC) Frequency (min): 1.5-2 (Thi Camp, RNC) Duration (sec): 50-90 (Thi Camp, RNC) Duration (sec): 80-100 (Thi Camp, RNC) Duration Criteria: Less than Two 120 Second Contractions (Thi Camp, RNC) Pattern: Normal: <= 5 Contractions in 10 Minutes (Thi Camp, RNC) Resting Tone (Palpate): Relaxed (Thi Camp, RNC) Resting Tone IUP (mmHg): 25 (Thi Camp, RNC) Resting Tone IUP (mmHg): 22 (Thi Camp, RNC) Intensity IUP (mmHg): 70 (Thi Camp, RNC) Intensity IUP (mmHg): 65 (Thi Camp, RNC) Contraction Comments: mvu 245 (Thi Camp, RNC) Monitor Mode: Internal Scalp Electrode (Thi Camp, RNC) FHR Baseline Rate : 135 (Thi Camp, RNC) FHR Baseline Changes: No Baseline Change (Thi Camp, RNC) Variability: Moderate 6-25 bpm (Thi Camp, RNC) Accelerations: 15X15 (Thi Camp, RNC) Decelerations: None (Thi Camp, RNC) Pitocin (milliunit): Pitocin Remains (milliunits) @ 24 (Thi Camp, RNC)
[2016-05-01] MEDS ORDERED: CITRIC ACID/SODIUM CITRATE ORAL SOLN 15 ML UDCUP ONE ×2 (16:04→16:05)
[2016-05-01] MEDS ORDERED: METOCLOPRAMIDE HCL INJ/PF 10 MG/2 ML SDV ONE (16:05)
[2016-05-01] MEDS ORDERED: FENTANYL CITRATE INJ/PF 100 MCG/2 ML AMPUL ONE ×2 (16:05→16:28)
[2016-05-01] MEDS ORDERED: SODIUM BICARBONATE 8.4% INJ 50 MEQ/50 ML DISP.SYRIN ONE (16:06)
[2016-05-01] MEDS ORDERED: LIDOCAINE 2%/EPINEPHRINE INJ 20 ML VIAL ONE (16:06)
[2016-05-01] MEDS ORDERED: FAMOTIDINE INJ/PF 20 MG/2 ML SDV IV ONE (16:06)
[2016-05-01] MEDS ORDERED: CEFAZOLIN 2 GM/D5W RTU 2 GM/50 ML RTUPB IV ONE (16:07)
[2016-05-01] MEDS ORDERED: OXYTOCIN 10 UNIT/ML VIAL ONE (16:28)
[2016-05-01] MEDS ORDERED: EPHEDRINE SULFATE INJ 50 MG/1 ML AMPULE ONE (16:28)
[2016-05-01] MEDS ORDERED: MIDAZOLAM 2 MG/2 ML INJ ONE (16:28)
--- NOTE | 2016-05-01 16:37 | L&D Progress Notes ---
PROGRESS NOTES Datetime Report Generated by CPN: 05/01/2016 16:37 PROGRESS NOTE Impression: Arrest of Dilatation/Descent Plan: Deliver- Section Informed Consent Obtained: Section Delivery Comment: No cervical change despite adequate mvus and postiioning...discussed r/b/a of and pt wishes to proceed. FETUS A FHR Category: Category I FETUS C SIGNATURE: [id number] SIGNATURE: [id number] Signature: with User ID: [email or web address]
[2016-05-01] MEDS ORDERED: MISOPROSTOL 0.2 MG TABLET ONE (17:45)
--- NOTE | 2016-05-01 17:57 | Operative Report ---
Operative Report DATE OF SURGERY: 05/01/16 PREOPERATIVE DIAGNOSIS: Intrauterine at 39 weeks with chronic hypertension and arrest of labor POSTOPERATIVE DIAGNOSIS: Arrest of labor and chronic hypertension at 39 weeks gestation status post primary low transverse cervical section OPERATION: Primary low transverse cervical section SURGEON: LIBERTY MILLER ANESTHESIA: Spinal TISSUE REMOVED OR ALTERED: Placenta ESTIMATED BLOOD LOSS: 500 mL INTRAOPERATIVE FINDINGS: Campuzano male infant vertex presentation, right occiput transverse position Apgars were 8 and 9 and weight was 7 lbs. 13 oz.. Normal uterus, tubes and ovaries PROCEDURE: After discussing risks benefits and alternatives of the procedure and obtaining informed consent the patient was taken to the operating room where spinal anesthesia was achieved. She was positioned in the dorsal supine position with a leftward tilt. She was then prepped and draped in the usual standard fashion. Pfannenstiel skin incision was made and the abdomen was entered in layers in the usual standard fashion. A low-transverse hysterotomy incision was made. The surgeon's hand was entered into the hysterotomy incision and the vertex elevated. After delivery of the head, a loose nuchal cord was reduced. Shoulders and body were delivered easily thereafter. Nasopharynx and oropharynx were bulb suctioned. Cord was clamped and cut. The was handed to pediatrics who were present. The placenta was manually extracted. The uterus was cleared of all clots and debris. The hysterotomy incision was closed with 0 Monocryl in a running locked fashion in 2 layers. Excellent hemostasis was observed. The uterus tubes and ovaries were returned to the peritoneal cavity. The cavity was irrigated with saline and hemostasis was again assured. A layer of Interceed was placed in an inverted T fashion over the lower uterine segment and anterior aspect of the uterus. Peritoneum was closed with 2-0 Vicryl in a pursestring fashion. Rectus muscles were loosely reapproximated with interrupted stitches of 2-0 Vicryl. The subfascial space was inspected and noted to be hemostatic. The fascia was closed with #1 Vicryl. The subcutaneous tissues were irrigated and hemostasis assured. The skin was closed in a subcuticular fashion with 4-0 Monocryl. An OpSite dressing was applied. The patient was taken to recovery in stable condition. All sponge needle lap and instrument counts were correct correct.
[2016-05-01] MEDS ORDERED: ACETAMINOPHEN 100 ML IV ONE (18:07)
--- NOTE | 2016-05-01 18:57 | Delivery Summary ---
Del Sum A-C Datetime Report Generated by CPN: 05/01/2016 18:57 ADMISSION DATA Chief Complaint: Scheduled Induction of Labor Indication for Induction: Chronic Hypertension Admission Impression: Term, Intrauterine ; Induction of Labor Admit Provider Comments: Induction of labor for cHTN. Cervical ripening tonight. gbs neg DELIVERY PERSONNEL Delivery Doctor:: Maritza Ross MD Anesthesiologist:: Marjorie Doherty MD PREVENTIVE MEDICINE PHYSICIAN:: Jess Lee CRNA Labor and Delivery Nurse:: Thi Camp, RNC Nurse Practitioner:: AMY Chambers Nursery Nurse:: Yenifer King RN Shipfitter Apprentice/TALENT ANALYST: Martha Waller, CERTIFIED DRUG COUNSELOR Shipfitter Apprentice/TALENT ANALYST: Mansi Morel, ST MATERNAL INFORMATION Delivery Anesthesia: Spinal Medications During Delivery: see anesthesia record Medications After Delivery: Pitocin Drip 20 Units/1000ml NSS Meds After Delivery Comment: Pitocin 20 units in 1L NS Estimated Blood Loss (ml): 500 Maternal Complications: Other Other Maternal Complications: chronic htn, obesity LABOR SUMMARY EDC: 05/06/2016 00:00 No. Babies in Womb: 1 Attempted: No Labor Anesthesia: None LABOR INFORMATION Reason for Induction: Chronic Hypertension Onset of Labor: 05/01/2016 07:56 Cervical Ripening Agents: Cervidil Oxytocin: Induction Group B Beta Strep: Negative Antibiotics # of Doses: 0 Steroids Given: None Reason Steroids Not Administered: Not Applicable MEMBRANES Membranes Rupture Method: Artificial Rupture of Membranes: 05/01/2016 07:56 Length of Rupture (hr): 9.30 Amniotic Fluid Color: Clear Amniotic Fluid Amount: Moderate Amniotic Fluid Odor: Normal STAGES OF LABOR Stage 3 hr: 0 Stage 3 min: 1 Total Time in Labor hr: 9 Total Time in Labor min: 19 VAGINAL DELIVERY Episiotomy: None Laceration Extension: N/A Laceration Type: None Laceration Repair: Not Applicable Sponge Count Correct: N/A Sharps Count Correct: N/A CSECTION DELIVERY Primary Indication: Failure of Descent Secondary Indication: N/A CSection Urgency: Non-Scheduled CSection Incidence: Primary Labor: Labor Elective: N/A CSection Incision: Lower Uterine Transverse BABY A INFORMATION Infant Delivery Date/Time: 05/01/2016 17:14 Method of Delivery: Born in Route : No : N/A Forceps: N/A Vacuum Extraction: N/A Shoulder Dystocia : No PRESENTATION/POSITION BABY A Presentation: Cephalic Cephalic Presentation: Vertex Vertex Position: Right Occipital Transverse Breech Presentation: N/A PLACENTA INFORMATION BABY A Placenta Delivery Time : 05/01/2016 17:15 Placenta Method of Delivery: Manual Removal Placenta Status: Delivered SCORES BABY A Heart Rate 1 min: >100 bpm Resp Effort 1 min: Good Cry Reflex Irritability 1 min: Cough or Sneeze or Pulls Away Muscle Tone 1 min: Active Motion Color 1 min: Blue/Pale Resuscitation Effort 1 min: Tactile Stimulation SCORE 1 MIN: 8 Heart Rate 5 min: >100 bpm Resp Effort 5 min: Good Cry Reflex Irritability 5 min: Cough or Sneeze or Pulls Away Muscle Tone 5 min: Active Motion Color 5 min: Body Kohler, Extremities Blue Resuscitation Effort 5 min: N/A SCORE 5 MIN: 9 Resuscitation Effort 10 min: N/A INFANT INFORMATION BABY A Gestational Age at Delivery: 39.2 Gestational Status: Full Term- 39- 40.6 Weeks Outcome : Liveborn Infant Condition : Stable Infant Sex: Male IDENTIFICATION BABY A Verification Date/Time: 05/01/2016 17:15 ID Band Number: [id number] Mother's Name Verified: Yes RN Verifying : MMarycarmen Castelan, WILLIAM, RMarycarmen Glasgow, RN WEIGHT/LENGTH BABY A Birthweight (gm): 3530 Weight (lb): 7 Weight (oz): 13 Length (in): 20.75 Length (cm): 52.71 CORD INFORMATION BABY A No. Cord Vessels: 3 Nuchal Cord : Around Neck x1, Loose Cord Blood Taken: Yes-For Storage (Mom's Blood type +) Infant Suction: Mouth; Nose ASSESSMENT BABY A Complications: None Physical Findings at Delivery: Molding of the Head; Puncture Wound from Scalp Electrode Respirations: Appears Normal Skin to Skin: Yes Skin to Skin Time (min): 30 Tobacco Primer Machine Operator/ALS Called : No Care By: Zohaib Joel PREVENTIVE MEDICINE PHYSICIAN Transferred To: Nursery BABY B INFORMATION : N/A
[2016-05-01] MEDS ORDERED: HYDROMORPHONE HCL INJ/PF 2 MG/ML AMPULE ONE (19:05)
--- NOTE | 2016-05-01 20:01 | L&D Flow Sheet ---
LD Flowsheet Datetime Report Generated by CPN: 05/01/2016 20:00 Datetime: 05/01/2016 19:59 Pulse: 80 (QS system process) SpO2 (%): 96 (QS system process) Datetime: 05/01/2016 19:54 Pulse: 91 (QS system process) SpO2 (%): 96 (QS system process) Datetime: 05/01/2016 19:49 NBP Sys/Earlene/Mean (mmHg): 133 (QS system process) : 62 (QS system process) : 89 (QS system process) Pulse: 72 (QS system process) Pulse: 88 (QS system process) Respirations: 14 (Thi Camp, RNC) SpO2 (%): 93 (QS system process) Temperature (F): 98.1 (Thi Camp, RNC) Temperature (C): 36.7 (QS system process) Temperature Route: Oral (Thi Camp, RNC) Datetime: 05/01/2016 19:44 Pulse: 88 (QS system process) SpO2 (%): 96 (QS system process) Datetime: 05/01/2016 19:39 Pulse: 95 (QS system process) SpO2 (%): 95 (QS system process) Datetime: 05/01/2016 19:36 Pulse: 99 (QS system process) SpO2 (%): 94 (QS system process) Datetime: 05/01/2016 19:34 Pulse: 103 (QS system process) SpO2 (%): 95 (QS system process) Datetime: 05/01/2016 19:33 NBP Sys/Earlene/Mean (mmHg): 141 (QS system process) : 66 (QS system process) : 95 (QS system process) Pulse: 93 (QS system process) Datetime: 05/01/2016 19:31 Pulse: 97 (QS system process) SpO2 (%): 94 (QS system process) Datetime: 05/01/2016 19:29 Pulse: 97 (QS system process) SpO2 (%): 97 (QS system process) Datetime: 05/01/2016 19:24 Pulse: 95 (QS system process) SpO2 (%): 96 (QS system process) Datetime: 05/01/2016 19:20 Pulse: 96 (QS system process) SpO2 (%): 94 (QS system process) Datetime: 05/01/2016 19:19 NBP Sys/Earlene/Mean (mmHg): 138 (QS system process) : 67 (QS system process) : 97 (QS system process) Pulse: 83 (QS system process) Pulse: 88 (QS system process) SpO2 (%): 97 (QS system process) Datetime: 05/01/2016 19:14 Pulse: 88 (QS system process) SpO2 (%): 96 (QS system process) Datetime: 05/01/2016 19:10 Pulse: 81 (QS system process) SpO2 (%): 94 (QS system process) Pain Scale: 3 (Thi Camp, RNC) Pain Presence: Constant (Thi Camp, RNC) Pain Type: Burning (Thi Camp, RNC) Pain Location: Abdomen (Thi Camp, RNC) Datetime: 05/01/2016 19:09 Pulse: 79 (QS system process) SpO2 (%): 96 (QS system process) Datetime: 05/01/2016 19:04 NBP Sys/Earlene/Mean (mmHg): 131 (QS system process) : 56 (QS system process) : 73 (QS system process) Pulse: 78 (QS system process) Pulse: 79 (QS system process) SpO2 (%): 96 (QS system process) Datetime: 05/01/2016 18:59 Pulse: 79 (QS system process) SpO2 (%): 97 (QS system process) Datetime: 05/01/2016 18:54 Pulse: 91 (QS system process) SpO2 (%): 97 (QS system process) Datetime: 05/01/2016 18:49 NBP Sys/Earlene/Mean (mmHg): 115 (QS system process) : 58 (QS system process) : 83 (QS system process) Pulse: 72 (QS system process) Pulse: 80 (QS system process) SpO2 (%): 98 (QS system process) Datetime: 05/01/2016 18:44 Stage of : Recovery (Thi Camp, RNC) Pulse: 82 (QS system process) Respirations: 16 (Thi Camp, RNC) SpO2 (%): 97 (QS system process) Pain Scale: 0 (Thi Camp, RNC) Pain Presence: None/Denies (Thi Camp, RNC) Pain Type: N/A (Thi Camp, RNC) Pain Assessment Comments: infant, fob at bedside. Denies pain (Thi Camp, RNC) Datetime: 05/01/2016 18:39 Pulse: 87 (QS system process) SpO2 (%): 98 (QS system process) Datetime: 05/01/2016 18:34 NBP Sys/Earlene/Mean (mmHg): 144 (QS system process) : 74 (QS system process) : 87 (QS system process) Pulse: 95 (QS system process) Pulse: 96 (QS system process) Respirations: 16 (Thi Camp, RNC) SpO2 (%): 98 (QS system process) Datetime: 05/01/2016 18:31 NBP Sys/Earlene/Mean (mmHg): 132 (QS system process) : 81 (QS system process) : 101 (QS system process) Pulse: 95 (QS system process) Respirations: 16 (Thi Camp, RNC) Datetime: 05/01/2016 18:30 NBP Sys/Earlene/Mean (mmHg): 181 (Annotations: arm shaking) (Thi Camp, RNC) : 78 (QS system process) : 112 (QS system process) Pulse: 97 (QS system process) Datetime: 05/01/2016 18:29 Stage of : Recovery (Thi Camp, RNC) Pulse: 97 (QS system process) Respirations: 16 (Thi Camp, RNC) SpO2 (%): 98 (QS system process) Pain Scale: 0 (Thi Camp, RNC) Pain Presence: None/Denies (Thi Camp, RNC) Pain Type: N/A (Thi Camp, RNC) Datetime: 05/01/2016 18:24 Pulse: 91 (QS system process) SpO2 (%): 99 (QS system process) Datetime: 05/01/2016 18:19 Pulse: 94 (QS system process) SpO2 (%): 97 (QS system process) Datetime: 05/01/2016 18:14 Pulse: 93 (QS system process) Respirations: 17 (Thi Camp, RNC) SpO2 (%): 99 (QS system process) Pain Scale: 0 (Thi Camp, RNC) Pain Presence: None/Denies (Thi Camp, RNC) Pain Type: N/A (Thi Camp, RNC) Datetime: 05/01/2016 18:09 Pulse: 90 (QS system process) SpO2 (%): 98 (QS system process) Datetime: 05/01/2016 18:04 Pulse: 92 (QS system process) SpO2 (%): 98 (QS system process) Datetime: 05/01/2016 17:59 Stage of : Recovery (Thi Camp, RNC) Pulse: 84 (QS system process) SpO2 (%): 98 (QS system process) Temperature Route: Oral (Thi Camp, RNC) Pain Scale: 0 (Thi Camp, RN) Pain Presence: None/Denies (Thi Camp, RN) Pain Type: N/A (Thi Camp, RN) Pain Assessment Comments: denies pain on arrival to PACU (Thi Camp, RNC) Datetime: 05/01/2016 17:55 NBP Sys/Earlene/Mean (mmHg): 108 (QS system process) : 64 (QS system process) : 81 (QS system process) Pulse: 84 (QS system process) Respirations: 18 ([facility], [facility]) Temperature (F): 97.6 (Magali Castelan RN) Temperature (C): 36.4 (QS system process) Temperature Route: Oral (Magali Castelan RN) Datetime: 05/01/2016 17:54 Pulse: 90 (QS system process) SpO2 (%): 98 (QS system process) Datetime: 05/01/2016 17:45 Stage of : Recovery (Thi [place], [facility]) Datetime: 05/01/2016 17:08 Procedure Type: Primary C/S (Joanne Glasgow RN) Procedure Verify: Correct Patient Identity; Correct Side and Site are Marked; Accurate Procedure Consent Form; Agreement on Procedure to be Done; Correct Patient Position; Relevant Images and Results are Properly Labeled and Displayed; Addressed Need to Administer Antibiotics or Fluids for Irrigation; Safety Precautions Based on Patient History or Medication Use (Joanne Glasgow RN) Datetime: 05/01/2016 16:52 Comments: fse removed (Joanne Glasgow RN) Patient Care Comments: EFM off. Ambulated with assistance to labor and delivery OR for promary section (Joanne Glasgow RN) Datetime: 05/01/2016 16:50 NBP Sys/Earlene/Mean (mmHg): 146 (QS system process) : 67 (QS system process) : 96 (QS system process) Pulse: 90 (QS system process) Temperature (F): 98.1 (Joanne Glasgow RN) Temperature (C): 36.7 (QS system process) Temperature Route: Oral (Joanne Glasgow RN) LaborFlag: Labor (QS system process) Datetime: 05/01/2016 16:49 I/O Interventions: Garcia Cath Inserted (Joanne Glasgow RN) Patient Care Comments: 16 fr garcia catheter placed clear yellow urine noted 550 ml output. Tolerated procedure well (Joanne Glasgow RN) Datetime: 05/01/2016 16:48 Contraction Comments: iupc removed (Thi Linares RNC) Datetime: 05/01/2016 16:47 Consults: Anesthesia (LORETTA Dye) Procedure Verify: Correct Patient Identity; Agreement on Procedure to be Done; Correct Patient Position (LORETTA Dye) Instructional Method: Verbal; Written; Patient Instructed; Family/Support Person Instructed; Verbalized Understanding (Joanne Glasgow RN) Plan of Care: C/S Delivery (Joanne Glasgow RN) Unit Routine: Consents Signed (Joanne Glasgow RN) Teaching Comments: Dr plascencia reviewed Anesthesia consesnt and plan for spinal procedure with medications and risks discussed. Denied questions (Joanne Glasgow RN) Datetime: 05/01/2016 16:45 Monitor Mode: Internal (Joanne Glasgow RN) Monitor Mode: Internal (Pooja Lev, RN) Frequency (min): 4-8 (Joanne Marhefka, RN) Frequency (min): 3-5 (Pooja Lev, RN) Duration (sec): 60-80 (Joanne Marhefka, RN) Duration (sec): 60-100 (Pooja Lev, RN) Duration Criteria: Less than Two 120 Second Contractions (Pooja Lev, RN) Pattern: Normal: <= 5 Contractions in 10 Minutes (Joanne Marhefka, RN) Pattern: Normal: <= 5 Contractions in 10 Minutes (Pooja Lev, RN) Resting Tone (Palpate): Relaxed (Joanne Marhefka, RN) Resting Tone (Palpate): Relaxed (Pooja Lev, RN) Resting Tone IUP (mmHg): 20 (Joanne Marhefka, RN) Resting Tone IUP (mmHg): 20 (Pooja Lev, RN) Intensity IUP (mmHg): 50 (Joanne Marhefka, RN) Monitor Mode: Internal Scalp Electrode (Joanne Marhefka, RN) Monitor Mode: Internal Scalp Electrode (Pooja Lev, RN) FHR Baseline Rate : 135 (Joanne Marhefka, RN) FHR Baseline Rate : 130 (Pooja Lev, RN) FHR Baseline Changes: No Baseline Change (Joanne Marhefka, RN) FHR Baseline Changes: No Baseline Change (Pooja Lev, RN) Variability: Moderate 6-25 bpm (Joanne Marhefka, RN) Variability: Moderate 6-25 bpm (Pooja Lev, RN) Accelerations: 15X15 (Joanne Marhefka, RN) Accelerations: 15X15 (Pooja Lev, RN) Decelerations: None (Joanne Marhefka, RN) Decelerations: None (Pooja Lev, RN) Datetime: 05/01/2016 16:34 IV/Blood Work: New IV Bag Hung; IV Bag Number @ 4 (LORETTA Dye) Datetime: 05/01/2016 16:30 Monitor Mode: Internal (Joanne Marhefka, RN) Monitor Mode: Internal (Pooja Lev, RN) Frequency (min): 3-5 (Pooja Lev, RN) Duration (sec): 60-100 (Pooja Lev, RN) Duration Criteria: Less than Two 120 Second Contractions (Pooja Lev, RN) Pattern: Normal: <= 5 Contractions in 10 Minutes (Pooja Lev, RN) Resting Tone (Palpate): Relaxed (Joanne Marhefka, RN) Resting Tone IUP (mmHg): 22 (Joanne Marhefka, RN) Intensity IUP (mmHg): 80 (Joanne Marhefka, RN) Monitor Mode: Internal Scalp Electrode (Joanne Marhefka, RN) Monitor Mode: Internal Scalp Electrode (Pooja Lev, RN) FHR Baseline Rate : 135 (Joanne Marhefka, RN) FHR Baseline Rate : 130 (Pooja Lev, RN) FHR Baseline Changes: No Baseline Change (Joanne Marhefka, RN) FHR Baseline Changes: No Baseline Change (Pooja Lev, RN) Variability: Moderate 6-25 bpm (Joanne Marhefka, RN) Variability: Moderate 6-25 bpm (Pooja Lev, RN) Accelerations: None (Joanne Marhefka, RN) Accelerations: 10X10 (Pooja Lev, RN) Decelerations: None (Joanne Marhefka, RN) Decelerations: None (Pooja Lev, RN) Antibiotics: Start Antibiotics; Ancef IV (Gm) @ 2 (Thi Linares RNGunjan) Antiemetics/Antacids: Bicitra 15 ml PO (Thi Camp, RNC) Provider Reviewed Strip: Yes (Thi Camp, RNC) Communication: Provider at Bedside (Thi Linares, RNC) Communication Comments: Dr Ross at bedside to discuss plan to proceed with section. Risks reviewed verbalized understanding and consent to proceed (Thi Camp, RNC) Datetime: 05/01/2016 16:15 Monitor Mode: Internal (Thi Camp, RNC) Frequency (min): 2-4 (Thi Camp, RNC) Duration (sec): 50-100 (Thi Camp, RNC) Duration Criteria: Less than Two 120 Second Contractions (Thi Camp, RNC) Pattern: Normal: <= 5 Contractions in 10 Minutes (Thi Camp, RNC) Resting Tone (Palpate): Relaxed (Thi Camp, RNC) Resting Tone IUP (mmHg): 20 (Thi Camp, RNC) Intensity IUP (mmHg): 75 (Thi Camp, RNC) Monitor Mode: Internal Scalp Electrode (Thi Camp, RNC) FHR Baseline Rate : 130 (Thi Camp, RNC) FHR Baseline Changes: No Baseline Change (Thi Camp, RNC) Variability: Moderate 6-25 bpm (Thi Camp, RNC) Accelerations: 15X15 (Thi Camp, RNC) Decelerations: None (Thi Camp, RNC) Datetime: 05/01/2016 16:06 Pitocin (milliunit): Pitocin Discontinued (Thi Camp, RNC) Medication Comments: Pitocin discontinued secondary to change in plan of care, to proceed with prep for section (Thi Camp, RNC) Datetime: 05/01/2016 16:04 Communication Comments: Dr. Plascencia, nursing supervisor bleach plant, gabriel CLARK K. McDowell, NNP notified of (Magali Castelan RN) Datetime: 05/01/2016 16:02 NBP Sys/Earlene/Mean (mmHg): 136 (QS system process) : 83 (QS system process) : 102 (QS system process) Pulse: 86 (QS system process) LaborFlag: Labor (QS system process) Datetime: 05/01/2016 16:00 Communication Comments: call received from Dr Ross report of cervical exam reviewed and -3 station with head not engaged. Order received to discontinue Pitocin and proceed with prep for a section . Plan proceed with c/s [id number] (Thi Linares RNC)
--- NOTE | 2016-05-01 20:14 | Admission Physical ---
Datetime Report Generated by CPN: 05/01/2016 20:14 CURRENT ADMISSION Hx Assessment: The History has been Reviewed and is Current Chief Complaint: Scheduled Induction of Labor Indication for Induction: Chronic Hypertension Admit Plan: Admit to Unit; Initiate Labor Induction Protocol Admit Plan- Other: cHTN ALLERGIES Medication Allergies: No Medication Allergies: No Known Allergies (03/21/2016) Latex: No Latex Allergies OBSTETRICAL HISTORY EDC: 05/06/2016 00:00 : 1 Para: 0 Term: 0 : 0 SAB: 0 IAB: 0 Ectopic: 0 Livin Cesareans: 0 VBACs: 0 Multiple Births: 0 Gestational Diabetes: No Rh Sensitization: No Incompetent Cervix: No PEACE: No Infertility: No ART Treatment: No Uterine Anomaly: No IUGR: No Hx Previous C/S: No Macrosomia: No Hx Loss/Stillborn: No PIH: Yes Hx : No Placenta Previa/Abruption: No Depression/PP Depression: No PTL/PROM: No Post Hemorrhage: No 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; MANAGER FRONT Obstetrical History Comments: G-1 CHTN, PCOS, maternal obesity SEE RECORDS Alcohol: No Marijuana : No Cocaine: No Other Illicit Drugs: No Cigarettes: Never Smoker. 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 Surgery: No Heart Disease: No Hosp/Surgery: No Autoimmune Disorder: No Anesthetic Complications: No Kidney Disease: No Abnormal Pap Smear: Yes Neuro/Epilepsy: No Psychiatric Disorders: No Other Medical Diseases: No Hepatitis/Liver Disease: No Significant Family History: No Varicosities/Phlebitis: No Trauma/Violence : No Thyroid Dysfunction: No Medical History Comments: CHTN on [place], PCOS , H/O abnormal pap 2013 normal pap 2016 INFECTIOUS HISTORY Gonorrhea: No Genital Herpes: No Chlamydia: No Tuberculosis: No Syphilis: No Hepatitis: No HIV/AIDS Exposure: No Rash or Viral Illness: No HPV: No PHYSICAL EXAM General: Normal HEENT: Deferred Neurologic: Deferred Thyroid: Deferred Heart: Normal Lungs: Normal Breast: Deferred Back: Deferred Abdomen: Normal Genitourinary Exam: Normal Extremities: Normal DTRs: Normal Pelvic Type: Adequate Vital Signs: Reviewed; Within Normal Limits VAGINAL EXAM Dilatation: 5 Effacement: 70 Station: -2 MEMBRANES Membranes: Intact FETUS A EGA: 39.1 FHR- Baseline: 140 Variability: Moderate 6-25bpm Accelerations: 15X15 Decelerations: None FHR Category: Category I Admit Comment: Induction of labor for cHTN. Cervical ripening tonight. gbs neg PLANS FOR LABOR AND DELIVERY Labor and Delivery: None Pain Management: Natural Feeding Preference: Breast Benefit of Breast Feed Discussed: Yes Circumcision: Yes INFORMED CONSENT Informed Consent Obtained: Section Delivery Informed Consent Obtained- Other: Rivrea bulb/ cooks catheter Signature: with User ID: [email or web address]
[2016-05-01] MEDS ORDERED: DIPH/PERTUSS(ACELL)/TETANUS VAC/PF 0.5 ML SYR (>=10YO) IM PRN (21:43)
[2016-05-01] MEDS ORDERED: PROMETHAZINE HCL INJ 25 MG/1 ML VIAL IM PRN (21:43)
[2016-05-01] MEDS ORDERED: ACETAMINOPHEN 325 MG TABLET PO PRN (21:43)
[2016-05-01] MEDS ORDERED: HYDROMORPHONE HCL INJ/PF 2 MG/ML AMPULE IV PRN (21:43)
[2016-05-01] MEDS ORDERED: OXYTOCIN/NORMAL SALINE 20 UNIT/1,000 ML RTUINJ INJ PRN (21:43)
[2016-05-01] MEDS ORDERED: SIMETHICONE 80 MG TAB.CHEW PO PRN (21:43)
[2016-05-01] MEDS ORDERED: MEASLES,MUMPS&RUBELLA VACC/PF 0.5 ML VIAL SUBCUT PRN (21:43)
[2016-05-01] MEDS ORDERED: OXYCODONE-ACETAMINOPHEN 5-325 MG TABLET PO PRN ×2 (21:43)
[2016-05-01] MEDS: FAMOTIDINE 20 MG TABLET PO SCH ×2 (21:59→23:44)
[2016-05-01] MEDS ORDERED: ONDANSETRON 4 MG TAB.RAPDIS PO PRN (22:01)
[2016-05-01] MEDS ORDERED: ONDANSETRON HCL INJ/PF 4 MG/2 ML SDV IV PRN (22:02)
[2016-05-01] MEDS: IBUPROFEN 800 MG TABLET PO SCH (23:42)
[2016-05-01] MEDS: ZOLPIDEM TARTRATE 5 MG TABLET PO SCH (23:44)
[2016-05-02] MEDS ORDERED: CEFAZOLIN INJ 1 GM VIAL ONE (03:04)
[2016-05-02] MEDS ORDERED: CEFAZOLIN 2 GM/D5W RTU 2 GM/50 ML RTUPB IV ONE (04:00)
--- NOTE | 2016-05-02 04:45 | L&D Flow Sheet ---
LD Flowsheet Datetime Report Generated by CPN: 05/02/2016 04:45 Datetime: 05/01/2016 20:04 Pulse: 96 (QS system process) SpO2 (%): 95 (QS system process) Datetime: 05/01/2016 20:03 NBP Sys/Earlene/Mean (mmHg): 130 (QS system process) : 62 (QS system process) : 89 (QS system process) Pulse: 88 (QS system process) Datetime: 05/01/2016 19:59 Pulse: 80 (QS system process) SpO2 (%): 96 (QS system process) Datetime: 05/01/2016 19:54 Pulse: 91 (QS system process) SpO2 (%): 96 (QS system process) Datetime: 05/01/2016 19:49 NBP Sys/Earlene/Mean (mmHg): 133 (QS system process) : 62 (QS system process) : 89 (QS system process) Pulse: 72 (QS system process) Pulse: 88 (QS system process) Respirations: 14 (Thi Camp, RNC) SpO2 (%): 93 (QS system process) Temperature (F): 98.1 ([facility]) Temperature (C): 36.7 (QS system process) Temperature Route: Oral ([facility]) Pain Scale: 1 (Kristel Vaughnclyde, RN) Pain Presence: Constant (Kristel Beckfordgerwood, RN) Pain Type: Pressure (Kristel Ledgerwood, RN) Pain Location: Abdomen (Kristel Becfkordgerwood, RN) Datetime: 05/01/2016 19:44 Pulse: 88 (QS system process) SpO2 (%): 96 (QS system process) Datetime: 05/01/2016 19:39 Pulse: 95 (QS system process) SpO2 (%): 95 (QS system process) Datetime: 05/01/2016 19:36 Pulse: 99 (QS system process) SpO2 (%): 94 (QS system process) Datetime: 05/01/2016 19:34 Pulse: 103 (QS system process) SpO2 (%): 95 (QS system process) Datetime: 05/01/2016 19:33 NBP Sys/Earlene/Mean (mmHg): 141 (QS system process) : 66 (QS system process) : 95 (QS system process) Pulse: 93 (QS system process) Datetime: 05/01/2016 19:31 Pulse: 97 (QS system process) SpO2 (%): 94 (QS system process) Datetime: 05/01/2016 19:29 Pulse: 97 (QS system process) SpO2 (%): 97 (QS system process) Datetime: 05/01/2016 19:24 Pulse: 95 (QS system process) SpO2 (%): 96 (QS system process) Datetime: 05/01/2016 19:20 Pulse: 96 (QS system process) SpO2 (%): 94 (QS system process) Datetime: 05/01/2016 19:19 NBP Sys/Earlene/Mean (mmHg): 138 (QS system process) : 67 (QS system process) : 97 (QS system process) Pulse: 83 (QS system process) Pulse: 88 (QS system process) SpO2 (%): 97 (QS system process) Datetime: 05/01/2016 19:14 Pulse: 88 (QS system process) SpO2 (%): 96 (QS system process) Datetime: 05/01/2016 19:10 Pulse: 81 (QS system process) SpO2 (%): 94 (QS system process) Pain Scale: 3 (Thi Camp, RNC) Pain Presence: Constant (Thi Camp, RNC) Pain Type: Burning (Thi Camp, RNC) Pain Location: Abdomen (Thi Camp, RNC) Datetime: 05/01/2016 19:09 Pulse: 79 (QS system process) SpO2 (%): 96 (QS system process) Datetime: 05/01/2016 19:04 NBP Sys/Earlene/Mean (mmHg): 131 (QS system process) : 56 (QS system process) : 73 (QS system process) Pulse: 78 (QS system process) Pulse: 79 (QS system process) SpO2 (%): 96 (QS system process) Datetime: 05/01/2016 18:59 Pulse: 79 (QS system process) SpO2 (%): 97 (QS system process) Datetime: 05/01/2016 18:54 Pulse: 91 (QS system process) SpO2 (%): 97 (QS system process) Datetime: 05/01/2016 18:49 NBP Sys/Earlene/Mean (mmHg): 115 (QS system process) : 58 (QS system process) : 83 (QS system process) Pulse: 72 (QS system process) Pulse: 80 (QS system process) SpO2 (%): 98 (QS system process) Datetime: 05/01/2016 18:44 Stage of : Recovery (Thi Camp, RNC) Pulse: 82 (QS system process) Respirations: 16 (Thi Camp, RNC) SpO2 (%): 97 (QS system process) Pain Scale: 0 (Thi Camp, RNC) Pain Presence: None/Denies (Thi Camp, RNC) Pain Type: N/A (Thi Camp, RNC) Pain Assessment Comments: , fob at bedside. Denies pain (Thi Camp, RNC) Datetime: 05/01/2016 18:39 Pulse: 87 (QS system process) SpO2 (%): 98 (QS system process) Datetime: 05/01/2016 18:34 NBP Sys/Earlene/Mean (mmHg): 144 (QS system process) : 74 (QS system process) : 87 (QS system process) Pulse: 95 (QS system process) Pulse: 96 (QS system process) Respirations: 16 (Thi Camp, RNC) SpO2 (%): 98 (QS system process) Datetime: 05/01/2016 18:31 NBP Sys/Earlene/Mean (mmHg): 132 (QS system process) : 81 (QS system process) : 101 (QS system process) Pulse: 95 (QS system process) Respirations: 16 (Thi Camp, RNC) Datetime: 05/01/2016 18:30 NBP Sys/Earelne/Mean (mmHg): 181 (Annotations: arm shaking) (Thi Camp, RNC) : 78 (QS system process) : 112 (QS system process) Pulse: 97 (QS system process) Datetime: 05/01/2016 18:29 Stage of : Recovery (Thi Camp, RNC) Pulse: 97 (QS system process) Respirations: 16 (Thi Camp, RNC) SpO2 (%): 98 (QS system process) Pain Scale: 0 (Thi Camp, RNC) Pain Presence: None/Denies (Thi Camp, RNC) Pain Type: N/A (Thi Camp, RNC) Datetime: 05/01/2016 18:24 Pulse: 91 (QS system process) SpO2 (%): 99 (QS system process) Datetime: 05/01/2016 18:19 Pulse: 94 (QS system process) SpO2 (%): 97 (QS system process) Datetime: 05/01/2016 18:14 Pulse: 93 (QS system process) Respirations: 17 (Thi Camp, RNC) SpO2 (%): 99 (QS system process) Pain Scale: 0 (Thi Camp, RNC) Pain Presence: None/Denies (Thi Camp, RNC) Pain Type: N/A (Thi Camp, RNC) Datetime: 05/01/2016 18:09 Pulse: 90 (QS system process) SpO2 (%): 98 (QS system process) Datetime: 05/01/2016 18:04 Pulse: 92 (QS system process) SpO2 (%): 98 (QS system process) Datetime: 05/01/2016 17:59 Stage of : Recovery (Thi Camp, RNC) Pulse: 84 (QS system process) SpO2 (%): 98 (QS system process) Temperature Route: Oral (Thi Camp, RNC) Pain Scale: 0 (Thi Camp, RNC) Pain Presence: None/Denies (Hti Camp, RNC) Pain Type: N/A (Thi Camp, RNC) Pain Assessment Comments: denies pain on arrival to PACU (Thi Camp, RNC) Datetime: 05/01/2016 17:55 NBP Sys/Earlene/Mean (mmHg): 108 (QS system process) : 64 (QS system process) : 81 (QS system process) Pulse: 84 (QS system process) Respirations: 18 (Thi Vijay, RNC) Temperature (F): 97.6 (Magali Castelan, RN) Temperature (C): 36.4 (QS system process) Temperature Route: Oral (Magali Castelan, RN) Datetime: 05/01/2016 17:54 Pulse: 90 (QS system process) SpO2 (%): 98 (QS system process) Datetime: 05/01/2016 17:45 Stage of : Recovery (Thi Camp, RNC) Datetime: 05/01/2016 17:08 Procedure Type: Primary C/S (Joanne Glasgow RN) Procedure Verify: Correct Patient Identity; Correct Side and Site are Marked; Accurate Procedure Consent Form; Agreement on Procedure to be Done; Correct Patient Position; Relevant Images and Results are Properly Labeled and Displayed; Addressed Need to Administer Antibiotics or Fluids for Irrigation; Safety Precautions Based on Patient History or Medication Use (Joanne Glasgow RN) Datetime: 05/01/2016 16:52 Comments: fse removed (Joanne Glasgow RN) Patient Care Comments: EFM off. Ambulated with assistance to labor and delivery OR for promary section (Joanne Glasgow RN) Datetime: 05/01/2016 16:50 NBP Sys/Earlene/Mean (mmHg): 146 (QS system process) : 67 (QS system process) : 96 (QS system process) Pulse: 90 (QS system process) Temperature (F): 98.1 (Joanne Glasgow RN) Temperature (C): 36.7 (QS system process) Temperature Route: Oral (Joanne Glasgow RN) LaborFlag: Labor (QS system process) Datetime: 05/01/2016 16:49 I/O Interventions: Garcia Cath Inserted (Joanne Glasgow RN) Patient Care Comments: 16 fr garcia catheter placed clear yellow urine noted 550 ml output. Tolerated procedure well (Joanne Glasgow RN) Datetime: 05/01/2016 16:48 Contraction Comments: iupc removed (Thi Camp, RNC) Datetime: 05/01/2016 16:47 Consults: Anesthesia (LORETTA Dye) Procedure Verify: Correct Patient Identity; Agreement on Procedure to be Done; Correct Patient Position (LORETTA Dye) Instructional Method: Verbal; Written; Patient Instructed; Family/Support Person Instructed; Verbalized Understanding (Joanne Glasgow RN) Plan of Care: C/S Delivery (Joanne Glasgow RN) Unit Routine: Consents Signed (Joanne Glasgow RN) Teaching Comments: Dr plascencia reviewed Anesthesia consesnt and plan for spinal procedure with medications and risks discussed. Denied questions (Joanne Glasgow RN) Datetime: 05/01/2016 16:45 Monitor Mode: Internal (Joanne Glasgow, RN) Monitor Mode: Internal (Pooja Lev, RN) Frequency (min): 4-8 (Joanne Marcumfka, RN) Frequency (min): 3-5 (Pooja Lev, RN) Duration (sec): 60-80 (Joanne Marhefka, RN) Duration (sec): 60-100 (Pooja Lev, RN) Duration Criteria: Less than Two 120 Second Contractions (Pooja Ohara, RN) Pattern: Normal: <= 5 Contractions in 10 Minutes (Joanne Packerka, RN) Pattern: Normal: <= 5 Contractions in 10 Minutes (Pooja Lev, RN) Resting Tone (Palpate): Relaxed (Joanne Glasgow RN) Resting Tone (Palpate): Relaxed (Pooja Ohara RN) Resting Tone IUP (mmHg): 20 (Joanne Marhefka, RN) Resting Tone IUP (mmHg): 20 (Pooja Lev, RN) Intensity IUP (mmHg): 50 (Joanne Marhefka, RN) Monitor Mode: Internal Scalp Electrode (Joanne Marhefka, RN) Monitor Mode: Internal Scalp Electrode (Pooja Lev, RN) FHR Baseline Rate : 135 (Joanne Marhefka, RN) FHR Baseline Rate : 130 (Pooja Lev, RN) FHR Baseline Changes: No Baseline Change (Joanne Marhefka, RN) FHR Baseline Changes: No Baseline Change (Pooja Lev, RN) Variability: Moderate 6-25 bpm (Joanne Marhefka, RN) Variability: Moderate 6-25 bpm (Pooja Lev, RN) Accelerations: 15X15 (Joanne Marhefka, RN) Accelerations: 15X15 (Pooja Lev, RN) Decelerations: None (Joanne Marhefka, RN) Decelerations: None (Pooja Lev, RN)
--- NOTE | 2016-05-02 04:46 | L&D Discharge Summary ---
OB Discharge Summary Datetime Report Generated by CPN: 05/02/2016 04:45 DISCHARGE DIAGNOSIS Diagnosis/Symptoms: Other Diagnoses/Symptoms Other: Reactive NST Gestation: 39.2 Number of Babies in Womb: 1 Parity: 0 DIET/ACTIVITY/RESTRICTIONS Diet: Regular Activity: Normal Activity TEACHING/INSTRUCTIONS/REFERRALS Instructions Given To: Patient, Spouse Instructions Understood: Patient Verbalized Understanding Referrals: None Educational Materials- Other: Kick counts reinforced DISCHARGE INFORMATION Discharged AMA: No Discharge Date/Time: 03/21/2016 13:17 Discharged To: Home Discharge Provider Name: Dr Aldrich Accompanied By: Spouse Discharge Method: Ambulatory Condition: Stable FOLLOW UP INFORMATION Follow Up With: [facility] Follow Up On: 3-5 Days Follow Up Phone Number: [facility] - Comments: s/s to report to provider, comfort measures GENERAL INSTR-CALL PROVIDER IF: Contractions: Contractions or cramps become more frequent than 8 in one hour or 4 in 20 minutes; Regular painful contractions every 5 minutes or less for one hour. Time your contractions from the beginning of one to the beginning of the next Pressure: Pressure in your vagina or lower abdomen that may feel like the baby is pushing down Period Like Cramps: Period-like cramps or low dull backache that may come and go Cramps/Diarrhea: Abdominal cramps that may be accompanied by diarrhea Gush of Fluid/Blood: Gush of fluid or blood from your vagina (it is normal to have spotting after vaginal exam or intercourse) Vaginal Discharge: Change in the type or amount of vaginal discharge Decreased Movement: Your baby is not moving as much as usual- 4 movements in 1 hour after drinking and resting on side Temperature: Temperature greater than 100.0(F) orally
--- NOTE | 2016-05-02 04:46 | L&D General Admission ---
General Admit Datetime Report Generated by [facility]: 05/02/2016 04:45 Height (in): 63 (05/01/2016 20:13:QS system process) Height (in): 63 (05/01/2016 10:01:QS system process) Hemoglobin: 10.8 L (05/01/2016 06:26:QS system process) Hematocrit: 31.6 L (05/01/2016 06:26:QS system process) MCV: 83 (05/01/2016 06:26:QS system process)
--- NOTE | 2016-05-02 04:46 | L&D Admission Assessment ---
LD ADM ASMT Datetime Report Generated by CPN: 05/02/2016 04:45 Assessment Type: Ongoing Assessment (05/01/2016 07:30:LORETTA Dye) Weight (lb): 240 (05/01/2016 20:13:QS system process) Weight (lb): 240 (05/01/2016 10:01:QS system process) Weight (kg): 109.1 (05/01/2016 20:13:QS system process) Weight (kg): 109.1 (05/01/2016 10:01:QS system process) Total Wt Gain (lb): 30 (05/01/2016 20:13:QS system process) Total Wt Gain (lb): 30 (05/01/2016 10:01:QS system process) Wt Gain (kg): 13.5 (05/01/2016 20:13:QS system process) Wt Gain (kg): 13.5 (05/01/2016 10:01:QS system process) BMI: 42.5 (05/01/2016 20:13:QS system process) BMI: 42.5 (05/01/2016 10:01:QS system process) Pain Scale: 1 (05/01/2016 19:49:Kristel Rodrigez RN) Pain Scale: 3 (05/01/2016 19:10:LORETTA Dye) Pain Scale: 0 (05/01/2016 18:44:LORETTA Dye) Pain Scale: 0 (05/01/2016 18:29:LORETTA Dye) Pain Scale: 0 (05/01/2016 18:14:LORETTA Dye) Pain Scale: 0 (05/01/2016 17:59:Thi Camp, RNC) Pain Scale: 2 (05/01/2016 10:25:Thi Camp, RNC) Pain Scale: 1 (05/01/2016 09:20:Thi Camp, RNC) Pain Presence: Constant (05/01/2016 19:49:Kristel Rodrigez RN) Pain Presence: Constant (05/01/2016 19:10:Thi Camp, RNC) Pain Presence: None/Denies (05/01/2016 18:44:Thi Camp, C) Pain Presence: None/Denies (05/01/2016 18:29:Thi Camp, C) Pain Presence: None/Denies (05/01/2016 18:14:Thi Camp, RNC) Pain Presence: None/Denies (05/01/2016 17:59:Thi Camp, [facility]) Pain Presence: Constant (05/01/2016 10:25:Thi Camp, [facility]) Pain Presence: Intermittent (05/01/2016 09:20:Thi Linares, [facility]) Pain Type: Pressure (05/01/2016 19:49:Kristel Rodrigez RN) Pain Type: Burning (05/01/2016 19:10:Thi Linares, [facility]) Pain Type: N/A (05/01/2016 18:44:Thi Linares, [facility]) Pain Type: N/A (05/01/2016 18:29:Thi Lniares, [facility]) Pain Type: N/A (05/01/2016 18:14:Thi Camp, [facility]) Pain Type: N/A (05/01/2016 17:59:Thi Linares, [facility]) Pain Type: Dull (05/01/2016 10:25:Thi Linares, RN) Pain Type: Cramping (05/01/2016 09:20:Thi Camp, RNC) Pain Location: Abdomen (05/01/2016 19:49:Kristel Rodrigez RN) Pain Location: Abdomen (05/01/2016 19:10:Thi Linares, RNC) Pain Location: Head (Annotations: behind left eye) (05/01/2016 10:25:Thi Linares, RN) Pain Location: Abdomen (05/01/2016 09:20:Thi Camp, RNC) Pain Comments: , fob at bedside. Denies pain (05/01/2016 18:44:Thi Camp, RNC) Pain Comments: denies pain on arrival to PACU (05/01/2016 17:59:Thi Camp, RNC) Frequency (min): 4-8 (05/01/2016 16:45:Joanne Glasgow RN) Frequency (min): 3-5 (05/01/2016 16:45:Pooja Ohara RN) Frequency (min): 3-5 (05/01/2016 16:30:Pooja Ohara RN) Frequency (min): 2-4 (05/01/2016 16:15:Thi Camp, RNC) Frequency (min): 2.5-3 (05/01/2016 15:45:Thi Camp, RNC) Frequency (min): 2.5-3 (05/01/2016 15:30:Thi Camp, RNC) Frequency (min): 2.5-3 (05/01/2016 15:15:Magali Castelan RN) Frequency (min): 2-2.5 (05/01/2016 15:00:Magali Castelan RN) Frequency (min): 1.5-4 (05/01/2016 14:45:Thi Camp, RNC) Frequency (min): 2-3 (05/01/2016 14:30:Thi Camp, RNC) Frequency (min): 2-3 (05/01/2016 14:15:Thi Camp, RNC) Frequency (min): 2-3 (05/01/2016 14:00:Thi Camp, RNC) Frequency (min): 1-3 (05/01/2016 13:45:Thi Camp, RNC) Frequency (min): 4-5 (05/01/2016 13:30:Thi Camp, RNC) Frequency (min): 5.5-6 (05/01/2016 13:15:Magali Castelan RN) Frequency (min): 5-6 (05/01/2016 13:00:Magali Castelan RN) Frequency (min): 4 (05/01/2016 12:45:Magali Castelan RN) Frequency (min): 2-2.5 (05/01/2016 12:30:Magali Castelan, RN) Frequency (min): 1.5-2 (05/01/2016 12:15:Thi Camp, RNC) Frequency (min): 2-3 (05/01/2016 11:15:Thi Camp, RNC) Frequency (min): 2-3 (05/01/2016 11:00:Thi Camp, RNC) Frequency (min): 2-4 (05/01/2016 10:45:Thi Camp, RNC) Frequency (min): 4-5 (05/01/2016 10:30:Thi Camp, RNC) Frequency (min): 4-5 (05/01/2016 10:15:Thi Camp, RNC) Frequency (min): 4-6 (05/01/2016 10:00:Thi Camp, RNC) Frequency (min): 4-6 (05/01/2016 09:45:Thi Camp, RNC) Frequency (min): 4-5 (05/01/2016 09:30:Thi Camp, RNC) Frequency (min): 4-5 (05/01/2016 09:15:Thi Camp, RNC) Frequency (min): 4-6 (05/01/2016 09:00:Thi Camp, RNC) Frequency (min): 4-5 (05/01/2016 08:30:Thi Camp, RNC) Frequency (min): irregular (05/01/2016 08:00:Thi Camp, RNC) Frequency (min): none (05/01/2016 07:00:Kristel Rodrigez RN) Duration (sec): 60-80 (05/01/2016 16:45:Joanne Glasgow RN) Duration (sec): 60-100 (05/01/2016 16:45:Pooja Ohara RN) Duration (sec): 60-100 (05/01/2016 16:30:Pooja Ohara RN) Duration (sec): 50-100 (05/01/2016 16:15:Thi Camp, RNC) Duration (sec): 60-80 (05/01/2016 15:45:Thi Camp, RNC) Duration (sec): 60-80 (05/01/2016 15:30:Thi Camp, RNC) Duration (sec): 60-80 (05/01/2016 15:15:Magali Castelan RN) Duration (sec): 60-70 (05/01/2016 15:00:Magali Castelan RN) Duration (sec): 50-70 (05/01/2016 14:45:Thi Camp, RNC) Duration (sec): 60-80 (05/01/2016 14:30:Thi Camp, RNC) Duration (sec): 50-90 (05/01/2016 14:15:Thi Camp, RNC) Duration (sec): 50-90 (05/01/2016 14:00:Thi Camp, RNC) Duration (sec): 50-80 (05/01/2016 13:45:Thi Camp, RNC) Duration (sec): 60-70 (05/01/2016 13:30:Thi Camp, RNC) Duration (sec): 60-90 (05/01/2016 13:15:Magali Castelan RN) Duration (sec): 60-70 (05/01/2016 13:00:Magali Castelan RN) Duration (sec): 70-80 (05/01/2016 12:45:Magali Castelan RN) Duration (sec): 80-110 (05/01/2016 12:30:Magali Castelan RN) Duration (sec): 50-90 (05/01/2016 12:15:Thi Camp, RNC) Duration (sec): 80-100 (05/01/2016 12:15:Thi Camp, RNC) Duration (sec): 50-80 (05/01/2016 11:15:Thi Camp, RNC) Duration (sec): 50-70 (05/01/2016 11:00:Thi Camp, RNC) Duration (sec): 50-70 (05/01/2016 10:45:Thi Camp, RNC) Duration (sec): 50-80 (05/01/2016 10:30:Thi Camp, RNC) Duration (sec): 50-70 (05/01/2016 10:15:Thi Camp, RNC) Duration (sec): 50-70 (05/01/2016 10:00:Thi Camp, RNC) Duration (sec): 40-50 (05/01/2016 09:45:Thi Camp, RNC) Duration (sec): 60-80 (05/01/2016 09:30:Thi Camp, RNC) Duration (sec): 50-80 (05/01/2016 09:15:Thi Camp, RNC) Duration (sec): 40-50 (05/01/2016 09:00:Thi Camp, RNC) Duration (sec): 40-50 (05/01/2016 08:30:Thi Camp, RNC) Duration (sec): 40-50 (05/01/2016 08:00:Thi Camp, RNC) Quality: Mild/Moderate (05/01/2016 15:00:Magali Castelan RN) Quality: Mild/Moderate (05/01/2016 13:30:Thi Camp, RNC) Quality: Mild/Moderate (05/01/2016 13:15:Magali Castelan RN) Quality: Mild/Moderate (05/01/2016 13:00:Magali Castelan RN) Quality: Mild/Moderate (05/01/2016 12:45:Magali Castelan RN) Quality: Mild/Moderate (05/01/2016 12:30:Magali Castelan RN) Quality: Mild/Moderate (05/01/2016 11:15:Thi Camp, RNC) Quality: Moderate (05/01/2016 11:00:Thi Camp, RNC) Quality: Mild/Moderate (05/01/2016 10:45:Thi Camp, RNC) Quality: Mild (05/01/2016 10:30:Thi Camp, RNC) Quality: Mild/Moderate (05/01/2016 10:15:Thi Camp, RNC) Quality: Mild (05/01/2016 10:00:Thi Camp, RNC) Quality: Mild (05/01/2016 09:45:Thi Camp, RNC) Quality: Mild (05/01/2016 09:30:Thi Camp, RNC) Quality: Mild (05/01/2016 09:15:Thi Camp, RNC) Quality: Mild (05/01/2016 09:00:Thi Camp, RNC) Quality: Mild (05/01/2016 08:30:Thi Camp, RNC) Quality: Mild (05/01/2016 08:00:Thi Camp, RNC) Pattern: Normal: <= 5 Contractions in 10 Minutes (05/01/2016 16:45:Joanne Glasgow RN) Pattern: Normal: <= 5 Contractions in 10 Minutes (05/01/2016 16:45:Pooja Ohara, RN) Pattern: Normal: <= 5 Contractions in 10 Minutes (05/01/2016 16:30:Pooja Ohara, RN) Pattern: Normal: <= 5 Contractions in 10 Minutes (05/01/2016 16:15:Thi Camp, RNC) Pattern: Normal: <= 5 Contractions in 10 Minutes (05/01/2016 15:45:Thi Camp, RNC) Pattern: Normal: <= 5 Contractions in 10 Minutes (05/01/2016 15:30:Thi Camp, RNC) Pattern: Normal: <= 5 Contractions in 10 Minutes (05/01/2016 15:15:Magali Castelan RN) Pattern: Normal: <= 5 Contractions in 10 Minutes (05/01/2016 15:00:Magali Castelan RN) Pattern: Normal: <= 5 Contractions in 10 Minutes (05/01/2016 14:45:Thi Camp, RNC) Pattern: Normal: <= 5 Contractions in 10 Minutes (05/01/2016 14:30:Thi Camp, RNC) Pattern: Normal: <= 5 Contractions in 10 Minutes (05/01/2016 14:15:Thi Camp, RNC) Pattern: Normal: <= 5 Contractions in 10 Minutes (05/01/2016 14:00:Thi Camp, RNC) Pattern: Normal: <= 5 Contractions in 10 Minutes (05/01/2016 13:45:Thi Camp, RNC) Pattern: Normal: <= 5 Contractions in 10 Minutes (05/01/2016 13:30:Thi Camp, RNC) Pattern: Normal: <= 5 Contractions in 10 Minutes (05/01/2016 13:15:Magali Castelan RN) Pattern: Normal: <= 5 Contractions in 10 Minutes (05/01/2016 13:00:Magali Castelan RN) Pattern: Normal: <= 5 Contractions in 10 Minutes (05/01/2016 12:45:Magali Castelan, RN) Pattern: Normal: <= 5 Contractions in 10 Minutes (05/01/2016 12:30:Magali Castelan, RN) Pattern: Normal: <= 5 Contractions in 10 Minutes (05/01/2016 12:15:Thi Camp, RNC) Pattern: Normal: <= 5 Contractions in 10 Minutes (05/01/2016 11:15:Thi Camp, RNC) Pattern: Normal: <= 5 Contractions in 10 Minutes (05/01/2016 11:00:Thi Camp, RNC) Pattern: Normal: <= 5 Contractions in 10 Minutes (05/01/2016 10:45:Thi Camp, RNC) Pattern: Normal: <= 5 Contractions in 10 Minutes (05/01/2016 10:30:Thi Camp, RNC) Pattern: Normal: <= 5 Contractions in 10 Minutes (05/01/2016 10:15:Thi Camp, RNC) Pattern: Normal: <= 5 Contractions in 10 Minutes (05/01/2016 10:00:Thi Camp, RNC) Pattern: Normal: <= 5 Contractions in 10 Minutes (05/01/2016 09:45:Thi Camp, RNC) Pattern: Normal: <= 5 Contractions in 10 Minutes (05/01/2016 09:30:Thi Camp, RNC) Pattern: Normal: <= 5 Contractions in 10 Minutes (05/01/2016 09:15:Thi Camp, RNC) Pattern: Normal: <= 5 Contractions in 10 Minutes (05/01/2016 09:00:Thi Camp, RNC) Pattern: Normal: <= 5 Contractions in 10 Minutes (05/01/2016 08:30:Thi Camp, RNC) Pattern: Normal: <= 5 Contractions in 10 Minutes (05/01/2016 08:00:Thi Camp, RNC) Resting Tone [place]: Relaxed (05/01/2016 16:45:Joanne Glasgow RN) Resting Tone [place]: Relaxed (05/01/2016 16:45:Pooja Ohara RN) Resting Tone [place]: Relaxed (05/01/2016 16:30:Joanne Glasgow RN) Resting Tone [place]: Relaxed (05/01/2016 16:15:Thi Camp, RNC) Resting Tone [place]: Relaxed (05/01/2016 15:45:Thi Camp, RNC) Resting Tone [place]: Relaxed (05/01/2016 15:30:Thi Camp, RNC) Resting Tone [place]: Relaxed (05/01/2016 15:15:Magali Castelan RN) Resting Tone [place]: Relaxed (05/01/2016 15:00:Magali Castelan RN) Resting Tone [place]: Relaxed (05/01/2016 14:45:Thi Camp, RNC) Resting Tone [place]: Relaxed (05/01/2016 14:30:Thi Camp, RNC) Resting Tone [place]: Relaxed (05/01/2016 14:15:Thi Camp, RNC) Resting Tone [place]: Relaxed (05/01/2016 14:00:Thi Camp, RNC) Resting Tone [place]: Relaxed (05/01/2016 13:45:Thi Camp, RNC) Resting Tone [place]: Relaxed (05/01/2016 13:30:Thi Camp, RNC) Resting Tone [place]: Relaxed (05/01/2016 13:15:Magali Castelan RN) Resting Tone [place]: Relaxed (05/01/2016 13:00:Magali Castelan RN) Resting Tone [place]: Relaxed (05/01/2016 12:45:Magali Castelan RN) Resting Tone [place]: Relaxed (05/01/2016 12:30:Magali Castelan RN) Resting Tone [place]: Relaxed (05/01/2016 12:15:Thi Camp, RNC) Resting Tone [place]: Relaxed (05/01/2016 11:15:Thi Camp, RNC) Resting Tone [place]: Relaxed (05/01/2016 11:00:Thi Camp, RNC) Resting Tone [place]: Relaxed (05/01/2016 10:45:Thi Camp, RNC) Resting Tone [place]: Relaxed (05/01/2016 10:30:Thi Camp, RNC) Resting Tone [place]: Relaxed (05/01/2016 10:15:Thi Camp, RNC) Resting Tone [place]: Relaxed (05/01/2016 10:00:Thi Camp, RNC) Resting Tone [place]: Relaxed (05/01/2016 09:45:Thi Camp, RNC) Resting Tone [place]: Relaxed (05/01/2016 09:30:Thi Camp, RNC) Resting Tone [place]: Relaxed (05/01/2016 09:15:Thi Camp, RNC) Resting Tone [place]: Relaxed (05/01/2016 09:00:Thi Camp, RNC) Resting Tone [place]: Relaxed (05/01/2016 08:30:Thi Camp, RNC) Resting Tone [place]: Relaxed (05/01/2016 08:00:Thi Camp, RNC) Resting Tone [place]: Relaxed (05/01/2016 07:00:Kristel Rodrigez RN) Contraction Comments: iupc removed (05/01/2016 16:48:Thi Camp, RNC) Contraction Comments: (05/01/2016 14:45:Thi Camp, RNC) Contraction Comments: mvu 230 (05/01/2016 14:30:Thi Camp, RNC) Contraction Comments: MVU 225 (05/01/2016 14:00:Thi Camp, RNC) Contraction Comments: mvu- 105 (05/01/2016 13:45:Thi Camp, RNC) Contraction Comments: MVU 105 (05/01/2016 13:15:Magali Castelan RN) Contraction Comments: mvu 245 (05/01/2016 12:15:Thi Camp, RNC) Contraction Comments: standing at bedside (05/01/2016 10:30:Thi Camp, RNC) Dilatation (cm): 5.0 (05/01/2016 15:36:Thi Camp, RNC) Dilatation (cm): 4.5 (05/01/2016 07:56:Thi Camp, RNC) Effacement (%): 70 (05/01/2016 15:36:Thi Camp, RNC) Effacement (%): 70 (05/01/2016 07:56:Thi Camp, RNC) Station: -3 (05/01/2016 15:36:Thi Camp, RNC) Station: -2 (05/01/2016 07:56:Thi Camp, RNC) Membranes Status: Ruptured (05/01/2016 07:56:Thi Camp, RNC) ROM Method: Artificial (05/01/2016 07:56:Thi Camp, RNC) Amniotic Fluid Color: Clear (05/01/2016 07:56:Thi Linares [facility]) Amniotic Fluid Amount: Moderate (05/01/2016 07:56:Thi Linares [facility]) Amniotic Fluid Odor: Normal (05/01/2016 07:56:Thi Linares [facility]) Level of Consciousness: Fully Conscious (05/01/2016 07:30:Thi Linares [facility]) DTR's/Clonus: DTRs 2+; No Clonus (05/01/2016 07:30:Thi Linares [facility]) Headache: Denies (05/01/2016 07:30:Thi Linares [facility]) Dizziness: No (05/01/2016 07:30:Thi Linares [facility]) Blurred Vision: No (05/01/2016 07:30:Thi Linares [facility]) Extremity Numbness/Tingling : None (05/01/2016 07:30:Thi Linares [facility]) Extremity Movement: Full Range of Motion (05/01/2016 07:30:Thi Linares [facility]) Nailbeds: Sharpes (05/01/2016 07:30:Thi Linares [facility]) Capillary Refill: Less than 3 Seconds (05/01/2016 07:30:Thi Linares [facility]) Lower Extremities Edema: Bilateral Lower Extremities (05/01/2016 07:30:Thi Linares [facility]) Lower Extremities Edema Degree: Pitting; 2+ (05/01/2016 07:30:Thi Linares [facility]) Upper Extremities Edema: Bilateral Upper Extremities (05/01/2016 07:30:Thi Linares [facility]) Upper Extremities Edema Degree: 1+ (05/01/2016 07:30:Thi Linares [facility]) Facial Edema: 1+ (05/01/2016 07:30:Thi Linares [facility]) Felicitas's Sign Left Leg: Negative (05/01/2016 07:30:Thi Linares [facility]) Felicitas's Sign Right Leg: Negative (05/01/2016 07:30:Thi Linares [facility]) DVT Risk Age: Age less than 41 years (05/01/2016 07:30:Thi Linares [facility]) DVT Risk BMI: BMI 31 to 40 (05/01/2016 07:30:LORETTA Dye) DVT Risk Surgery: None Applicable (05/01/2016 07:30:LORETTA Dye) DVT Risk Other: Women Only- or (<1 month) (05/01/2016 07:30:LORETTA Dye) DVT Risk Total: 2 (05/01/2016 07:30:QS system process) DVT Risk Text: Moderate Risk (10-20%) - Consider stockings, compresssion device, pharmacological therapy per hospital policy (05/01/2016 07:30:QS system process) Respiratory Effort: Unlabored; Regular Rhythm; Equal Expansion (05/01/2016 07:30:LORETTA Dye) Breath Sounds, Left: Clear and Equal (05/01/2016 07:30:LORETTA Dye) Breath Sounds, Right: Clear and Equal (05/01/2016 07:30:LORETTA Dye) Cough Productivity: None (05/01/2016 07:30:LORETTA Dye) Nausea/Vomiting: Denies (05/01/2016 07:30:LORETTA Dye) Bowel Sounds: Normoactive; All Quadrants (05/01/2016 07:30:LORETTA Dye) RUQ Epigastric Pain: Denies (05/01/2016 07:30:LORETTA Dye) Bowel Patterns: Soft, Formed Stool (05/01/2016 07:30:LORETTA Dye) Hemorrhoids: None (05/01/2016 07:30:LORETTA Dye) Diet Type: Regular diet (05/01/2016 07:30:LORETTA Dye) Bladder: Nondistended (05/01/2016 07:30:LORETTA Dye) Frequency of Urination: No (05/01/2016 07:30:LORETTA Dye) Urination Burning: No (05/01/2016 07:30:LORETTA Dye) CVA Tenderness: No (05/01/2016 07:30:LORETTA Dye) Vaginal Discharge Amount: Small (05/01/2016 07:30:LORETTA Dye) Vaginal Discharge Color: Red (05/01/2016 07:30:LORETTA Dye) Vaginal Discharge Character: Thin (05/01/2016 07:30:LORETTA Dye) Skin Color: Normal for Race (05/01/2016 07:30:LORETTA Dye) Skin Temperature: Warm (05/01/2016 07:30:LORETTA Dye) Skin Moisture: Dry (05/01/2016 07:30:LORETTA Dye) Sim Scale Sensory Perception: No Impairment- Responds to verbal commands. Has no sensory deficit which would limit ability to feel or voice pain or discomfort (05/01/2016 07:30:LORETTA Dye) Sim Scale Moisture: Rarely Moist- Skin is usually dry. Linen only requires changing at routine intervals (05/01/2016 07:30:LORETTA Dye) Sim Scale Activity: Walks Frequently- Walks outside the room at least twice a day and inside room at least every 2 hours during the day. (05/01/2016 07:30:LORETTA Dye) Sim Scale Mobility: No Limitations- Makes major and frequent changes in position without assistance (05/01/2016 07:30:LORETTA Dye) Sim Scale Nutrition: Excellent- Eats most of every meal. Never refuses a meal. Usually eats a total of 4 or more servings of meat and dairy products. Occasionally eats between meals. Does not require supplementation (05/01/2016 07:30:LORETTA Dye) Sim Scale Friction and Shear: No Apparent Problem- Moves in bed and in chair independently and has sufficient muscle strength to lift up completely during move. Maintains good position in bed or chair at all times (05/01/2016 07:30:LORETTA Dye) Sim Scale Total: 23 (05/01/2016 07:30:QS system process) Sim Scale Risk: No Risk of Pressure Ulcer Noted at this Time (05/01/2016 07:30:QS system process) Family Support: Significant Other supportive, at bedside frequently; Family supportive (Annotations: Suad at bedside) (05/01/2016 07:30:LORETTA Dye) Emotional State: Calm/Relaxed (05/01/2016 07:30:LORETTA Dye) Call Solis Within Reach: Yes (05/01/2016 07:30:LORETTA Dye) Side Rails Up: Yes (05/01/2016 07:30:LORETTA Dye) Bed Wheels Locked: Yes (05/01/2016 07:30:LORETTA Dye) Arm Bands Present: Yes (05/01/2016 07:30:LORETTA Dye) Fall Risk History of Falling: (0) No (05/01/2016 07:30:LORETTA Dye) Fall Risk Secondary Diagnosis: (0) No (05/01/2016 07:30:LORETTA Dye) Fall Risk Ambulatory Aid: (0) None/Bedrest/Wheelchair/Nurse Assist (05/01/2016 07:30:LORETTA Dye) Fall Risk IV Therapy: (20) Yes (05/01/2016 07:30:LORETTA Dye) Fall Risk Gait: (0) Normal/Bedrest/Immobile (05/01/2016 07:30:LORETTA Dye) Fall Risk Mental Status: (0) Oriented to Own Ability (05/01/2016 07:30:LORETTA Dye) Fall Risk Score: 20 (05/01/2016 07:30:QS system process) Fall Risk Score Definition: No Risk: No action required (05/01/2016 07:30:QS system process) FHR Baseline Rate (bpm) Baby A: 135 (05/01/2016 16:45:Joanne Glasgow RN) FHR Baseline Rate (bpm) Baby A: 130 (05/01/2016 16:45:Pooja Ohara RN) FHR Baseline Rate (bpm) Baby A: 135 (05/01/2016 16:30:Joanne Glasgow RN) FHR Baseline Rate (bpm) Baby A: 130 (05/01/2016 16:30:Pooja Ohara RN) FHR Baseline Rate (bpm) Baby A: 130 (05/01/2016 16:15:LORETTA Dye) FHR Baseline Rate (bpm) Baby A: 140 (05/01/2016 15:45:LORETTA Dye) FHR Baseline Rate (bpm) Baby A: 140 (05/01/2016 15:30:LORETTA Dye) FHR Baseline Rate (bpm) Baby A: 140 (05/01/2016 15:15:Magali Castelan RN) FHR Baseline Rate (bpm) Baby A: 145 (05/01/2016 15:00:Magali Castelan RN) FHR Baseline Rate (bpm) Baby A: 140 (05/01/2016 14:45:LORETTA Dye) FHR Baseline Rate (bpm) Baby A: 145 (05/01/2016 14:45:LORETTA Dye) FHR Baseline Rate (bpm) Baby A: 145 (05/01/2016 14:30:LORETTA Dye) FHR Baseline Rate (bpm) Baby A: 135 (05/01/2016 14:15:LORETTA Dye) FHR Baseline Rate (bpm) Baby A: 135 (05/01/2016 14:00:LORETTA Dye) FHR Baseline Rate (bpm) Baby A: 135 (05/01/2016 13:45:LORETTA Dye) FHR Baseline Rate (bpm) Baby A: 140 (05/01/2016 13:30:LORETTA Dye) FHR Baseline Rate (bpm) Baby A: 140 (05/01/2016 13:15:Magali Castelan RN) FHR Baseline Rate (bpm) Baby A: 145 (05/01/2016 13:00:Magali Castelan RN) FHR Baseline Rate (bpm) Baby A: 145 (05/01/2016 12:45:Magali Castelan RN) FHR Baseline Rate (bpm) Baby A: 145 (05/01/2016 12:30:Magali Castelan RN) FHR Baseline Rate (bpm) Baby A: 135 (05/01/2016 12:15:LORETTA Dye) FHR Baseline Rate (bpm) Baby A: 140 (05/01/2016 11:15:LORETTA Dye) FHR Baseline Rate (bpm) Baby A: 140 (05/01/2016 11:00:LORETTA Dye) FHR Baseline Rate (bpm) Baby A: 150 (05/01/2016 10:45:LORETTA Dye) FHR Baseline Rate (bpm) Baby A: 145 (05/01/2016 10:30:LORETTA Dye) FHR Baseline Rate (bpm) Baby A: 145 (05/01/2016 10:15:Thi Camp, RNC) FHR Baseline Rate (bpm) Baby A: 130 (05/01/2016 10:00:Thi Camp, RNC) FHR Baseline Rate (bpm) Baby A: 140 (05/01/2016 09:45:Thi Camp, RNC) FHR Baseline Rate (bpm) Baby A: 140 (05/01/2016 09:30:Thi Camp, RNC) FHR Baseline Rate (bpm) Baby A: 145 (05/01/2016 09:15:Thi Camp, RNC) FHR Baseline Rate (bpm) Baby A: 135 (05/01/2016 09:00:Thi Camp, RNC) FHR Baseline Rate (bpm) Baby A: 145 (05/01/2016 08:30:Thi Linares, RNC) FHR Baseline Rate (bpm) Baby A: 145 (05/01/2016 08:00:Thi Linares, RNC) FHR Baseline Rate (bpm) Baby A: 135 (05/01/2016 07:00:Kristel Rodrigez RN) Variability Baby A: Moderate 6-25 bpm (05/01/2016 16:45:Joanne Glasgow RN) Variability Baby A: Moderate 6-25 bpm (05/01/2016 16:45:Pooja Ohara RN) Variability Baby A: Moderate 6-25 bpm (05/01/2016 16:30:Joanne Glasgow RN) Variability Baby A: Moderate 6-25 bpm (05/01/2016 16:30:Pooja Ohara RN) Variability Baby A: Moderate 6-25 bpm (05/01/2016 16:15:Thi Linares RNC) Variability Baby A: Moderate 6-25 bpm (05/01/2016 15:45:Thi Linares RNC) Variability Baby A: Moderate 6-25 bpm (05/01/2016 15:30:Thi Linares RNC) Variability Baby A: Moderate 6-25 bpm (05/01/2016 15:15:Maglai Castelan RN) Variability Baby A: Moderate 6-25 bpm (05/01/2016 15:00:Magali Castelan RN) Variability Baby A: Moderate 6-25 bpm (05/01/2016 14:45:Thi Camp, RNC) Variability Baby A: Moderate 6-25 bpm (05/01/2016 14:30:Thi Camp, RNC) Variability Baby A: Moderate 6-25 bpm (05/01/2016 14:15:Thi Camp, RNC) Variability Baby A: Moderate 6-25 bpm (05/01/2016 14:00:Thi Camp, RNC) Variability Baby A: Moderate 6-25 bpm (05/01/2016 13:45:Thi Camp, RNC) Variability Baby A: Moderate 6-25 bpm (05/01/2016 13:30:Thi Camp, RNC) Variability Baby A: Moderate 6-25 bpm (05/01/2016 13:15:Magali Castelan RN) Variability Baby A: Moderate 6-25 bpm (05/01/2016 13:00:Magali Castelan RN) Variability Baby A: Moderate 6-25 bpm (05/01/2016 12:45:Magali Castelan RN) Variability Baby A: Moderate 6-25 bpm (05/01/2016 12:30:Magali Castelan RN) Variability Baby A: Moderate 6-25 bpm (05/01/2016 12:15:Thi Camp, RNC) Variability Baby A: Moderate 6-25 bpm (05/01/2016 11:15:Thi Camp, RNC) Variability Baby A: Moderate 6-25 bpm (05/01/2016 11:00:Thi Camp, RNC) Variability Baby A: Moderate 6-25 bpm (05/01/2016 10:45:Thi Camp, RNC) Variability Baby A: Moderate 6-25 bpm (05/01/2016 10:30:Thi Camp, RNC) Variability Baby A: Moderate 6-25 bpm (05/01/2016 10:15:Thi Camp, RNC) Variability Baby A: Moderate 6-25 bpm (05/01/2016 10:00:Thi Camp, RNC) Variability Baby A: Moderate 6-25 bpm (05/01/2016 09:45:Thi Camp, RNC) Variability Baby A: Moderate 6-25 bpm (05/01/2016 09:30:Thi Camp, RNC) Variability Baby A: Moderate 6-25 bpm (05/01/2016 09:15:Thi Camp, RNC) Variability Baby A: Moderate 6-25 bpm (05/01/2016 09:00:Thi Camp, RNC) Variability Baby A: Moderate 6-25 bpm (05/01/2016 08:30:Thi Camp, RNC) Variability Baby A: Moderate 6-25 bpm (05/01/2016 08:00:Thi Camp, RNC) Variability Baby A: Moderate 6-25 bpm (05/01/2016 07:00:Kristel Rodrigez RN) Accelerations Baby A: 15X15 (05/01/2016 16:45:Joanne Glasgow RN) Accelerations Baby A: 15X15 (05/01/2016 16:45:Pooja Ohara RN) Accelerations Baby A: None (05/01/2016 16:30:Joanne Glasgow RN) Accelerations Baby A: 10X10 (05/01/2016 16:30:Pooja Ohara RN) Accelerations Baby A: 15X15 (05/01/2016 16:15:Thi Camp, RNC) Accelerations Baby A: None (05/01/2016 15:45:Thi Camp, RNC) Accelerations Baby A: None (05/01/2016 15:30:Thi Camp, RNC) Accelerations Baby A: None (05/01/2016 15:15:Magali Castelan RN) Accelerations Baby A: 15X15 (05/01/2016 15:00:Magali Castelan RN) Accelerations Baby A: 15X15 (05/01/2016 14:45:Thi Camp, RNC) Accelerations Baby A: 15X15 (05/01/2016 14:30:Thi Camp, RNC) Accelerations Baby A: 15X15 (05/01/2016 14:15:Thi Camp, RNC) Accelerations Baby A: 15X15 (05/01/2016 14:00:Thi Camp, RNC) Accelerations Baby A: 15X15 (05/01/2016 13:45:Thi Camp, RNC) Accelerations Baby A: 15X15 (05/01/2016 13:30:Thi Camp, RNC) Accelerations Baby A: 10X10 (05/01/2016 13:15:Magali Castelan RN) Accelerations Baby A: 10X10 (05/01/2016 13:00:Magali Castelan RN) Accelerations Baby A: 10X10 (05/01/2016 12:45:Magali Castelan RN) Accelerations Baby A: 15X15 (05/01/2016 12:30:Magali Castelan RN) Accelerations Baby A: 15X15 (05/01/2016 12:15:Thi Camp, RNC) Accelerations Baby A: 15X15 (05/01/2016 11:15:Thi Camp, RNC) Accelerations Baby A: 15X15 (05/01/2016 11:00:Thi Camp, RNC) Accelerations Baby A: 10X10 (05/01/2016 10:45:Thi Camp, RNC) Accelerations Baby A: 15X15 (05/01/2016 10:30:Thi Camp, RNC) Accelerations Baby A: 15X15 (05/01/2016 10:15:Thi Camp, RNC) Accelerations Baby A: 15X15 (05/01/2016 09:45:Thi Camp, RNC) Accelerations Baby A: 15X15 (05/01/2016 09:30:Thi Camp, RNC) Accelerations Baby A: 10X10 (05/01/2016 09:15:Thi Camp, RNC) Accelerations Baby A: 15X15 (05/01/2016 09:00:Thi Camp, RNC) Accelerations Baby A: 15X15 (05/01/2016 08:30:Thi Camp, RNC) Accelerations Baby A: 15X15 (05/01/2016 08:00:Thi Camp, RNC) Accelerations Baby A: 10X10 (05/01/2016 07:00:Kristel Rodrigez RN) Decelerations Baby A: None (05/01/2016 16:45:Joanne Glasgow RN) Decelerations Baby A: None (05/01/2016 16:45:Pooja Ohara RN) Decelerations Baby A: None (05/01/2016 16:30:Joanne Glasgow RN) Decelerations Baby A: None (05/01/2016 16:30:Pooja Ohara RN) Decelerations Baby A: None (05/01/2016 16:15:Thi Camp, RNC) Decelerations Baby A: None (05/01/2016 15:45:Thi Linares RNC) Decelerations Baby A: None (05/01/2016 15:30:Thi Linares RNC) Decelerations Baby A: None (05/01/2016 15:15:Magali Castelan RN) Decelerations Baby A: Variable (05/01/2016 15:00:Magali Castelan RN) Decelerations Baby A: None (05/01/2016 14:45:Thi Linares RNC) Decelerations Baby A: None (05/01/2016 14:30:Thi Linares, RNC) Decelerations Baby A: None (05/01/2016 14:15:Thi Linares RNC) Decelerations Baby A: None (05/01/2016 14:00:Thi Linares RNC) Decelerations Baby A: None (05/01/2016 13:45:Thi Linares RNGunjan) Decelerations Baby A: None (05/01/2016 13:30:Thi Linares RNC) Decelerations Baby A: None (05/01/2016 13:15:Magali Castelan RN) Decelerations Baby A: None (05/01/2016 13:00:Magali Castelan RN) Decelerations Baby A: None (05/01/2016 12:45:Magali Castelan RN) Decelerations Baby A: None (05/01/2016 12:30:Magali Castelan RN) Decelerations Baby A: None (05/01/2016 12:15:Thi Linares RNC) Decelerations Baby A: None (05/01/2016 11:15:Thi Linares, RNC) Decelerations Baby A: Early (05/01/2016 11:00:Thi Linares RNC) Decelerations Baby A: None (05/01/2016 10:45:Thi Linares RNC) Decelerations Baby A: None (05/01/2016 10:30:Thi Linares RNC) Decelerations Baby A: None (05/01/2016 10:15:Thi Linares RNC) Decelerations Baby A: None (05/01/2016 10:00:Thi Camp, RNC) Decelerations Baby A: None (05/01/2016 09:45:LORETTA Dye) Decelerations Baby A: None (05/01/2016 09:30:LORETTA Dye) Decelerations Baby A: None (05/01/2016 09:15:LORETTA Dye) Decelerations Baby A: None (05/01/2016 09:00:LORETTA Dye) Decelerations Baby A: None (05/01/2016 08:30:LORETTA Dye) Decelerations Baby A: None (05/01/2016 08:00:LORETTA Dye) Decelerations Baby A: None (05/01/2016 07:00:Kristel Rodrigez RN)
[2016-05-02] MEDS: IBUPROFEN 800 MG TABLET PO SCH ×4 (05:02→23:54)
--- NOTE | 2016-05-02 06:22 | L&D General Admission ---
General Admit Datetime Report Generated by CPN: 05/02/2016 06:00 INFORMATION Patient Age: 30 (03/07/2016 13:07:QS system process) EDC: 05/06/2016 00:00 (03/18/2016 14:37:LORETTA Faye) : 1 (03/18/2016 14:37:LORETTA Dye) Para: 0 (03/21/2016 13:20:Blessing Abbott RN) Term: 0 (03/18/2016 14:37:LORETTA Dye) : 0 (03/18/2016 14:37:LORETTA Dye) Spontaneous Abortions: 0 (03/18/2016 14:37:LORETTA Dye) Induced Abortions: 0 (03/18/2016 14:37:LORETTA Dye) Livin (03/18/2016 14:37:LORETTA Dye) Cesareans: 0 (03/18/2016 14:37:LORETTA Dye) VBACs: 0 (03/18/2016 14:37:Thi Linares [facility]) Ectopic: 0 (03/18/2016 14:37:Thi Linares [facility]) Multiple Births: 0 (03/18/2016 14:37:Thi Linares [facility]) Baby, Number in Womb: 1 (03/21/2016 13:20:Blessing Abbott RN) CARE [facility] (03/18/2016 14:37:Thi Linares [facility]) Month of 1st Visit: September (03/18/2016 14:37:Thi Linares [facility]) Adequate Care: Yes (03/18/2016 14:37:Thi Linares [facility]) Prepregnancy Weight (lb): 210 (03/18/2016 14:37:Thi Linares [facility]) Prepregnancy Weight (kg): 95.5 (03/18/2016 14:37:QS system process) Height (in): 63 (05/01/2016 20:13:QS system process) ALLERGIES Medication Allergy: No (03/18/2016 14:37:Thi Linares [facility]) Medication Allergies: No Known Allergies (03/21/2016) (03/21/2016 13:08:QS system process) Latex Allergy: No Latex Allergies (03/18/2016 14:37:Thi Linares [facility]) COMMUNICATION Primary Language: Emirati (03/18/2016 14:37:Thi Linares [facility]) Medical Tx Preferred Language: Emirati (03/18/2016 14:37:Thi Linares [facility]) Communication Barrier(s): None (03/18/2016 14:37:Thi Linares [facility]) DEMOGRAPHICS Address: [facility] [place] [address] (03/07/2016 13:07:QS system process) Zipcode: [address] (03/07/2016 13:07:QS system process) Home (03/07/2016 13:07:QS system process) Work (03/07/2016 13:07:QS system process) N: [id number] (03/07/2016 13:07:QS system process) Next of Kin Name: SUAD BUCHANAN (03/07/2016 13:07:QS system process) Next of Kin (03/07/2016 13:07:QS system process) Next of Kin Relationship: SPO (03/07/2016 13:07:QS system process) Date of : 1985 (03/07/2016 13:07:QS system process) Marital Status: (03/07/2016 13:07:QS system process) Sex: Female (03/07/2016 13:07:QS system process) 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 [id number] (03/18/2016 14:37:Kristel Rodrigez RN) Marijuana: No (03/18/2016 14:37:Kristel Rodrigez RN) Cocaine: No (03/18/2016 14:37:Kristel Rodrigez RN) Other Illicit Drugs: No (03/18/2016 14:37:Kristel Rodrigez RN) VACCINE HISTORY Influenza Vaccine: Yes (03/18/2016 14:37:Thi Camp, RNC) Influenza Date: 01-29-2016 (03/18/2016 14:37:Thi Camp, RNC) Pneumococcal Vaccine: No (03/18/2016 14:37:Thi Camp, RNC) Tetanus Vaccine: Yes (03/18/2016 14:37:Thi Camp, RNC) Tetanus Date: 02-12-2016 (03/18/2016 14:37:Thi Camp, RNC) Tdap Vaccine: Yes (03/18/2016 14:37:Thi Camp, RNC) Tdap Date: 02-12-2016 (03/18/2016 14:37:Thi Camp, RNC) Hepatitis B Vaccine: Yes (03/18/2016 14:37:Thi Camp, RNC) Hepatitis B Vaccine Date : 06/2012 (03/18/2016 14:37:Thi Camp, RNC) 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: [facility] (03/18/2016 14:37:Kristel Rodrigez RN) Feeding Preference: Breast (03/18/2016 14:37:Kristel Rodrigez RN) Benefit of Breast Feed Discussed: Yes (03/18/2016 14:37:Kristel Rodrigez RN) Circumcision: Yes (03/18/2016 14:37:Kristel Rodrigez RN) Classes Attended: Yes (03/18/2016 14:37:Kristel Rodrigez RN) Tubal Ligation: No (03/18/2016 14:37:LORETTA Dye) Tubal Authorization Signed: N/A (03/18/2016 14:37:LORETTA Dye) Consent: N/A (03/18/2016 14:37:LORETTA Dye) Consent Signed: N/A (03/18/2016 14:37:LORETTA Dye) Pain Management Plans: Natural (03/18/2016 14:37:Kristel Rodrigez RN) Plans for Labor and Delivery: None (03/18/2016 14:37:Kristel Rodrigez RN) Support Person: Suad Buchanan (03/18/2016 14:37:LORETTA Dye) Support Person Relationship: (03/18/2016 14:37:LORETTA Dye) Cultural/Spritual Practice: No (03/18/2016 14:37:Kristel Rodrigez RN) Spir/Cult Dietary Needs: No (03/18/2016 14:37:Kristel Rodrigez RN) LIVING SITUATION/DISCHARGE PLAN Living Arrangements: House (03/18/2016 14:37:Kristel Rodrigez RN) Adequate Access to:: Electric; Heat; Refrigeration; Plumbing/Running water; Phone; Transportation (03/18/2016 14:37:Kristel Rodrigez RN) WIC Program: No (03/18/2016 14:37:Kristel Rodrigez RN) 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 Molded 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 Person: Suad (03/18/2016 14:37:Kristel Rodrigez RN) Person to Help after Discharge: Suad (03/18/2016 14:37:Kristel Rodrigez RN) Currently Using Commun Resources: No (03/18/2016 14:37:Kristel Rodrigez RN) Outside Agency/[facility] Consultant: No (03/18/2016 14:37:Kristel Rodrigez RN) Car Seat for Discharge: Yes (03/18/2016 14:37:Kristel Rodrigez RN) Adoption Requested: No (03/18/2016 14:37:Kristel Rodrigez RN) Pt Contact w/ Post : N/A (03/18/2016 14:37:Kristel Rodrigez RN) LABS Blood Type: A Positive (03/18/2016 14:37:Al Samson RN) Antibody Screen: Negative (03/18/2016 14:37:Al Samson RN) Jabier(G) this : Not Applicable (03/18/2016 14:37:Lorna Corbett RN) Hemoglobin: 10.8 L (05/01/2016 06:26:QS system process) Hematocrit: 31.6 L (05/01/2016 06:26:QS system process) MCV: 83 (05/01/2016 06:26:QS system process) Group Beta Strep: Negative (04/08/2016 09:05:Lorna Corbett RN) Gonorrhea: Negative (03/18/2016 14:37:LORETTA Dye) Chlamydia: Negative (03/18/2016 14:37:LORETTA Dye) RPR/VDRL: Nonreactive (03/18/2016 14:37:Al Samson RN) HIV Exposure Test: Negative (03/18/2016 14:37:Al Samson RN) Hepatitis B: Negative (03/18/2016 14:37:LORETTA Dye) Rubella: Immune (03/18/2016 14:37:Al Samson RN) OB/PREVIOUS HISTORY Previous Procedures: None (03/18/2016 14:37:LORETTA Dye) 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; 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 (03/18/2016 14:37:LORETAT Dye) History of Previous : No (03/18/2016 14:37:Kristel Rodrigez RN) History of Gestational Diabetes: No (03/18/2016 14:37:Kristel Rodrigez RN) History of PIH: Yes (03/18/2016 14:37:LORETTA Dye) History of Incompetent Cervix: No (03/18/2016 14:37:Kristel Rodrigez RN) History of Placenta Previa/Abrup: No (03/18/2016 14:37:Kristel Rodrigez RN) History of Macrosomia: No (03/18/2016 14:37:Kristel Rodrigez RN) History of IUGR: No (03/18/2016 14:37:Kristel Rodrigez RN) History of Hemorrhage: No (03/18/2016 14:37:Kristel Rodrigez RN) History of Loss/Stillborn: No (03/18/2016 14:37:Kristel Rodrigez RN) History of : No (03/18/2016 14:37:Kristel Rodrigez RN) History of D (Rh) Sensitization: No (03/18/2016 14:37:Kristel Rodrigez RN) History Recurrent Loss/Stillborn: No (03/18/2016 14:37:Kristel Rodrigez RN) History Depression/PP Depression: No (03/18/2016 14:37:Kristel Rodrigez RN) History of Uterine Anomaly/PEACE: No (03/18/2016 14:37:Kristel Rodrigez RN) History of Infertility: No (03/18/2016 14:37:Kristel Rodrigez RN) History of ART Treatment: No (03/18/2016 14:37:Kristel Rodrigez RN) History of PEACE: No (03/18/2016 14:37:Kristel Rodrigez RN) Comments Obstetrical History: G-1 CHTN, PCOS, maternal obesity (03/18/2016 14:37:LORETTA Dye) MEDICAL HISTORY Med Hx Diabetes: No (03/18/2016 14:37:Kristel Rodrigez RN) Med Hx Hypertension: Yes (03/18/2016 14:37:LORETTA Dye) Med Hx Heart Disease: No (03/18/2016 14:37:Kristel Rodrigez RN) Med Hx Autoimmune Disorder: No (03/18/2016 14:37:Kristel Rodrigez RN) Med Hx Kidney Disease/UTI: No (03/18/2016 14:37:Kristel Rodrigez RN) Med Hx Neurologic/Epilepsy: No (03/18/2016 14:37:Kristel Rodrigez RN) Med Hx Psychiatric Disorders: No (03/18/2016 14:37:Kristel Rodrigez RN) Med Hx Hepatitis/Liver Disease: No (03/18/2016 14:37:Kristel Rodrigez RN) Med Hx Varicosities/Phlebitis: No (03/18/2016 14:37:Kristel Rodrigez RN) Med Hx Thyroid Dysfunction: No (03/18/2016 14:37:Kristel Rodrigez RN) Med Hx Trauma/Violence: No (03/18/2016 14:37:Kristel Rodrigez RN) Med Hx Blood Transfusion: No (03/18/2016 14:37:Kristel Rodrigez RN) Med Hx Pulmonary (Asthma,TB): No (03/18/2016 14:37:Kristel Rodrigez RN) Med Hx Breast: No (03/18/2016 14:37:Kristel Rodrigez RN) Med Hx BOX TOE STITCHER Surgery: No (03/18/2016 14:37:Kristel Rodrigez RN) Med Hx Hospitalization/Surgery: No (03/18/2016 14:37:Kristel Rodrigez RN) Med Hx Anesthetic Complications: No (03/18/2016 14:37:Kristel Rodrigez RN) Med Hx Abnormal Pap Smear: Yes (03/18/2016 14:37:LORETTA Dye) Other Medical Diseases: No (03/18/2016 14:37:Kristel Rodrigez RN) Med Hx Significant Family Hx: No (03/18/2016 14:37:Kristel Rodrigez RN) Details of Med/Surg Hx: CHTN on [place], PCOS , H/O abnormal pap 2014 normal pap 2015 (03/18/2016 14:37:LORETTA Dye) INFECTIOUS HISTORY Inf Hx Gonorrhea: No (03/18/2016 14:37:Kristel Rodrigez RN) Inf Hx Chlamydia: No (03/18/2016 14:37:Kristel Rodrigez RN) Inf Hx Syphilis: No (03/18/2016 14:37:Kristel Rodrigez RN) Inf Hx HIV/AIDS: No (03/18/2016 14:37:Kristel Rodrigez RN) Inf Hx Human Papilloma Virus: No (03/18/2016 14:37:Kristel Rodrigez RN) Inf Hx Pt/Partner Genital Herpes: No (03/18/2016 14:37:Kristel Rodrigez RN) Inf Hx Tuberculosis/Exposure: No (03/18/2016 14:37:Kristel Rodrigez RN) Inf Hx Hepatitis B,C: No (03/18/2016 14:37:Kristel Rodrigez RN) Inf Hx Rash or Viral Illness: No (03/18/2016 14:37:Kristel Rodrigez RN) GENETIC HISTORY Gen Hx Age >=35 at JENNIFER: No (03/18/2016 14:37:Kristel Rodrigez RN) Gen Hx Thalassemia: No (03/18/2016 14:37:Kristel Rodrigez RN) Gen Hx Congenital Heart Defect: No (03/18/2016 14:37:Kristel Rodrigez RN) Gen Hx Neural Tube Defect: No (03/18/2016 14:37:Kristel Rodrigez RN) Gen Hx Down's Syndrome: No (03/18/2016 14:37:Kristel Rodrigez RN) Gen Hx Dionicio-Sachs: No (03/18/2016 14:37:Kristel Rodrigez RN) Gen Hx Johnna: No (03/18/2016 14:37:Kristel Rodrigez RN) Gen Hx Familial Dysautonomia: No (03/18/2016 14:37:Kristel Rodrigez RN) Gen Hx Hemophilia/Blood Disorder: No (03/18/2016 14:37:Kristel Rodrigez RN) Gen Hx Muscular Dystrophy: No (03/18/2016 14:37:Kristel Rodrigez RN) Gen Hx Cystic Fibrosis: No (03/18/2016 14:37:Kristel Rodrigez RN) Gen Hx Huntingtons Chorea: No (03/18/2016 14:37:Kristel Rodrigez RN) Gen Hx Mental Retardation/Autism: No (03/18/2016 14:37:Kristel Rodrigez RN) Gen Hx Tested for Fragile X: No (03/18/2016 14:37:Kristel Rodrigez RN) Gen Hx Other Inher/Chromosomal: No (03/18/2016 14:37:Kristel Rodrigez RN) Gen Hx Maternal Metabolic DO: No (03/18/2016 14:37:Kristel Rodrigez RN) Gen Hx Pt Father or FOB Defect: No (03/18/2016 14:37:Kristel Rodrigez RN) Gen Hx Other Genetic History: No (03/18/2016 14:37:Kristel Rodrigez RN) Gen Hx Drugs/Meds since LMP: No (03/18/2016 14:37:Kristel Rodrigez RN)
--- NOTE | 2016-05-02 07:01 | L&D Flow Sheet ---
LD Flowsheet Datetime Report Generated by CPN: 05/02/2016 07:00 Datetime: 05/01/2016 20:04 Pulse: 96 (QS system process) SpO2 (%): 95 (QS system process) Datetime: 05/01/2016 20:03 NBP Sys/Earlene/Mean (mmHg): 130 (QS system process) : 62 (QS system process) : 89 (QS system process) Pulse: 88 (QS system process) Datetime: 05/01/2016 19:59 Pulse: 80 (QS system process) SpO2 (%): 96 (QS system process) Datetime: 05/01/2016 19:54 Pulse: 91 (QS system process) SpO2 (%): 96 (QS system process) Datetime: 05/01/2016 19:49 NBP Sys/Earlene/Mean (mmHg): 133 (QS system process) : 62 (QS system process) : 89 (QS system process) Pulse: 72 (QS system process) Pulse: 88 (QS system process) Respirations: 14 (Thi Camp, RNC) SpO2 (%): 93 (QS system process) Temperature (F): 98.1 ([facility]) Temperature (C): 36.7 (QS system process) Temperature Route: Oral ([facility]) Pain Scale: 1 (Kristel Vaughnclyde, RN) Pain Presence: Constant (Kristel Beckfordgerwood, RN) Pain Type: Pressure (Kristel Ledgerwood, RN) Pain Location: Abdomen (Kristle Beckfordgerwood, RN) Datetime: 05/01/2016 19:44 Pulse: 88 (QS system process) SpO2 (%): 96 (QS system process) Datetime: 05/01/2016 19:39 Pulse: 95 (QS system process) SpO2 (%): 95 (QS system process) Datetime: 05/01/2016 19:36 Pulse: 99 (QS system process) SpO2 (%): 94 (QS system process) Datetime: 05/01/2016 19:34 Pulse: 103 (QS system process) SpO2 (%): 95 (QS system process) Datetime: 05/01/2016 19:33 NBP Sys/Earlene/Mean (mmHg): 141 (QS system process) : 66 (QS system process) : 95 (QS system process) Pulse: 93 (QS system process) Datetime: 05/01/2016 19:31 Pulse: 97 (QS system process) SpO2 (%): 94 (QS system process) Datetime: 05/01/2016 19:29 Pulse: 97 (QS system process) SpO2 (%): 97 (QS system process) Datetime: 05/01/2016 19:24 Pulse: 95 (QS system process) SpO2 (%): 96 (QS system process) Datetime: 05/01/2016 19:20 Pulse: 96 (QS system process) SpO2 (%): 94 (QS system process) Datetime: 05/01/2016 19:19 NBP Sys/Earlene/Mean (mmHg): 138 (QS system process) : 67 (QS system process) : 97 (QS system process) Pulse: 83 (QS system process) Pulse: 88 (QS system process) SpO2 (%): 97 (QS system process) Datetime: 05/01/2016 19:14 Pulse: 88 (QS system process) SpO2 (%): 96 (QS system process) Datetime: 05/01/2016 19:10 Pulse: 81 (QS system process) SpO2 (%): 94 (QS system process) Pain Scale: 3 (Thi Camp, RNC) Pain Presence: Constant (Thi Camp, RNC) Pain Type: Burning (Thi Camp, RNC) Pain Location: Abdomen (Thi Camp, RNC) Datetime: 05/01/2016 19:09 Pulse: 79 (QS system process) SpO2 (%): 96 (QS system process) Datetime: 05/01/2016 19:04 NBP Sys/Earlene/Mean (mmHg): 131 (QS system process) : 56 (QS system process) : 73 (QS system process) Pulse: 78 (QS system process) Pulse: 79 (QS system process) SpO2 (%): 96 (QS system process)
[2016-05-02 07:43] LABS: HEMATOCRIT 27.6 % (36.0-47.0); HEMOGLOBIN 9.2 g/dL (12.0-15.5); MEAN CORPUSCULAR HEMOGLOBIN 27.7 pg (27.0-33.4); MEAN CORPUSCULAR HGB CONC 33.2 g/dL (32.0-36.0); MEAN CORPUSCULAR VOLUME 83 fl (80-97); RED BLOOD COUNT 3.31 10^6/uL (3.72-5.28); RED CELL DISTRIBUTION WIDTH 14.2 % (11.5-14.0); WHITE BLOOD COUNT 12.4 10^3/uL (4.0-10.5)
[2016-05-02] MEDS ORDERED: HYDROMORPHONE HCL 2 MG TABLET PO PRN ×2 (08:30)
[2016-05-02] MEDS: DOCUSATE SODIUM 100 MG CAPSULE PO SCH ×2 (10:52→17:19)
[2016-05-02] MEDS: METHYLDOPA 250 MG TABLET PO SCH ×2 (10:54→21:49)
[2016-05-02] MEDS: PRENATAL VITAMIN W-O CA NO5/FE FUMARATE/FA CAPSULE PO SCH (10:54)
[2016-05-02] MEDS: FAMOTIDINE 20 MG TABLET PO SCH ×2 (10:55→21:50)
--- NOTE | 2016-05-02 11:33 | PDOC PROGRESS REPORT ---
Subjective-OB Subjective: Post Delivery Day: 1 30 year old. Denies any needs at this time, tolerating diet, ambulating steady , gait is stable, voiding without difficulty, pain well controlled with oral pain meds. Physical Exam (OB) Vital Signs: Temp Pulse Resp BP Pulse Ox 97.9 F 73 17 109/62 98 05/02/16 08:34 05/02/16 08:34 05/02/16 08:34 05/02/16 08:34 05/02/16 08:34 Intake & Output 05/01/16 05/02/16 05/03/16 06:59 06:59 06:59 Output Total 650 Balance -650 - Dressing Removed: No Incision: Dressing, Well Approximated Closure Type: opsite - Lochia Lochia Amount: Scant < 10 ml Lochia Color: Rubra/Red - Abdomen Description: Soft, Round Hernia Present: No Fundal Description: Firm, Midline Fundal Height: u/u - u/2 Objective-Diagnostic Laboratory: 05/02/16 07:24 05/01/16 06:26 05/02/16 07:24 WBC 12.4 H RBC 3.31 L Hgb 9.2 L Hct 27.6 L MCV 83 MCH 27.7 MCHC 33.2 RDW 14.2 H Plt Count 146 L Assessment and Plan(PN) - Assessment and Plan (1) Acute blood loss anemia Is this a current diagnosis for this admission?: YesPlan: ferrous sulfate increase dietary iron (2) Delivery by elective caesarean section Is this a current diagnosis for this admission?: YesPlan: routine post op care - Time Spent with Patient Time with patient: Less than 15 minutes Critical Time spent with patient: Less than 15 minutes Medications reviewed and adjusted accordingly: Yes - Disposition Anticipated Discharge: Home Within: within 24 hours
[2016-05-02] MEDS: ZOLPIDEM TARTRATE 5 MG TABLET PO SCH (21:50)
--- NOTE | 2016-05-03 06:10 | L&D General Admission ---
General Admit Datetime Report Generated by CPN: 05/03/2016 06:00 INFORMATION Patient Age: 30 (03/07/2016 13:07:QS system process) EDC: 05/06/2016 00:00 (03/18/2016 14:37:LORETTA Faye) : 1 (03/18/2016 14:37:LORETTA Dye) Para: 0 (03/21/2016 13:20:Blessing Abbott RN) Term: 0 (03/18/2016 14:37:LORETTA Dye) : 0 (03/18/2016 14:37:LORETTA Dye) Spontaneous Abortions: 0 (03/18/2016 14:37:LORETTA Dye) Induced Abortions: 0 (03/18/2016 14:37:LORETTA Dye) Livin (03/18/2016 14:37:LORETTA Dey) Cesareans: 0 (03/18/2016 14:37:LORETTA Dye) VBACs: 0 (03/18/2016 14:37:Thi Linares [facility]) Ectopic: 0 (03/18/2016 14:37:Thi Linares [facility]) Multiple Births: 0 (03/18/2016 14:37:Thi Linares [facility]) Baby, Number in Womb: 1 (03/21/2016 13:20:Blessing Abbott RN) CARE Primary Precision Lathe Operator: [facility] (03/18/2016 14:37:Thi Linares [facility]) Month of 1st Visit: September (03/18/2016 14:37:Thi Linares [facility]) Adequate Care: Yes (03/18/2016 14:37:hTi Linares [facility]) Prepregnancy Weight (lb): 210 (03/18/2016 14:37:Thi Linares [facility]) Prepregnancy Weight (kg): 95.5 (03/18/2016 14:37:QS system process) Height (in): 63 (05/02/2016 08:12:QS system process) ALLERGIES Medication Allergy: No (03/18/2016 14:37:Thi Linares [facility]) Medication Allergies: No Known Allergies (03/21/2016) (03/21/2016 13:08:QS system process) Latex Allergy: No Latex Allergies (03/18/2016 14:37:Thi Linares [facility]) COMMUNICATION Primary Language: Cypriot (03/18/2016 14:37:Thi Linares [facility]) Medical Tx Preferred Language: Cypriot (03/18/2016 14:37:Thi Linares [facility]) Communication Barrier(s): None (03/18/2016 14:37:Thi Linares [facility]) DEMOGRAPHICS Address: [facility] [place] [address] (03/07/2016 13:07:QS system process) Zipcode: [address] (03/07/2016 13:07:QS system process) Home (03/07/2016 13:07:QS system process) Work (03/07/2016 13:07:QS system process) N: [phone] (03/07/2016 13:07:QS system process) Next of Kin Name: SUAD BUCHANAN (03/07/2016 13:07:QS system process) Next of Kin (03/07/2016 13:07:QS system process) Next of Kin Relationship: SPO (03/07/2016 13:07:QS system process) Date of : 1985 (03/07/2016 13:07:QS system process) Marital Status: (03/07/2016 13:07:QS system process) Sex: Female (03/07/2016 13:07:QS system process) 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 [id number] (03/18/2016 14:37:Kristel Rodrigez RN) Marijuana: No (03/18/2016 14:37:Kristel Rodrigez RN) Cocaine: No (03/18/2016 14:37:Kristel Rodrigez RN) Other Illicit Drugs: No (03/18/2016 14:37:Kristel Rodrigez RN) VACCINE HISTORY Influenza Vaccine: Yes (03/18/2016 14:37:Thi Camp, RNC) Influenza Date: 01-29-2016 (03/18/2016 14:37:Thi Camp, RNC) Pneumococcal Vaccine: No (03/18/2016 14:37:Thi Camp, RNC) Tetanus Vaccine: Yes (03/18/2016 14:37:Thi Camp, RNC) Tetanus Date: 02-12-2016 (03/18/2016 14:37:Thi Camp, RNC) Tdap Vaccine: Yes (03/18/2016 14:37:Thi Camp, RNC) Tdap Date: 02-12-2016 (03/18/2016 14:37:Thi Camp, RNC) Hepatitis B Vaccine: Yes (03/18/2016 14:37:Thi Camp, RNC) Hepatitis B Vaccine Date : 06/2012 (03/18/2016 14:37:Thi Camp, RNC) Fountain Server: [facility] (03/18/2016 14:37:Kristel Rodrigez RN) Feeding Preference: Breast (03/18/2016 14:37:Kristel Rodrigez RN) Benefit of Breast Feed Discussed: Yes (03/18/2016 14:37:Kristel Rodrigez RN) Circumcision: Yes (03/18/2016 14:37:Kristel Rodrigez RN) Classes Attended: Yes (03/18/2016 14:37:Kristel Rodrigez RN) Tubal Ligation: No (03/18/2016 14:37:LORETTA Dye) Tubal Authorization Signed: N/A (03/18/2016 14:37:LORETTA Dye) Consent: N/A (03/18/2016 14:37:LORETTA Dye) Consent Signed: N/A (03/18/2016 14:37:LORETTA Dye) Pain Management Plans: Natural (03/18/2016 14:37:Kristel Rodrigez RN) Plans for Labor and Delivery: None (03/18/2016 14:37:Kristel Rodrigez RN) Support Person: Suad Buchanan (03/18/2016 14:37:LORETTA Dye) Support Person Relationship: (03/18/2016 14:37:LORETTA Dye) Cultural/Spritual Practice: No (03/18/2016 14:37:Kristel Rodrigez RN) Spir/Cult Dietary Needs: No (03/18/2016 14:37:Kristel Rodrigez RN) LIVING SITUATION/DISCHARGE PLAN Living Arrangements: House (03/18/2016 14:37:Kristel Rodrigez RN) Adequate Access to:: Electric; Heat; Refrigeration; Plumbing/Running water; Phone; Transportation (03/18/2016 14:37:Kristel Rodrigez RN) WIC Program: No (03/18/2016 14:37:Kristel Rodrigez RN) Discharge Manager Lpn Person: Suad (03/18/2016 14:37:Kristel Rodrigez RN) Person to Help after Discharge: Suad (03/18/2016 14:37:Kristel Rodrigez RN) Currently Using Commun Resources: No (03/18/2016 14:37:rKistel Rodrigez RN) Outside Agency/Watch Leader: No (03/18/2016 14:37:Kristel Rodrigez RN) Car Seat for Discharge: Yes (03/18/2016 14:37:Kristel Rodrigez RN) Adoption Requested: No (03/18/2016 14:37:Kristel Rodrigez RN) Pt Contact w/ Post : N/A (03/18/2016 14:37:Kristel Rodrigez RN) LABS Blood Type: A Positive (03/18/2016 14:37:Al Samson RN) Antibody Screen: Negative (03/18/2016 14:37:Al Samson RN) Jabier(G) this : Not Applicable (03/18/2016 14:37:Lorna Corbett RN) Hemoglobin: 9.2 L (05/02/2016 07:24:QS system process) Hematocrit: 27.6 L (05/02/2016 07:24:QS system process) MCV: 83 (05/02/2016 07:24:QS system process) Group Beta Strep: Negative (04/08/2016 09:05:Lorna Corbett RN) Gonorrhea: Negative (03/18/2016 14:37:LORETTA Dye) Chlamydia: Negative (03/18/2016 14:37:LORETTA Dye) RPR/VDRL: Nonreactive (03/18/2016 14:37:Al Samson RN) HIV Exposure Test: Negative (03/18/2016 14:37:lA Samson RN) Hepatitis B: Negative (03/18/2016 14:37:LORETTA Dye) Rubella: Immune (03/18/2016 14:37:Al Samson RN) OB/PREVIOUS HISTORY Previous Procedures: None (03/18/2016 14:37:LORETTA Dye) 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; 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 (03/18/2016 14:37:LORETTA Dye) History of Previous : No (03/18/2016 14:37:Kristel Rodrigez RN) History of Gestational Diabetes: No (03/18/2016 14:37:Kristel Rodrigez RN) History of PIH: Yes (03/18/2016 14:37:LORETTA Dye) History of Incompetent Cervix: No (03/18/2016 14:37:Kristel Rodrigez RN) History of Placenta Previa/Abrup: No (03/18/2016 14:37:Kristel Rodrigez RN) History of Macrosomia: No (03/18/2016 14:37:Kristel Rodrigez RN) History of IUGR: No (03/18/2016 14:37:Kristel Rodrigez RN) History of Hemorrhage: No (03/18/2016 14:37:Kristel Rodrigez RN) History of Loss/Stillborn: No (03/18/2016 14:37:Kristel Rodrigez RN) History of : No (03/18/2016 14:37:Kristel Rodrigez RN) History of D (Rh) Sensitization: No (03/18/2016 14:37:Kristel Rodrigez RN) History Recurrent Loss/Stillborn: No (03/18/2016 14:37:Kristel Rodrigez RN) History Depression/PP Depression: No (03/18/2016 14:37:Kristel Rodrigez RN) History of Uterine Anomaly/PEACE: No (03/18/2016 14:37:Kristel Rodrigez RN) History of Infertility: No (03/18/2016 14:37:Kristel Rodrigez RN) History of ART Treatment: No (03/18/2016 14:37:Kristel Rodrigez RN) History of PEACE: No (03/18/2016 14:37:Kristel Rodrigez RN) Comments Obstetrical History: G-1 CHTN, PCOS, maternal obesity (03/18/2016 14:37:LORETTA Dye) MEDICAL HISTORY Med Hx Diabetes: No (03/18/2016 14:37:Kristel Rodrigez RN) Med Hx Hypertension: Yes (03/18/2016 14:37:LORETTA Dye) Med Hx Heart Disease: No (03/18/2016 14:37:Kristel Rodirgez RN) Med Hx Autoimmune Disorder: No (03/18/2016 14:37:Kristel Rodrigez RN) Med Hx Kidney Disease/UTI: No (03/18/2016 14:37:Kristel Rodrigez RN) Med Hx Neurologic/Epilepsy: No (03/18/2016 14:37:Kristel Rodrigez RN) Med Hx Psychiatric Disorders: No (03/18/2016 14:37:Kristel Rodrigez RN) Med Hx Hepatitis/Liver Disease: No (03/18/2016 14:37:Kristel Rodrigez RN) Med Hx Varicosities/Phlebitis: No (03/18/2016 14:37:Kristel Rodrigez RN) Med Hx Thyroid Dysfunction: No (03/18/2016 14:37:Kristel Rodrigez RN) Med Hx Trauma/Violence: No (03/18/2016 14:37:Kristel Rodrigez RN) Med Hx Blood Transfusion: No (03/18/2016 14:37:Kristel Rodrigez RN) Med Hx Pulmonary (Asthma,TB): No (03/18/2016 14:37:Kristel Rodrigez RN) Med Hx Breast: No (03/18/2016 14:37:Kristel Rodrigez RN) Med Hx SIGNALER Surgery: No (03/18/2016 14:37:Kristel Rodrigez RN) Med Hx Hospitalization/Surgery: No (03/18/2016 14:37:Kristel Rodrigez RN) Med Hx Anesthetic Complications: No (03/18/2016 14:37:Kristel Rodrigez RN) Med Hx Abnormal Pap Smear: Yes (03/18/2016 14:37:LORETTA Dye) Other Medical Diseases: No (03/18/2016 14:37:Kristel Rodrigez RN) Med Hx Significant Family Hx: No (03/18/2016 14:37:Kristel Rodrigez RN) Details of Med/Surg Hx: CHTN on [place], PCOS , H/O abnormal pap 2014 normal pap 2015 (03/18/2016 14:37:LORETTA Dye) INFECTIOUS HISTORY Inf Hx Gonorrhea: No (03/18/2016 14:37:Kristel Rodrigez RN) Inf Hx Chlamydia: No (03/18/2016 14:37:Kristel Rodrigez RN) Inf Hx Syphilis: No (03/18/2016 14:37:Kristel Rodrigez RN) Inf Hx HIV/AIDS: No (03/18/2016 14:37:Kristel Rodrigez RN) Inf Hx Human Papilloma Virus: No (03/18/2016 14:37:Kristel Rodrigez RN) Inf Hx Pt/Partner Genital Herpes: No (03/18/2016 14:37:Kristel Rodrigez RN) Inf Hx Tuberculosis/Exposure: No (03/18/2016 14:37:Kristel Rodrigez RN) Inf Hx Hepatitis B,C: No (03/18/2016 14:37:Kristel Rodrigez RN) Inf Hx Rash or Viral Illness: No (03/18/2016 14:37:Kristel Rodrigez RN) GENETIC HISTORY Gen Hx Age >=35 at JENNIFER: No (03/18/2016 14:37:Kristel Rodrigez RN) Gen Hx Thalassemia: No (03/18/2016 14:37:Kristel Rodrigez RN) Gen Hx Congenital Heart Defect: No (03/18/2016 14:37:Kristel Rodrigez RN) Gen Hx Neural Tube Defect: No (03/18/2016 14:37:Kristel Rodrigez RN) Gen Hx Down's Syndrome: No (03/18/2016 14:37:Kristel Rodrigez RN) Gen Hx Dionicio-Sachs: No (03/18/2016 14:37:Kristel Rodrigez RN) Gen Hx Johnna: No (03/18/2016 14:37:Kristel Rodrigez RN) Gen Hx Familial Dysautonomia: No (03/18/2016 14:37:Kristel Rodrigez RN) Gen Hx Hemophilia/Blood Disorder: No (03/18/2016 14:37:Kristel Rodrigez RN) Gen Hx Muscular Dystrophy: No (03/18/2016 14:37:Kristel Rodrigez RN) Gen Hx Cystic Fibrosis: No (03/18/2016 14:37:Kristel Rodrigez RN) Gen Hx Huntingtons Chorea: No (03/18/2016 14:37:Kristel Rodrigez RN) Gen Hx Mental Retardation/Autism: No (03/18/2016 14:37:Kristel Rodrigez RN) Gen Hx Tested for Fragile X: No (03/18/2016 14:37:Kristel Rodrigez RN) Gen Hx Other Inher/Chromosomal: No (03/18/2016 14:37:Kristel Rodrigez RN) Gen Hx Maternal Metabolic DO: No (03/18/2016 14:37:Kristel Rodrigez RN) Gen Hx Pt Father or FOB Defect: No (03/18/2016 14:37:Kristel Rodrigez RN) Gen Hx Other Genetic History: No (03/18/2016 14:37:Kristel Rodrigez RN) Gen Hx Drugs/Meds since LMP: No (03/18/2016 14:37:Kristel Rodrigez RN)
[2016-05-03] MEDS: IBUPROFEN 800 MG TABLET PO SCH ×2 (06:14→12:16)
[2016-05-03 08:37] VITALS: BP 112/64
[2016-05-03] MEDS: METHYLDOPA 250 MG TABLET PO SCH (09:07)
[2016-05-03] MEDS: FAMOTIDINE 20 MG TABLET PO SCH (09:07)
[2016-05-03] MEDS: PRENATAL VITAMIN W-O CA NO5/FE FUMARATE/FA CAPSULE PO SCH (09:07)
[2016-05-03] MEDS: DOCUSATE SODIUM 100 MG CAPSULE PO SCH (09:07)
--- NOTE | 2016-05-03 09:39 | PDOC DISCHARGE SUMMARY ---
Discharge Summary-OB Discharge Date: 05/03/16 - Final Diagnosis (1) Acute blood loss anemia Is this a current diagnosis for this admission?: Yes (2) Delivery by elective caesarean section Is this a current diagnosis for this admission?: Yes - Discharge Medication Home Medications: Pnv95/Ferrous Fumarate/FA [ Caplet] 1 tab PO DAILY 03/18/16 Docusate Sodium [Colace 100 mg Capsule] 100 mg PO BID #60 capsule 05/03/16 Ferrous Sulfate [Feosol 325 mg Tablet] 325 mg PO DAILY #30 tab 05/03/16 Ibuprofen [Motrin 800 mg Tablet] 800 mg PO Q6 #60 tablet 05/03/16 Methyldopa [Aldomet 250 mg Tablet] 250 mg PO Q12 #60 tablet 05/03/16 Gestational Age: 39.2 Reason(s) for Admission: Induction of Labor, PIH Procedures: NST Intrapartum Procedure(s): : Low Cervical, Transverse - Data Baby 1 Male at 1 minute: 8 at 5 minutes: 9 Weight: 3530 kg Home with Mother: Yes Complications: No - Diagnosis Test Laboratory: Temp Pulse Resp BP Pulse Ox 98.0 F 100 18 112/64 98 05/03/16 08:21 05/03/16 08:21 05/03/16 08:21 05/03/16 08:21 05/03/16 08:21 04/29/16 04/29/16 05/01/16 20:14 20:33 06:26 RBC 3.94 3.83 Hgb 11.1 L 10.8 L Hct 32.5 L 31.6 L Urine Opiates Screen NEGATIVE 05/02/16 07:24 RBC 3.31 L Hgb 9.2 L Hct 27.6 L Urine Opiates Screen - Discharge information/Instructions Discharge Activity: Activity As Tolerated, Balance Activity w/Rest, No Driving, No Lifting Over 10 Pounds, Pelvic Rest, No tub bath Discharge Diet: Regular Disposition: HOME, SELF-CARE Follow [facility] with: [facility] in: 1, Weeks
--- NOTE | 2016-05-04 06:10 | L&D General Admission ---
General Admit Datetime Report Generated by CPN: 05/04/2016 06:00 INFORMATION Patient Age: 30 (03/07/2016 13:07:QS system process) EDC: 05/06/2016 00:00 (03/18/2016 14:37:LORETTA Faye) : 1 (03/18/2016 14:37:LORETTA Dye) Para: 0 (03/21/2016 13:20:Blessing Abbott RN) Term: 0 (03/18/2016 14:37:LORETTA Dye) : 0 (03/18/2016 14:37:LORETTA Dye) Spontaneous Abortions: 0 (03/18/2016 14:37:LORETTA Dye) Induced Abortions: 0 (03/18/2016 14:37:LORETTA Dye) Livin (03/18/2016 14:37:LORETTA Dye) Cesareans: 0 (03/18/2016 14:37:LORETTA Dye) VBACs: 0 (03/18/2016 14:37:Thi Linares [facility]) Ectopic: 0 (03/18/2016 14:37:Thi Linares [facility]) Multiple Births: 0 (03/18/2016 14:37:Thi Linares [facility]) Baby, Number in Womb: 1 (03/21/2016 13:20:Blessing Abbott RN) CARE Primary Chair Mechanic: [facility] (03/18/2016 14:37:Thi Linares [facility]) Month of 1st Visit: September (03/18/2016 14:37:Thi Linares [facility]) Adequate Care: Yes (03/18/2016 14:37:Thi Linares [facility]) Prepregnancy Weight (lb): 210 (03/18/2016 14:37:Thi Linares [facility]) Prepregnancy Weight (kg): 95.5 (03/18/2016 14:37:QS system process) Height (in): 63 (05/03/2016 09:39:QS system process) ALLERGIES Medication Allergy: No (03/18/2016 14:37:Thi Linares [facility]) Medication Allergies: No Known Allergies (03/21/2016) (03/21/2016 13:08:QS system process) Latex Allergy: No Latex Allergies (03/18/2016 14:37:Thi Linares [facility]) COMMUNICATION Primary Language: Irish (03/18/2016 14:37:Thi Linares [facility]) Medical Tx Preferred Language: Irish (03/18/2016 14:37:Thi Linares [facility]) Communication Barrier(s): None (03/18/2016 14:37:Thi Linares [facility]) DEMOGRAPHICS Address: [facility] [place] [address] (03/07/2016 13:07:QS system process) Zipcode: [address] (03/07/2016 13:07:QS system process) Home (03/07/2016 13:07:QS system process) Work (03/07/2016 13:07:QS system process) N: [phone] (03/07/2016 13:07:QS system process) Next of Kin Name: SUAD BUCHANAN (03/07/2016 13:07:QS system process) Next of Kin (03/07/2016 13:07:QS system process) Next of Kin Relationship: SPO (03/07/2016 13:07:QS system process) Date of : 1985 (03/07/2016 13:07:QS system process) Marital Status: (03/07/2016 13:07:QS system process) Sex: Female (03/07/2016 13:07:QS system process) 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 [id number] (03/18/2016 14:37:Kristel Rodrigez RN) Marijuana: No (03/18/2016 14:37:Kristel Rodrigez RN) Cocaine: No (03/18/2016 14:37:Kristel Rodrigez RN) Other Illicit Drugs: No (03/18/2016 14:37:Kristel Rodrigez RN) VACCINE HISTORY Influenza Vaccine: Yes (03/18/2016 14:37:Thi Camp, RNC) Influenza Date: 01-29-2016 (03/18/2016 14:37:Thi Camp, RNC) Pneumococcal Vaccine: No (03/18/2016 14:37:Thi Camp, RNC) Tetanus Vaccine: Yes (03/18/2016 14:37:Thi Camp, RNC) Tetanus Date: 02-12-2016 (03/18/2016 14:37:Thi Camp, RNC) Tdap Vaccine: Yes (03/18/2016 14:37:Thi Camp, RNC) Tdap Date: 02-12-2016 (03/18/2016 14:37:Thi Camp, RNC) Hepatitis B Vaccine: Yes (03/18/2016 14:37:Thi Camp, RNC) Hepatitis B Vaccine Date : 06/2012 (03/18/2016 14:37:Thi Camp, RNC) Doctor Of Naprapathic Medicine: [facility] (03/18/2016 14:37:Kristel Rodrigez RN) Feeding Preference: Breast (03/18/2016 14:37:Kristel Rodrigez RN) Benefit of Breast Feed Discussed: Yes (03/18/2016 14:37:Kristel Rordigez RN) Circumcision: Yes (03/18/2016 14:37:Kristel Rodrigez RN) Classes Attended: Yes (03/18/2016 14:37:Kristel Rodrigez RN) Tubal Ligation: No (03/18/2016 14:37:LORETTA Dye) Tubal Authorization Signed: N/A (03/18/2016 14:37:LORETTA Dye) Consent: N/A (03/18/2016 14:37:LORETTA Dye) Consent Signed: N/A (03/18/2016 14:37:LORETTA Dye) Pain Management Plans: Natural (03/18/2016 14:37:Kristel Rodrigez RN) Plans for Labor and Delivery: None (03/18/2016 14:37:Kristel Rodrigez RN) Support Person: Suad Buchanan (03/18/2016 14:37:LORETTA Dye) Support Person Relationship: (03/18/2016 14:37:LORETTA Dye) Cultural/Spritual Practice: No (03/18/2016 14:37:Kristel Rodrigez RN) Spir/Cult Dietary Needs: No (03/18/2016 14:37:Kristel Rodrigez RN) LIVING SITUATION/DISCHARGE PLAN Living Arrangements: House (03/18/2016 14:37:Kristel Rodrigez RN) Adequate Access to:: Electric; Heat; Refrigeration; Plumbing/Running water; Phone; Transportation (03/18/2016 14:37:Kristel Rodrigez RN) WIC Program: No (03/18/2016 14:37:Kristel Rodrigez RN) Discharge Test Tech Person: Suad (03/18/2016 14:37:Kristel Rodrigez RN) Person to Help after Discharge: Suad (03/18/2016 14:37:Kristel Rodrigez RN) Currently Using Commun Resources: No (03/18/2016 14:37:Kristel Rodrigez RN) Outside Agency/Powertrain Calibration Engineer: No (03/18/2016 14:37:Kristel Rodrigez RN) Car Seat for Discharge: Yes (03/18/2016 14:37:Kristel Rodrigez RN) Adoption Requested: No (03/18/2016 14:37:Kristel Rodrigez RN) Pt Contact w/ Post : N/A (03/18/2016 14:37:Kristel Rodrigez RN) LABS Blood Type: A Positive (03/18/2016 14:37:Al Samson RN) Antibody Screen: Negative (03/18/2016 14:37:Al Samson RN) Jabier(G) this : Not Applicable (03/18/2016 14:37:Lorna Corbett RN) Hemoglobin: 9.2 L (05/02/2016 07:24:QS system process) Hematocrit: 27.6 L (05/02/2016 07:24:QS system process) MCV: 83 (05/02/2016 07:24:QS system process) Group Beta Strep: Negative (04/08/2016 09:05:Lorna Corbett RN) Gonorrhea: Negative (03/18/2016 14:37:LORETTA Dye) Chlamydia: Negative (03/18/2016 14:37:LORETTA Dye) RPR/VDRL: Nonreactive (03/18/2016 14:37:Al Samson RN) HIV Exposure Test: Negative (03/18/2016 14:37:Al aSmson RN) Hepatitis B: Negative (03/18/2016 14:37:LORETTA Dye) Rubella: Immune (03/18/2016 14:37:Al Samson RN) OB/PREVIOUS HISTORY Previous Procedures: None (03/18/2016 14:37:LORETTA Dye) 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; 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 (03/18/2016 14:37:LORETTA Dye) History of Previous : No (03/18/2016 14:37:Kristel Rodrigez RN) History of Gestational Diabetes: No (03/18/2016 14:37:Kristel Rodrigez RN) History of PIH: Yes (03/18/2016 14:37:LORETTA Dye) History of Incompetent Cervix: No (03/18/2016 14:37:Kristel Rodrigez RN) History of Placenta Previa/Abrup: No (03/18/2016 14:37:Kristel Rodrigez RN) History of Macrosomia: No (03/18/2016 14:37:Kristel Rodrigez RN) History of IUGR: No (03/18/2016 14:37:Kristel Rodrigez RN) History of Hemorrhage: No (03/18/2016 14:37:Kristel Rodrigez RN) History of Loss/Stillborn: No (03/18/2016 14:37:Kristel Rodrigez RN) History of : No (03/18/2016 14:37:Kristel Rodrigez RN) History of D (Rh) Sensitization: No (03/18/2016 14:37:Kristel Rodrigez RN) History Recurrent Loss/Stillborn: No (03/18/2016 14:37:Kristel Rodrigez RN) History Depression/PP Depression: No (03/18/2016 14:37:Kristel Rodrigez RN) History of Uterine Anomaly/PEAEC: No (03/18/2016 14:37:Kristel Rodrigez RN) History of Infertility: No (03/18/2016 14:37:Kristel Rodrigez RN) History of ART Treatment: No (03/18/2016 14:37:Kristel Rodrigez RN) History of PEACE: No (03/18/2016 14:37:Kristel Rodrigez RN) Comments Obstetrical History: G-1 CHTN, PCOS, maternal obesity (03/18/2016 14:37:LORETTA Dye) MEDICAL HISTORY Med Hx Diabetes: No (03/18/2016 14:37:Kristel Rodrigez RN) Med Hx Hypertension: Yes (03/18/2016 14:37:LORETTA Dye) Med Hx Heart Disease: No (03/18/2016 14:37:Kristel Rodrigez RN) Med Hx Autoimmune Disorder: No (03/18/2016 14:37:Kristel Rodrigez RN) Med Hx Kidney Disease/UTI: No (03/18/2016 14:37:Kristel Rodrigez RN) Med Hx Neurologic/Epilepsy: No (03/18/2016 14:37:Kristel Rodrigez RN) Med Hx Psychiatric Disorders: No (03/18/2016 14:37:Kristel Rodrigez RN) Med Hx Hepatitis/Liver Disease: No (03/18/2016 14:37:Kristel Rodrigez RN) Med Hx Varicosities/Phlebitis: No (03/18/2016 14:37:Kristel Rodrigez RN) Med Hx Thyroid Dysfunction: No (03/18/2016 14:37:Kristel Rodrigez RN) Med Hx Trauma/Violence: No (03/18/2016 14:37:Kristel Rodrigez RN) Med Hx Blood Transfusion: No (03/18/2016 14:37:Kristel Rodrigez RN) Med Hx Pulmonary (Asthma,TB): No (03/18/2016 14:37:Kristel Rodrigez RN) Med Hx Breast: No (03/18/2016 14:37:Kristel Rodrigez RN) Med Hx ASSOCIATE ACCOUNT DIRECTOR Surgery: No (03/18/2016 14:37:Kristel Rodrigez RN) Med Hx Hospitalization/Surgery: No (03/18/2016 14:37:Kristel Rodrigez RN) Med Hx Anesthetic Complications: No (03/18/2016 14:37:Kristel Rodrigez RN) Med Hx Abnormal Pap Smear: Yes (03/18/2016 14:37:LORETTA Dye) Other Medical Diseases: No (03/18/2016 14:37:Kristel Rodrigez RN) Med Hx Significant Family Hx: No (03/18/2016 14:37:Kristel Rodrigez RN) Details of Med/Surg Hx: CHTN on [place], PCOS , H/O abnormal pap 2014 normal pap 2015 (03/18/2016 14:37:LORETTA Dye) INFECTIOUS HISTORY Inf Hx Gonorrhea: No (03/18/2016 14:37:Kristel Rodrigez RN) Inf Hx Chlamydia: No (03/18/2016 14:37:Kristel Rodrigez RN) Inf Hx Syphilis: No (03/18/2016 14:37:Kristel Rodrigez RN) Inf Hx HIV/AIDS: No (03/18/2016 14:37:Kristel Rodrigez RN) Inf Hx Human Papilloma Virus: No (03/18/2016 14:37:Kristel Rodrigez RN) Inf Hx Pt/Partner Genital Herpes: No (03/18/2016 14:37:Kristel Rodrigez RN) Inf Hx Tuberculosis/Exposure: No (03/18/2016 14:37:Kristel Rodrigez RN) Inf Hx Hepatitis B,C: No (03/18/2016 14:37:Kristel Rodrigez RN) Inf Hx Rash or Viral Illness: No (03/18/2016 14:37:Kristel Rodrigez RN) GENETIC HISTORY Gen Hx Age >=35 at JENNIFER: No (03/18/2016 14:37:Kristel Rodrigez RN) Gen Hx Thalassemia: No (03/18/2016 14:37:Kristel Rodrigez RN) Gen Hx Congenital Heart Defect: No (03/18/2016 14:37:Kristel Rodrigez RN) Gen Hx Neural Tube Defect: No (03/18/2016 14:37:Kristel Rodrigez RN) Gen Hx Down's Syndrome: No (03/18/2016 14:37:Kristel Rodrigez RN) Gen Hx Dionicio-Sachs: No (03/18/2016 14:37:Kristel Rodrigez RN) Gen Hx Johnna: No (03/18/2016 14:37:Kristel Rodrigez RN) Gen Hx Familial Dysautonomia: No (03/18/2016 14:37:Kristel Rodrigez RN) Gen Hx Hemophilia/Blood Disorder: No (03/18/2016 14:37:Kristel Rodrigez RN) Gen Hx Muscular Dystrophy: No (03/18/2016 14:37:Kristel Rodrigez RN) Gen Hx Cystic Fibrosis: No (03/18/2016 14:37:Kristel Rodrigez RN) Gen Hx Huntingtons Chorea: No (03/18/2016 14:37:Kristel Rodrigez RN) Gen Hx Mental Retardation/Autism: No (03/18/2016 14:37:Kristel Rodrigez RN) Gen Hx Tested for Fragile X: No (03/18/2016 14:37:Kristel Rodrigez RN) Gen Hx Other Inher/Chromosomal: No (03/18/2016 14:37:Kristel Rodrigez RN) Gen Hx Maternal Metabolic DO: No (03/18/2016 14:37:Kristel Rodrigez RN) Gen Hx Pt Father or FOB Defect: No (03/18/2016 14:37:Kristel Rodrigez RN) Gen Hx Other Genetic History: No (03/18/2016 14:37:Kristel Rodrigez RN) Gen Hx Drugs/Meds since LMP: No (03/18/2016 14:37:Kristel Rodriegz RN)
--- NOTE | 2016-05-05 06:09 | L&D General Admission ---
General Admit Datetime Report Generated by CPN: 05/05/2016 06:00 INFORMATION Patient Age: 30 (03/07/2016 13:07:QS system process) EDC: 05/06/2016 00:00 (03/18/2016 14:37:LORETTA Faye) : 1 (03/18/2016 14:37:LORETTA Dye) Para: 0 (03/21/2016 13:20:Blessing Abbott RN) Term: 0 (03/18/2016 14:37:LORETTA Dye) : 0 (03/18/2016 14:37:LORETTA Dye) Spontaneous Abortions: 0 (03/18/2016 14:37:LORETTA Dye) Induced Abortions: 0 (03/18/2016 14:37:LORETTA Dye) Livin (03/18/2016 14:37:LORETTA Dye) Cesareans: 0 (03/18/2016 14:37:LORETTA Dye) VBACs: 0 (03/18/2016 14:37:Thi Linares [facility]) Ectopic: 0 (03/18/2016 14:37:Thi Linares [facility]) Multiple Births: 0 (03/18/2016 14:37:Thi Linares [facility]) Baby, Number in Womb: 1 (03/21/2016 13:20:Blessing Abbott RN) CARE [facility] [place] Head[facility] (03/18/2016 14:37:Thi Linares [facility]) Month of 1st Visit: September (03/18/2016 14:37:Thi Linares [facility]) Adequate Care: Yes (03/18/2016 14:37:Thi Linares [facility]) Prepregnancy Weight (lb): 210 (03/18/2016 14:37:Thi Linares [facility]) Prepregnancy Weight (kg): 95.5 (03/18/2016 14:37:QS system process) Height (in): 63 (05/03/2016 09:39:QS system process) ALLERGIES Medication Allergy: No (03/18/2016 14:37:Thi Linares [facility]) Medication Allergies: No Known Allergies (03/21/2016) (03/21/2016 13:08:QS system process) Latex Allergy: No Latex Allergies (03/18/2016 14:37:Thi Linares [facility]) COMMUNICATION Primary Language: Norwegian (03/18/2016 14:37:Thi Linares [facility]) Medical Tx Preferred Language: Norwegian (03/18/2016 14:37:Thi Linares [facility]) Communication Barrier(s): None (03/18/2016 14:37:Thi Linares [facility]) DEMOGRAPHICS Address: [facility] [place] [address] (03/07/2016 13:07:QS system process) Zipcode: [address] (03/07/2016 13:07:QS system process) Home (03/07/2016 13:07:QS system process) Work (03/07/2016 13:07:QS system process) N: [phone] (03/07/2016 13:07:QS system process) Next of Kin Name: SUAD BUCHANAN (03/07/2016 13:07:QS system process) Next of Kin (03/07/2016 13:07:QS system process) Next of Kin Relationship: SPO (03/07/2016 13:07:QS system process) Date of : 1985 (03/07/2016 13:07:QS system process) Marital Status: (03/07/2016 13:07:QS system process) Sex: Female (03/07/2016 13:07:QS system process) 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 [id number] (03/18/2016 14:37:Kristel Rodrigez RN) Marijuana: No (03/18/2016 14:37:Kristel Rodrigez RN) Cocaine: No (03/18/2016 14:37:Kristel Rodrigez RN) Other Illicit Drugs: No (03/18/2016 14:37:Kristel Rodrigez RN) VACCINE HISTORY Influenza Vaccine: Yes (03/18/2016 14:37:Thi Camp, RNC) Influenza Date: 01-29-2016 (03/18/2016 14:37:Thi Camp, RNC) Pneumococcal Vaccine: No (03/18/2016 14:37:Thi Camp, RNC) Tetanus Vaccine: Yes (03/18/2016 14:37:Thi Camp, RNC) Tetanus Date: 02-12-2016 (03/18/2016 14:37:Thi Camp, RNC) Tdap Vaccine: Yes (03/18/2016 14:37:Thi Camp, RNC) Tdap Date: 02-12-2016 (03/18/2016 14:37:Thi Camp, RNC) Hepatitis B Vaccine: Yes (03/18/2016 14:37:Thi Camp, RNC) Hepatitis B Vaccine Date : 06/2012 (03/18/2016 14:37:Thi Camp, RNC) 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: [facility] (03/18/2016 14:37:Kristel Rodrigez RN) Feeding Preference: Breast (03/18/2016 14:37:Kristel Rodrigez RN) Benefit of Breast Feed Discussed: Yes (03/18/2016 14:37:Kristel Rodrigez RN) Circumcision: Yes (03/18/2016 14:37:Kristel Rodrigez RN) Classes Attended: Yes (03/18/2016 14:37:Kristel Rodrigez RN) Tubal Ligation: No (03/18/2016 14:37:LORETTA Dye) Tubal Authorization Signed: N/A (03/18/2016 14:37:LORETTA Dye) Consent: N/A (03/18/2016 14:37:LORETTA Dye) Consent Signed: N/A (03/18/2016 14:37:LORETTA Dye) Pain Management Plans: Natural (03/18/2016 14:37:Kristel Rodrigez RN) Plans for Labor and Delivery: None (03/18/2016 14:37:Kristel Rodrigez RN) Support Person: Suad Buchanan (03/18/2016 14:37:LORETTA Dye) Support Person Relationship: (03/18/2016 14:37:LORETTA Dye) Cultural/Spritual Practice: No (03/18/2016 14:37:Kristel Rodrigez RN) Spir/Cult Dietary Needs: No (03/18/2016 14:37:Kristel Rodrigez RN) LIVING SITUATION/DISCHARGE PLAN Living Arrangements: House (03/18/2016 14:37:Kristel Rodrigez RN) Adequate Access to:: Electric; Heat; Refrigeration; Plumbing/Running water; Phone; Transportation (03/18/2016 14:37:Kristel Rodrigez RN) WIC Program: No (03/18/2016 14:37:Kristel Rodrigez RN) 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 (03/18/2016 14:37:Kristel Rodrigez RN) Person to Help after Discharge: Suda (03/18/2016 14:37:Kristel Rodrigez RN) Currently Using Commun Resources: No (03/18/2016 14:37:Kristel Rodrigez RN) Outside Agency/Medical Records Secretary: No (03/18/2016 14:37:Kristel Rodrigez RN) Car Seat for Discharge: Yes (03/18/2016 14:37:Kristel Rodrigez RN) Adoption Requested: No (03/18/2016 14:37:Kristel Rodrigez RN) Pt Contact w/ Post : N/A (03/18/2016 14:37:Kristel Rodrigez RN) LABS Blood Type: A Positive (03/18/2016 14:37:Al Samson RN) Antibody Screen: Negative (03/18/2016 14:37:Al Samson RN) Jabier(G) this : Not Applicable (03/18/2016 14:37:Lorna Corbett RN) Hemoglobin: 9.2 L (05/02/2016 07:24:QS system process) Hematocrit: 27.6 L (05/02/2016 07:24:QS system process) MCV: 83 (05/02/2016 07:24:QS system process) Group Beta Strep: Negative (04/08/2016 09:05:Lorna Corbett RN) Gonorrhea: Negative (03/18/2016 14:37:LORETTA Dye) Chlamydia: Negative (03/18/2016 14:37:LORETTA Dye) RPR/VDRL: Nonreactive (03/18/2016 14:37:Al Samson RN) HIV Exposure Test: Negative (03/18/2016 14:37:Al Samson RN) Hepatitis B: Negative (03/18/2016 14:37:LORETTA Dye) Rubella: Immune (03/18/2016 14:37:Al Samson RN) OB/PREVIOUS HISTORY Previous Procedures: None (03/18/2016 14:37:LORETTA Dye) 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; 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 (03/18/2016 14:37:LORETTA Dye) History of Previous : No (03/18/2016 14:37:Kristel Rodrigez RN) History of Gestational Diabetes: No (03/18/2016 14:37:Kristel Rodrigez RN) History of PIH: Yes (03/18/2016 14:37:LORETTA Dye) History of Incompetent Cervix: No (03/18/2016 14:37:Kristel Rodrigez RN) History of Placenta Previa/Abrup: No (03/18/2016 14:37:Kristel Rodrigez RN) History of Macrosomia: No (03/18/2016 14:37:Kristel Rodrigez RN) History of IUGR: No (03/18/2016 14:37:Kristel Rodrigez RN) History of Hemorrhage: No (03/18/2016 14:37:Kristel Rodrigez RN) History of Loss/Stillborn: No (03/18/2016 14:37:Kristel Rodrigez RN) History of : No (03/18/2016 14:37:Kristel Rodrigez RN) History of D (Rh) Sensitization: No (03/18/2016 14:37:Kristel Rodrigez RN) History Recurrent Loss/Stillborn: No (03/18/2016 14:37:Kristel Rodrigez RN) History Depression/PP Depression: No (03/18/2016 14:37:Kristel Rodrigez RN) History of Uterine Anomaly/PEACE: No (03/18/2016 14:37:Kristel Rodrigez RN) History of Infertility: No (03/18/2016 14:37:Kristel Rodrigez RN) History of ART Treatment: No (03/18/2016 14:37:Kristel Rodrigez RN) History of PEACE: No (03/18/2016 14:37:Kristel Rodrigez RN) Comments Obstetrical History: G-1 CHTN, PCOS, maternal obesity (03/18/2016 14:37:LORETTA Dye) MEDICAL HISTORY Med Hx Diabetes: No (03/18/2016 14:37:Kristel Rodrigez RN) Med Hx Hypertension: Yes (03/18/2016 14:37:LORETTA Dye) Med Hx Heart Disease: No (03/18/2016 14:37:Kristel Rodrigez RN) Med Hx Autoimmune Disorder: No (03/18/2016 14:37:Kristel Rodrigez RN) Med Hx Kidney Disease/UTI: No (03/18/2016 14:37:Kristel Rodrigez RN) Med Hx Neurologic/Epilepsy: No (03/18/2016 14:37:Kristel Rodrigez RN) Med Hx Psychiatric Disorders: No (03/18/2016 14:37:Kristel Rodrigez RN) Med Hx Hepatitis/Liver Disease: No (03/18/2016 14:37:Kristel Rodrigez RN) Med Hx Varicosities/Phlebitis: No (03/18/2016 14:37:Kristel Rodrigez RN) Med Hx Thyroid Dysfunction: No (03/18/2016 14:37:Kristel Rodrigez RN) Med Hx Trauma/Violence: No (03/18/2016 14:37:Kristel Rodrigez RN) Med Hx Blood Transfusion: No (03/18/2016 14:37:Kristel Rodrigez RN) Med Hx Pulmonary (Asthma,TB): No (03/18/2016 14:37:Kristel Rodrigez RN) Med Hx Breast: No (03/18/2016 14:37:Kristel Rodrigez RN) Med Hx TECHNICAL SPEC Surgery: No (03/18/2016 14:37:Kristel Rodrigez RN) Med Hx Hospitalization/Surgery: No (03/18/2016 14:37:Kristel Rodrigez RN) Med Hx Anesthetic Complications: No (03/18/2016 14:37:Kristel Rodrigez RN) Med Hx Abnormal Pap Smear: Yes (03/18/2016 14:37:LORETTA Dye) Other Medical Diseases: No (03/18/2016 14:37:Kristel Rodrigez RN) Med Hx Significant Family Hx: No (03/18/2016 14:37:Kristel Rodrigez RN) Details of Med/Surg Hx: CHTN on [place], PCOS , H/O abnormal pap 2014 normal pap 2015 (03/18/2016 14:37:LORETTA Dye) INFECTIOUS HISTORY Inf Hx Gonorrhea: No (03/18/2016 14:37:Kristel Rodrigez RN) Inf Hx Chlamydia: No (03/18/2016 14:37:Kristel Rodrigez RN) Inf Hx Syphilis: No (03/18/2016 14:37:Kristel Rodrigez RN) Inf Hx HIV/AIDS: No (03/18/2016 14:37:Kristel Rodrigez RN) Inf Hx Human Papilloma Virus: No (03/18/2016 14:37:Kristel Rodrigez RN) Inf Hx Pt/Partner Genital Herpes: No (03/18/2016 14:37:Kristel Rodrigez RN) Inf Hx Tuberculosis/Exposure: No (03/18/2016 14:37:Kristel Rodrigez RN) Inf Hx Hepatitis B,C: No (03/18/2016 14:37:Kristel Rodrigez RN) Inf Hx Rash or Viral Illness: No (03/18/2016 14:37:Kristel Rodrigez RN) GENETIC HISTORY Gen Hx Age >=35 at [place]ENN[facility]: No (03/18/2016 14:37:Kristel Rodrigez RN) Gen Hx Thalassemia: No (03/18/2016 14:37:Kristel Rodrigez RN) Gen Hx Congenital Heart Defect: No (03/18/2016 14:37:Kristel Rodrigez RN) Gen Hx Neural Tube Defect: No (03/18/2016 14:37:Kristel Rodrigez RN) Gen Hx Down's Syndrome: No (03/18/2016 14:37:Kristel Rodrigez RN) Gen Hx Dionicio-Sachs: No (03/18/2016 14:37:Kristel Rodrigez RN) Gen Hx Johnna: No (03/18/2016 14:37:Kristel Rodrigez RN) Gen Hx Familial Dysautonomia: No (03/18/2016 14:37:Kristel Rodrigez RN) Gen Hx Hemophilia/Blood Disorder: No (03/18/2016 14:37:Kristel Rodrigez RN) Gen Hx Muscular Dystrophy: No (03/18/2016 14:37:Kristel Rodrigez RN) Gen Hx Cystic Fibrosis: No (03/18/2016 14:37:Kristel Rodrigez RN) Gen Hx Huntingtons Chorea: No (03/18/2016 14:37:Kristel Rodrigez RN) Gen Hx Mental Retardation/Autism: No (03/18/2016 14:37:Kristel Rodrigez RN) Gen Hx Tested for Fragile X: No (03/18/2016 14:37:Kristel Rodrigez RN) Gen Hx Other Inher/Chromosomal: No (03/18/2016 14:37:Kristel Rodrigez RN) Gen Hx Maternal Metabolic DO: No (03/18/2016 14:37:Kristel Rodrigez RN) Gen Hx Pt Father or FOB Defect: No (03/18/2016 14:37:Kristel Rodrigez RN) Gen Hx Other Genetic History: No (03/18/2016 14:37:Kristel Rodrigez RN) Gen Hx Drugs/Meds since LMP: No (03/18/2016 14:37:Kristel Rodrigez RN)
--- NOTE | 2016-05-05 06:09 | L&D Current Admission ---
Current Admit Datetime Report Generated by CPN: 05/05/2016 06:00 ADMISSION INFORMATION Current Admit Date/Time: 04/29/2016 23:32 (04/29/2016 23:27:Kristel Rodrigez RN) Reason for Admission: Induction of Labor (04/29/2016 23:27:Kristel Rodrigez RN) Chief Complaint: Scheduled Induction of Labor (04/30/2016 19:38:Kristel Rodrigez RN) Medications During : Methyldopa (Aldomet); Vitamin (04/29/2016 23:27:LORETTA Dye) EGA per Dates: 39.0 (04/29/2016 23:27:QS system process) Method of Arrival: Ambulatory (04/29/2016 23:27:Kristel Rodrigez RN) Admitted From: Home (04/29/2016 23:27:Kristel Rodrigez RN) Reason for Induction: Chronic Hypertension (04/29/2016 23:27:LORETTA Dye) Records Available: Yes (04/29/2016 23:27:Kristel Rodrigez RN) General Admission Information: Reviewed; Updated; Confirmed (04/29/2016 23:27:LORETTA Dye) General Admission Reviewed By: Thi BURGOS (04/29/2016 23:27:LORETTA Dye) BELONGINGS/ADVANCED DIRECTIVES Valuables/Personal Effects: None (04/29/2016 23:27:Kristel Rodrigez RN) Other Belongings: see belongings consents (04/29/2016 23:27:Kristel Rodrigez RN) Disposition of Belongings: Kept with Patient (04/29/2016 23:27:Kristel Rodrigez RN) Advance Direct for Healthcare: No, and Wants No Information (04/29/2016 23:27:Kristel Rodrigez RN) Durable Power of Community Service Representative: No (04/29/2016 23:27:Kristel Rodrigez RN) Living Will: No (04/29/2016 23:27:Kristel Rodrigez RN) Organ Donor: Yes (04/29/2016 23:27:Kristel Rodrigez RN) Pt Rights Information Given: Yes (04/29/2016 23:27:Kristel Rodrigez RN) Pt Understands Pt Rights: Yes (04/29/2016 23:27:Kristel Rodrigez RN) LEARNING ASSESSMENT Knowledge Level: Understands L_D Process; Understands Care Activities; Had Pre-Hospital Education; Understands Diagnosis (04/29/2016 23:27:Kristel Rodrigez RN) Barriers to Learning: None (04/29/2016 23:27:Kristel Rodrigez RN) Learning Readiness: Motivated (04/29/2016 23:27:Kristel Rodrigez RN) Learns Best By: 1 to 1 Instruction (04/29/2016 23:27:Kristel Rodrigez RN) Learning Needs: Labor and Delivery Process; Pain Management; Symptoms to Report; Treatment Plan; Medication; Diagnosis; Nutrition; Equipment; Infant Care; Community Resources (04/29/2016 23:27:Kristel Rodrigez RN) DOMESTIC VIOLANCE SCREENING Dom Viol Threatened/Hurt: No (04/29/2016 23:27:Kristel Rodrigez RN) Hx of Abuse/Neglect past 2yrs: No (04/29/2016 23:27:Kristel Rodrigez RN) Feel Unsafe Going Home: No (04/29/2016 23:27:Kristel Rodrigez RN) Addt'l Observ Indicating Abuse: No (04/29/2016 23:27:Kristel Rodrigez RN) Reason Unable to Complete Screen: N/A, Screen Completed (04/29/2016 23:27:Kristel Rodrigez RN) Considered Personal Harm/Suicide: No (04/29/2016 23:27:Kristel Rodrigez RN) NUTRITIONAL/FUNCTIONAL SCREENING Problem with Appetite >5 Days: No (04/29/2016 23:27:Kristel Rodrigez RN) Chew/Swallow Difficulties: No (04/29/2016 23:27:Kristel Rodrigez RN) Inappropriate Wt Gain/Loss: No (04/29/2016 23:27:Kristel Rodrigez RN) Presence Skin Breakdown/Ulcer: No (04/29/2016 23:27:Kristel Rodrigez RN) Special Diet: No (04/29/2016 23:27:Kristel Rodrigez RN) Pt Requests Registrar College Or University Visit: No (04/29/2016 23:27:Kristel Rodrigez RN) Hx of Any of the Following?: N/A (04/29/2016 23:27:Kristel Rodrigez RN) New Diagnosis of: N/A (04/29/2016 23:27:Kristel Rodrigez RN) Requires Assist w/Ambulation: No (04/29/2016 23:27:Kristel Rodrigez RN) Uses Assist Device to Ambulate: No (04/29/2016 23:27:Kristel Rodrigez RN) Pt Requires Help w/ADL's: No (04/29/2016 23:27:Kristel Rodrigez RN)
--- NOTE | 2016-05-06 06:09 | L&D General Admission ---
General Admit Datetime Report Generated by CPN: 05/06/2016 06:00 INFORMATION Patient Age: 30 (03/07/2016 13:07:QS system process) EDC: 05/06/2016 00:00 (03/18/2016 14:37:LORETTA Faye) : 1 (03/18/2016 14:37:LORETTA Dye) Para: 0 (03/21/2016 13:20:Blessing Abbott RN) Term: 0 (03/18/2016 14:37:LORETTA Dye) : 0 (03/18/2016 14:37:LORETTA Dye) Spontaneous Abortions: 0 (03/18/2016 14:37:LORETTA Dye) Induced Abortions: 0 (03/18/2016 14:37:LORETTA Dye) Livin (03/18/2016 14:37:LORETTA Dye) Cesareans: 0 (03/18/2016 14:37:LORETTA Dye) VBACs: 0 (03/18/2016 14:37:Thi Linares [facility]) Ectopic: 0 (03/18/2016 14:37:Thi Linares [facility]) Multiple Births: 0 (03/18/2016 14:37:Thi Linares [facility]) Baby, Number in Womb: 1 (03/21/2016 13:20:Blessing Abbott RN) 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[facility] (03/18/2016 14:37:Thi Linares [facility]) Month of 1st Visit: September (03/18/2016 14:37:Thi Linares [facility]) Adequate Care: Yes (03/18/2016 14:37:Thi Linares [facility]) Prepregnancy Weight (lb): 210 (03/18/2016 14:37:Thi Linares [facility]) Prepregnancy Weight (kg): 95.5 (03/18/2016 14:37:QS system process) Height (in): 63 (05/03/2016 09:39:QS system process) ALLERGIES Medication Allergy: No (03/18/2016 14:37:Thi Linares [facility]) Medication Allergies: No Known Allergies (03/21/2016) (03/21/2016 13:08:QS system process) Latex Allergy: No Latex Allergies (03/18/2016 14:37:Thi Linares [facility]) COMMUNICATION Primary Language: Vincentian (03/18/2016 14:37:Thi Linares [facility]) Medical Tx Preferred Language: Vincentian (03/18/2016 14:37:Thi Linares [facility]) Communication Barrier(s): None (03/18/2016 14:37:Thi Linares [facility]) DEMOGRAPHICS Address: [facility] [place] [address] (03/07/2016 13:07:QS system process) Zipcode: [address] (03/07/2016 13:07:QS system process) Home (03/07/2016 13:07:QS system process) Work (03/07/2016 13:07:QS system process) N: [id number] (03/07/2016 13:07:QS system process) Next of Kin Name: SUAD BUCHANAN (03/07/2016 13:07:QS system process) Next of Kin (03/07/2016 13:07:QS system process) Next of Kin Relationship: SPO (03/07/2016 13:07:QS system process) Date of : 1985 (03/07/2016 13:07:QS system process) Marital Status: (03/07/2016 13:07:QS system process) Sex: Female (03/07/2016 13:07:QS system process) 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 [id number] (03/18/2016 14:37:Kristel Rordigez RN) Marijuana: No (03/18/2016 14:37:Kristel Rodrigez RN) Cocaine: No (03/18/2016 14:37:Kristel Rodrigez RN) Other Illicit Drugs: No (03/18/2016 14:37:Kristel Rodrigez RN) VACCINE HISTORY Influenza Vaccine: Yes (03/18/2016 14:37:Thi Camp, RNC) Influenza Date: 01-29-2016 (03/18/2016 14:37:Thi Camp, RNC) Pneumococcal Vaccine: No (03/18/2016 14:37:Thi Camp, RNC) Tetanus Vaccine: Yes (03/18/2016 14:37:Thi Camp, RNC) Tetanus Date: 02-12-2016 (03/18/2016 14:37:Thi Camp, RNC) Tdap Vaccine: Yes (03/18/2016 14:37:Thi Camp, RNC) Tdap Date: 02-12-2016 (03/18/2016 14:37:Thi Camp, RNC) Hepatitis B Vaccine: Yes (03/18/2016 14:37:Thi Camp, RNC) Hepatitis B Vaccine Date : 06/2012 (03/18/2016 14:37:Thi Camp, RNC) Bulb Grower: [facility] (03/18/2016 14:37:Kristel Rodrigez RN) Feeding Preference: Breast (03/18/2016 14:37:Kristel Rodrigez RN) Benefit of Breast Feed Discussed: Yes (03/18/2016 14:37:Kristel Rodrigez RN) Circumcision: Yes (03/18/2016 14:37:Kristel Rodrigez RN) Classes Attended: Yes (03/18/2016 14:37:Kristel Rodrigez RN) Tubal Ligation: No (03/18/2016 14:37:LORETTA Dye) Tubal Authorization Signed: N/A (03/18/2016 14:37:LORETTA Dye) Consent: N/A (03/18/2016 14:37:LORETTA Dye) Consent Signed: N/A (03/18/2016 14:37:LORETTA Dye) Pain Management Plans: Natural (03/18/2016 14:37:Kristel Rodrigez RN) Plans for Labor and Delivery: None (03/18/2016 14:37:Kristel Rodrigez RN) Support Person: Suad Buchanan (03/18/2016 14:37:LORETTA Dye) Support Person Relationship: (03/18/2016 14:37:LORETTA Dye) Cultural/Spritual Practice: No (03/18/2016 14:37:Kristel Rodrigez RN) Spir/Cult Dietary Needs: No (03/18/2016 14:37:Kristel Rodrigez RN) LIVING SITUATION/DISCHARGE PLAN Living Arrangements: House (03/18/2016 14:37:Kristel Rodrigez RN) Adequate Access to:: Electric; Heat; Refrigeration; Plumbing/Running water; Phone; Transportation (03/18/2016 14:37:Kristel Rodrigez RN) WIC Program: No (03/18/2016 14:37:Kristel Rodrigez RN) Discharge Donor Support Technician Person: Suad (03/18/2016 14:37:Kristel Rodrigez RN) Person to Help after Discharge: Suad (03/18/2016 14:37:Kristel Rodrigez RN) Currently Using Commun Resources: No (03/18/2016 14:37:Kristel Rodrigez RN) Outside Agency/Diesel Technology Instructor: No (03/18/2016 14:37:Kristel Rodrigez RN) Car Seat for Discharge: Yes (03/18/2016 14:37:Kristel Rodrigez RN) Adoption Requested: No (03/18/2016 14:37:Kristel Rodrigez RN) Pt Contact w/ Post : N/A (03/18/2016 14:37:Kristel Rodrigez RN) LABS Blood Type: A Positive (03/18/2016 14:37:Al Samson RN) Antibody Screen: Negative (03/18/2016 14:37:Al Samson RN) Jabier(G) this : Not Applicable (03/18/2016 14:37:Lorna Corbett RN) Hemoglobin: 9.2 L (05/02/2016 07:24:QS system process) Hematocrit: 27.6 L (05/02/2016 07:24:QS system process) MCV: 83 (05/02/2016 07:24:QS system process) Group Beta Strep: Negative (04/08/2016 09:05:Lorna Corbett RN) Gonorrhea: Negative (03/18/2016 14:37:LORETTA Dye) Chlamydia: Negative (03/18/2016 14:37:LORETTA Dye) RPR/VDRL: Nonreactive (03/18/2016 14:37:Al Samson RN) HIV Exposure Test: Negative (03/18/2016 14:37:Al Samson RN) Hepatitis B: Negative (03/18/2016 14:37:LORETTA Dye) Rubella: Immune (03/18/2016 14:37:Al Samson RN) OB/PREVIOUS HISTORY Previous Procedures: None (03/18/2016 14:37:LORETTA Dye) 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; 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 (03/18/2016 14:37:LORETTA Dye) History of Previous : No (03/18/2016 14:37:Kristel Rodrigez RN) History of Gestational Diabetes: No (03/18/2016 14:37:Kristel Rodrigez RN) History of PIH: Yes (03/18/2016 14:37:LORETTA Dye) History of Incompetent Cervix: No (03/18/2016 14:37:Kristel Rodrigez RN) History of Placenta Previa/Abrup: No (03/18/2016 14:37:Kristel Rodrigez RN) History of Macrosomia: No (03/18/2016 14:37:Kristel Rodrigez RN) History of IUGR: No (03/18/2016 14:37:Kristel Rodrigez RN) History of Hemorrhage: No (03/18/2016 14:37:Kristel Rodrigez RN) History of Loss/Stillborn: No (03/18/2016 14:37:Kristel Rodrigez RN) History of : No (03/18/2016 14:37:Kristel Rodrigez RN) History of D (Rh) Sensitization: No (03/18/2016 14:37:Kristel Rodrigez RN) History Recurrent Loss/Stillborn: No (03/18/2016 14:37:Kristel Rodrigez RN) History Depression/PP Depression: No (03/18/2016 14:37:Kristel Rodrigez RN) History of Uterine Anomaly/PEACE: No (03/18/2016 14:37:Kristel Rodrigez RN) History of Infertility: No (03/18/2016 14:37:Kristel Rodrigez RN) History of ART Treatment: No (03/18/2016 14:37:Kristel Rodrigez RN) History of PEACE: No (03/18/2016 14:37:Kristel Rodrigez RN) Comments Obstetrical History: G-1 CHTN, PCOS, maternal obesity (03/18/2016 14:37:LORETTA Dye) MEDICAL HISTORY Med Hx Diabetes: No (03/18/2016 14:37:Kristel Rodrigez RN) Med Hx Hypertension: Yes (03/18/2016 14:37:LORETTA Dye) Med Hx Heart Disease: No (03/18/2016 14:37:Kristel Rodrigez RN) Med Hx Autoimmune Disorder: No (03/18/2016 14:37:Kristel Rodrigez RN) Med Hx Kidney Disease/UTI: No (03/18/2016 14:37:Kristel Rodrigez RN) Med Hx Neurologic/Epilepsy: No (03/18/2016 14:37:Kristel Rodrigez RN) Med Hx Psychiatric Disorders: No (03/18/2016 14:37:Kristel Rodrigez RN) Med Hx Hepatitis/Liver Disease: No (03/18/2016 14:37:Kristel Rodrigez RN) Med Hx Varicosities/Phlebitis: No (03/18/2016 14:37:Kristel Rodrigez RN) Med Hx Thyroid Dysfunction: No (03/18/2016 14:37:Kristel Rodrigez RN) Med Hx Trauma/Violence: No (03/18/2016 14:37:Kristel Rodrigez RN) Med Hx Blood Transfusion: No (03/18/2016 14:37:Kristel Rodrigez RN) Med Hx Pulmonary (Asthma,TB): No (03/18/2016 14:37:Kristel Rodrigez RN) Med Hx Breast: No (03/18/2016 14:37:Kristel Rodrigez RN) Med Hx DIAMOND SIZER Surgery: No (03/18/2016 14:37:rKistel Rodrigez RN) Med Hx Hospitalization/Surgery: No (03/18/2016 14:37:Kristel Rodrigez RN) Med Hx Anesthetic Complications: No (03/18/2016 14:37:Kristel Rodrigez RN) Med Hx Abnormal Pap Smear: Yes (03/18/2016 14:37:LORETTA Dye) Other Medical Diseases: No (03/18/2016 14:37:Kristel Rodrigez RN) Med Hx Significant Family Hx: No (03/18/2016 14:37:Kristel Rodrigez RN) Details of Med/Surg Hx: CHTN on Aldomet, PCOS , H/O abnormal pap 2014 normal pap 2015 (03/18/2016 14:37:LORETTA Dye) INFECTIOUS HISTORY Inf Hx Gonorrhea: No (03/18/2016 14:37:Kristel Rodrigez RN) Inf Hx Chlamydia: No (03/18/2016 14:37:Kristel Rodrigez RN) Inf Hx Syphilis: No (03/18/2016 14:37:Kristel Rodrigez RN) Inf Hx HIV/AIDS: No (03/18/2016 14:37:Kristel Rodrigez RN) Inf Hx Human Papilloma Virus: No (03/18/2016 14:37:Kristel Rodrigez RN) Inf Hx Pt/Partner Genital Herpes: No (03/18/2016 14:37:Kristel Rodrigez RN) Inf Hx Tuberculosis/Exposure: No (03/18/2016 14:37:Kristel Rodrigez RN) Inf Hx Hepatitis B,C: No (03/18/2016 14:37:Kristel Rodrigez RN) Inf Hx Rash or Viral Illness: No (03/18/2016 14:37:Kristel Rodrigez RN) GENETIC HISTORY Gen Hx Age >=35 at JENNIFER: No (03/18/2016 14:37:Kristel Rodrigez RN) Gen Hx Thalassemia: No (03/18/2016 14:37:Kristel Rodrigez RN) Gen Hx Congenital Heart Defect: No (03/18/2016 14:37:Kristel Rodrigez RN) Gen Hx Neural Tube Defect: No (03/18/2016 14:37:Kristel Rodrigez RN) Gen Hx Down's Syndrome: No (03/18/2016 14:37:Kristel Rodrigez RN) Gen Hx Dionicio-Sachs: No (03/18/2016 14:37:Kristel Rodrigez RN) Gen Hx Johnna: No (03/18/2016 14:37:Kristel Rodrigez RN) Gen Hx Familial Dysautonomia: No (03/18/2016 14:37:Kristel Rodrigez RN) Gen Hx Hemophilia/Blood Disorder: No (03/18/2016 14:37:Kristel Rodrigez RN) Gen Hx Muscular Dystrophy: No (03/18/2016 14:37:Kristel Rodrigez RN) Gen Hx Cystic Fibrosis: No (03/18/2016 14:37:Kristel Rodrigez RN) Gen Hx Huntingtons Chorea: No (03/18/2016 14:37:Kristel Rodrigez RN) Gen Hx Mental Retardation/Autism: No (03/18/2016 14:37:Kristel Rodrigez RN) Gen Hx Tested for Fragile X: No (03/18/2016 14:37:Kristel Rodrigez RN) Gen Hx Other Inher/Chromosomal: No (03/18/2016 14:37:Kristel Rodrigez RN) Gen Hx Maternal Metabolic DO: No (03/18/2016 14:37:Kristel Rodrigez RN) Gen Hx Pt Father or FOB Defect: No (03/18/2016 14:37:Kristel Rodrigez RN) Gen Hx Other Genetic History: No (03/18/2016 14:37:Kristel Rodrigez RN) Gen Hx Drugs/Meds since LMP: No (03/18/2016 14:37:Kristel Rodrigez RN)
--- NOTE | 2016-05-07 06:11 | L&D Current Admission ---
Current Admit Datetime Report Generated by CPN: 05/07/2016 06:00 ADMISSION INFORMATION Current Admit Date/Time: 04/29/2016 23:32 (04/29/2016 23:27:Kristel Rodrigez RN) Reason for Admission: Induction of Labor (04/29/2016 23:27:Kristel Rodrigez RN) Chief Complaint: Scheduled Induction of Labor (04/30/2016 19:38:Krsitel Rodrigez RN) Medications During : Methyldopa (Aldomet); Vitamin (04/29/2016 23:27:LORETTA Dye) EGA per Dates: 39.0 (04/29/2016 23:27:QS system process) Method of Arrival: Ambulatory (04/29/2016 23:27:Kristel Rodrigez RN) Admitted From: Home (04/29/2016 23:27:Kristel Rodrigez RN) Reason for Induction: Chronic Hypertension (04/29/2016 23:27:LORETTA Dye) Records Available: Yes (04/29/2016 23:27:Kristel Rodrigez RN) General Admission Information: Reviewed; Updated; Confirmed (04/29/2016 23:27:LORETTA Dye) General Admission Reviewed By: Thi BURGOS (04/29/2016 23:27:LORETTA Dye) BELONGINGS/ADVANCED DIRECTIVES Valuables/Personal Effects: None (04/29/2016 23:27:Kristel Rodrigez RN) Other Belongings: see belongings consents (04/29/2016 23:27:Kristel Rodrigez RN) Disposition of Belongings: Kept with Patient (04/29/2016 23:27:Kristel Rodrigez RN) Advance Direct for Healthcare: No, and Wants No Information (04/29/2016 23:27:Kristel Rodrigez RN) Durable Power of Securities Trader: No (04/29/2016 23:27:Kristel Rodrigez RN) Living Will: No (04/29/2016 23:27:Kristel Rodrigez RN) Organ Donor: Yes (04/29/2016 23:27:Kristel Rodrigez RN) Pt Rights Information Given: Yes (04/29/2016 23:27:Kristel Rodrigez RN) Pt Understands Pt Rights: Yes (04/29/2016 23:27:Kristel Rodrigez RN) LEARNING ASSESSMENT Knowledge Level: Understands L_D Process; Understands Care Activities; Had Pre-Hospital Education; Understands Diagnosis (04/29/2016 23:27:Kristel Rodrigez RN) Barriers to Learning: None (04/29/2016 23:27:Kristel Rodrigez RN) Learning Readiness: Motivated (04/29/2016 23:27:Kristel Rodrigez RN) Learns Best By: 1 to 1 Instruction (04/29/2016 23:27:Kristel Rodrigez RN) Learning Needs: Labor and Delivery Process; Pain Management; Symptoms to Report; Treatment Plan; Medication; Diagnosis; Nutrition; Equipment; Infant Care; Community Resources (04/29/2016 23:27:Kristel Rodrigez RN) DOMESTIC VIOLANCE SCREENING Dom Viol Threatened/Hurt: No (04/29/2016 23:27:Kristel Rodrigez RN) Hx of Abuse/Neglect past 2yrs: No (04/29/2016 23:27:Kristel Rodrigez RN) Feel Unsafe Going Home: No (04/29/2016 23:27:Kristel Rodrigez RN) Addt'l Observ Indicating Abuse: No (04/29/2016 23:27:Kristel Rodrigez RN) Reason Unable to Complete Screen: N/A, Screen Completed (04/29/2016 23:27:Kristel Rodrigez RN) Considered Personal Harm/Suicide: No (04/29/2016 23:27:Kristel Rodrigez RN) NUTRITIONAL/FUNCTIONAL SCREENING Problem with Appetite >5 Days: No (04/29/2016 23:27:Kristel Rodrigez RN) Chew/Swallow Difficulties: No (04/29/2016 23:27:Kristel Rodrigez RN) Inappropriate Wt Gain/Loss: No (04/29/2016 23:27:Kristel Rodrigez RN) Presence Skin Breakdown/Ulcer: No (04/29/2016 23:27:Kristel Rodrigez RN) Special Diet: No (04/29/2016 23:27:Kristel Rodrigez RN) Pt Requests Manager Registration Visit: No (04/29/2016 23:27:Kristel Rodrigez RN) Hx of Any of the Following?: N/A (04/29/2016 23:27:Kristel Rodrigez RN) New Diagnosis of: N/A (04/29/2016 23:27:Kristel Rodrigez RN) Requires Assist w/Ambulation: No (04/29/2016 23:27:Kristel Rodrigez RN) Uses Assist Device to Ambulate: No (04/29/2016 23:27:Kristel Rodrigez RN) Pt Requires Help w/ADL's: No (04/29/2016 23:27:Kristel Rodrigez RN)
--- NOTE | 2016-05-07 06:11 | L&D General Admission ---
General Admit Datetime Report Generated by CPN: 05/07/2016 06:00 INFORMATION Patient Age: 30 (03/07/2016 13:07:QS system process) EDC: 05/06/2016 00:00 (03/18/2016 14:37:LORETTA Faye) : 1 (03/18/2016 14:37:LORETTA Dye) Para: 0 (03/21/2016 13:20:Blessing Abbott RN) Term: 0 (03/18/2016 14:37:LORETTA Dye) : 0 (03/18/2016 14:37:LORETTA Dye) Spontaneous Abortions: 0 (03/18/2016 14:37:LORETTA Dye) Induced Abortions: 0 (03/18/2016 14:37:LORETTA Dye) Livin (03/18/2016 14:37:LORETTA Dye) Cesareans: 0 (03/18/2016 14:37:LORETTA Dye) VBACs: 0 (03/18/2016 14:37:Thi Linares [facility]) Ectopic: 0 (03/18/2016 14:37:Thi Linares [facility]) Multiple Births: 0 (03/18/2016 14:37:Thi Linares [facility]) Baby, Number in Womb: 1 (03/21/2016 13:20:Blessing Abbott RN) CARE Primary Genetic Counselor: [facility] (03/18/2016 14:37:Thi Linares [facility]) Month of 1st Visit: September (03/18/2016 14:37:Thi Linares [facility]) Adequate Care: Yes (03/18/2016 14:37:Thi Linares [facility]) Prepregnancy Weight (lb): 210 (03/18/2016 14:37:Thi Linares [facility]) Prepregnancy Weight (kg): 95.5 (03/18/2016 14:37:QS system process) Height (in): 63 (05/03/2016 09:39:QS system process) ALLERGIES Medication Allergy: No (03/18/2016 14:37:Tih Linares [facility]) Medication Allergies: No Known Allergies (03/21/2016) (03/21/2016 13:08:QS system process) Latex Allergy: No Latex Allergies (03/18/2016 14:37:Thi Linares [facility]) COMMUNICATION Primary Language: Eritrean (03/18/2016 14:37:Thi Linares [facility]) Medical Tx Preferred Language: Eritrean (03/18/2016 14:37:Thi Linares [facility]) Communication Barrier(s): None (03/18/2016 14:37:Thi Linares [facility]) DEMOGRAPHICS Address: [facility] [place] [address] (03/07/2016 13:07:QS system process) Zipcode: [address] (03/07/2016 13:07:QS system process) Home (03/07/2016 13:07:QS system process) Work (03/07/2016 13:07:QS system process) N: [id number] (03/07/2016 13:07:QS system process) Next of Kin Name: SUAD BUCHANAN (03/07/2016 13:07:QS system process) Next of Kin (03/07/2016 13:07:QS system process) Next of Kin Relationship: SPO (03/07/2016 13:07:QS system process) Date of : 1985 (03/07/2016 13:07:QS system process) Marital Status: (03/07/2016 13:07:QS system process) Sex: Female (03/07/2016 13:07:QS system process) 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 [id number] (03/18/2016 14:37:Kristel Rodrigez RN) Marijuana: No (03/18/2016 14:37:Kristel Rodriegz RN) Cocaine: No (03/18/2016 14:37:Kristel Rodrigez RN) Other Illicit Drugs: No (03/18/2016 14:37:Kristel Rodrigez RN) VACCINE HISTORY Influenza Vaccine: Yes (03/18/2016 14:37:Thi Camp, RNC) Influenza Date: 01-29-2016 (03/18/2016 14:37:Thi Camp, RNC) Pneumococcal Vaccine: No (03/18/2016 14:37:Thi Camp, RNC) Tetanus Vaccine: Yes (03/18/2016 14:37:Thi Camp, RNC) Tetanus Date: 02-12-2016 (03/18/2016 14:37:Thi Camp, RNC) Tdap Vaccine: Yes (03/18/2016 14:37:Thi Camp, RNC) Tdap Date: 02-12-2016 (03/18/2016 14:37:Thi Camp, RNC) Hepatitis B Vaccine: Yes (03/18/2016 14:37:Thi Camp, RNC) Hepatitis B Vaccine Date : 06/2012 (03/18/2016 14:37:Thi Camp, RNC) 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: [employer] (03/18/2016 14:37:Kristel Rodrigez RN) Feeding Preference: Breast (03/18/2016 14:37:Kristel Rodrigez RN) Benefit of Breast Feed Discussed: Yes (03/18/2016 14:37:Kristel Rodrigez RN) Circumcision: Yes (03/18/2016 14:37:Kristel Rodrigez RN) Classes Attended: Yes (03/18/2016 14:37:Kristel Rodrigez RN) Tubal Ligation: No (03/18/2016 14:37:LORETTA Dye) Tubal Authorization Signed: N/A (03/18/2016 14:37:LORETTA Dye) Consent: N/A (03/18/2016 14:37:LORETTA Dye) Consent Signed: N/A (03/18/2016 14:37:LORETTA Dye) Pain Management Plans: Natural (03/18/2016 14:37:Kristel Rodrigez RN) Plans for Labor and Delivery: None (03/18/2016 14:37:Kristel Rodrigez RN) Support Person: Suad Buchanan (03/18/2016 14:37:LORETTA Dye) Support Person Relationship: (03/18/2016 14:37:LORETTA Dye) Cultural/Spritual Practice: No (03/18/2016 14:37:Kristel Rodrigez RN) Spir/Cult Dietary Needs: No (03/18/2016 14:37:Kristel Rodrigez RN) LIVING SITUATION/DISCHARGE PLAN Living Arrangements: House (03/18/2016 14:37:Kristel Rodrigez RN) Adequate Access to:: Electric; Heat; Refrigeration; Plumbing/Running water; Phone; Transportation (03/18/2016 14:37:Kristel Rodrigez RN) WIC Program: No (03/18/2016 14:37:Kristel Rodrigez RN) Discharge Glass Grinder Person: Suad (03/18/2016 14:37:Kristel Rodrigez RN) Person to Help after Discharge: Suad (03/18/2016 14:37:Kristel Rodrigez RN) Currently Using Commun Resources: No (03/18/2016 14:37:Kristel Rodrigez RN) Outside Agency/Associate Professor Of Geography: No (03/18/2016 14:37:Kristel Rodrigez RN) Car Seat for Discharge: Yes (03/18/2016 14:37:Kristel Rodrigez RN) Adoption Requested: No (03/18/2016 14:37:Kristel Rodrigez RN) Pt Contact w/ Post : N/A (03/18/2016 14:37:Kristel Rodrigez RN) LABS Blood Type: A Positive (03/18/2016 14:37:Al Samson RN) Antibody Screen: Negative (03/18/2016 14:37:Al Samson RN) Jabier(G) this : Not Applicable (03/18/2016 14:37:Lorna Corbett RN) Hemoglobin: 9.2 L (05/02/2016 07:24:QS system process) Hematocrit: 27.6 L (05/02/2016 07:24:QS system process) MCV: 83 (05/02/2016 07:24:QS system process) Group Beta Strep: Negative (04/08/2016 09:05:Lorna Corbett RN) Gonorrhea: Negative (03/18/2016 14:37:LORETTA Dye) Chlamydia: Negative (03/18/2016 14:37:LORETTA Dye) RPR/VDRL: Nonreactive (03/18/2016 14:37:Al Samson RN) HIV Exposure Test: Negative (03/18/2016 14:37:Al Samson RN) Hepatitis B: Negative (03/18/2016 14:37:LORETTA Dye) Rubella: Immune (03/18/2016 14:37:Al Samson RN) OB/PREVIOUS HISTORY Previous Procedures: None (03/18/2016 14:37:LORETTA Dye) 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; 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 (03/18/2016 14:37:LORETTA Dye) History of Previous : No (03/18/2016 14:37:Kristel Rodrigez RN) History of Gestational Diabetes: No (03/18/2016 14:37:Kristel Rodrigez RN) History of PIH: Yes (03/18/2016 14:37:LORETTA Dye) History of Incompetent Cervix: No (03/18/2016 14:37:Kristel Rodrigez RN) History of Placenta Previa/Abrup: No (03/18/2016 14:37:Kristel Rodrigez RN) History of Macrosomia: No (03/18/2016 14:37:Kristel Rodrigez RN) History of IUGR: No (03/18/2016 14:37:Kristel Rodrigez RN) History of Hemorrhage: No (03/18/2016 14:37:Kristel Rodrigez RN) History of Loss/Stillborn: No (03/18/2016 14:37:Kristel Rodrigez RN) History of : No (03/18/2016 14:37:Kristel Rodrigez RN) History of D (Rh) Sensitization: No (03/18/2016 14:37:Kristel Rodrigez RN) History Recurrent Loss/Stillborn: No (03/18/2016 14:37:Kristel Rodrigez RN) History Depression/PP Depression: No (03/18/2016 14:37:Kristel Rodrigez RN) History of Uterine Anomaly/PEACE: No (03/18/2016 14:37:Kristel Rodrigez RN) History of Infertility: No (03/18/2016 14:37:Kristel Rodrigez RN) History of ART Treatment: No (03/18/2016 14:37:Kristel Rodrigez RN) History of PEACE: No (03/18/2016 14:37:Kristel Rodrigez RN) Comments Obstetrical History: G-1 CHTN, PCOS, maternal obesity (03/18/2016 14:37:LORETTA Dye) MEDICAL HISTORY Med Hx Diabetes: No (03/18/2016 14:37:Kristel Rodrigez RN) Med Hx Hypertension: Yes (03/18/2016 14:37:LORETTA Dye) Med Hx Heart Disease: No (03/18/2016 14:37:Kristel Rodrigez RN) Med Hx Autoimmune Disorder: No (03/18/2016 14:37:Kristel Rodrigez RN) Med Hx Kidney Disease/UTI: No (03/18/2016 14:37:Kristel Rodrigez RN) Med Hx Neurologic/Epilepsy: No (03/18/2016 14:37:Kristel Rodrigez RN) Med Hx Psychiatric Disorders: No (03/18/2016 14:37:Kristel Rodrigez RN) Med Hx Hepatitis/Liver Disease: No (03/18/2016 14:37:Kristel Rodrigez RN) Med Hx Varicosities/Phlebitis: No (03/18/2016 14:37:Kristel Rodrigez RN) Med Hx Thyroid Dysfunction: No (03/18/2016 14:37:Kristel Rodrigez RN) Med Hx Trauma/Violence: No (03/18/2016 14:37:Kristel Rodrigez RN) Med Hx Blood Transfusion: No (03/18/2016 14:37:Kristel Rodrigez RN) Med Hx Pulmonary (Asthma,TB): No (03/18/2016 14:37:Kristel Rodrigez RN) Med Hx Breast: No (03/18/2016 14:37:Kristel Rodrigez RN) Med Hx PINION SORTER Surgery: No (03/18/2016 14:37:Kristel Rodrigez RN) Med Hx Hospitalization/Surgery: No (03/18/2016 14:37:Kristel Rodrigez RN) Med Hx Anesthetic Complications: No (03/18/2016 14:37:Kristel Rodrigez RN) Med Hx Abnormal Pap Smear: Yes (03/18/2016 14:37:LORETTA Dye) Other Medical Diseases: No (03/18/2016 14:37:Kristel Rodrigez RN) Med Hx Significant Family Hx: No (03/18/2016 14:37:Kristel Rodrigez RN) Details of Med/Surg Hx: CHTN on [place], PCOS , H/O abnormal pap 2014 normal pap 2015 (03/18/2016 14:37:LORETTA Dye) INFECTIOUS HISTORY Inf Hx Gonorrhea: No (03/18/2016 14:37:Kristel Rodrigez RN) Inf Hx Chlamydia: No (03/18/2016 14:37:Kristel Rodrigez RN) Inf Hx Syphilis: No (03/18/2016 14:37:Kristel Rodrigez RN) Inf Hx HIV/AIDS: No (03/18/2016 14:37:Kristel Rodrigez RN) Inf Hx Human Papilloma Virus: No (03/18/2016 14:37:Kristel Rodrigez RN) Inf Hx Pt/Partner Genital Herpes: No (03/18/2016 14:37:Kristel Rodrigez RN) Inf Hx Tuberculosis/Exposure: No (03/18/2016 14:37:Kristel Rodrigez RN) Inf Hx Hepatitis B,C: No (03/18/2016 14:37:Kristel Rodrigez RN) Inf Hx Rash or Viral Illness: No (03/18/2016 14:37:Kristel Rodrigez RN) GENETIC HISTORY Gen Hx Age >=35 at JENNIFER: No (03/18/2016 14:37:Kristel Rodrigez RN) Gen Hx Thalassemia: No (03/18/2016 14:37:Kristel Rodrigez RN) Gen Hx Congenital Heart Defect: No (03/18/2016 14:37:Kristel Rodrigez RN) Gen Hx Neural Tube Defect: No (03/18/2016 14:37:Kristel Rodrigez RN) Gen Hx Down's Syndrome: No (03/18/2016 14:37:Kristel Rodrigez RN) Gen Hx Dionicio-Sachs: No (03/18/2016 14:37:Kristel Rodrigez RN) Gen Hx Johnna: No (03/18/2016 14:37:Kristel Rodrigez RN) Gen Hx Familial Dysautonomia: No (03/18/2016 14:37:Kristel Rodrigez RN) Gen Hx Hemophilia/Blood Disorder: No (03/18/2016 14:37:Kristel Rodrigez RN) Gen Hx Muscular Dystrophy: No (03/18/2016 14:37:Kristel Rodrigez RN) Gen Hx Cystic Fibrosis: No (03/18/2016 14:37:Kristel Rodrigez RN) Gen Hx Huntingtons Chorea: No (03/18/2016 14:37:Kristel Rodrigez RN) Gen Hx Mental Retardation/Autism: No (03/18/2016 14:37:Kristel Rodrigez RN) Gen Hx Tested for Fragile X: No (03/18/2016 14:37:Kristel Rodrigez RN) Gen Hx Other Inher/Chromosomal: No (03/18/2016 14:37:Kristel Rodrigez RN) Gen Hx Maternal Metabolic DO: No (03/18/2016 14:37:Kristel Rodrigez RN) Gen Hx Pt Father or FOB Defect: No (03/18/2016 14:37:Kristel Rodrigez RN) Gen Hx Other Genetic History: No (03/18/2016 14:37:Kristel Rodrigez RN) Gen Hx Drugs/Meds since LMP: No (03/18/2016 14:37:Kristel Rodrigez RN)
--- NOTE | 2016-05-08 06:10 | L&D General Admission ---
General Admit Datetime Report Generated by CPN: 05/08/2016 06:00 INFORMATION Patient Age: 30 (03/07/2016 13:07:QS system process) EDC: 05/06/2016 00:00 (03/18/2016 14:37:LORETTA Faye) : 1 (03/18/2016 14:37:LORETTA Dye) Para: 0 (03/21/2016 13:20:Blessing Abbott RN) Term: 0 (03/18/2016 14:37:LORETTA Dye) : 0 (03/18/2016 14:37:LORETTA Dye) Spontaneous Abortions: 0 (03/18/2016 14:37:LORETTA Dye) Induced Abortions: 0 (03/18/2016 14:37:LORETTA Dye) Livin (03/18/2016 14:37:LORETTA Dye) Cesareans: 0 (03/18/2016 14:37:LORETTA Dye) VBACs: 0 (03/18/2016 14:37:Thi Linares [facility]) Ectopic: 0 (03/18/2016 14:37:Thi Linares [facility]) Multiple Births: 0 (03/18/2016 14:37:Thi Linares [facility]) Baby, Number in Womb: 1 (03/21/2016 13:20:Blessing Abbott RN) CARE Primary Stenographer Print Shop: [facility] (03/18/2016 14:37:Thi Linares [facility]) Month of 1st Visit: September (03/18/2016 14:37:Thi Linares [facility]) Adequate Care: Yes (03/18/2016 14:37:Thi Linares [facility]) Prepregnancy Weight (lb): 210 (03/18/2016 14:37:Thi Linares [facility]) Prepregnancy Weight (kg): 95.5 (03/18/2016 14:37:QS system process) Height (in): 63 (05/03/2016 09:39:QS system process) ALLERGIES Medication Allergy: No (03/18/2016 14:37:Thi Linares [facility]) Medication Allergies: No Known Allergies (03/21/2016) (03/21/2016 13:08:QS system process) Latex Allergy: No Latex Allergies (03/18/2016 14:37:Thi Linares [facility]) COMMUNICATION Primary Language: Panamanian (03/18/2016 14:37:Thi Linares [facility]) Medical Tx Preferred Language: Panamanian (03/18/2016 14:37:Thi Linares [facility]) Communication Barrier(s): None (03/18/2016 14:37:Thi Linares [facility]) DEMOGRAPHICS Address: [facility] [place] [address] [place] [address] (03/07/2016 13:07:QS system process) Zipcode: [address] (03/07/2016 13:07:QS system process) Home (03/07/2016 13:07:QS system process) Work (03/07/2016 13:07:QS system process) N: [phone] (03/07/2016 13:07:QS system process) Next of Kin Name: SUAD BUCHANAN (03/07/2016 13:07:QS system process) Next of Kin (03/07/2016 13:07:QS system process) Next of Kin Relationship: SPO (03/07/2016 13:07:QS system process) Date of : 1985 (03/07/2016 13:07:QS system process) Marital Status: (03/07/2016 13:07:QS system process) Sex: Female (03/07/2016 13:07:QS system process) 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 [id number] (03/18/2016 14:37:Kristel Rodrigez RN) Marijuana: No (03/18/2016 14:37:Kristel Rodrigez RN) Cocaine: No (03/18/2016 14:37:Kristel Rodrigez RN) Other Illicit Drugs: No (03/18/2016 14:37:Kristel Rodrigez RN) VACCINE HISTORY Influenza Vaccine: Yes (03/18/2016 14:37:Thi Camp, RNC) Influenza Date: 01-29-2016 (03/18/2016 14:37:Thi Camp, RNC) Pneumococcal Vaccine: No (03/18/2016 14:37:Thi Camp, RNC) Tetanus Vaccine: Yes (03/18/2016 14:37:Thi Camp, RNC) Tetanus Date: 02-12-2016 (03/18/2016 14:37:Thi Camp, RNC) Tdap Vaccine: Yes (03/18/2016 14:37:Thi Camp, RNC) Tdap Date: 02-12-2016 (03/18/2016 14:37:Thi Camp, RNC) Hepatitis B Vaccine: Yes (03/18/2016 14:37:Thi Camp, RNC) Hepatitis B Vaccine Date : 06/2012 (03/18/2016 14:37:Thi Camp, RNC) Outside Repairer Special: [facility] (03/18/2016 14:37:Kristel Rodrigez RN) Feeding Preference: Breast (03/18/2016 14:37:Kristel Rodrigez RN) Benefit of Breast Feed Discussed: Yes (03/18/2016 14:37:Kristel Rodrigez RN) Circumcision: Yes (03/18/2016 14:37:Kristel Rodrigez RN) Classes Attended: Yes (03/18/2016 14:37:Kristel Rodrigez RN) Tubal Ligation: No (03/18/2016 14:37:LORETTA Dye) Tubal Authorization Signed: N/A (03/18/2016 14:37:LORETTA Dye) Consent: N/A (03/18/2016 14:37:LORETTA Dye) Consent Signed: N/A (03/18/2016 14:37:LORETTA Dye) Pain Management Plans: Natural (03/18/2016 14:37:Kristel Rodrigez RN) Plans for Labor and Delivery: None (03/18/2016 14:37:Kristel Rodrigez RN) Support Person: Suad Buchanan (03/18/2016 14:37:LORETTA Dye) Support Person Relationship: (03/18/2016 14:37:LORETTA Dye) Cultural/Spritual Practice: No (03/18/2016 14:37:Kristel Rodrigez RN) Spir/Cult Dietary Needs: No (03/18/2016 14:37:Kristel Rodrigez RN) LIVING SITUATION/DISCHARGE PLAN Living Arrangements: House (03/18/2016 14:37:Kristel Rodrigez RN) Adequate Access to:: Electric; Heat; Refrigeration; Plumbing/Running water; Phone; Transportation (03/18/2016 14:37:Kristel Rodrigez RN) WIC Program: No (03/18/2016 14:37:Kristel Rodrigez RN) Discharge Chiropractic Doctor Person: Suad (03/18/2016 14:37:Kristel Rodrigez RN) Person to Help after Discharge: Suad (03/18/2016 14:37:Kristel Rodrigez RN) Currently Using Commun Resources: No (03/18/2016 14:37:Kristel Rodrigez RN) Outside Agency/Seat Maker: No (03/18/2016 14:37:Kristel Rodrigez RN) Car Seat for Discharge: Yes (03/18/2016 14:37:Kristel Rodrigez RN) Adoption Requested: No (03/18/2016 14:37:Kristel Rodrigez RN) Pt Contact w/ Post : N/A (03/18/2016 14:37:Kristel Rodrigez RN) LABS Blood Type: A Positive (03/18/2016 14:37:Al Samson RN) Antibody Screen: Negative (03/18/2016 14:37:Al Samson RN) Jabier(G) this : Not Applicable (03/18/2016 14:37:Lorna Corbett RN) Hemoglobin: 9.2 L (05/02/2016 07:24:QS system process) Hematocrit: 27.6 L (05/02/2016 07:24:QS system process) MCV: 83 (05/02/2016 07:24:QS system process) Group Beta Strep: Negative (04/08/2016 09:05:Lorna Corbett RN) Gonorrhea: Negative (03/18/2016 14:37:LORETTA Dye) Chlamydia: Negative (03/18/2016 14:37:LORETTA Dye) RPR/VDRL: Nonreactive (03/18/2016 14:37:lA Samson RN) HIV Exposure Test: Negative (03/18/2016 14:37:Al Samson RN) Hepatitis B: Negative (03/18/2016 14:37:LORETTA Dye) Rubella: Immune (03/18/2016 14:37:Al Samson RN) OB/PREVIOUS HISTORY Previous Procedures: None (03/18/2016 14:37:LORETTA Dye) 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; 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 (03/18/2016 14:37:LORETTA Dye) History of Previous : No (03/18/2016 14:37:Kristel Rodrigez RN) History of Gestational Diabetes: No (03/18/2016 14:37:Kristel Rodrigez RN) History of PIH: Yes (03/18/2016 14:37:LORETTA Dye) History of Incompetent Cervix: No (03/18/2016 14:37:Kristel Rodrigez RN) History of Placenta Previa/Abrup: No (03/18/2016 14:37:Kristel Rodrigez RN) History of Macrosomia: No (03/18/2016 14:37:Kristel Rodrigez RN) History of IUGR: No (03/18/2016 14:37:Kristel Rodrigez RN) History of Hemorrhage: No (03/18/2016 14:37:Kristel Rodrigez RN) History of Loss/Stillborn: No (03/18/2016 14:37:Kristel Rodrigez RN) History of : No (03/18/2016 14:37:Kristel Rodrigez RN) History of D (Rh) Sensitization: No (03/18/2016 14:37:Kristel Rodrigez RN) History Recurrent Loss/Stillborn: No (03/18/2016 14:37:Kristel Rodrigez RN) History Depression/PP Depression: No (03/18/2016 14:37:Kristel Rodrigez RN) History of Uterine Anomaly/PEACE: No (03/18/2016 14:37:rKistel Rodrigez RN) History of Infertility: No (03/18/2016 14:37:Kristel Rodrigez RN) History of ART Treatment: No (03/18/2016 14:37:Kristel Rodrigez RN) History of PEACE: No (03/18/2016 14:37:Kristel Rodrigez RN) Comments Obstetrical History: G-1 CHTN, PCOS, maternal obesity (03/18/2016 14:37:LORETTA Dye) MEDICAL HISTORY Med Hx Diabetes: No (03/18/2016 14:37:Kristel Rodrigez RN) Med Hx Hypertension: Yes (03/18/2016 14:37:LORETTA Dye) Med Hx Heart Disease: No (03/18/2016 14:37:Kristel Rodrigez RN) Med Hx Autoimmune Disorder: No (03/18/2016 14:37:Kristel Rodrigez RN) Med Hx Kidney Disease/UTI: No (03/18/2016 14:37:Kristel Rodrigez RN) Med Hx Neurologic/Epilepsy: No (03/18/2016 14:37:Kristel Rodrigez RN) Med Hx Psychiatric Disorders: No (03/18/2016 14:37:Kristel Rodrigez RN) Med Hx Hepatitis/Liver Disease: No (03/18/2016 14:37:Kristel Rodrigez RN) Med Hx Varicosities/Phlebitis: No (03/18/2016 14:37:Kristel Rodrigez RN) Med Hx Thyroid Dysfunction: No (03/18/2016 14:37:Kristel Rodrigez RN) Med Hx Trauma/Violence: No (03/18/2016 14:37:Kristel Rodrigez RN) Med Hx Blood Transfusion: No (03/18/2016 14:37:Kristel Rodrigez RN) Med Hx Pulmonary (Asthma,TB): No (03/18/2016 14:37:Kristel Rodrigez RN) Med Hx Breast: No (03/18/2016 14:37:Kristel Rodrigez RN) Med Hx WOOD HEEL BACK LINER Surgery: No (03/18/2016 14:37:Kristel Rodrigez RN) Med Hx Hospitalization/Surgery: No (03/18/2016 14:37:Kristel Rodrigez RN) Med Hx Anesthetic Complications: No (03/18/2016 14:37:Kristel Rodrigez RN) Med Hx Abnormal Pap Smear: Yes (03/18/2016 14:37:LORETTA Dye) Other Medical Diseases: No (03/18/2016 14:37:Kristel Rodrigez RN) Med Hx Significant Family Hx: No (03/18/2016 14:37:Kristel Rodrigez RN) Details of Med/Surg Hx: CHTN on [place], PCOS , H/O abnormal pap 2014 normal pap 2015 (03/18/2016 14:37:LORETTA Dye) INFECTIOUS HISTORY Inf Hx Gonorrhea: No (03/18/2016 14:37:Kristel Rodrigez RN) Inf Hx Chlamydia: No (03/18/2016 14:37:Kristel Rodrigez RN) Inf Hx Syphilis: No (03/18/2016 14:37:Kristel Rodrigez RN) Inf Hx HIV/AIDS: No (03/18/2016 14:37:Kristel Rodrigez RN) Inf Hx Human Papilloma Virus: No (03/18/2016 14:37:Kristel Rodrigez RN) Inf Hx Pt/Partner Genital Herpes: No (03/18/2016 14:37:Kristel Rodrigez RN) Inf Hx Tuberculosis/Exposure: No (03/18/2016 14:37:Kristel Rodrigez RN) Inf Hx Hepatitis B,C: No (03/18/2016 14:37:Kristel Rodrigez RN) Inf Hx Rash or Viral Illness: No (03/18/2016 14:37:Kristel Rodrigez RN) GENETIC HISTORY Gen Hx Age >=35 at JENN[facility]: No (03/18/2016 14:37:Kristel Rodrigez RN) Gen Hx Thalassemia: No (03/18/2016 14:37:Kristel Rodrigez RN) Gen Hx Congenital Heart Defect: No (03/18/2016 14:37:Kristel Rodrigez RN) Gen Hx Neural Tube Defect: No (03/18/2016 14:37:Kristel Rodrigez RN) Gen Hx Down's Syndrome: No (03/18/2016 14:37:Kristel Rodrigez RN) Gen Hx Dionicio-Sachs: No (03/18/2016 14:37:Kristel Rodrigez RN) Gen Hx Johnna: No (03/18/2016 14:37:Kristel Rodrigez RN) Gen Hx Familial Dysautonomia: No (03/18/2016 14:37:Kristel Rodrigez RN) Gen Hx Hemophilia/Blood Disorder: No (03/18/2016 14:37:Kristel Rodrigez RN) Gen Hx Muscular Dystrophy: No (03/18/2016 14:37:Kristel Rodrigez RN) Gen Hx Cystic Fibrosis: No (03/18/2016 14:37:Kristel Rodrigez RN) Gen Hx Huntingtons Chorea: No (03/18/2016 14:37:Kristel Rodrigez RN) Gen Hx Mental Retardation/Autism: No (03/18/2016 14:37:Kristel Rodrigez RN) Gen Hx Tested for Fragile X: No (03/18/2016 14:37:Kristel Rodrigez RN) Gen Hx Other Inher/Chromosomal: No (03/18/2016 14:37:Kristel Rodrigez RN) Gen Hx Maternal Metabolic DO: No (03/18/2016 14:37:Kristel Rodrigez RN) Gen Hx Pt Father or FOB Defect: No (03/18/2016 14:37:Kristel Rodrigez RN) Gen Hx Other Genetic History: No (03/18/2016 14:37:Kristel Rodrigez RN) Gen Hx Drugs/Meds since LMP: No (03/18/2016 14:37:Kristel Rodrigez RN)
== END 2016-05-03 12:45 | disposition home or self-care (01) | DRG 765 ==
LOC: LR 20:01 → 2S 05-01 20:12
PROVIDERS: ADMIT Obstetrics & Gynecology; ATTEND Specialist
PROC: 4A1HXCZ Monitoring of Products of Conception, Cardiac Rate, External Approach (ICD-10-PCS; 2016-04-29)
PROC: 10D00Z1 Extraction of Products of Conception, Low, Open Approach (ICD-10-PCS; principal; 2016-05-01)
PROC: 10H07YZ Insertion of Other Device into Products of Conception, Via Natural or Artificial Opening (ICD-10-PCS; 2016-05-01)
PROC: 4A1J7BZ Monitoring of Products of Conception, Nervous Pressure, Via Natural or Artificial Opening (ICD-10-PCS; 2016-05-01)
PROC: 10H073Z Insertion of Monitoring Electrode into Products of Conception, Via Natural or Artificial Opening (ICD-10-PCS; 2016-05-01)
PROC: 10907ZC Drainage of Amniotic Fluid, Therapeutic from Products of Conception, Via Natural or Artificial Opening (ICD-10-PCS; 2016-05-01)
DX: O62.2 Other uterine inertia (principal); O10.92 Unspecified pre-existing hypertension complicating childbirth; Z68.41 Body mass index [BMI] 40.0-44.9, adult; D62 Acute posthemorrhagic anemia; O69.81X0 Labor and delivery complicated by cord around neck, without compression, not applicable or unspecified; O99.214 Obesity complicating childbirth; E66.9 Obesity, unspecified; O99.02 Anemia complicating childbirth; Z37.0 Single live birth; Z3A.39 39 weeks gestation of pregnancy
CPT/HCPCS: 1961; 36415; 80053; 80307; 81001; 82570; 83615; 84550; 85025; 85027; 86592; 86850; 86900; 86901; 88307; 94799; C1765; J0131; J0690; J1100; J1170; J1885; J2250; J2300; J2370; J2405; J2550; J2590; J2765; J3010; J3490; S0028

== ENCOUNTER → 2016-09-19 | Outpatient (CLI) | payer BC ==
[2016-09-19 15:47] LABS: ANION GAP 12 (5-19); BLOOD UREA NITROGEN 14 mg/dL (7-20); CARBON DIOXIDE 30 mmol/L (22-30); CHLORIDE 98 mmol/L (98-107); GLUCOSE 110 mg/dL (75-110); POTASSIUM 3.2 mmol/L (3.6-5.0); SODIUM 140.2 mmol/L (137-145)
== END ==
LOC: LAB 15:15
PROVIDERS: ATTEND Specialist
DX: I10 Essential (primary) hypertension (principal)
CPT/HCPCS: 36415; 80048; 84443

== ENCOUNTER → 2016-11-11 | Outpatient (CLI) | payer BC | LOC: LAB 15:05 | PROVIDERS: ATTEND Specialist | DX: E87.6 Hypokalemia (principal) | CPT/HCPCS: 36415; 84132 ==

== ENCOUNTER → 2017-01-07 | Outpatient (CLI) | payer BC ==
[2017-01-07 11:01] LABS: ALANINE AMINOTRANSFERASE 29 U/L (9-52); ALBUMIN 4.7 g/dL (3.5-5.0); ALKALINE PHOSPHATASE 54 U/L (38-126); ANION GAP 14 (5-19); ASPARTATE AMINO TRANSFERASE 17 U/L (14-36); BILIRUBIN,DIRECT 0.3 mg/dL (0.0-0.4); BILIRUBIN,TOTAL 0.5 mg/dL (0.2-1.3); BLOOD UREA NITROGEN 12 mg/dL (7-20); CALCIUM 10.2 mg/dL (8.4-10.2); CARBON DIOXIDE 26 mmol/L (22-30); CHLORIDE 102 mmol/L (98-107); GLUCOSE 101 mg/dL (75-110); POTASSIUM 3.8 mmol/L (3.6-5.0); SODIUM 141.8 mmol/L (137-145); TOTAL PROTEIN 7.2 g/dL (6.3-8.2)
== END ==
LOC: LAB 10:21
PROVIDERS: ATTEND Specialist
DX: I10 Essential (primary) hypertension (principal); E55.9 Vitamin D deficiency, unspecified
CPT/HCPCS: 36415; 80053; 82306; 83036

== ENCOUNTER → 2018-03-24 | Outpatient (CLI) | payer BC ==
[2018-03-24 07:14] LABS: ABSOLUTE EOSINOPHILS # (AUTO) 0.1 10^3/uL (0.0-0.6); ABSOLUTE LYMPHOCYTES (AUTO) 1.1 10^3/uL (0.5-4.7); ABSOLUTE MONOCYTES (AUTO) 0.4 10^3/uL (0.1-1.4); ABSOLUTE NEUT (AUTO) 3.5 10^3/uL (1.7-8.2); BASOPHILS % (AUTO) 0.6 % (0-2); HEMATOCRIT 40.5 % (36.0-47.0); HEMOGLOBIN 13.7 g/dL (12.0-15.5); LYMPHOCYTES % (AUTO) 22.4 % (13-45); MEAN CORPUSCULAR HEMOGLOBIN 28.1 pg (27.0-33.4); MEAN CORPUSCULAR HGB CONC 33.8 g/dL (32.0-36.0); MEAN CORPUSCULAR VOLUME 83 fl (80-97); MONOCYTES % (AUTO) 6.9 % (3-13); PLATELET COUNT 207 10^3/uL (150-450); RED BLOOD COUNT 4.86 10^6/uL (3.72-5.28); SEGMENTED NEUTROPHILS % (AUTO) 68.1 % (42-78); TOTAL CELLS COUNTED % (AUTO) 100 %; WHITE BLOOD COUNT 5.1 10^3/uL (4.0-10.5)
[2018-03-24 07:37] LABS: ALANINE AMINOTRANSFERASE 24 U/L (9-52); ALBUMIN 4.4 g/dL (3.5-5.0); ALKALINE PHOSPHATASE 46 U/L (38-126); ANION GAP 11 (5-19); ASPARTATE AMINO TRANSFERASE 18 U/L (14-36); BILIRUBIN,DIRECT 0.2 mg/dL (0.0-0.4); BILIRUBIN,TOTAL 0.7 mg/dL (0.2-1.3); BLOOD UREA NITROGEN 23 mg/dL (7-20); CALCIUM 9.7 mg/dL (8.4-10.2); CARBON DIOXIDE 33 mmol/L (22-30); CHLORIDE 99 mmol/L (98-107); CHOLESTEROL 214.45 mg/dL (0-200); GLUCOSE 87 mg/dL (75-110); POTASSIUM 4.2 mmol/L (3.6-5.0); SODIUM 142.6 mmol/L (137-145); TOTAL PROTEIN 7.2 g/dL (6.3-8.2); TRIGLYCERIDES 132 mg/dL (<150); URIC ACID 5.5 mg/dL (2.5-6.2)
[2018-03-24 07:48] LABS: DIRECT LDL 151 mg/dL (<100)
[2018-03-24 07:53] LABS: RHEUMATOID FACTOR NEGATIVE (NEGATIVE)
[2018-03-26 18:58] LABS: FREE T3 3.81 pg/mL (2.77-5.27); FREE T4 (FREE THYROXINE) 1.21 ng/dL (0.78-2.19)
== END ==
LOC: LAB 07:02
PROVIDERS: ATTEND Family Medicine Geriatric Medicine
DX: I10 Essential (primary) hypertension (principal); M13.0 Polyarthritis, unspecified; E66.9 Obesity, unspecified; Z79.899 Other long term (current) drug therapy
CPT/HCPCS: 36415; 80053; 80061; 84439; 84443; 84481; 84550; 85025; 86038; 86060; 86225; 86430

== ENCOUNTER → 2018-03-25 | Outpatient (CLI) | payer BC ==
--- NOTE | 2018-03-25 16:09 | RADIOLOGY REPORT (SQ) ---
EXAM DESCRIPTION: CT SINUSES FOR ENT COMPLETED DATE/TIME: 03/25/2018 2:42 pm REASON FOR STUDY: J01.91 ACUTE RECURRENT SINUSITIS, UNSPECIFIED J01.91 ACUTE RECURRENT SINUSITIS, U NSPECIFIED COMPARISON: None. TECHNIQUE: Noncontrast scanning through the paranasal sinuses using bone algorithm. Reconstructed MPR images reviewed. All images stored on PACS. Images acquired for image guided surgery. All CT scanners at this facility use dose modulation, iterative reconstruction, and/or weight based d osing when appropriate to reduce radiation dose to as low as reasonably achievable (ALARA). [facility]: Dose Right [facility]: CareDose [facility]: Dose Right [facility]: Teradose 4D [facility]: Tales2Go RADIATION DOSE: 48 mGy. FINDINGS: NASAL PASSAGES: Clear. No polyps or masses. OSTEOMEATAL UNITS AND NASOFRONTAL DUCTS: Patent. No agger nasi or Renée cells. MAXILLARY SINUSES: Well pneumatized. Benign mucus or serous retention cysts along will anterior infe rior right and left maxillary sinus. Maxillary sinus outlets are patent. ETHMOID SINUSES: Well-pneumatized and clear. SPHENOID SINUSES: Well-pneumatized and clear. No sphenoethmoid air cells. Left pneumatized pterygoid recess. No pneumatized dorsal sella. FRONTAL SINUSES: Well-pneumatized and clear. MASTOID AIR CELLS: Clear. ORBITS: Normal and symmetrical. NASAL SEPTUM: Leftward nasal septal deviation with moderate size left nasal septal spur coronal image 90 TEMPOROMANDIBULAR JOINTS: Normal. TURBINATES: No pneumatized turbinates. MUCOPERIOSTEAL THICKENING: No. MUCOCELE: No. OTHER: No other significant findings. IMPRESSION: NO EVIDENCE OF ACUTE SINUSITIS. TECHNICAL DOCUMENTATION: JOB ID: [id number] Quality ID # [id number]: Final reports with documentation of one or more dose reduction techniques (e.g., Au tomated exposure control, adjustment of the mA and/or kV according to patient size, use of iterative reconstruction technique) 2010 [employer]™ [employer]- All Rights Reserved Reading location - IP/workstation name: [email or web address]
== END ==
LOC: RAD 14:28
PROVIDERS: ATTEND Otolaryngology
DX: J01.91 Acute recurrent sinusitis, unspecified (principal)
CPT/HCPCS: 70486

== ENCOUNTER → 2018-04-07 | Outpatient (CLI) | payer BC ==
[2018-04-09 11:39] LABS: CHLAMYDIA PREQUOT NAA Negative (Negative)
[2018-04-09 12:48] LABS: GONOCOCCUS PREQUOT (CYTO) NAA Negative (Negative)
== END ==
LOC: OD 10:27
PROVIDERS: ATTEND Obstetrics & Gynecology
DX: Z00.00 Encounter for general adult medical examination without abnormal findings (principal); Z12.4 Encounter for screening for malignant neoplasm of cervix; Z11.51 Encounter for screening for human papillomavirus (HPV); Z13.21 Encounter for screening for nutritional disorder; Z11.3 Encounter for screening for infections with a predominantly sexual mode of transmission
CPT/HCPCS: 36415; 82306; 87491; 87591; 87624; 88142

== ENCOUNTER → 2018-05-07 | Outpatient (CLI) | payer BC ==
[2018-05-09 08:38] LABS: HEPATITIS A AB IGM Negative (Negative); HEPATITIS B CORE AB IGM Negative (Negative); HEPATITS B SURFACE ANTIGEN Negative (Negative)
[2018-05-09 08:54] LABS: HEPATITIS C VIRUS ANTIBODY <0.1 s/co ratio (0.0-0.9)
[2018-05-11 07:43] LABS: CYCLIC CITRUL PEPTIDE IGG/A AB 5 units (0-19)
== END ==
LOC: OD 17:01
PROVIDERS: ATTEND Physician Assistant
DX: R76.9 Abnormal immunological finding in serum, unspecified (principal); R53.82 Chronic fatigue, unspecified
CPT/HCPCS: 36415; 80074; 85652; 86140; 86200

== ENCOUNTER → 2018-06-01 | Outpatient (CLI) | payer BC | LOC: LAB 15:28 | PROVIDERS: ATTEND Otolaryngology | DX: J01.91 Acute recurrent sinusitis, unspecified (principal); J30.9 Allergic rhinitis, unspecified | CPT/HCPCS: 36415; 82785; 86003 ==

== ENCOUNTER → 2018-06-14 | Outpatient (CLI) | payer BC ==
[2018-06-15 09:10] LABS: THYROXINE T4 8.5 ug/dL (5.53-11.0)
[2018-06-15 09:23] LABS: TOTAL T3 1.2 ng/mL (0.970-1.69)
== END ==
LOC: LAB 16:42
PROVIDERS: ATTEND Family Medicine Geriatric Medicine
DX: R94.6 Abnormal results of thyroid function studies (principal)
CPT/HCPCS: 36415; 84436; 84443; 84480

== ENCOUNTER → 2018-06-16 | Outpatient (CLI) | payer BC ==
[2018-06-16 12:49] LABS: ABSOLUTE EOSINOPHILS # (AUTO) 0.1 10^3/uL (0.0-0.6); ABSOLUTE MONOCYTES (AUTO) 0.5 10^3/uL (0.1-1.4); ABSOLUTE NEUT (AUTO) 4.2 10^3/uL (1.7-8.2); BASOPHILS % (AUTO) 0.3 % (0-2); EOSINOPHILS % (AUTO) 0.9 % (0-6); HEMATOCRIT 40.7 % (36.0-47.0); HEMOGLOBIN 13.9 g/dL (12.0-15.5); LYMPHOCYTES % (AUTO) 18.1 % (13-45); MEAN CORPUSCULAR HEMOGLOBIN 28.4 pg (27.0-33.4); MEAN CORPUSCULAR HGB CONC 34.2 g/dL (32.0-36.0); MEAN CORPUSCULAR VOLUME 83 fl (80-97); MONOCYTES % (AUTO) 8.5 % (3-13); PLATELET COUNT 218 10^3/uL (150-450); RED CELL DISTRIBUTION WIDTH 14.2 % (11.5-14.0); SEGMENTED NEUTROPHILS % (AUTO) 72.2 % (42-78); TOTAL CELLS COUNTED % (AUTO) 100 %; WHITE BLOOD COUNT 5.8 10^3/uL (4.0-10.5)
[2018-06-16 13:15] LABS: ALANINE AMINOTRANSFERASE 18 U/L (9-52); ALBUMIN 4.9 g/dL (3.5-5.0); ALKALINE PHOSPHATASE 49 U/L (38-126); ANION GAP 11 (5-19); ASPARTATE AMINO TRANSFERASE 17 U/L (14-36); BILIRUBIN,DIRECT 0.2 mg/dL (0.0-0.4); BILIRUBIN,TOTAL 0.8 mg/dL (0.2-1.3); BLOOD UREA NITROGEN 18 mg/dL (7-20); CALCIUM 9.9 mg/dL (8.4-10.2); CARBON DIOXIDE 34 mmol/L (22-30); CHLORIDE 96 mmol/L (98-107); GLUCOSE 87 mg/dL (75-110); SODIUM 140.8 mmol/L (137-145); TOTAL PROTEIN 7.5 g/dL (6.3-8.2)
== END ==
LOC: OD 12:21
PROVIDERS: ATTEND Physician Assistant
DX: R76.9 Abnormal immunological finding in serum, unspecified (principal)
CPT/HCPCS: 36415; 80053; 85025

== ENCOUNTER → 2018-08-16 | Outpatient (CLI) | payer BC ==
[2018-08-16 08:21] LABS: ABSOLUTE EOSINOPHILS # (AUTO) 0.1 10^3/uL (0.0-0.6); ABSOLUTE LYMPHOCYTES (AUTO) 1.7 10^3/uL (0.5-4.7); ABSOLUTE MONOCYTES (AUTO) 0.5 10^3/uL (0.1-1.4); ABSOLUTE NEUT (AUTO) 3.7 10^3/uL (1.7-8.2); BASOPHILS % (AUTO) 0.5 % (0-2); EOSINOPHILS % (AUTO) 2.1 % (0-6); HEMATOCRIT 41.4 % (36.0-47.0); HEMOGLOBIN 14.1 g/dL (12.0-15.5); LYMPHOCYTES % (AUTO) 27.7 % (13-45); MEAN CORPUSCULAR HGB CONC 34.1 g/dL (32.0-36.0); MEAN CORPUSCULAR VOLUME 85 fl (80-97); MONOCYTES % (AUTO) 8.2 % (3-13); PLATELET COUNT 211 10^3/uL (150-450); RED BLOOD COUNT 4.87 10^6/uL (3.72-5.28); RED CELL DISTRIBUTION WIDTH 14.4 % (11.5-14.0); SEGMENTED NEUTROPHILS % (AUTO) 61.5 % (42-78); TOTAL CELLS COUNTED % (AUTO) 100 %
[2018-08-16 08:36] LABS: ALANINE AMINOTRANSFERASE 20 U/L (9-52); ALBUMIN 4.5 g/dL (3.5-5.0); ALKALINE PHOSPHATASE 42 U/L (38-126); ANION GAP 7 (5-19); ASPARTATE AMINO TRANSFERASE 16 U/L (14-36); BILIRUBIN,DIRECT 0.2 mg/dL (0.0-0.4); BILIRUBIN,TOTAL 0.4 mg/dL (0.2-1.3); BLOOD UREA NITROGEN 16 mg/dL (7-20); CARBON DIOXIDE 32 mmol/L (22-30); CHLORIDE 100 mmol/L (98-107); GLUCOSE 79 mg/dL (75-110); POTASSIUM 3.8 mmol/L (3.6-5.0); TOTAL PROTEIN 7.4 g/dL (6.3-8.2)
== END ==
LOC: OD 07:06
PROVIDERS: ATTEND Physician Assistant
DX: R76.9 Abnormal immunological finding in serum, unspecified (principal)
CPT/HCPCS: 36415; 80053; 85025

== ENCOUNTER → 2019-01-04 | Outpatient (CLI) | payer BC ==
--- NOTE | 2019-01-04 15:20 | RADIOLOGY REPORT (SQ) ---
EXAM DESCRIPTION: U/S THYROID/SFT TISS HD NECK COMPLETED DATE/TIME: 01/04/2019 2:50 pm REASON FOR STUDY: R94.6 ABNORMAL RESULTS OF THYROID FUNCTION STUDIES R94.6 ABNORMAL RESULTS OF THYR OID FUNCTION STUDIES COMPARISON: None. TECHNIQUE: Dynamic and static mcintosh-scale images acquired of the thyroid gland. Selected additional c olor/power Doppler images recorded. All images stored to PACS. LIMITATIONS: None. FINDINGS: RIGHT LOBE: Normal size. The gland is heterogeneous in echotexture. No cystic or solid m asses. LEFT LOBE: Normal size. The gland is heterogeneous in echotexture. No cystic or solid masses. ISTHMUS: Normal size. Heterogeneous echotexture. No cystic or solid masses. OTHER: No other significant finding. IMPRESSION: Heterogeneous echotexture throughout. No focal lesions. TECHNICAL DOCUMENTATION: JOB ID: [id number] [employer]- All Rights Reserved Reading location - IP/workstation name: [email or web address]
== END ==
LOC: RAD 14:09
PROVIDERS: ATTEND Physician Assistant
DX: R94.6 Abnormal results of thyroid function studies (principal)
CPT/HCPCS: 76536

== ENCOUNTER → 2019-01-12 | Outpatient (CLI) | payer BC ==
--- NOTE | 2019-01-12 16:11 | RADIOLOGY REPORT (SQ) ---
EXAM DESCRIPTION: SACROILIAC JOINTS 3 OR MORE COMPLETED DATE/TIME: 01/12/2019 2:09 pm REASON FOR STUDY: M19.90 UNSPECIFIED OSTEOARTHRITIS, UNSPECIFIED SITE M19.90 UNSPECIFIED OSTEOARTHR ITIS, UNSPECIFIED SITE COMPARISON: None. NUMBER OF VIEWS: Three views. TECHNIQUE: AP and oblique views of the sacroiliac joints. LIMITATIONS: None. FINDINGS: MINERALIZATION: Normal. BONES: No acute fracture or dislocation. No worrisome bone lesions. No significant osteophytes. JOINTS: The sacroiliac joints are patent. No unusual widening, sclerosis, or fusion. SOFT TISSUES: No soft tissue swelling. No radio-opaque foreign body. OTHER: No other significant finding. IMPRESSION: NORMAL STUDY OF THE SACROILIAC JOINTS. TECHNICAL DOCUMENTATION: JOB ID: [id number] [employer]- All Rights Reserved Reading location - IP/workstation name: [email or web address]
[2019-01-12 16:43] LABS: ABSOLUTE EOSINOPHILS # (AUTO) 0.2 10^3/uL (0.0-0.6); ABSOLUTE LYMPHOCYTES (AUTO) 1.8 10^3/uL (0.5-4.7); ABSOLUTE MONOCYTES (AUTO) 0.6 10^3/uL (0.1-1.4); BASOPHILS % (AUTO) 0.5 % (0-2); EOSINOPHILS % (AUTO) 1.8 % (0-6); HEMATOCRIT 41.2 % (36.0-47.0); HEMOGLOBIN 13.6 g/dL (12.0-15.5); LYMPHOCYTES % (AUTO) 20.6 % (13-45); MEAN CORPUSCULAR HEMOGLOBIN 28.2 pg (27.0-33.4); MEAN CORPUSCULAR HGB CONC 33.1 g/dL (32.0-36.0); MEAN CORPUSCULAR VOLUME 85 fl (80-97); MONOCYTES % (AUTO) 7.3 % (3-13); PLATELET COUNT 253 10^3/uL (150-450); RED BLOOD COUNT 4.83 10^6/uL (3.72-5.28); RED CELL DISTRIBUTION WIDTH 14.9 % (11.5-14.0); SEGMENTED NEUTROPHILS % (AUTO) 69.8 % (42-78); TOTAL CELLS COUNTED % (AUTO) 100 %; WHITE BLOOD COUNT 8.6 10^3/uL (4.0-10.5)
[2019-01-12 17:08] LABS: ALBUMIN 4.7 g/dL (3.5-5.0); ALKALINE PHOSPHATASE 47 U/L (38-126); ANION GAP 8 (5-19); ASPARTATE AMINO TRANSFERASE 19 U/L (14-36); BILIRUBIN,DIRECT 0.1 mg/dL (0.0-0.4); BILIRUBIN,TOTAL 0.3 mg/dL (0.2-1.3); BLOOD UREA NITROGEN 18 mg/dL (7-20); CALCIUM 9.9 mg/dL (8.4-10.2); CARBON DIOXIDE 32 mmol/L (22-30); CHLORIDE 98 mmol/L (98-107); GLUCOSE 81 mg/dL (75-110); POTASSIUM 3.9 mmol/L (3.6-5.0); TOTAL PROTEIN 7.4 g/dL (6.3-8.2)
[2019-01-12 17:11] LABS: C-REACTIVE PROTEIN < 5.0 mg/L (<10.0)
[2019-01-12 17:21] LABS: ERYTHROCYTE SEDIMENTATION RATE 13 mm/hr (0-20)
== END ==
LOC: RAD 13:49
PROVIDERS: ATTEND Internal Medicine
DX: M19.90 Unspecified osteoarthritis, unspecified site (principal); Z79.899 Other long term (current) drug therapy
CPT/HCPCS: 36415; 72202; 80053; 85025; 85652; 86140; 86812

== ENCOUNTER → 2019-03-18 | Outpatient (CLI) | payer BC ==
[2019-03-18 12:16] LABS: FREE T3 4.09 pg/mL (2.77-5.27); FREE T4 (FREE THYROXINE) 1.03 ng/dL (0.78-2.19)
[2019-03-18 12:30] LABS: THYROID STIMULATING HORMONE 0.79 uIU/mL (0.47-4.68)
== END ==
LOC: LB 10:29
PROVIDERS: ATTEND Internal Medicine
DX: M45.6 Ankylosing spondylitis lumbar region (principal); R53.82 Chronic fatigue, unspecified
CPT/HCPCS: 36415; 84439; 84443; 84481

== ENCOUNTER → 2019-05-13 | Outpatient (CLI) | payer BC ==
[2019-05-13 10:01] LABS: ANION GAP 10 (5-19); BLOOD UREA NITROGEN 15 mg/dL (7-20); CALCIUM 9.6 mg/dL (8.4-10.2); CARBON DIOXIDE 31 mmol/L (22-30); CHLORIDE 97 mmol/L (98-107); GLUCOSE 87 mg/dL (75-110); POTASSIUM 3.9 mmol/L (3.6-5.0)
[2019-05-13 10:20] LABS: FREE T3 3.07 pg/mL (2.77-5.27); FREE T4 (FREE THYROXINE) 1.03 ng/dL (0.78-2.19)
[2019-05-13 10:34] LABS: THYROID STIMULATING HORMONE 1.78 uIU/mL (0.47-4.68)
[2019-05-14 12:44] LABS: THYROTROPIN RECEPTOR AB <1.10 IU/L (0.00-1.75)
[2019-05-15 13:28] LABS: THYROID PEROXIDASE (TPO) AB 17 IU/mL (0-34)
== END ==
LOC: OD 07:45
PROVIDERS: ATTEND Physician Assistant Medical
DX: E07.89 Other specified disorders of thyroid (principal); R94.6 Abnormal results of thyroid function studies; R63.5 Abnormal weight gain
CPT/HCPCS: 36415; 80048; 82024; 82533; 83036; 83519; 84436; 84439; 84443; 84481; 86376

== ENCOUNTER → 2019-08-08 | Outpatient (CLI) | payer BC ==
--- NOTE | 2019-08-08 08:38 | ER RDC ASSESSMENT REPORT ---
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 --Where?: [facility] - Symptoms Subjective Fever([place] feverish): Yes --How many day(s)?: 3 Chills: Yes Muscule Aches: No Runny Nose: No Sore Throat: No Cough (New or worsening chronic cough): No Shortness of breath: Yes Nausea or Vomiting: No Headache: No Abdominal Pain: No Diarrhea(3 or more loose stools in last 24 hours): Yes --How many day(s)?: 1 - Do you have any of the following Cystic Fibrosis: No Diabetes: No High Blood Pressure: Yes High Blood Pressure Comment: 131/72 Cardiovascular Disease: Yes Chronic Kidney Disease: No Chronic Liver Disease: No Chronic blood disorder like Sickle Cell Disease: No Weak immune system due to disease or medication: Yes Immune System Comment: arthritis Neurologic condition that limits movement: No Developmental delay - Moderate to Severe: No Morbid Obesity (>100 pounds over ideal weight): No - Objective Temperature: 97.6 F Pulse Rate: 85 Blood Pressure: 131/72 O2 Sat by Pulse Oximetry: 99 Objective: Given above, testing performed: If Testing Performed: Test Specimen Type Sent to General - General Chief Complaint: Shortness Of Breath Stated Complaint: tight lungs Time Seen by Provider: 08/08/19 08:51 Information source: Patient Notes: 34-year-old female planing of tightness in her chest subjective fever the patient was evaluated during the global Covid 19 pandemic, and that diagnosis was suspected/considered upon their initial presentation. Their evaluation, treatment and testing was consistent with current guidelines for patients who present with complaints or symptoms that may be related to Covid 19. - HPI Onset: Last week Quality of pain: No pain Severity: None Pain Level: Denies Associated symptoms: Shortness of breath Similar symptoms previously: Yes Recently seen / treated by doctor: No - Related Data Allergies/Adverse Reactions: No Known Allergies Allergy (Verified 03/21/16 13:08) Past Medical History - General Information source: Patient - Social History Smoking Status: Never Smoker Lives with: Family Family History: Reviewed & Not Pertinent - Past Medical History Cardiac Medical History: Reports: Hx Hypertension Pulmonary Medical History: Reports: None EENT Medical History: Reports: None Neurological Medical History: Reports: None Endocrine Medical History: Reports: None Renal/ Medical History: Reports: None Malignancy Medical History: Reports: None GI Medical History: Reports: None Musculoskeletal Medical History: Reports Hx Arthritis - On Humira x2 weeks Skin Medical History: Reports None Psychiatric Medical History: Reports: None Traumatic Medical History: Reports: None Infectious Medical History: Reports: None Past Surgical History: Reports: Hx Section Physical Exam - Notes Notes: PHYSICAL EXAMINATION: GENERAL: Well-appearing, well-nourished and in no acute distress. HEAD: Atraumatic, normocephalic. EYES: Pupils equal round extraocular movements intact, conjunctiva are normal. ENT: Nares patent mild swelling with clear drainage and postnasal drip NECK: Normal range of motion LUNGS: No respiratory distress lungs clear to auscultation Musculoskeletal: Normal range of motion NEUROLOGICAL: Normal speech, normal gait. PSYCH: Normal mood, normal affect. SKIN: Warm, Dry, normal turgor, no rashes or lesions noted. Diagnostic Results Laboratory Results: Influenza a and B and strep were negative The patient was evaluated during the global Covid 19 pandemic, and that diagnosis was suspected/considered upon their initial presentation. Their evaluation, treatment and testing was consistent with current guidelines for patients who present with complaints or symptoms that may be related to Covid 19. Patient presents with upper respiratory symptoms worrisome for possible Covid 19. Patient does not have emergency worring symptoms such as difficulty breathing, pressure, confusion or cyanosis. Patient appears suitable for discharge Patient's vital signs are stable and patient is nontoxic in appearance. Good return precautions have been discussed with patient, patient verbalized understanding and is agreeable with discharge plan of care at this time. Patient Education/Counseling Counseling/Education: Patient was provided with discharge information including: As a person under investigation for Covid 19, the [place] department of Health and Human Services, division of public health advises you to adhere to the following guidance until your test results are reported to you. If your test result is positive, you will receive additional information from your provider and your local health department at that time. Remain at home until you are cleared by the health provider or public health authorities. Keep a log of visitors to your home, notify any visitors to your home of your isolation status. If you plan to move to a new address or leave the county, notify the local health department in your County. Call your doctor or seek care if you have an urgent medical need. Before see [facility], call ahead to get instructions from the provider before arriving at the medical office clinic or hospital. Notify them that you are being tested for the virus that causes Covid 19 so that arrangements can be made, as necessary, to prevent transmission to others in the healthcare setting. Next, notify the local health department in your county. If a medical emergency arises and you need to call 911, inform the first responders that you are being tested for the virus that causes Covid 19. Next, notify the local health department in your county. RDC Discharge - Discharge Clinical Impression: Viral infection Condition: Stable Disposition: Home; Selfcare
[2019-08-08 08:54] VITALS: BP 131/72
[2019-08-08 09:42] LABS: A TYPE INFLUENZA AG NEGATIVE (NEGATIVE); B INFLUENZA AG NEGATIVE (NEGATIVE)
== END ==
LOC: RDC 08:15
PROVIDERS: ATTEND Nurse Practitioner Family
DX: B34.9 Viral infection, unspecified (principal); R06.02 Shortness of breath; Z20.828 Contact with and (suspected) exposure to other viral communicable diseases; R07.89 Other chest pain; R50.9 Fever, unspecified; R19.7 Diarrhea, unspecified; I10 Essential (primary) hypertension; M13.80 Other specified arthritis, unspecified site
CPT/HCPCS: 87070; 87635; 87804; 87880; 99211

== ENCOUNTER → 2019-10-21 | Outpatient (CLI) | payer BC ==
[2019-10-21 08:23] LABS: ABSOLUTE EOSINOPHILS # (AUTO) 0.1 10^3/uL (0.0-0.6); ABSOLUTE LYMPHOCYTES (AUTO) 1.3 10^3/uL (0.5-4.7); ABSOLUTE MONOCYTES (AUTO) 0.5 10^3/uL (0.1-1.4); ABSOLUTE NEUT (AUTO) 5.1 10^3/uL (1.7-8.2); BASOPHILS % (AUTO) 0.5 % (0-2); EOSINOPHILS % (AUTO) 1.8 % (0-6); HEMATOCRIT 38.3 % (36.0-47.0); HEMOGLOBIN 13.1 g/dL (12.0-15.5); LYMPHOCYTES % (AUTO) 19.1 % (13-45); MEAN CORPUSCULAR HEMOGLOBIN 27.7 pg (27.0-33.4); MEAN CORPUSCULAR HGB CONC 34.1 g/dL (32.0-36.0); MEAN CORPUSCULAR VOLUME 81 fl (80-97); MONOCYTES % (AUTO) 7.1 % (3-13); PLATELET COUNT 220 10^3/uL (150-450); RED BLOOD COUNT 4.72 10^6/uL (3.72-5.28); RED CELL DISTRIBUTION WIDTH 14.3 % (11.5-14.0); SEGMENTED NEUTROPHILS % (AUTO) 71.5 % (42-78); TOTAL CELLS COUNTED % (AUTO) 100 %; WHITE BLOOD COUNT 7.1 10^3/uL (4.0-10.5)
[2019-10-21 08:53] LABS: ALBUMIN 4.5 g/dL (3.5-5.0); ALKALINE PHOSPHATASE 48 U/L (38-126); ANION GAP 7 (5-19); ASPARTATE AMINO TRANSFERASE 17 U/L (14-36); BILIRUBIN,TOTAL 0.5 mg/dL (0.2-1.3); BLOOD UREA NITROGEN 17 mg/dL (7-20); C-REACTIVE PROTEIN 9.4 mg/L (<10.0); CALCIUM 9.6 mg/dL (8.4-10.2); CARBON DIOXIDE 28 mmol/L (22-30); CHLORIDE 102 mmol/L (98-107); GLUCOSE 95 mg/dL (75-110); POTASSIUM 4.2 mmol/L (3.6-5.0); TOTAL PROTEIN 7.4 g/dL (6.3-8.2)
[2019-10-21 09:02] LABS: FREE T3 3.57 pg/mL (2.77-5.27); FREE T4 (FREE THYROXINE) 1.04 ng/dL (0.78-2.19)
[2019-10-21 09:07] LABS: ERYTHROCYTE SEDIMENTATION RATE 22 mm/hr (0-20)
[2019-10-21 09:15] LABS: THYROID STIMULATING HORMONE 2.25 uIU/mL (0.47-4.68)
[2019-10-24 10:48] LABS: TESTOSTERONE FREE (DIRECT) 3.7 pg/mL (0.0-4.2)
== END ==
LOC: OD 07:20
PROVIDERS: ATTEND Internal Medicine
DX: E07.89 Other specified disorders of thyroid (principal); L65.8 Other specified nonscarring hair loss; M45.6 Ankylosing spondylitis lumbar region; Z79.899 Other long term (current) drug therapy
CPT/HCPCS: 36415; 80048; 80076; 84402; 84403; 84439; 84443; 84481; 85025; 85652; 86140

== ENCOUNTER → 2019-12-27 | Outpatient (CLI) | payer BC ==
[2019-12-27 08:50] LABS: ANION GAP 10 (5-19); BLOOD UREA NITROGEN 16 mg/dL (7-20); CALCIUM 9.6 mg/dL (8.4-10.2); CARBON DIOXIDE 31 mmol/L (22-30); CHLORIDE 99 mmol/L (98-107); GLUCOSE 98 mg/dL (75-110); POTASSIUM 4.2 mmol/L (3.6-5.0)
[2019-12-27 08:57] LABS: FREE T3 3.88 pg/mL (2.77-5.27); FREE T4 (FREE THYROXINE) 0.95 ng/dL (0.78-2.19)
[2019-12-27 09:11] LABS: THYROID STIMULATING HORMONE 2.48 uIU/mL (0.47-4.68)
== END ==
LOC: OD 07:14
PROVIDERS: ATTEND Internal Medicine Endocrinology, Diabetes & Metabolism
DX: E05.90 Thyrotoxicosis, unspecified without thyrotoxic crisis or storm (principal)
CPT/HCPCS: 36415; 80048; 84402; 84403; 84439; 84443; 84481

== ENCOUNTER → 2020-02-02 | Outpatient (CLI) | payer BC ==
[2020-02-02 08:50] LABS: ABSOLUTE EOSINOPHILS # (AUTO) 0.1 10^3/uL (0.0-0.6); ABSOLUTE LYMPHOCYTES (AUTO) 1.2 10^3/uL (0.5-4.7); ABSOLUTE MONOCYTES (AUTO) 0.4 10^3/uL (0.1-1.4); ABSOLUTE NEUT (AUTO) 4.6 10^3/uL (1.7-8.2); BASOPHILS % (AUTO) 0.5 % (0-2); EOSINOPHILS % (AUTO) 1.4 % (0-6); HEMOGLOBIN 13.2 g/dL (12.0-15.5); LYMPHOCYTES % (AUTO) 18.4 % (13-45); MEAN CORPUSCULAR HEMOGLOBIN 27.3 pg (27.0-33.4); MEAN CORPUSCULAR HGB CONC 33.8 g/dL (32.0-36.0); MEAN CORPUSCULAR VOLUME 81 fl (80-97); MONOCYTES % (AUTO) 7.1 % (3-13); PLATELET COUNT 245 10^3/uL (150-450); RED BLOOD COUNT 4.84 10^6/uL (3.72-5.28); SEGMENTED NEUTROPHILS % (AUTO) 72.6 % (42-78); TOTAL CELLS COUNTED % (AUTO) 100 %; WHITE BLOOD COUNT 6.4 10^3/uL (4.0-10.5)
[2020-02-02 09:18] LABS: ALBUMIN 4.6 g/dL (3.5-5.0); ALKALINE PHOSPHATASE 53 U/L (38-126); ANION GAP 9 (5-19); ASPARTATE AMINO TRANSFERASE 22 U/L (14-36); BILIRUBIN,DIRECT 0.2 mg/dL (0.0-0.4); BILIRUBIN,TOTAL 0.5 mg/dL (0.2-1.3); BLOOD UREA NITROGEN 13 mg/dL (7-20); C-REACTIVE PROTEIN 6.6 mg/L (<10.0); CALCIUM 9.6 mg/dL (8.4-10.2); CARBON DIOXIDE 30 mmol/L (22-30); CHLORIDE 101 mmol/L (98-107); GLUCOSE 93 mg/dL (75-110); POTASSIUM 4.2 mmol/L (3.6-5.0); TOTAL PROTEIN 7.4 g/dL (6.3-8.2)
[2020-02-02 09:32] LABS: ERYTHROCYTE SEDIMENTATION RATE 19 mm/hr (0-20)
== END ==
LOC: OD 07:58
PROVIDERS: ATTEND Internal Medicine
DX: M45.6 Ankylosing spondylitis lumbar region (principal); Z79.899 Other long term (current) drug therapy
CPT/HCPCS: 36415; 80053; 85025; 85652; 86140

== ENCOUNTER → 2020-03-19 | Outpatient (CLI) | payer BC ==
[2020-03-19 10:11] LABS: FREE T3 4.18 pg/mL (2.77-5.27); FREE T4 (FREE THYROXINE) 0.99 ng/dL (0.78-2.19)
[2020-03-19 10:25] LABS: THYROID STIMULATING HORMONE 1.72 uIU/mL (0.47-4.68)
== END ==
LOC: OD 07:55
PROVIDERS: ATTEND Physician Assistant Medical
DX: E07.89 Other specified disorders of thyroid (principal)
CPT/HCPCS: 36415; 84439; 84443; 84481

== ENCOUNTER → 2020-04-30 | Outpatient (CLI) | payer BC ==
[~2020-04-30] MED LIST: COVID-19 VACCINE (PFIZER)/PF 30 MCG/0.3 ML VIAL IM ONE; EPINEPHRINE INJ/PF 1 MG/1 ML AMPULE IM PRN
== END ==
LOC: EMPHEALTH 12:59
PROVIDERS: ATTEND Internal Medicine
DX: Z23 Encounter for immunization (principal)
CPT/HCPCS: 91300

== ENCOUNTER → 2020-05-21 | Outpatient (CLI) | payer BC | LOC: EMPHEALTH 13:09 | PROVIDERS: ATTEND Internal Medicine | DX: Z23 Encounter for immunization (principal) | CPT/HCPCS: 91300 ==